=== PATIENT | female | born 1935 | race Caucasian/White ===

== ENCOUNTER → 2019-03-26 08:45 | Outpatient (BNVA) | payer MEDICARE, OTHER, SELFPAY | PROVIDERS: Family Provider Family Medicine; PCP Family Medicine; Visit Provider Specialist | DX: I25.5 Ischemic cardiomyopathy (principal); I73.9 Peripheral vascular disease, unspecified; Z87.891 Personal history of nicotine dependence; Z86.73 Personal history of transient ischemic attack (TIA), and cerebral infarction without residual deficits | CPT/HCPCS: 99214 ==

== ENCOUNTER 2019-04-03 10:14 | Outpatient (CLI) | payer MEDICARE, OTHER, SELFPAY ==
--- NOTE | 2019-04-03 10:15 | USCV_ITS ---
Irma Reid Age: 83 Gender: F : 1935 Exam Date: 04/03/2019 10:38 Ordering Phys: Purvi Mae MD Technologist: Padma Reed [place] [facility] [place]: CARDIOMYOPATHY BP: / HR: 65 Rhythm: Sinus Technical Quality: Adequate MEASUREMENTS (Male / Female) Normal Values 2D ECHO LV Diastolic Diameter PLAX 4.4 cm 4.2 - 5.9 / 3.9 - 5.3 cm LV Systolic Diameter PLAX 3.4 cm LV Chamber Size 4.5 cm IVS Diastolic Thickness 1.5 cm 0.6 - 1.0 / 0.6 - 0.9 cm IVS Systolic Thickness 1.6 cm LVPW Diastolic Thickness 1.2 cm 0.6 - 1.0 / 0.6 - 0.9 cm LVPW Systolic Thickness 1.2 cm RV Chamber Size 3.4 cm LVOT Diameter 2.0 cm LV Ejection Fraction 2D Teich 44.4 % LV Ejection Fraction MOD 2C 35.6 % LV Ejection Fraction 2C AL 38.9 % LA Diameter 3.8 cm LA Width 4.0 cm LA Height 4.5 cm RA Width 3.4 cm RA Height 3.7 cm M-MODE LV Diastolic Diameter MM 5.8 cm 4.2 - 5.9 / 3.9 - 5.3 cm LV Systolic Diameter MM 4.0 cm LV Ejection Fraction MM Teich 59.7 % IVS Diastolic Thickness MM 1.1 cm 0.6 - 1.0 / 0.6 - 0.9 cm IVS Systolic Thickness MM 1.3 cm LVPW Diastolic Thickness MM 1.1 cm 0.6 - 1.0 / 0.6 - 0.9 cm LVPW Systolic Thickness MM 1.1 cm RV Diastolic Diameter MM 1.1 cm Aortic Annulus Diameter 2.8 cm LA Ao Ratio MM 1.4 MV E Point Septal Separation 0.9 cm DOPPLER AV Peak Velocity 141.0 cm/s LVOT Peak Velocity 86.0 cm/s AV Area Cont Eq vti 2.0 cm squared AV Area Cont Eq pk 2.0 cm squared MV Area PHT 3.1 cm squared Mitral E to A Ratio 0.6 MV E' Velocity 8.0 cm/s Mitral E to MV E' Ratio 9.0 Mitral E to LV E' Lateral Ratio 9.1 Mitral E to LV E' Septal Ratio 9.0 TR Peak Velocity 254.2 cm/s TR Peak Gradient 25.9 mmHg TR Mean Velocity 190.2 cm/s TR Mean Gradient 16.5 mmHg TR Velocity Time Integral 69.0 cm TV Peak E Velocity 53.0 cm/s Right Atrial Pressure 8.0 mmHg Pulmonary Artery Systolic Pressu 33.8 mmHg PV Peak Velocity 45.0 cm/s FINDINGS Left Ventricle Normal left ventricular cavity size. Mild left ventricular hypertrophy. Lower limit of normal left ventricular function. No wall motion disturbances. Ejection fraction approximately 50%. Grade 1 diastolic dysfunction. Right Ventricle Normal right ventricular size and systolic function. Normal right ventricular systolic pressure. Right Atrium Moderately increased right atrial size. Left Atrium Moderately increased left atrial size. Mitral Valve Thickened mitral valve. Mild mitral valve prolapse. Moderate mitral valve regurgitation. Aortic Valve Structurally normal trileaflet aortic valve. Mild aortic valve calcification. Aortic valve sclerosis without stenosis or regurgitation. Tricuspid Valve Tricuspid valve not well visualized. Mild tricuspid valve regurgitation. Pulmonic Valve Pulmonic valve not well visualized. Pericardium Normal pericardium without effusion. Aorta Normal ascending aorta dimension. CONCLUSIONS Normal left ventricular cavity size. Mild left ventricular hypertrophy. Lower limit of normal left ventricular function. No wall motion disturbances. Ejection fraction approximately 50%. Grade 1 diastolic dysfunction. Moderately increased right atrial size. Moderately increased left atrial size. Thickened mitral valve. Mild mitral valve prolapse. Moderate mitral valve regurgitation. There are no prior echocardiogram studies to compare. Dr. Hernan Ac MD (Electronically Signed) Final Date: 03 April 2019 16:29 S
== END 2019-04-03 10:15 | disposition home or self-care (01) ==
LOC: RAD 10:16
PROVIDERS: Family Provider Family Medicine; PCP Family Medicine; Visit Provider Specialist
DX: I42.9 Cardiomyopathy, unspecified (principal); I34.1 Nonrheumatic mitral (valve) prolapse; I34.0 Nonrheumatic mitral (valve) insufficiency
CPT/HCPCS: 93306

== ENCOUNTER 2019-04-17 10:05 | Outpatient (CLI) | payer MEDICARE, OTHER, SELFPAY ==
--- NOTE | 2019-04-17 10:15 | USCV_ITS ---
Irma Reid Age: 83 Gender: F : 1935 Exam Date: 04/17/2019 10:07 Ordering Phys: Purvi Mae MD Technologist: [place] [facility] [place]: CLAUDICATION RIGHT LEFT Brachial 166.00 mmHg Brachial 172.00 mmHg Pressure (mmHg) Waveform Pressure (mmHg) Waveform 172.00 Below Knee 184.00 155.00 BABCOCK TESTER 163.00 0.00 DPA 167.00 0.90 Ankle/Brachial Index 0.97 45.00 Pre-Exercise Toe Pressure 128.00 0.26 Pre-Exercise Toe/Brachial Index 0.74 FINDINGS Slightly diminished resting ALEXSANDER on the right side Normal resting ALEXSANDER on the left side Normal resting TBI on the left side Abnormal resting TBI on the right side No Doppler flow signals in the dorsalis pedis artery on the right side CONCLUSIONS 1. 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 Normal ALEXSANDER and TBI on the left side, suggesting no significant arterial obstruction. 3. No previous studies available for comparison. Dr Sami Mccall MD [facility] (Electronically Signed) Final Date: 17 April 2019 20:55 S
== END 2019-04-17 10:06 | disposition home or self-care (01) ==
LOC: RAD 10:06
PROVIDERS: Family Provider Family Medicine; PCP Family Medicine; Visit Provider Specialist
DX: I73.9 Peripheral vascular disease, unspecified (principal)
CPT/HCPCS: 93923

== ENCOUNTER 2019-04-29 09:31 | Outpatient (CLI) | payer MEDICARE, OTHER, SELFPAY ==
--- NOTE | 2019-04-29 10:00 | CT_ITS ---
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 MIP and volume rendering imaging has also been performed. All images are reviewed. All C T scans at [facility] use at least one of these dose optimization techniques: automated ex posure control; mA and/or kV adjustment per patient size (includes targeted exams where dose is match ed to clinical indication); or iterative reconstruction. Contrast: Visipaque 320; 95 mL IV. DLP: 932.89 mGycm COMPARISON: None available. Infrarenal aorta at the bifurcation is intact. There is heavy calcification involving the proximal co mmon iliac arteries. There is heavy calcified plaque throughout the common iliac, internal and information systems professor al iliac arteries. RIGHT lower extremity arterial system: Heavy calcified plaque beginning at the common iliac artery th rough the internal and external iliac arteries and femoral artery. Multifocal areas of moderate to se heladio stenosis. There is near complete occlusion involving the proximal SFA. Additional area of signif icant stenosis at Sarthak's canal and through the popliteal artery. Intermittently visualized three-ve ssel runoff to the ankle. At the ankle there is very poor visualization of the arteries. The distal a nterior tibial artery is not identified on the distal tibia. LEFT lower extremity to system: Heavy calcified plaque involving the proximal common iliac artery thr ough the internal and extra iliac arteries. High-grade stenosis involving the mid SFA with additional moderate stenosis in the distal SFA and popliteal artery. Poor runoff to the ankle. Very poor visual ization of the anterior posterior tibial and peroneal arteries beyond the mid tibia. ESTIMATED AREAS OF significant STENOSIS: 1. RIGHT external iliac artery 67%. 2. RIGHT proximal SFA 72%. 3. RIGHT popliteal artery 91%. 4. LEFT common iliac artery 64%. 5. LEFT external iliac artery 71%. 6. LEFT mid SFA 78%. 7. LEFT popliteal artery 88%. Status post longstem RIGHT femoral arthroplasty causing significant beam hardening. CT/[place] [id number] IMPRESSION: 1. Multifocal areas of significant arterial stenosis throughout the iliac lyndsey carmen to the popliteal arteries as above. 2. Most significant stenosis on the RIGHT is 91% in the popliteal artery with additional areas of significant stenosis. 3. Most significant stenosis on the LEFT is 88% involving the LEFT popliteal a rtery. 4. Limited runoff to the ankles bilaterally.
[2019-04-29 10:40] LABS: Blood Urea Nitrogen 18 mg/dL (8-23)
[2019-04-29] MEDS: iodixanol 320 mg/mL 100mL Btl IV (13:45)
== END 2019-04-29 09:32 | disposition home or self-care (01) ==
LOC: RADWPI 09:39
PROVIDERS: Family Provider Family Medicine; PCP Family Medicine; Visit Provider Specialist
DX: I70.293 Other atherosclerosis of native arteries of extremities, bilateral legs (principal); I70.92 Chronic total occlusion of artery of the extremities
CPT/HCPCS: 73706; 82565; 84520; Q9967

== ENCOUNTER 2019-06-23 13:15 | Inpatient (IN) | payer MEDICARE, OTHER, SELFPAY ==
[2019-06-23] VITALS (22 sets, daily range): BP systolic 149–187; BP diastolic 69–115; PULSE 64–108; RESP 6–24; TEMP 36.5; O2SAT 86–98; BMI 15.7
--- NOTE | 2019-06-23 13:21 | XR_ITS ---
WS: [id number] PORTABLE CHEST HISTORY: cough COMPARISON: 08/19/2018 Marked pulmonary hyperexpansion. No pneumonia. Normal vasculature. No pleural effusion or pneumothora x. Cardiac size: Mildly enlarged cardiac silhouette. Mediastinum/Aorta: Mild atherosclerosis aorta. Severe osteopenia. XR/XR chest 1V portable [id number] IMPRESSION: Severe emphysema. No pneumonia.
--- NOTE | 2019-06-23 13:21 | CTR_ITS ---
PROCEDURE INFORMATION: Exam: CT Head Without Contrast Exam date and time: 06/23/2019 1:47 PM Age: 83 years old Clinical indication: Injury or trauma; Initial encounter; Blunt trauma (contusions or hematomas); Consciousness not specified; Patient HX: C/O dizziness, weakness and fall this am; Additional info: Villalpando/ams TECHNIQUE: Imaging protocol: Computed tomography of the head without contrast. Total DLP: 876.47 mGy-cm Radiation optimization: All CT scans at this facility use at least one of these dose optimization techniques: automated exposure control; mA and/or kV adjustment per patient size (includes targeted exams where dose is matched to clinical indication); or iterative reconstruction. COMPARISON: CTA Head/Neck [id number] 01/31/2019 2:23 PM FINDINGS: Brain: No acute intracranial mass or bleed evident. No apparent change from 01/31/2019. Mild generalized cerebral atrophy. Foci of chronic right superior frontal and left parietal lobe encephalomalacia, stable. 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 Punctate left basal ganglion calcification. Moderate amount of chronic appearing cerebral hemisphere subcortical and periventricular white matter low-density due to chronic small vessel disease. Ventricles: Prominent ventricles due to cerebral atrophy, unchanged. Bones/joints: Unremarkable. No acute fracture. Sinuses: Visualized sinuses are unremarkable. No fluid levels. Mastoid air cells: Visualized mastoid air cells are well aerated. Soft tissues: Unremarkable. CT/CT head wo con* [id number] IMPRESSION: No acute process evident. Chronic findings unchanged from 01/31/2019. Radiation Dose CTDIVOL = (mGy): DLP = 876.47 (mGy-cm)
--- NOTE | 2019-06-23 13:21 | CTR_ITS ---
PROCEDURE INFORMATION: Exam: CT Chest With Contrast Exam date and time: 06/23/2019 1:47 PM Age: 83 years old Clinical indication: Injury or trauma; Fall; Initial encounter; Generalized; Blunt trauma (contusions or hematomas); Patient HX: C/O n/v/d, weakness and fell this am injury to sternum area TECHNIQUE: Imaging protocol: Computed tomography of the chest with intravenous contrast. Total DLP: 979.82 mGy-cm Radiation optimization: All CT scans at this facility use at least one of these dose optimization techniques: automated exposure control; mA and/or kV adjustment per patient size (includes targeted exams where dose is matched to clinical indication); or iterative reconstruction. Contrast material: VISI 320; Contrast volume: 75 ml; Contrast route: 20G; COMPARISON: CT abdomen pelvis con [id number] 08/19/2018 12:47 PM FINDINGS: Lungs: Unremarkable. No consolidation. No masses. Pleural space: No pleural effusion. No pneumothorax. Heart: No cardiomegaly. No pericardial effusion. Aorta: No aortic aneurysm. Lymph nodes: No significant adenopathy. Bones/joints: No acute findings. Old sternal fracture. Soft tissues: No acute findings. IMPRESSION: No acute findings. PROCEDURE INFORMATION: Exam: CT Abdomen And Pelvis With Contrast Exam date and time: 06/23/2019 1:47 PM Age: 83 years old Clinical indication: Injury or trauma; Fall; Initial encounter; Generalized; Blunt trauma (contusions or hematomas); Patient HX: C/O n/v/d, weakness and fell this am injury to sternum area TECHNIQUE: Imaging protocol: Computed tomography of the abdomen and pelvis with intravenous contrast. Total DLP: 979.82 mGy-cm Radiation optimization: All CT scans at this facility use at least one of these dose optimization techniques: automated exposure control; mA and/or kV adjustment per patient size (includes targeted exams where dose is matched to clinical indication); or iterative reconstruction. Contrast material: VISI 320; Contrast volume: 75 ml; Contrast route: 20G; COMPARISON: CT abdomen pelvis con [id number] 08/19/2018 12:47 PM FINDINGS: Liver: No mass. 2.5 cm cyst. Gallbladder and bile ducts: Unremarkable. No ductal dilation. Pancreas: No acute findings. No ductal dilation. Spleen: Normal. No splenomegaly. Adrenals: Normal. No mass. Kidneys and ureters: Normal. No hydronephrosis. Stomach and bowel: No acute findings. No obstruction. No mucosal thickening. Appendix: No evidence of appendicitis. Intraperitoneal space: Unremarkable. No free air. No significant fluid collection. Vasculature: No abdominal aortic aneurysm. Lymph nodes: No significant adenopathy. Bladder: Unremarkable as visualized. Reproductive: Unremarkable as visualized. Bones/joints: Right hip prosthesis, metallic artifact. Lumbar levoscoliosis and degenerative change. No acute fracture. Soft tissues: Unremarkable. CT/CT chest abd pel w con* IMPRESSION: No acute findings. Radiation Dose CTDIVOL = (mGy): DLP = 979.82~979.82 (mGy-cm)
--- NOTE | 2019-06-23 13:23 | W.ED.GENADLT ---
HPI - General Adult General: Chief complaint: Dizziness Stated complaint: DIZZY; FALL Time Seen by Provider: 06/23/19 13:18 History of Present Illness: HPI narrative: Irma is a nice 83-year-old female who states that she has had vomiting and diarrhea since early this morning. She woke up about 1 AM and did not feel good and at 5 AM she got up when she felt like she needed to vomit. She denies any chest pain or shortness of breath but does have abdominal cramping. She is now gotten to the point she is so weak that she fell at home striking her chest against a wall. Associated symptoms: Reports nausea and vomiting; Deny chest pain, confusion, diaphoresis, dyspnea, headache(s), malaise, rash, palpitations or syncope Review of Systems General: Reports: other (negative unless marked) Const: Denies: fever, chills, body aches, malaise or diaphoresis Eyes: Denies: change in vision or blurry vision ENMT: Denies: throat pain, painful swallowing, hoarseness, ear pain, ear discharge, Change in hearing or nasal discharge Card: Denies: chest pain, palpitations, irregular heart rhythm, syncope, pre-syncope, shortness of breath on exertion or shortness of breath when lying down Resp: Denies: shortness of breath, productive cough, non-productive cough, wheezing, coughing up blood or chest congestion GI: Reports: abdominal pain, nausea, vomiting, diarrhea and cramping; Denies: vomiting blood, coffee grounds in vomit, constipation, blood in stool or black tarry stool : Denies: flank pain, painful urination, urinary frequency, urinary urgency, decreased urine ouput, urinary incontinence or blood in urine Musc: Denies: neck pain, back pain, extremity pain, extremity swelling, joint pain, joint swelling, joint warmth or joint stiffness Skin/Breast: Denies: rash, skin tenderness or yellow skin Neuro: Denies: headache, numbness in extremities, weakness in extremities, changes in sensation, lack of coordination, difficulty walking, dizziness, vertigo or confusion Endo: Denies: excessive thirst, tired all the time, cold intolerance, excessive sweating, flushing or hot flashes Jarret/Lymph: Denies: easy bruising, easy bleeding, petechiae or enlarged lymph nodes All/Imm: Denies: hives, throat swelling, tongue swelling, facial swelling or acute wheezing PFSH ED PFSH: Medical History Atypical chest pain Benign essential HTN Carotid artery stenosis with cerebral infarction over 8 weeks ago Had CVA in August 2018-is being followed by Dr. Mae Cerebral vascular accident Chronic heart failure Hyperlipemia Hypertension Kidney calculi Myocardial infarct Family History Denies family history of Diabetes CAD (coronary artery disease) Cancer Hypertension Stroke Social History Smoking and tobacco status: former smoker Alcohol intake: current Alcohol intake frequency: few times a month Alcohol type: wine Physical Exam Const: COMMON NORMALS: no apparent distress, oriented x3, no limitations, healthy appearing and well nourished EXAM LIMITATIONS: no altered mental status GENERAL APPEARANCE: cooperative, well kempt and well developed ORIENTATION/CONSCIOUSNESS: Yes awake HENMT: COMMON NORMALS: normocephalic, head/scalp atraumatic, hearing grossly normal bilaterally, external ears normal, EAC's normal, external nose normal and moist oral mucous membranes HEAD & SCALP: normal to inspection, normocephalic and atraumatic FACE & SINUS: normal facial exam and face symmetric NOSE: external nose normal and nares normal EXTERNAL EAR: Yes external ears normal EXTERNAL AUDITORY CANAL: EAC's normal MOUTH: oral and palatal mucosa normal and tongue normal Eye: COMMON NORMALS: PERRL, EOMs intact bilaterally, conjunctivae normal and no scleral icterus GENERAL EYE: normal appearance of both eyes and normal light reflex CONJUNCTIVA: Yes conjunctivae normal SCLERA: sclerae normal CORNEA: Yes corneas normal PUPIL: Yes PERRL DIRECT OPHTHALMOSCOPY: Yes normal light reflex Neck/C-Spine: COMMON NORMALS: full ROM, no lymphadenopathy, supple, no meningeal signs and no JVD GENERAL: Yes normal visual inspection and Yes trachea midline CERVICAL SPINE: Yes cervical ROM normal Chest: CHEST: Yes localized rib tenderness with anteroposterior compression (With bruising noted over left mid chest.) Resp: COMMON NORMALS: normal respiratory effort, no retractions, no use of accessory muscles and clear to auscultation bilaterally EFFORT & INSPECTION: Yes able to speak in complete sentences AUSCULTATION: clear to auscultation bilaterally Cardio: COMMON NORMALS: no JVD, regular rate, regular rhythm, S1 normal heart sound, S2 normal heart sound, no gallops, no clicks, no murmurs and no rub JUGULAR VENOUS DISTENTION: no JVD RATE: regular rate RHYTHM: regular rhythm HEART SOUNDS: S1 normal and S2 normal GI: COMMON NORMALS: soft to palpation, non-tender, no hepatosplenomegaly and no masses INSPECTION: Yes normal to inspection PALPATION: Yes soft and Yes no hepatosplenomegaly : COMMON NORMALS: Yes no CVA tenderness BLADDER/KIDNEY EXAM: Yes no CVA tenderness Back/Pelvis: COMMON NORMALS: no CVA tenderness, thoracic and lumbar spine normal to inspection, no thoracic nor lumbar tenderness and thoraco-lumbar ROM normal Extremity: COMMON NORMALS: normal to inspection, full ROM, normal capillary refill, no joint enlargement, no clubbing, cyanosis or edema and no calf tenderness Neuro: COMMON NORMALS: oriented x3, CN's II-XII intact bilaterally, moves all extremities, no focal motor deficits and no sensory deficits noted MENINGEAL SIGNS: Yes no meningeal signs Psych: COMMON NORMALS: mental status grossly normal, thought process normal, cooperative, affect normal, speech normal and activity/motor behavior normal APPEARANCE: Yes well kempt SPEECH: Yes normal speech THOUGHT PROCESS: normal thought process Skin: COMMON NORMALS: no rashes or lesions noted, skin turgor normal, no jaundice, no petechiae and no mottling GENERAL SKIN EXAM: no rashes or lesions noted and turgor normal Course Vital Signs: Vital signs: Vital Signs Temperature 97.7 F 06/23/19 13:17 Pulse Rate 72 06/23/19 13:35 Respiratory Rate 16 06/23/19 13:17 Blood Pressure 175/99 06/23/19 13:35 Pulse Oximetry 95 06/23/19 13:17 [facility] - General Adult Lab Data: Labs: Lab Results 06/23/19 06/23/19 06/23/19 Range/Units 13:30 13:30 13:30 WBC 6.1 (4.0-10.0) 10^3/ uL RBC 3.33 L (4.1-5.3) 10^6/u L Hgb 7.4 L (11.5-15.3) g/dL Hct 25.3 L (37.0-47.0) % MCV 76.0 L (81-99) fL MCH 22.2 L (28.0-34.0) pg MCHC 29.2 L (30.0-36.0) g/dL RDW 16.2 H (12.1-15.1) % Plt Count 465 H (130-400) 10^3/c mm MPV 8.6 (7.4-10.4) fL Neut % (Auto) 63.8 % Lymph % (Auto) 21.4 % [place] % (Auto) 13.5 % Eos % (Auto) 0.2 % Baso % (Auto) 0.8 % Neut # (Auto) 3.9 (1.8-7.7) 10^3/u L Lymph # (Auto) 1.3 (0.8-4.8) 10^3/u L [place] # (Auto) 0.8 (0.2-0.9) 10^3/u L Eos # (Auto) 0.0 (0.0-0.8) 10^3/u L Baso # (Auto) 0.1 (0.0-0.1) 10^3/u L Nucleated RBC % (a uto) 0 % Nucleated RBCs # 0.0 /100WBC Sodium 131 L (136-145) mmol/L Potassium 3.8 (3.5-5.1) mmol/L Chloride 93 L (98-107) mmol/L Carbon Dioxide 23 (22-29) mmol/L Anion Gap 18.8 (5-19) BUN 25 H (8-23) mg/dL Creatinine 1.2 H (0.5-0.9) mg/dL Glucose 117 H (65-115) mg/dL Calculated Osmolal ity 270 L (285-295) mOsm/k g Lactic Acid 1.7 (0.5-2.2) mmol/L Calcium 9.7 (8.5-10.5) mg/dL Total Bilirubin 0.3 (0.15-1.2) mg/dL AST 24 (0-32) U/L ALT 16 (0-33) U/L Alkaline Phosphata se 56 (35-105) IU/L Troponin T Baselin e (0-10) ng/mL Troponin T 120 Min [place] (0-10) ng/mL Total Protein 8.0 (6.6-8.7) g/dL Albumin 4.6 (3.5-5.2) g/dL Globulin 3.4 (1.3-4.6) g/dL Lipase 73 H (13-60) U/L Urine Color (Yellow) Urine Appearance (CLEAR) Urine pH (5-7) Ur Specific Gravit y (1.005-1.030) Urine Protein (Negative) Urine Glucose (UA) (Normal) Urine Ketones (Negative) Urine Blood (Negative) Urine Nitrate (Negative) Urine Bilirubin (NEGATIVE) Urine Urobilinogen (Negative) mg/dL Ur Leukocyte Eli ase (Negative) Urine RBC (0-2) /hpf Urine WBC (0-5) /hpf Ur Squamous Epith Cells (0-5) Urine Bacteria (NONE) Blood Type Rho(D) Type Antibody Screen Crossmatch 06/23/19 06/23/19 06/23/19 Range/Units 13:30 13:50 14:14 WBC (4.0-10.0) 10^3/ uL RBC (4.1-5.3) 10^6/u L Hgb (11.5-15.3) g/dL Hct (37.0-47.0) % MCV (81-99) fL MCH (28.0-34.0) pg MCHC (30.0-36.0) g/dL RDW (12.1-15.1) % Plt Count (130-400) 10^3/c mm MPV (7.4-10.4) fL Neut % (Auto) % Lymph % (Auto) % [place] % (Auto) % Eos % (Auto) % Baso % (Auto) % Neut # (Auto) (1.8-7.7) 10^3/u L Lymph # (Auto) (0.8-4.8) 10^3/u L [place] # (Auto) (0.2-0.9) 10^3/u L Eos # (Auto) (0.0-0.8) 10^3/u L Baso # (Auto) (0.0-0.1) 10^3/u L Nucleated RBC % (a uto) % Nucleated RBCs # /100WBC Sodium (136-145) mmol/L Potassium (3.5-5.1) mmol/L Chloride (98-107) mmol/L Carbon Dioxide (22-29) mmol/L Anion Gap (5-19) BUN (8-23) mg/dL Creatinine (0.5-0.9) mg/dL Glucose (65-115) mg/dL Calculated Osmolal ity (285-295) mOsm/k g Lactic Acid (0.5-2.2) mmol/L Calcium (8.5-10.5) mg/dL Total Bilirubin (0.15-1.2) mg/dL AST (0-32) U/L ALT (0-33) U/L Alkaline Phosphata se (35-105) IU/L Troponin T Baselin e 20 H (0-10) ng/mL Troponin T 120 Min [place] (0-10) ng/mL Total Protein (6.6-8.7) g/dL Albumin (3.5-5.2) g/dL Globulin (1.3-4.6) g/dL Lipase (13-60) U/L Urine Color Yellow (Yellow) Urine Appearance Clear (CLEAR) Urine pH 7 (5-7) Ur Specific Gravit y 1.010 (1.005-1.030) Urine Protein Neg (Negative) Urine Glucose (UA) Norm (Normal) Urine Ketones Negative (Negative) Urine Blood Neg (Negative) Urine Nitrate Negative (Negative) Urine Bilirubin Neg (NEGATIVE) Urine Urobilinogen Norm (Negative) mg/dL Ur Leukocyte Eli ase Negative (Negative) Urine RBC None (0-2) /hpf Urine WBC None (0-5) /hpf Ur Squamous Epith Cells None (0-5) Urine Bacteria 1+ H (NONE) Blood Type A Negative Rho(D) Type Negaive Antibody Screen Negative Crossmatch See Detail 06/23/19 Range/Units 15:30 WBC (4.0-10.0) 10^3/ uL RBC (4.1-5.3) 10^6/u L Hgb (11.5-15.3) g/dL Hct (37.0-47.0) % MCV (81-99) fL MCH (28.0-34.0) pg MCHC (30.0-36.0) g/dL RDW (12.1-15.1) % Plt Count (130-400) 10^3/c mm MPV (7.4-10.4) fL Neut % (Auto) % Lymph % (Auto) % [place] % (Auto) % Eos % (Auto) % Baso % (Auto) % Neut # (Auto) (1.8-7.7) 10^3/u L Lymph # (Auto) (0.8-4.8) 10^3/u L [place] # (Auto) (0.2-0.9) 10^3/u L Eos # (Auto) (0.0-0.8) 10^3/u L Baso # (Auto) (0.0-0.1) 10^3/u L Nucleated RBC % (a uto) % Nucleated RBCs # /100WBC Sodium (136-145) mmol/L Potassium (3.5-5.1) mmol/L Chloride (98-107) mmol/L Carbon Dioxide (22-29) mmol/L Anion Gap (5-19) BUN (8-23) mg/dL Creatinine (0.5-0.9) mg/dL Glucose (65-115) mg/dL Calculated Osmolal ity (285-295) mOsm/k g Lactic Acid (0.5-2.2) mmol/L Calcium (8.5-10.5) mg/dL Total Bilirubin (0.15-1.2) mg/dL AST (0-32) U/L ALT (0-33) U/L Alkaline Phosphata se (35-105) IU/L Troponin T Baselin e (0-10) ng/mL Troponin T 120 Min [place] 19.50 H (0-10) ng/mL Total Protein (6.6-8.7) g/dL Albumin (3.5-5.2) g/dL Globulin (1.3-4.6) g/dL Lipase (13-60) U/L Urine Color (Yellow) Urine Appearance (CLEAR) Urine pH (5-7) Ur Specific Gravit y (1.005-1.030) Urine Protein (Negative) Urine Glucose (UA) (Normal) Urine Ketones (Negative) Urine Blood (Negative) Urine Nitrate (Negative) Urine Bilirubin (NEGATIVE) Urine Urobilinogen (Negative) mg/dL Ur Leukocyte Eli ase (Negative) Urine RBC (0-2) /hpf Urine WBC (0-5) /hpf Ur Squamous Epith Cells (0-5) Urine Bacteria (NONE) Blood Type Rho(D) Type Antibody Screen Crossmatch Imaging Data^: CXR: Radiologist's impression: No acute cardiopulmonary findings. Discharge Plan Discharge Prescriptions: No Action levothyroxine 50 mcg capsule 50 mcg PO DAILY RF: 0 ergocalciferol (vitamin D2) [Vitamin D2] 1,250 mcg (50,000 unit) capsule 50,000 unit PO Q7D RF: 0 cilostazol 50 mg tablet 50 mg PO BID Qty: 180 RF: 3 chlorthalidone 25 mg tablet 25 mg PO DAILY Qty: 90 RF: 3 hydralazine 50 mg tablet 75 mg PO TID Qty: 405 RF: 3 Lasix 20 mg Tablet 20 mg PO DAILY RF: 0 metoprolol tartrate 25 mg tablet 25 mg PO BID RF: 0 Tylenol 1 - 2 tab PO PRN RF: 0 atorvastatin 20 mg tablet 20 mg PO DAILY RF: 0 clopidogrel 75 mg tablet 75 mg PO DAILY RF: 0 Coding Level of Care Code ED Sr. Director Product Management for Chg Fwd Exam Comprehensive
--- NOTE | 2019-06-23 13:24 | ECG_ITS ---
Measurements Intervals [place] Rate: 73 P: 74 [place]: 169 QRS: -35 QRSD: 94 T: 41 QT: 422 QTc: 466 SINUS RHYTHM WITH FREQUENT VENTRICULAR PREMATURE COMPLEXES POSSIBLE LEFT ATRIAL ENLARGEMENT [-0.1mV P WAVE IN V1/V2] MARKED LEFT AXIS DEVIATION [QRS AXIS < -30] POSSIBLE RIGHT VENTRICULAR CONDUCTION DELAY [RSR (QR) IN V1/V2] ANTEROSEPTAL MYOCARDIAL INFARCTION [40+ ms Q WAVE IN V1-V4], OF INDETERMINATE AGE Compared to ECG 12/05/2018 14:20:17 No significant changes Electronically Signed On 06-23-2019 20:24:47 CDT by Sami Mccall M.D. [id number]
[2019-06-23 13:34] LABS: Basophils # 0.1 10^3/uL (0.0-0.1); Basophils % 0.8 %; Eosinophils % 0.2 %; Hematocrit 25.3 % (37.0-47.0); Hemoglobin 7.4 g/dL (11.5-15.3); Lymphocytes # 1.3 10^3/uL (0.8-4.8); Lymphocytes % 21.4 %; Mean Corpuscular HGB Conc 29.2 g/dL (30.0-36.0); Mean Corpuscular Hemoglobin 22.2 pg (28.0-34.0); Mean Platelet Volume 8.6 fL (7.4-10.4); Monocytes # 0.8 10^3/uL (0.2-0.9); Monocytes % 13.5 %; Neutrophils # 3.9 10^3/uL (1.8-7.7); Neutrophils % 63.8 %; Nucleated Red Blood Cells % 0 %; Platelet Count 465 10^3/cmm (130-400); Red Blood Count 3.33 10^6/uL (4.1-5.3); Red Cell Distribution Width 16.2 % (12.1-15.1); White Blood Count 6.1 10^3/uL (4.0-10.0)
--- NOTE | 2019-06-23 13:36 | PC.NURSE ---
Patient unable to stand for BP for orthostatic vitals
[2019-06-23 13:52] LABS: Alanine Aminotransferase 16 U/L (0-33); Albumin Level 4.6 g/dL (3.5-5.2); Alkaline Phosphatase 56 IU/L (35-105); Anion Gap 18.8 (5-19); Aspartate Amino Transferase 24 U/L (0-32); Blood Urea Nitrogen 25 mg/dL (8-23); Calcium 9.7 mg/dL (8.5-10.5); Carbon Dioxide 23 mmol/L (22-29); Chloride 93 mmol/L (98-107); Globulin 3.4 g/dL (1.3-4.6); Glucose 117 mg/dL (65-115); Lipase 73 U/L (13-60); Osmolality Calculated 270 mOsm/kg (285-295); Potassium 3.8 mmol/L (3.5-5.1); Sodium 131 mmol/L (136-145); Total Bilirubin 0.3 mg/dL (0.15-1.2)
[2019-06-23 13:53] LABS: Lactic Sepsis W/Reflex 1.7 mmol/L (0.5-2.2)
[2019-06-23 13:55] LABS: Troponin(5th) Baseline 20 ng/mL (0-10)
[2019-06-23 14:13] LABS: Add Urine Culture? No; Bacteria Urine 1+; Bilirubin Urine Neg (NEGATIVE); Blood Urine Neg (Negative); Glucose Urine UA Norm (Normal); Ketones Urine Negative (Negative); Leukocyte Esterase Urine Negative (Negative); Nitrate Urine Negative (Negative); Protein Urine Neg (Negative); Urine Appearance Clear (CLEAR); Urine Color Yellow (Yellow); Urobilinogen Urine Norm (Negative); pH Urine 7 (5-7)
[2019-06-23] MEDS: iodixanol 320 mg/mL 100mL Btl IV (14:22)
[2019-06-23] MEDS: sodium chloride 0.9% 1,000 ML 999 ML IV (14:38)
--- NOTE | 2019-06-23 15:24 | ECG_ITS ---
Measurements Intervals [place] Rate: 73 P: 74 [place]: 169 QRS: -35 QRSD: 94 T: 41 QT: 422 QTc: 466 SINUS RHYTHM WITH FREQUENT VENTRICULAR PREMATURE COMPLEXES POSSIBLE LEFT ATRIAL ENLARGEMENT [-0.1mV P WAVE IN V1/V2] MARKED LEFT AXIS DEVIATION [QRS AXIS < -30] POSSIBLE RIGHT VENTRICULAR CONDUCTION DELAY [RSR (QR) IN V1/V2] ANTEROSEPTAL MYOCARDIAL INFARCTION [40+ ms Q WAVE IN V1-V4], OF INDETERMINATE AGE Compared to ECG 12/05/2018 14:20:17 No significant changes [email or web address]
[2019-06-23] MEDS: pantoprazole 40 mg SDV 80 MG IVP (15:25)
--- NOTE | 2019-06-23 16:22 | PM.HP ---
Providers/Chief Complaint Admitting Physician: Noe Handley MD Primary Care Provider: Scooby Ignacio MD Chief Complaint: LOWER GI LAB History of Present Illness Irma Reid is a 83 year old female with a past medical history of nonischemic cardiomyopathy with an ejection fraction 50 %, diastolic heart failure, history of multiple CVAs, carotid artery stenosis, diffuse peripheral vascular disease, history of GI bleed with iron deficiency anemia, hypothyroidism, B12 deficiency, dyslipidemia, COPD, hypertension, nephrolithiasis who presents to the emergency room for complaints for frequent falls, weakness, malaise, poor appetite, weight loss. According to patient, a year ago she had a history of nephrolithiasis, with significant infection, requiring stent placement at [facility], since her discharge she has had a slow decline. She states that she has chronic falls, in the last month she is fallen 3 times, last fall was this morning, patient states that she got up from her bedroom, walked down the stairs, she felt nauseous, she actually vomited, was able to use the walker to get to her couch. Then roughly at noon, she got up from the couch, use her walker, to go over to the kitchen, when she got over to the kitchen, she felt lightheaded, and she fell forward, she does not remember exactly how she fell, but remembers being on the floor, was able to crawl to a chair, and was able to call her daughter, who advised her to call EMS. She does report a large area of bleeding on her chest, she thinks she hit her head, no headaches, no blurry vision, no nausea, no vomiting currently. Patient denies any preceding chest pain, shortness of breath, blackouts, but does report lightheadedness before the event. No seizure-like episodes reported. Patient states that she is fallen a few times this week, no significant bruising, no significant joint pain, no hip pain, no knee pain, no headaches, no blurry vision, no nausea, no vomiting. On arrival to the ED, patient was noted to have a hematoma of her on her chest, blood work revealed a hemoglobin of 7.3. Patient denies bloody or black stools, but does comment that she does not check. Denies vaginal bleeding. 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 She did have an EGD in the in the which showed gastric ulcers. Does state that she has been feeling weak, fatigued, tired over the last few months, has lost roughly 10 pounds without trying, has a good appetite but continues to lose weight. Patient states that she uses Plavix for a history of strokes, has been on Plavix for more than 5 years. Denies being on aspirin. Denies being on any other blood thinners Review of Systems Const: Reports: fatigue and malaise; Denies: fever or chills Eyes: Denies: change in vision or blurry vision ENMT: Denies: nasal congestion Card: Reports: lightheadedness; Denies: chest pain, palpitations, irregular heart rhythm, syncope, pre-syncope, shortness of breath on exertion or shortness of breath when lying down Resp: Denies: shortness of breath, productive cough, non-productive cough or wheezing GI: Reports: diarrhea; Denies: abdominal pain, nausea, vomiting, vomiting blood, constipation, blood in stool or black tarry stool : Denies: flank pain, painful urination or urinary frequency Musc: Denies: neck pain or back pain Skin/Breast: Denies: rash Neuro: Denies: headache, dizziness or vertigo Psych: Denies: anxiety or depression Endo: Denies: excessive urination or excessive thirst Medications/Allergies Home Medications Medication Instructions Recorded Confirmed Last Taken Type ergocalciferol (vitamin D2) 1,250 50,000 unit PO Q7D 03/26/19 06/23/19 Unknown History mcg (50,000 unit) capsule levothyroxine 50 mcg capsule 50 mcg PO DAILY 03/26/19 06/23/19 06/23/19 History chlorthalidone 25 mg tablet 25 mg PO DAILY #90 tab 06/05/19 06/23/19 06/23/19 Rx cilostazol 50 mg tablet 50 mg PO BID #180 tab 06/05/19 06/23/19 Unknown Rx hydralazine 50 mg tablet 75 mg PO TID #405 tab 06/11/19 06/23/19 Unknown Rx Tylenol 1 - 2 tab PO PRN 06/23/19 06/23/19 Unknown History atorvastatin 20 mg PO DAILY 06/23/19 06/23/19 Unknown History clopidogrel 75 mg PO DAILY 06/23/19 06/23/19 06/23/19 History furosemide [Lasix] 20 mg PO DAILY 06/23/19 06/23/19 06/23/19 History metoprolol tartrate 25 mg PO BID 06/23/19 06/23/19 Unknown History Allergies Allergy/AdvReac Type Severity Reaction Status Date / Time meperidine [From Demerol] Allergy unknown Verified 03/26/19 09:08 PFSH Acute PFSH: Medical History (Updated 06/23/19 @ 16:47 by Noe Handley MD) Atypical chest pain Benign essential HTN Carotid artery stenosis with cerebral infarction over 8 weeks ago Had CVA in August 2018-is being followed by Dr. Mae Cerebral vascular accident Chronic heart failure Hyperlipemia Hypertension Kidney calculi Myocardial infarct Surgical History (Updated 06/23/19 @ 16:32 by Noe Handley MD) History of colonoscopy History of esophagogastroduodenoscopy (EGD) Family History (Updated 06/23/19 @ 16:32 by Noe Handley MD) Father Cancer, Onset Age: 90 Colon cancer Denies family history of Diabetes CAD (coronary artery disease) Hypertension Stroke Social History Smoking and tobacco status: former smoker Alcohol intake: current Alcohol intake frequency: few times a month Alcohol type: wine Vitals/I&O/Wt Last Vital Signs Temp 97.7 F 06/23/19 13:17 Pulse 72 06/23/19 13:35 Resp 16 06/23/19 13:17 BP 175/99 06/23/19 13:35 Pulse Ox 95 06/23/19 13:17 Weight last 48 hrs Weight 41.73 kg Physical Exam Const: COMMON NORMALS: no apparent distress and oriented x3 GENERAL APPEARANCE: cooperative and comfortable HENMT: COMMON NORMALS: normocephalic HEAD & SCALP: normocephalic Eye: COMMON NORMALS: PERRL, EOMs intact bilaterally and no papilledema GENERAL EYE: normal appearance of both eyes PUPIL: Yes PERRL DIRECT OPHTHALMOSCOPY: Yes no papilledema Neck/C-Spine: COMMON NORMALS: full ROM, no lymphadenopathy, no JVD and thyroid normal THYROID: thyroid normal Lymph: LYMPHATIC: no lymphadenopathy noted Chest: OTHER: 3 x 3 cm chest hematoma, not actively bleeding Resp: COMMON NORMALS: normal respiratory effort, no retractions, no use of accessory muscles and clear to auscultation bilaterally AUSCULTATION: clear to auscultation bilaterally Cardio: COMMON NORMALS: no JVD, regular rate, regular rhythm, S1 normal heart sound, S2 normal heart sound, no gallops, no clicks and no murmurs RATE: regular rate RHYTHM: regular rhythm HEART SOUNDS: S1 normal and S2 normal GI: COMMON NORMALS: normal to inspection, nondistended, normoactive bowel sounds, soft to palpation, non-tender and no hepatosplenomegaly PALPATION: Yes soft and Yes no hepatosplenomegaly OTHER: Evidence of weight loss Extremity: COMMON NORMALS: normal to inspection, full ROM and no pedal edema Neuro: COMMON NORMALS: oriented x3, CN's II-XII intact bilaterally, moves all extremities and no focal motor deficits Psych: COMMON NORMALS: mental status grossly normal, thought process normal and cooperative THOUGHT PROCESS: normal thought process Data : 06/23/19 13:30 06/23/19 13:30 A&P Assessment and plan (1) GI bleed: -Has a history of precancerous colonic polyps since she was 32, has undergone multiple colonoscopies, last colonoscopy was when she was 77 which was normal, does have a family history of colon cancer in his father in his 90s -Has had any EGD in the , had gastric ulcers -Is on Plavix for history of CVAs -Has complaints of weakness, fatigue, falls, weight loss -In 2016 had admission for pneumonia, was found to be anemic, hemoglobin 6.3, EGD and colonoscopy were considered but was felt to be too a high risk for the procedure, there was plans on outpatient procedures, however patient did not follow-up -Hemoglobin on admission 7.4, BUN 25 -Hemoccult grossly positive for blood -CT scan of the abdomen no acute findings -Blood pressure on admission 140/86, heart rates in the 70s, hemodynamically stable -Anemia likely secondary to GI bleed, differential includes upper GI bleed related to peptic ulcer disease and or lower GI bleed related to colonic polyps and/or possible colon cancer, but multiple and other etiologies possible Plan: -Admit to intensive care unit -Serial hemoglobins every 6 hours -Monitor hemodynamics closely -Monitor for bloody or black stools -Protonix 40 mg IV twice daily -will receive 2 units of blood, check hemoglobin after -Iron studies, cea, B12 folate -I had an extensive discussion with patient about the possibility of an EGD and colonoscopy, but at this time patient declines, states that she has had too many of those done, and would not like to have it done unless it is urgently required -I discussed with patient my concerns for the possibility of an upper GI bleed possibly surgical interventions could decrease her bleeding, patient understands risks and benefits, voiced understanding, refuses for now unless emergently required -I discussed with patient my concerns for lower GI bleed, possible surgical interventions could decrease her bleeding, or detect early precancerous polyp, or early colon cancer, that could significantly reduce her morbidity and mortality, patient voiced understanding, all questions answered, refuses for now unless urgently required -I advised patient that there are risks of doing EGD and colonoscopy, given her ischemic cardiomyopathy, risks of surgical procedure, risk of anesthesia, risk of morbidity mortality associated, risk of adverse events, she voiced understanding, all questions answered, will hold off work for now -Patient will consider doing an outpatient EGD and colonoscopy -I briefly spoke with , who agreed with medical management, surgical interventions could be entertained if urgently required Status: Acute (2) Acute kidney injury: Gentle IV hydration given nonischemic cardiomyopathy Status: Acute (3) Nonischemic cardiomyopathy: Echocardiogram in March 2019 showed CONCLUSIONS Normal left ventricular cavity size. Mild left ventricular hypertrophy. Lower limit of normal left ventricular function. No wall motion disturbances. Ejection fraction approximately 50%. Grade 1 diastolic dysfunction. Moderately increased right atrial size. Moderately increased left atrial size. Thickened mitral valve. Mild mitral valve prolapse. Moderate mitral valve regurgitation. There are no prior echocardiogram studies to compare. Status: Acute (4) Benign essential HTN: Status: Acute (5) Chest wall hematoma: Monitor hemoglobin, monitor for bleeding, not a dirty wound, no need for Tdap Status: Acute (6) History of multiple cerebrovascular accidents (CVAs): -CTA of the head and neck done in January 2019 showed remote left parietal and right frontal infarct stable from 03/01/2018, additional remote left thalamic lacunar infarct and possible bilateral basal ganglia lacunar infarcts -Plavix currently on hold, understands risks and benefits, voiced understanding all questions answered, agreed to hold Status: Acute (7) Multiple falls: After GI bleed has resolved, will have PT OT evaluate patient Status: Acute (8) Physical deconditioning: Status: Acute (9) Peripheral vascular disease: CT angios of bilateral lower extremities in April 2019 showed IMPRESSION: 1. Multifocal areas of significant arterial stenosis throughout the iliac arteries to the popliteal arteries as above. 2. Most significant stenosis on the RIGHT is 91% in the popliteal artery with additional areas of significant stenosis. 3. Most significant stenosis on the LEFT is 88% involving the LEFT popliteal artery. 4. Limited runoff to the ankles bilaterally. 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
--- NOTE | 2019-06-23 16:27 | PC.NURSE ---
Attempted to call report. Was told by RN that primary nurse is not available at this time and would call back when available for report. Was called back by ICU railroad car cleaning supervisor seconds later and the same information was given.
[2019-06-23 17:04] LABS: Iron 11 ug/dL (37-145)
[2019-06-23 17:19] LABS: Folate Level 15.6 ng/mL (4.8-37.3)
[2019-06-23 17:20] LABS: Carcinoembryonic Antigen 2.8 ng/mL (0.0-4.7); Vitamin B12 227 pg/mL (232-1245)
[2019-06-23 17:31] LABS: Ferritin 15 ng/mL (15-150); Iron 11 ug/dL (37-145); Percent Saturation 3.2 % (20-50); Total Iron Binding Capacity 343 mcg/dl; Unsaturated Iron Binding 332 ug/dL (112-347)
--- NOTE | 2019-06-23 19:24 | ECG_ITS ---
Measurements Intervals [place] Rate: 73 P: 74 GA: 169 QRS: -35 QRSD: 94 T: 41 QT: 422 QTc: 466 SINUS RHYTHM WITH FREQUENT VENTRICULAR PREMATURE COMPLEXES POSSIBLE LEFT ATRIAL ENLARGEMENT [-0.1mV P WAVE IN V1/V2] MARKED LEFT AXIS DEVIATION [QRS AXIS < -30] POSSIBLE RIGHT VENTRICULAR CONDUCTION DELAY [RSR (QR) IN V1/V2] ANTEROSEPTAL MYOCARDIAL INFARCTION [40+ ms Q WAVE IN V1-V4], OF INDETERMINATE AGE Compared to ECG 12/05/2018 14:20:17 No significant changes [email or web address]
[2019-06-23] MEDS: lanolin oint 7 gm 1 APPLIC TOPICAL (19:30)
[2019-06-23] MEDS: dextrose 5%-sod chloride 0.9% 1,000 ML 50 ML IV (19:34)
[2019-06-23] MEDS: morphine 4 mg/mL SDV 1 mL 1 MG IVP ×2 (19:35→22:36)
[2019-06-23 20:05] LABS: Troponin 5 6HR 24.86 ng/mL (0-10); Troponin 5 6HR Delta 4.86 ng/L (0-12)
[2019-06-24] VITALS (53 sets, daily range): BP systolic 103–179; BP diastolic 54–110; PULSE 52–100; RESP 1–26; TEMP 36.5–37.1; O2SAT 80–99
[2019-06-24 00:01] LABS: Hemoglobin 8.1 g/dL (11.5-15.3)
[2019-06-24] MEDS: morphine 4 mg/mL SDV 1 mL 1 MG IVP ×2 (02:23→05:38)
[2019-06-24] MEDS: pantoprazole 40 mg SDV IVP ×2 (02:23→14:30)
[2019-06-24 04:08] LABS: Basophils % 0.5 %; Eosinophils # 0.1 10^3/uL (0.0-0.8); Eosinophils % 0.9 %; Hematocrit 26.4 % (37.0-47.0); Hemoglobin 8.2 g/dL (11.5-15.3); Lymphocytes # 1.2 10^3/uL (0.8-4.8); Lymphocytes % 21.8 %; Mean Corpuscular Hemoglobin 23.9 pg (28.0-34.0); Mean Platelet Volume 8.9 fL (7.4-10.4); Monocytes # 1.1 10^3/uL (0.2-0.9); Monocytes % 20.7 %; Neutrophils # 3.1 10^3/uL (1.8-7.7); Neutrophils % 55.9 %; Nucleated Red Blood Cells % 0 %; Platelet Count 383 10^3/cmm (130-400); Red Blood Count 3.43 10^6/uL (4.1-5.3); Red Cell Distribution Width 15.7 % (12.1-15.1); White Blood Count 5.5 10^3/uL (4.0-10.0)
[2019-06-24 04:24] LABS: Mean Corpuscular HGB Conc 31.1 g/dL (30.0-36.0)
[2019-06-24 04:28] LABS: Alanine Aminotransferase 12 U/L (0-33); Albumin Level 3.8 g/dL (3.5-5.2); Alkaline Phosphatase 45 IU/L (35-105); Anion Gap 13.8 (5-19); Aspartate Amino Transferase 20 U/L (0-32); Blood Urea Nitrogen 17 mg/dL (8-23); Calcium 8.7 mg/dL (8.5-10.5); Carbon Dioxide 24 mmol/L (22-29); Chloride 101 mmol/L (98-107); Globulin 2.6 g/dL (1.3-4.6); Glucose 106 mg/dL (65-115); Magnesium 2.3 mg/dL (1.7-2.3); Osmolality Calculated 279 mOsm/kg (285-295); Phosphorus 2.8 mg/dL (2.5-4.5); Sodium 136 mmol/L (136-145); Total Bilirubin 0.8 mg/dL (0.15-1.2); Total Protein 6.4 g/dL (6.6-8.7)
[2019-06-24 05:11] LABS: Potassium 2.8 mmol/L (3.5-5.1)
[2019-06-24] MEDS: potassium chloride premix 40 MEQ/100 ML PREMIX 25 MEQ IV (05:41)
[2019-06-24 06:04] LABS: Estmated Average Glucose 111; Hemoglobin A1C 5.5 % (4.0-6.0)
[2019-06-24 06:24] LABS: Hematocrit 26.2 % (37.0-47.0); Hemoglobin 8.1 g/dL (11.5-15.3)
--- NOTE | 2019-06-24 10:07 | PC.OT ---
OT note: From chart review pt has critically low value for potassium. Will hold at this time.
--- NOTE | 2019-06-24 10:51 | PC.NURSE ---
PATIENT IV IS PATENT HOWEVER EXTREMELY POSITIONAL ; USEFUL FOR SLOW IVP ONLY ; ANTONIA RUNNING AT 6ML/HR D/T PATIENT C/O BURNING PER NIGHT RN
--- NOTE | 2019-06-24 11:15 | P.PN_ITS ---
Subjective Subjective: Interval history: This morning patient is doing well, no significant complaints, no fevers, no chills, no cough, no chest pain, no shortness of breath, no bloody or black stools, no lightheadedness, no dizziness, would like to try to eat something, has not had a bowel movement Vitals/I&O/Wt Last Vital Signs Temp 97.7 F 06/24/19 08:00 Pulse 74 06/24/19 10:23 Resp 21 H 06/24/19 08:00 BP 159/72 06/24/19 08:00 Pulse Ox 95 06/24/19 10:23 06/23/19 06/24/19 06/24/19 22:59 06:59 14:59 Intake Total 1350 / 1350 763.333 / 763.333 Output Total 200 / 200 650 / 850 400 / 400 Balance 1150 / 1150 -650 / 500 363.333 / 363.333 Weight last 48 hrs Weight 41.73 kg Physical Exam Const: COMMON NORMALS: no apparent distress and oriented x3 HENMT: COMMON NORMALS: normocephalic HEAD & SCALP: normocephalic Neck/C-Spine: COMMON NORMALS: no JVD Resp: COMMON NORMALS: normal respiratory effort, no retractions, no use of accessory muscles and clear to auscultation bilaterally AUSCULTATION: clear to auscultation bilaterally Cardio: COMMON NORMALS: no JVD, regular rate, regular rhythm, S1 normal heart sound and S2 normal heart sound RATE: regular rate RHYTHM: regular rhythm HEART SOUNDS: S1 normal and S2 normal GI: COMMON NORMALS: normal to inspection, nondistended, normoactive bowel sounds, soft to palpation, non-tender, no hepatosplenomegaly, no masses and no bruits PALPATION: Yes soft and Yes no hepatosplenomegaly Extremity: COMMON NORMALS: normal capillary refill, no clubbing, cyanosis or edema, no calf tenderness and no pedal edema Neuro: COMMON NORMALS: oriented x3 Psych: COMMON NORMALS: mental status grossly normal Data : 06/24/19 06:10 06/24/19 02:57 A&P Assessment and plan (1) GI bleed: -Has a history of precancerous colonic polyps since she was 32, has undergone multiple colonoscopies, last colonoscopy was when she was 77 which was normal, does have a family history of colon cancer in his father in his 90s -Has had any EGD in the 1990s, had gastric ulcers -Is on Plavix for history of CVAs -Has complaints of weakness, fatigue, falls, weight loss -In 2016 had admission for pneumonia, was found to be anemic, hemoglobin 6.3, EGD and colonoscopy were considered but was felt to be too a high risk for the procedure, there was plans on outpatient procedures, however patient did not follow-up -Hemoglobin on admission 8.1, status post 2 units PRBC, she is down to 6 units of blood since November 2018 -Hemoccult grossly positive for blood -CT scan of the abdomen no acute findings - hemodynamically stable -Anemia likely secondary to GI bleed, differential includes upper GI bleed related to peptic ulcer disease and or lower GI bleed related to colonic polyps and/or possible colon cancer, but multiple and other etiologies possible Plan: -Admit to intensive care unit, hopefully de-escalate to general medical floors later in the afternoon if hemoglobin remained stable -Serial hemoglobins every 6 hours -Monitor hemodynamics closely -Monitor for bloody or black stools -Protonix 40 mg IV twice daily -Status post 2 units PRBC -Iron studies show iron deficiency anemia, IV Venofer 200 mg 5 treatments over 14 days -I had an extensive discussion with patient about the possibility of an EGD and colonoscopy, but at this time patient declines, states that she has had too many of those done, and would not like to have it done unless it is urgently required -I discussed with patient my concerns for the possibility of an upper GI bleed possibly surgical interventions could decrease her bleeding, patient understands risks and benefits, voiced understanding, refuses for now unless emergently required -I discussed with patient my concerns for lower GI bleed, possible surgical interventions could decrease her bleeding, or detect early precancerous polyp, or early colon cancer, that could significantly reduce her morbidity and mortality, patient voiced understanding, all questions answered, refuses for now unless urgently required -I advised patient that there are risks of doing EGD and colonoscopy, given her ischemic cardiomyopathy, risks of surgical procedure, risk of anesthesia, risk of morbidity mortality associated, risk of adverse events, she voiced understanding, all questions answered, will hold off work for now -Patient will consider doing an outpatient EGD and colonoscopy -I briefly spoke with , who agreed with medical management, surgical interventions could be entertained if urgently required Status: Acute (2) Acute kidney injury: Creatinine improved to 1.0 Status: Acute (3) Nonischemic cardiomyopathy: Echocardiogram in March 2019 showed CONCLUSIONS Normal left ventricular cavity size. Mild left ventricular hypertrophy. Lower limit of normal left ventricular function. No wall motion disturbances. Ejection fraction approximately 50%. Grade 1 diastolic dysfunction. Moderately increased right atrial size. Moderately increased left atrial size. Thickened mitral valve. Mild mitral valve prolapse. Moderate mitral valve regurgitation. There are no prior echocardiogram studies to compare. Status: Acute (4) Benign essential HTN: Status: Acute (5) Chest wall hematoma: Monitor hemoglobin, monitor for bleeding, not a dirty wound, no need for Tdap Status: Acute (6) History of multiple cerebrovascular accidents (CVAs): -CTA of the head and neck done in January 2019 showed remote left parietal and right frontal infarct stable from 03/01/2018, additional remote left thalamic lacunar infarct and possible bilateral basal ganglia lacunar infarcts -Plavix currently on hold, understands risks and benefits, voiced understanding all questions answered, agreed to hold Status: Acute (7) Multiple falls: After GI bleed has resolved, will have PT OT evaluate patient Status: Acute (8) Physical deconditioning: Status: Acute (9) Peripheral vascular disease: CT angios of bilateral lower extremities in April 2019 showed IMPRESSION: 1. Multifocal areas of significant arterial stenosis throughout the iliac arteries to the popliteal arteries as above. 2. Most significant stenosis on the RIGHT is 91% in the popliteal artery with additional areas of significant stenosis. 3. Most significant stenosis on the LEFT is 88% involving the LEFT popliteal artery. 4. Limited runoff to the ankles bilaterally. 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
[2019-06-24 11:41] LABS: Hematocrit 28.2 % (37.0-47.0); Hemoglobin 8.6 g/dL (11.5-15.3)
[2019-06-24] MEDS: hyDRALAzine 50 mg Tablet 75 MG PO ×2 (14:30→21:57)
[2019-06-24 14:41] LABS: INR 0.98 (0.8-1.2)
--- NOTE | 2019-06-24 14:51 | PM.CONSULT ---
Providers/Reason For Consult Consulting Physican/Specialty*: Juma Carbajal MD Reason for Consult*: GI bleed Attending Physician: Noe Handley MD Primary Care Provider: Scooby Ignacio MD History of Present Illness History of Present Illness Chief Complaint: I feel weak History of present illness: MS Irma Reid is a pleasant 83 year old female well-known to me from previous clinical encounter,patient presented to the emergency department with history of fall and had contusion on her chest with hemoglobin of 7.3 as patient has been on chronic Plavix with history of nonischemic cardiomyopathy and ejection fraction of 50% in addition to history of multiple CVAs and carotid artery and diffuse peripheral vascular disease. Patient was scoped before and had history of colon polyps and colon cancer of her father, general surgery was consulted initially for further evaluation for EGD and colonoscopy as she was tested heavily occult positive in stool per ED team, then upon further discussion between the hospitalist Dr. Casarez and the patient yesterday initially patient elected not to pursue any colonoscopies or endoscopy, today she had another conversation with Dr. Casarez after she did talk with her daughter and another close relative and she agreed to proceed with endoscopies in the form of diagnostic EGD and colonoscopy to rule out potential underlying GI etiology of her anemia. General surgery was consulted for potential evaluation and intervention Review of Systems General: Reports: 10 or more systems reviewed and unremarkable except in HPI and below Meds/Allergies Home Medications and Allergies Home Medications Medication Instructions Recorded Confirmed Last Taken Type ergocalciferol (vitamin D2) 1,250 50,000 unit PO Q7D 03/26/19 06/23/19 Unknown History mcg (50,000 unit) capsule levothyroxine 50 mcg capsule 50 mcg PO DAILY 03/26/19 06/23/19 06/23/19 History chlorthalidone 25 mg tablet 25 mg PO DAILY #90 tab 06/05/19 06/23/19 06/23/19 Rx cilostazol 50 mg tablet 50 mg PO BID #180 tab 06/05/19 06/23/19 Unknown Rx hydralazine 50 mg tablet 75 mg PO TID #405 tab 06/11/19 06/23/19 Unknown Rx Tylenol 1 - 2 tab PO PRN 06/23/19 06/23/19 Unknown History atorvastatin 20 mg PO DAILY 06/23/19 06/23/19 Unknown History clopidogrel 75 mg PO DAILY 06/23/19 06/23/19 06/23/19 History furosemide [Lasix] 20 mg PO DAILY 06/23/19 06/23/19 06/23/19 History metoprolol tartrate 25 mg PO BID 06/23/19 06/23/19 Unknown History Allergies Allergy/AdvReac Type Severity Reaction Status Date / Time meperidine [From Demerol] Allergy unknown Verified 06/24/19 14:54 Current Medications Current Medications Generic Name Dose Route Start Last Admin Trade Name Freq PRN Reason Stop Dose Admin Hydralazine HCl 75 mg 06/24/19 15:00 06/24/19 14:30 Apresoline PO 75 mg TID MO Administration Iron Sucrose 200 mg/ Sodium 110 mls @ 220 mls/hr 06/24/19 09:00 06/24/19 13:52 Chloride IV 06/29/19 08:59 Infused DAILY MO Infusion Lanolin 1 applic 06/23/19 19:05 06/23/19 19:30 Lanolin Oint TOPICAL 1 applic PRN PRN Administration DRYNESS Morphine Sulfate 1 mg 06/23/19 17:18 06/24/19 05:38 Morphine IVP 1 mg Q4H PRN Administration SEVERE PAIN Pantoprazole Sodium 40 mg 06/24/19 03:00 06/24/19 14:30 Protonix IVP 40 mg Q12H MO Administration PFSH Acute PFSH: Medical History (Updated 06/23/19 @ 16:47 by Noe Handley MD) Atypical chest pain Benign essential HTN Carotid artery stenosis with cerebral infarction over 8 weeks ago Had CVA in August 2018-is being followed by Dr. Mae Cerebral vascular accident Chronic heart failure Hyperlipemia Hypertension Kidney calculi Myocardial infarct Surgical History (Updated 06/23/19 @ 16:32 by Noe Handley MD) History of colonoscopy History of esophagogastroduodenoscopy (EGD) Family History (Updated 06/23/19 @ 16:32 by Noe Handley MD) Father Cancer, Onset Age: 90 Colon cancer Denies family history of Diabetes CAD (coronary artery disease) Hypertension Stroke Social History Smoking and tobacco status: former smoker Alcohol intake: current Alcohol intake frequency: few times a month Alcohol type: wine Vitals/I&O/Wt Last Vital Signs Temp 97.8 F 06/24/19 12:00 Pulse 75 06/24/19 12:00 Resp 23 H 06/24/19 12:00 BP 159/74 06/24/19 12:00 Pulse Ox 96 06/24/19 12:00 06/23/19 06/24/19 06/24/19 22:59 06:59 14:59 Intake Total 1350 / 1350 873.333 / 873.333 Output Total 200 / 200 650 / 850 400 / 400 Balance 1150 / 1150 -650 / 500 473.333 / 473.333 Weight last 48 hrs Weight 92 lb Physical Exam Narrative: EXAM NARRATIVE: Patient is conscious alert oriented X3 BMI 16 Head and neck examination PERRLA no masses no cervical lymphadenopathy no jaundice Cardiac examination audible S1-S2 no murmurs no gallops no arrhythmias Chest is clear bilateral,abscence of Rhonchi or wheezes,no surgical emphysema Abdomen nontender nondistended soft no organomegaly guarding or rigidity/no signs of peritonitis Extremities no cyanosis no clubbing no edema A&P Assessment and plan (1) GI bleed: Plan of care; After thorough history and physical examination and reviewing the chart, plan to perform a diagnostic esophagogastroduodenoscopy and diagnostic colonoscopy with possible biopsy and possible polypectomy Rationale was carefully and clearly discussed with the patient.Appropriate consent have been reviewed and signed Informed consent per chart were,Indications, risks, benefits, and alternatives were all discussed with the patient and did agree to proceed. Verbal instructions were given to the patient for colonoscopy prep We will coordinate with the hospital service about medical optimization and holding Plavix before the procedure Plan to perform the EGD and colonoscopy on 06/26/2019 Blood transfusion per hospitalist service Status: Acute Consult Attestations Medical Necessity Statement: Medical necessity care is expected to cross 2 midnights Time Spent in Patient Care: 16 - 35 minutes (>than 50% of time spent in counselling and/or direct pt care on unit). 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
[2019-06-24 17:52] LABS: Hematocrit 27.6 % (37.0-47.0); Hemoglobin 8.2 g/dL (11.5-15.3)
[2019-06-24] MEDS: sodium chloride 0.9% 1,000 ML 30 ML IV (18:26)
[2019-06-24] MEDS: metoprolol tartrate 25 mg Tablet PO (18:26)
[2019-06-24 23:01] LABS: Hematocrit 24.5 % (37.0-47.0); Hemoglobin 7.4 g/dL (11.5-15.3)
[2019-06-24] MEDS: sodium chloride 0.9% 100 ML (23:41)
[2019-06-25] VITALS (52 sets, daily range): BP systolic 111–165; BP diastolic 52–112; PULSE 47–83; RESP 8–25; TEMP 36.6–37.1; O2SAT 77–100
[2019-06-25] MEDS: pantoprazole 40 mg SDV IVP ×2 (03:48→16:08)
[2019-06-25 04:35] LABS: Basophils % 0.8 %; Eosinophils # 0.1 10^3/uL (0.0-0.8); Eosinophils % 2.3 %; Hematocrit 29.9 % (37.0-47.0); Hemoglobin 9.3 g/dL (11.5-15.3); Lymphocytes # 1.2 10^3/uL (0.8-4.8); Mean Corpuscular HGB Conc 31.1 g/dL (30.0-36.0); Mean Corpuscular Volume 77.3 fL (81-99); Mean Platelet Volume 8.9 fL (7.4-10.4); Monocytes # 1.2 10^3/uL (0.2-0.9); Monocytes % 22.6 %; Neutrophils # 2.7 10^3/uL (1.8-7.7); Neutrophils % 51.1 %; Nucleated Red Blood Cells % 0 %; Platelet Count 354 10^3/cmm (130-400); Red Blood Count 3.87 10^6/uL (4.1-5.3); Red Cell Distribution Width 16.8 % (12.1-15.1); White Blood Count 5.3 10^3/uL (4.0-10.0)
[2019-06-25 05:13] LABS: Alanine Aminotransferase 12 U/L (0-33); Albumin Level 3.8 g/dL (3.5-5.2); Alkaline Phosphatase 47 IU/L (35-105); Anion Gap 15.2 (5-19); Aspartate Amino Transferase 20 U/L (0-32); Blood Urea Nitrogen 11 mg/dL (8-23); Carbon Dioxide 23 mmol/L (22-29); Chloride 104 mmol/L (98-107); Globulin 2.8 g/dL (1.3-4.6); Glucose 95 mg/dL (65-115); Magnesium 2.3 mg/dL (1.7-2.3); Osmolality Calculated 284 mOsm/kg (285-295); Phosphorus 2.7 mg/dL (2.5-4.5); Potassium 3.2 mmol/L (3.5-5.1); Sodium 139 mmol/L (136-145); Total Bilirubin 0.6 mg/dL (0.15-1.2); Total Protein 6.6 g/dL (6.6-8.7)
[2019-06-25] MEDS: ondansetron 2 mg/ML SDV 2 mL 4 MG IVP (07:44)
[2019-06-25] MEDS: atorvastatin 40 mg Tablet 20 MG PO (07:44)
[2019-06-25] MEDS: levothyroxine 50 mcg Tablet PO (07:44)
[2019-06-25] MEDS: chlorthalidone 25 mg Tablet PO (07:44)
[2019-06-25] MEDS: hyDRALAzine 50 mg Tablet 75 MG PO ×3 (07:45→20:29)
[2019-06-25] MEDS: metoprolol tartrate 25 mg Tablet PO ×2 (07:46→16:11)
[2019-06-25] MEDS: peg /e-lyte soln 4,000 mL Btl 4000 ML PO (07:55)
[2019-06-25] MEDS: lanolin oint 7 gm 1 APPLIC TOPICAL (07:56)
[2019-06-25] MEDS: cyanocobalamin 1,000 mcg Tablet 1000 MCG PO (08:51)
--- NOTE | 2019-06-25 09:12 | PC.NURSE ---
patient calm and cooperative. discussed days plans for flushing of her bowels . bsc chair and wipes at bedside. tea flavor for the golytly giiven to help her get through it. she refuses her scds and teds but moves frequently. chest abrasion redressed due to soilage.
--- NOTE | 2019-06-25 10:35 | P.PN_ITS ---
Subjective Subjective: Interval history: She is working on bowel prep, although it is occasionally making her nauseated, sometimes gag. Having some abdominal discomfort across the upper abdomen. Denies any new complaints. Vitals/I&O/Wt Last Vital Signs Temp 98.0 F 06/25/19 08:30 Pulse 77 06/25/19 09:00 Resp 22 H 06/25/19 09:00 BP 160/65 06/25/19 09:00 Pulse Ox 98 06/25/19 09:00 06/24/19 06/25/19 06/25/19 22:59 06:59 14:59 Intake Total 100 / 973.333 350 / 1323.333 700 / 700 Output Total 100 / 500 350 / 850 125 / 125 Balance 0 / 473.333 0 / 473.333 575 / 575 Weight last 48 hrs Weight 41.73 kg Physical Exam Const: COMMON NORMALS: no apparent distress and oriented x3 GENERAL APPEARANCE: frail appearing HENMT: COMMON NORMALS: oropharynx normal Neck/C-Spine: COMMON NORMALS: no JVD Resp: COMMON NORMALS: normal respiratory effort and clear to auscultation bilaterally AUSCULTATION: clear to auscultation bilaterally Cardio: COMMON NORMALS: no JVD, regular rhythm, S1 normal heart sound, S2 normal heart sound and no murmurs RHYTHM: regular rhythm HEART SOUNDS: S1 normal and S2 normal GI: COMMON NORMALS: normal to inspection, nondistended, normoactive bowel sounds and soft to palpation PALPATION: Yes soft and Yes tender (Some tenderness on palpation of upper abdomen.) Extremity: COMMON NORMALS: no joint enlargement and no pedal edema Neuro: COMMON NORMALS: oriented x3 and moves all extremities Skin: COMMON NORMALS: no rashes or lesions noted GENERAL SKIN EXAM: no rashes or lesions noted OTHER: Thin, fragile skin. Data : 06/25/19 03:36 06/25/19 03:36 A&P Assessment and plan (1) GI bleed: She is working on prep. Awaiting EGD and colonoscopy tomorrow. Received additional 1 unit PRBC transfusion. Hemoglobin up to 9.3 today. Plavix on hold. Continue PPI. -Has a history of precancerous colonic polyps since she was 32, has undergone multiple colonoscopies, last colonoscopy was when she was 77 which was normal, does have a family history of colon cancer in his father in his 90s -Has had any EGD in the , had gastric ulcers -Anemia likely secondary to GI bleed, differential includes upper GI bleed rela jak to peptic ulcer disease and or lower GI bleed related to colonic polyps and/or possible colon cancer, but multiple and other etiologies possible Status: Acute (2) Acute kidney injury: Improved. Status: Acute (3) Nonischemic cardiomyopathy: Not fluid overloaded at this time. Monitor volume status with bowel prep. TTE in March EF 50%, grade 1 diastolic dysfunction, moderate MR. Status: Acute (4) Benign essential HTN: Status: Acute (5) Chest wall hematoma: Monitor hemoglobin, monitor for bleeding Status: Acute (6) History of multiple cerebrovascular accidents (CVAs): -CTA of the head and neck done in January 2019 showed remote left parietal and right frontal infarct stable from 03/01/2018, additional remote left thalamic lacunar infarct and possible bilateral basal ganglia lacunar infarcts -Plavix currently on hold, understands risks and benefits, voiced understanding all questions answered, agreed to hold Status: Acute (7) Multiple falls: After GI bleed has resolved. PT, OT to evaluate patient Status: Acute (8) Physical deconditioning: Status: Acute (9) Peripheral vascular disease: CT angios of bilateral lower extremities in April 2019 showed IMPRESSION: 1. Multifocal areas of significant arterial stenosis throughout the iliac arteries to the popliteal arteries as above. 2. Most significant stenosis on the RIGHT is 91% in the popliteal artery with additional areas of significant stenosis. 3. Most significant stenosis on the LEFT is 88% involving the LEFT popliteal artery. 4. Limited runoff to the ankles bilaterally. Status: Acute Attestations Medical Necessity Statement*: Continue admission for assessment management of GI bleed with acute anemia. 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
[2019-06-25 11:11] LABS: Hematocrit 33.8 % (37.0-47.0); Hemoglobin 10.3 g/dL (11.5-15.3)
[2019-06-25] MEDS: sodium chloride 0.9% 1,000 ML 30 ML IV (16:09)
[2019-06-25 19:01] LABS: Hematocrit 33.3 % (37.0-47.0); Hemoglobin 9.8 g/dL (11.5-15.3)
[2019-06-25] MEDS: potassium chloride oral liq 20 mEq/15 mL UDC 40 MEQ PO (20:27)
[2019-06-26] VITALS (54 sets, daily range): BP systolic 117–184; BP diastolic 51–92; PULSE 43–90; RESP 0–64; TEMP 36.6–37.1; O2SAT 86–100
[2019-06-26] MEDS: pantoprazole 40 mg SDV IVP ×2 (03:55→17:48)
[2019-06-26 04:48] LABS: Basophils # 0.1 10^3/uL (0.0-0.1); Basophils % 0.7 %; Eosinophils # 0.2 10^3/uL (0.0-0.8); Hemoglobin 9.1 g/dL (11.5-15.3); Lymphocytes # 1.4 10^3/uL (0.8-4.8); Lymphocytes % 18.7 %; Mean Corpuscular HGB Conc 30.3 g/dL (30.0-36.0); Mean Corpuscular Hemoglobin 24.1 pg (28.0-34.0); Mean Corpuscular Volume 79.4 fL (81-99); Mean Platelet Volume 8.9 fL (7.4-10.4); Monocytes # 1.4 10^3/uL (0.2-0.9); Neutrophils # 4.6 10^3/uL (1.8-7.7); Neutrophils % 60.3 %; Nucleated Red Blood Cells % 0.3 %; Platelet Count 361 10^3/cmm (130-400); Red Blood Count 3.78 10^6/uL (4.1-5.3); Red Cell Distribution Width 17.4 % (12.1-15.1); White Blood Count 7.6 10^3/uL (4.0-10.0)
[2019-06-26 05:02] LABS: Alanine Aminotransferase 25 U/L (0-33); Albumin Level 3.7 g/dL (3.5-5.2); Alkaline Phosphatase 73 IU/L (35-105); Anion Gap 14.7 (5-19); Aspartate Amino Transferase 32 U/L (0-32); Blood Urea Nitrogen 8 mg/dL (8-23); Calcium 9.1 mg/dL (8.5-10.5); Carbon Dioxide 23 mmol/L (22-29); Chloride 101 mmol/L (98-107); Globulin 2.6 g/dL (1.3-4.6); Glucose 90 mg/dL (65-115); Magnesium 2.2 mg/dL (1.7-2.3); Osmolality Calculated 275 mOsm/kg (285-295); Phosphorus 2.2 mg/dL (2.5-4.5); Potassium 3.7 mmol/L (3.5-5.1); Sodium 135 mmol/L (136-145); Total Bilirubin 0.5 mg/dL (0.15-1.2); Total Protein 6.3 g/dL (6.6-8.7)
--- NOTE | 2019-06-26 08:59 | PM.PN ---
Subjective Subjective: Interval history: Overall patient is doing well Undergone the colon prep Vitals/I&O/Wt Last Vital Signs Temp 98.2 F 06/26/19 08:00 Pulse 59 L 06/26/19 08:30 Resp 14 06/26/19 08:00 BP 144/57 06/26/19 08:30 Pulse Ox 95 06/26/19 07:37 06/25/19 06/26/19 06/26/19 22:59 06:59 14:59 Intake Total 1751.5 / 3361.5 0 / 3361.5 Output Total 450 / 1225 400 / 1625 Balance 1301.5 / 2136.5 -400 / 1736.5 Physical Exam Narrative: EXAM NARRATIVE: Patient is conscious alert oriented X3 BMI 16 Head and neck examination PERRLA no masses no cervical lymphadenopathy no jaundice Abdomen nontender nondistended soft no organomegaly guarding or rigidity/no signs of peritonitis Data : 06/26/19 04:00 06/26/19 04:00 A&P Assessment and plan (1) GI bleed: Plan of care; After thorough history and physical examination and reviewing the chart, plan to perform a diagnostic esophagogastroduodenoscopy and diagnostic colonoscopy with possible biopsy and possible polypectomy today Rationale was carefully and clearly discussed with the patient.Appropriate consent have been reviewed and signed Informed consent per chart were,Indications, risks, benefits, and alternatives were all discussed with the patient and did agree to proceed. Verbal instructions were given to the patient for colonoscopy prep Blood transfusion per hospitalist service Status: Acute Attestations Medical Necessity Statement*: Medical necessity care is expected to cross 2 midnights Time Spent in Patient Care: 16 - 35 minutes (>than 50% of time spent in counselling and/or direct pt care on unit). 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
--- NOTE | 2019-06-26 09:10 | PC.SOCIAL ---
IMM Page 2 of IMM updated and given to patient. Initialed, dated, and timed and placed in chart.
[2019-06-26] MEDS: levothyroxine 50 mcg Tablet PO (09:41)
[2019-06-26] MEDS: metoprolol tartrate 25 mg Tablet PO ×2 (09:41→17:48)
[2019-06-26] MEDS: hyDRALAzine 50 mg Tablet 75 MG PO ×2 (09:46→17:47)
[2019-06-26] MEDS: chlorthalidone 25 mg Tablet PO (09:46)
[2019-06-26] MEDS: cyanocobalamin 1,000 mcg Tablet 1000 MCG PO (09:46)
[2019-06-26] MEDS: atorvastatin 40 mg Tablet 20 MG PO (09:46)
--- NOTE | 2019-06-26 10:42 | ANES.PREANE2 ---
Pre-Anesthetic Assessment Pre-Anesthetic Assessment: Height/Weight: Height 1.63 m Weight 41.73 kg Temp Pulse Resp BP Pulse Ox 98.2 F 59 L 14 144/57 95 06/26/19 08:00 06/26/19 08:30 06/26/19 08:00 06/26/19 08:30 06/26/19 07:37 Preop Diagnosis: GI bleed and anemia Proposed Procedure: Operation Date: 06/26/19 12:35 Proposed [place] [address] K92.2(Not Applicable) - Juma Carbajal MD s Colonoscopy 95751(Not Applicable) - Juma Carbajal MD Familial anesthetic complications: Difficult waking up Was Beta Slim taken within 24 hours: Yes Last intake: NPO > 8 hrs Social: Social History: No alcohol and No tobacco Exam: Pre-Anes Outpt Exam: alert, oriented x 3, clear to auscultation bilaterally and regular rate & rhythm Airway: Cervical ROM: WNL MP: 2 Dentition: Full Pulmonary: Pulmonary: None reported CV/HEM: CV/HEM: Angina (Stable), CHF, GA and PVD : Comments: GI Hepatic: Hepatic: None reported GI: Comments: GI bleed Metabolic: Metabolic: None reported Musc/skel: Musc/skel: None reported Neuropsych: Neuropsych: CVA Comments: Carotid artery stenosis w/ infarfaction Anesthetic Plan: ASA status: 3 Anesthesia: MAC Risk of > 500 ml blood loss (7ml/kg in children): No Meds/Allergies Current Medications: Current Medications Generic Name Dose Route Start Last Admin Trade Name Freq PRN Reason Stop Dose Admin Atorvastatin Calci um 20 mg 06/25/19 09:00 06/26/19 09:46 Lipitor PO 20 mg DAILY MO Administration Chlorthalidone 25 mg 06/25/19 09:00 06/26/19 09:46 Thalitone PO 25 mg DAILY MO Administration Cyanocobalamin 1,000 mcg 06/25/19 09:00 06/26/19 09:46 Vitamin B-12 PO 1,000 mcg DAILY MO Administration Hydralazine HCl 75 mg 06/24/19 15:00 06/26/19 09:46 Apresoline PO 75 mg TID MO Administration Iron Sucrose 200 m g/ Sodium 110 mls @ 220 mls /hr 06/24/19 09:00 06/26/19 09:40 Chloride IV 06/29/19 08:59 220 mls/hr DAILY MO Administration Sodium Chloride 1,000 mls @ 30 ml s/hr 06/24/19 15:00 06/25/19 16:09 Sodium Chloride 0.9% IV 30 mls/hr .Q24H MO Administration Lanolin 1 applic 06/23/19 19:05 06/25/19 07:56 Lanolin Oint TOPICAL 1 applic PRN PRN Administration DRYNESS Levothyroxine Sodi um 50 mcg 06/25/19 09:00 06/26/19 09:41 Synthroid PO 50 mcg DAILY MO Administration Metoprolol Tartrat e 25 mg 06/24/19 18:00 06/26/19 09:41 Lopressor PO 25 mg BID MO Administration Morphine Sulfate 1 mg 06/23/19 17:18 06/24/19 05:38 Morphine IVP 1 mg Q4H PRN Administration SEVERE PAIN Ondansetron HCl 4 mg 06/23/19 17:18 06/25/19 07:44 Zofran IVP 4 mg Q8H PRN Administration vomiting, or N/V if npo Pantoprazole Sodiu m 40 mg 06/24/19 03:00 06/26/19 03:55 Protonix IVP 40 mg Q12H MO Administration PFSH Anesthesia PFSH: Medical History (Updated 06/23/19 @ 16:47 by Noe Handley MD) Atypical chest pain Benign essential HTN Carotid artery stenosis with cerebral infarction over 8 weeks ago Had CVA in August 2018-is being followed by Dr. Mae Cerebral vascular accident Chronic heart failure Hyperlipemia Hypertension Kidney calculi Myocardial infarct Surgical History (Updated 06/23/19 @ 16:32 by Noe Handley MD) History of colonoscopy History of esophagogastroduodenoscopy (EGD) Family History (Updated 06/23/19 @ 16:32 by Noe Handley MD) Father Cancer, Onset Age: 90 Colon cancer Denies family history of Diabetes CAD (coronary artery disease) Hypertension Stroke Social History Smoking and tobacco status: former smoker Alcohol intake: current Alcohol intake frequency: few times a month Alcohol type: wine Data Anesthesia CBC & Chem 7: 06/26/19 04:00 06/26/19 04:00 Other Labs: Laboratory Results - last 48 hr 06/23/19 06/24/19 06/24/19 14:14 11:28 14:24 WBC RBC Hgb 8.6 L Hct 28.2 L MCV MCH MCHC RDW Plt Count MPV Neut % (Auto) Lymph % (Auto) [place] % (Auto) Eos % (Auto) Baso % (Auto) Neut # (Auto) Lymph # (Auto) [place] # (Auto) Eos # (Auto) Baso # (Auto) Nucleated RBC % (auto) Nucleated RBCs # PT 13.30 INR 0.98 Sodium Potassium Chloride Carbon Dioxide Anion Gap BUN Creatinine Glucose Calculated Osmolality Calcium Phosphorus Magnesium Total Bilirubin AST ALT Alkaline Phosphatase Total Protein Albumin Globulin Blood Type A Negative Rho(D) Type Negaive Antibody Screen Negative Crossmatch See Detail 06/24/19 06/24/19 06/25/19 17:26 22:50 03:36 WBC 5.3 RBC 3.87 L Hgb 8.2 L 7.4 L 9.3 L Hct 27.6 L 24.5 L 29.9 L MCV 77.3 L MCH 24.0 L MCHC 31.1 RDW 16.8 H Plt Count 354 MPV 8.9 Neut % (Auto) 51.1 Lymph % (Auto) 23.0 [place] % (Auto) 22.6 Eos % (Auto) 2.3 Baso % (Auto) 0.8 Neut # (Auto) 2.7 Lymph # (Auto) 1.2 [place] # (Auto) 1.2 H Eos # (Auto) 0.1 Baso # (Auto) 0.0 Nucleated RBC % (auto) 0 Nucleated RBCs # 0.0 PT INR Sodium Potassium Chloride Carbon Dioxide Anion Gap BUN Creatinine Glucose Calculated Osmolality Calcium Phosphorus Magnesium Total Bilirubin AST ALT Alkaline Phosphatase Total Protein Albumin Globulin Blood Type Rho(D) Type Antibody Screen Crossmatch 06/25/19 06/25/19 06/25/19 03:36 03:36 11:00 WBC RBC Hgb 10.3 L Hct 33.8 L MCV MCH MCHC RDW Plt Count MPV Neut % (Auto) Lymph % (Auto) [place] % (Auto) Eos % (Auto) Baso % (Auto) Neut # (Auto) Lymph # (Auto) [place] # (Auto) Eos # (Auto) Baso # (Auto) Nucleated RBC % (auto) Nucleated RBCs # PT 13.50 H INR 1.00 Sodium 139 Potassium 3.2 L Chloride 104 Carbon Dioxide 23 Anion Gap 15.2 BUN 11 Creatinine 0.8 Glucose 95 Calculated Osmolality 284 L Calcium 9.0 Phosphorus 2.7 Magnesium 2.3 Total Bilirubin 0.6 AST 20 ALT 12 Alkaline Phosphatase 47 Total Protein 6.6 Albumin 3.8 Globulin 2.8 Blood Type Rho(D) Type Antibody Screen Crossmatch 06/25/19 06/26/19 06/26/19 18:30 04:00 04:00 WBC 7.6 RBC 3.78 L Hgb 9.8 L 9.1 L Hct 33.3 L 30.0 L MCV 79.4 L MCH 24.1 L MCHC 30.3 RDW 17.4 H Plt Count 361 MPV 8.9 Neut % (Auto) 60.3 Lymph % (Auto) 18.7 [place] % (Auto) 18.0 Eos % (Auto) 2.0 Baso % (Auto) 0.7 Neut # (Auto) 4.6 Lymph # (Auto) 1.4 [place] # (Auto) 1.4 H Eos # (Auto) 0.2 Baso # (Auto) 0.1 Nucleated RBC % (auto) 0.3 Nucleated RBCs # 0.0 PT INR Sodium 135 L Potassium 3.7 Chloride 101 Carbon Dioxide 23 Anion Gap 14.7 BUN 8 Creatinine 1.1 H Glucose 90 Calculated Osmolality 275 L Calcium 9.1 Phosphorus 2.2 L Magnesium 2.2 Total Bilirubin 0.5 AST 32 ALT 25 Alkaline Phosphatase 73 Total Protein 6.3 L Albumin 3.7 Globulin 2.6 Blood Type Rho(D) Type Antibody Screen Crossmatch Cardiac Studies: Holter Monitor 04/22/19
--- NOTE | 2019-06-26 11:13 | PC.NURSE ---
PRIOR TO DOXICYCLINE HIS APPETITE PROVED GOOD. TORADOL GIVEN FOR A FRONTAL HEADACHE. UPDATED. PATIENT REFUSES SCDS AND IS WEARING HIS JEANS IN BED.
--- NOTE | 2019-06-26 12:39 | PC.OT ---
HOLD OT SECONDARY TO PATIENT IN SURGERY THIS AFTERNOON
[2019-06-26] MEDS: sodium chloride 0.9% 1,000 ML 30 ML IV (12:49)
--- NOTE | 2019-06-26 17:09 | PC.NURSE ---
1320 PATIENT BACK TO ROOM FROM [facility]. VITALS WNL, PULSE OX DAMP, NOT PICKING UP WELL , CHANGED IT AND WAS ABLE TO WEAN OFF OXYGEN BY 1600. PATIENT APPRORRIATE AND DROWSY. ATE A GOOD MEAL AT 1545 AND AGAIN AT 1700. IV LOCKED AT 1710.
--- NOTE | 2019-06-26 21:49 | PM.PN ---
Subjective Subjective: Interval history: Was able to complete prep. This morning slight discomfort in lower abdomen, no other complaints. Vitals/I&O/Wt Last Vital Signs Temp 98 F 06/26/19 17:21 Pulse 79 06/26/19 14:20 Resp 18 06/26/19 12:34 BP 142/76 06/26/19 12:34 Pulse Ox 94 06/26/19 14:20 06/26/19 06/26/19 06/26/19 06:59 14:59 22:59 Intake Total 0 / 3361.5 160 / 160 500 / 660 Output Total 400 / 1625 450 / 450 200 / 650 Balance -400 / 1736.5 -290 / -290 300 / 10 Physical Exam Const: COMMON NORMALS: no apparent distress and oriented x3 GENERAL APPEARANCE: frail appearing ORIENTATION/CONSCIOUSNESS: Yes other (Pleasant elderly lady.) HENMT: COMMON NORMALS: oropharynx normal Neck/C-Spine: COMMON NORMALS: no JVD Resp: COMMON NORMALS: normal respiratory effort and clear to auscultation bilaterally AUSCULTATION: clear to auscultation bilaterally Cardio: COMMON NORMALS: no JVD, regular rhythm, S1 normal heart sound, S2 normal heart sound and no murmurs RHYTHM: regular rhythm HEART SOUNDS: S1 normal and S2 normal GI: COMMON NORMALS: normal to inspection, nondistended, normoactive bowel sounds and soft to palpation PALPATION: Yes soft and Yes tender (Some tenderness on palpation of upper abdomen.) Extremity: COMMON NORMALS: no joint enlargement and no pedal edema OTHER: thin Neuro: COMMON NORMALS: oriented x3 and moves all extremities Skin: COMMON NORMALS: no rashes or lesions noted GENERAL SKIN EXAM: no rashes or lesions noted OTHER: Thin, fragile skin. Data : 06/26/19 04:00 06/26/19 04:00 A&P Assessment and plan (1) GI bleed: Underwent EGD and colonoscopy today, without active bleeding. Hemoglobin with very gentle downtrend to 9.1 today, possibly with dilutional effect from hydration. Discussed with surgery after procedure. We will recheck hemoglobin in the morning. For now Plavix on hold. If remains stable, after sufficient interval restarting Plavix or switching to aspirin may be considered due to her chronic conditions, however, if persistent downtrend in hemoglobin possible additional testing may be considered with deep enteroscopy or capsule endoscopy. Continue PPI. Status: Acute (2) Acute kidney injury: Creatinine fluctuating near baseline. Status: Acute (3) Nonischemic cardiomyopathy: Not fluid overloaded at this time. Monitor volume status with bowel prep. TTE in March EF 50%, grade 1 diastolic dysfunction, moderate MR. Status: Acute (4) Benign essential HTN: Status: Acute (5) Chest wall hematoma: Monitor hemoglobin, monitor for bleeding Status: Acute (6) History of multiple cerebrovascular accidents (CVAs): CTA of the head and neck done in January 2019 showed remote left parietal and right frontal infarct stable from 03/01/2018, additional remote left thalamic lacunar infarct and possible bilateral basal ganglia lacunar infarcts. Plavix currently on hold. Status: Acute (7) Multiple falls: After GI bleed has resolved. PT, OT to evaluate patient Status: Acute (8) Physical deconditioning: Status: Acute (9) Peripheral vascular disease: CT angios of bilateral lower extremities in April 2019 showed IMPRESSION: 1. Multifocal areas of significant arterial stenosis throughout the iliac arteries to the popliteal arteries as above. 2. Most significant stenosis on the RIGHT is 91% in the popliteal artery with additional areas of significant stenosis. 3. Most significant stenosis on the LEFT is 88% involving the LEFT popliteal artery. 4. Limited runoff to the ankles bilaterally. Status: Acute Additional A&P Information DVT prophylaxis contraindicated due to GI bleed Patient is a full code Attestations Medical Necessity Statement*: Continue admission for assessment management of acute blood loss anemia. 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
[2019-06-27] VITALS (9 sets, daily range): BP systolic 147–176; BP diastolic 59–95; PULSE 51–67; RESP 13–18; TEMP 36.7–37.3; O2SAT 88–96
[2019-06-27 04:44] LABS: Basophils % 0.4 %; Eosinophils # 0.1 10^3/uL (0.0-0.8); Hematocrit 29.8 % (37.0-47.0); Hemoglobin 9.2 g/dL (11.5-15.3); Lymphocytes # 1.2 10^3/uL (0.8-4.8); Lymphocytes % 14.5 %; Mean Corpuscular HGB Conc 30.9 g/dL (30.0-36.0); Mean Corpuscular Hemoglobin 24.5 pg (28.0-34.0); Mean Corpuscular Volume 79.5 fL (81-99); Mean Platelet Volume 8.7 fL (7.4-10.4); Monocytes # 1.5 10^3/uL (0.2-0.9); Monocytes % 17.2 %; Neutrophils # 5.6 10^3/uL (1.8-7.7); Neutrophils % 66.5 %; Nucleated Red Blood Cells % 0.4 %; Platelet Count 325 10^3/cmm (130-400); Red Blood Count 3.75 10^6/uL (4.1-5.3); Red Cell Distribution Width 18.6 % (12.1-15.1); White Blood Count 8.4 10^3/uL (4.0-10.0)
[2019-06-27 05:00] LABS: Anion Gap 13.5 (5-19); Blood Urea Nitrogen 12 mg/dL (8-23); Calcium 9.1 mg/dL (8.5-10.5); Carbon Dioxide 26 mmol/L (22-29); Chloride 100 mmol/L (98-107); Glucose 106 mg/dL (65-115); Osmolality Calculated 279 mOsm/kg (285-295); Potassium 3.5 mmol/L (3.5-5.1); Sodium 136 mmol/L (136-145)
[2019-06-27] MEDS: hyDRALAzine 50 mg Tablet 75 MG PO ×2 (08:27→15:36)
[2019-06-27] MEDS: atorvastatin 40 mg Tablet 20 MG PO (08:27)
[2019-06-27] MEDS: metoprolol tartrate 25 mg Tablet PO (08:27)
[2019-06-27] MEDS: cyanocobalamin 1,000 mcg Tablet 1000 MCG PO (08:27)
[2019-06-27] MEDS: levothyroxine 50 mcg Tablet PO (08:28)
[2019-06-27] MEDS: chlorthalidone 25 mg Tablet PO (08:38)
--- NOTE | 2019-06-27 10:28 | PC.CHAP ---
Pastoral Care Encounter/Spiritual Assessment Type of Contact [] Declined insole rasper visit [] Patient/Family/Request visit [] Outpatient visit [] Follow-up visit [] Physician referral [] Code/Alert [x] Routine visit [] Staff referral [] Actively dying [] Patient sleeping [] Family support [] [] Out of room [] Palliative care [] [] Receiving care in room [] Pre-surgical visit [] Trauma [] Long length of stay [] ICU visit [] Other: Relational/Emotional Strength [x] Patient feels connected with others/family/visitors/staff [] Distress [] Loneliness/isolation [] Abandonment Spirituality of Patient [x] Person of Helga [x] Attends [employer]ian of their Helga [x] Believes in Prayer [x] Reads Bible or Islam materials [] There are Spiritual issues to be addressed 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 Interventions [x] Prayer [x] Active listening [x] Non-anxious presence [x] Spiritual/emotional support [] Crisis/trauma care [] Spiritual counseling [] Bereavement support [] Provided bereavement packet [] Provided Bible/devotional materials [] Provided toy/stuffed animal, coloring book to patient or family member [] Provided Communion [] Anointing/[place] [] Salvation [x] Completed spiritual assessment [] Other: Impact on Illness or Injury [] Angry [] Fearful [] Anxious [] Often cries [] Exhaustion [] Unable to work [] Unable to attend anabaptism [] Unable to walk/stand [] Unable to read [] Unable to drive [] Unable to eat/drink [] Unable to sleep [] Unable to be with family [] Patient intubated [x] Other: Summary Patient expressed concern regarding her daughter and grand children regarding not attending a denominational. Scripture was shared with patient regarding her concern. Time spent with patient 10-minutes
[2019-06-27 14:59] LABS: Thyroid Stimulating Hormone 0.95 uIU/mL (0.27-4.20)
--- NOTE | 2019-06-27 20:45 | P.DS_ITS ---
Discharge Providers Date of Admission: 06/23/19 16:09 Date of Discharge: June 27, 2019 Attending Provider at Admission: Noe Handley MD Attending Provider at Discharge: Fausto Chang Primary Care Provider: Scooby Ignacio MD Diagnoses at Discharge Discharge Diagnosis (1) GI bleed: Status: Acute (2) Epistaxis: Status: Acute (3) Acute kidney injury: Status: Acute (4) Nonischemic cardiomyopathy: Status: Acute (5) Benign essential HTN: Status: Acute (6) Chest wall hematoma: Status: Acute (7) History of multiple cerebrovascular accidents (CVAs): Status: Acute (8) Multiple falls: Status: Acute (9) Physical deconditioning: Status: Acute (10) Peripheral vascular disease: Status: Acute Reason for Visit Reason for Visit: Reason For Visit: LOWER GI LAB Hospital Course Hospital Course: Very pleasant 83-year-old lady was admitted after a fall at home with contusion and hematoma to the anterior chest, with also a skin tear and superficial bleeding, on presentation noted to have symptomatic anemia, hemoglobin 7.7, with positive Hemoccult. With past history of colon cancer in the family, and cancers polyps noted since her 30s, arrangements were made for upper and lower endoscopic evaluation. Very mild acute kidney injury noted on presentation, creatinine 1.2, with creatinine fluctuating during this hospitalization around 1-1.1. Plavix, which she takes due to history of CVA, peripheral arterial disease, had to be held. She received 2 units PRBC transfusion. PPI. She underwent uneventful upper and lower endoscopic evaluations which did not identify any active bleeding or suspected source. On discussion with her she notes having intermittently removed blood clots from her nose with intermittent epistaxis. Discussed with her and family as per surgical recommendation at this time antiplatelet medication will need to be held due to her symptomatic anemia. Hemoglobin has remained stable post procedurally in the hospital. As long as hemoglobin is maintained, attempt may be made to consider resume Plavix which she needs long-term, or alternatively other antiplatelet medication. She is referred also to ENT for assessment of recurrent epistaxis. If, however, hemoglobin trends down again, several different options may be responsible for recurrence of blood loss anemia, possibly requiring additional intervention by deep enteroscopy or capsule endoscopy at a specialized center, and/or recurrent epistaxis may need to be revisited. While in the hospital incidentally noted to also have episodes of bradycardia, sometimes as low as into 40s, although without symptoms here. Metoprolol at this time is discontinued. 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 Mccall in office. I am told she has an appointment scheduled already. Due to deconditioning, fall, she would benefit from continued physical therapy with home health after discharge. Physical Exam Const: COMMON NORMALS: no apparent distress and oriented x3 GENERAL APPEARANCE: frail appearing ORIENTATION/CONSCIOUSNESS: Yes other (Pleasant e lderly lady.) HENMT: COMMON NORMALS: oropharynx normal Neck/C-Spine: COMMON NORMALS: no JVD Chest: OTHER: Ecchymosis, mild contusion at the anterior chest, small skin tear, no active bleeding. Resp: COMMON NORMALS: normal respiratory effort and clear to auscultation bilaterally AUSCULTATION: clear to auscultation bilaterally Cardio: COMMON NORMALS: no JVD, regular rhythm, S1 normal heart sound, S2 normal heart sound and no murmurs RHYTHM: regular rhythm HEART SOUNDS: S1 normal and S2 normal GI: COMMON NORMALS: normal to inspection, nondistended, normoactive bowel nilsa nds and soft to palpation PALPATION: Yes soft and Yes tender (Some tenderness on palpation of upper abdomen.) Extremity: COMMON NORMALS: no joint enlargement and no pedal edema OTHER: thin Neuro: COMMON NORMALS: oriented x3 and moves all extremities Skin: COMMON NORMALS: no rashes or lesions noted GENERAL SKIN EXAM: no rashes or lesions noted OTHER: Thin, fragile skin. Interspersed areas of bruising on upper extremities, chest. Discharge Data Data Completed and Pending: Completed Studies During Hospitalization Category Date Time Status CT chest abd pel w con* Stat Cat Scan 06/23/19 13:[address] head wo con* 7 0450 Urgent Cat Scan 06/23/19 13:21 Completed XR chest 1V [place] ble [id number] Stat Exams 06/23/19 13:21 Completed Labs from last 24 hours 06/27/19 06/27/19 06/27/19 04:13 04:13 04:13 WBC 8.4 RBC 3.75 L Hgb 9.2 L Hct 29.8 L MCV 79.5 L MCH 24.5 L MCHC 30.9 RDW 18.6 H Plt Count 325 MPV 8.7 Neut % (Auto) 66.5 Lymph % (Auto) 14.5 [place] % (Auto) 17.2 Eos % (Auto) 1.0 Baso % (Auto) 0.4 Neut # (Auto) 5.6 Lymph # (Auto) 1.2 [place] # (Auto) 1.5 H Eos # (Auto) 0.1 Baso # (Auto) 0.0 Nucleated RBC % (a uto) 0.4 Nucleated RBCs # 0.0 Sodium 136 Potassium 3.5 Chloride 100 Carbon Dioxide 26 Anion Gap 13.5 BUN 12 Creatinine 1.1 H Glucose 106 Calculated Osmolal ity 279 L Calcium 9.1 TSH 0.95 Crossmatch 06/23/19 14:14 WBC RBC Hgb Hct MCV MCH MCHC RDW Plt Count MPV Neut % (Auto) Lymph % (Auto) [place] % (Auto) Eos % (Auto) Baso % (Auto) Neut # (Auto) Lymph # (Auto) [place] # (Auto) Eos # (Auto) Baso # (Auto) Nucleated RBC % (a uto) Nucleated RBCs # Sodium Potassium Chloride Carbon Dioxide Anion Gap BUN Creatinine Glucose Calculated Osmolal ity Calcium TSH Crossmatch See Detail Vitals: Last Vital Signs Temp 98.6 F 06/27/19 15:37 Pulse 51 L 06/27/19 15:37 Resp 18 06/27/19 15:37 BP 153/71 06/27/19 15:37 Pulse Ox 95 06/27/19 15:37 Discharge Plan Discharge Patient Disposition: Home Health Service Condition: Stable Prescriptions: New pantoprazole 40 mg tablet,delayed release (DR/EC) 40 mg PO DAILY Qty: 30 RF: 0 Continued levothyroxine 50 mcg capsule 50 mcg PO DAILY RF: 0 ergocalciferol (vitamin D2) [Vitamin D2] 1,250 mcg (50,000 unit) capsule 50,000 unit PO Q7D RF: 0 cilostazol 50 mg tablet 50 mg PO BID Qty: 180 RF: 3 chlorthalidone 25 mg tablet 25 mg PO DAILY Qty: 90 RF: 3 hydralazine 50 mg tablet 75 mg PO TID Qty: 405 RF: 3 Tylenol 1 - 2 tab PO PRN RF: 0 atorvastatin 20 mg tablet 20 mg PO DAILY RF: 0 Changed Lasix 20 mg Tablet 20 mg PO DAILY PRN (Reason: Edema) Qty: 0 RF: 0 Held clopidogrel 75 mg tablet 75 mg PO DAILY RF: 0 Hold Instructions: Resume on 07/11/19. Discontinued metoprolol tartrate 25 mg tablet 25 mg PO BID RF: 0 Discharge Orders: Discharge Order (Routine); Ordered 06/27/19 Ordered By: Fausto Chang Other Ambulatory Orders: Complete Blood Count w/Auto (WEEKLY) Timeframe: 20190704 Location: Determined by Patient Ordered By: Fausto Chang Complete Blood Count w/Auto (WEEKLY) Timeframe: 20190705 Location: Determined by Patient Ordered By: Fausto Chang Referrals: [facility] ([facility]) [Outside] Juma Carbajal MD [Physician] - 07/11/19 9:15 am Cleveland Vergara MD [Physician] - 07/01/19 11:15 am (Intermittent epistaxis, anemia, need for plavix therapy) Scooby Ignacio MD [Primary Care Provider] - 07/01/19 1:45 pm Discharge Diet: Cardiac Discharge Activity: Increase activity as tolerated and As per PT/OT instructions Patient Instructions: Pantoprazole (By mouth), Gastrointestinal Bleeding (GEN) Activity Restrictions/Additional Instructions: If you notice any large amount of bleeding, are again start feeling faint, have recurrent falls, or other abnormal symptoms, please seek medical attention without delay. Please monitor any bleeding from your nose. Lean forward and apply pressure from outside until bleeding stops, do not insert anything into your nose. If bleeding is profuse or persistent, please seek medical attention in ER. For now Plavix are held due to acute blood loss anemia, and may be cautiously resumed by your primary care doctor, surgeon, ENT. Hemoglobin will be rechecked in 1 week and then in 2 weeks, and if decreasing again, consideration may need to be given to additional evaluation of GI tract at a specialized center if no causes of nasal bleeding are seen on ENT examination. Please maintain fall precautions at all times. If you feel dizzy after standing up, please sit down or lie down. Please monitor your heart rate 3 times daily, record values to bring to your appointment with Dr. Mccall. For now metoprolol is held due to slow heart rates. If these improve, perhaps metoprolol can be resumed at lower dose. 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
== END 2019-06-27 15:59 | disposition home health service (06) | DRG 812 ==
LOC: ER 14:12 → ICU 16:19 → MEDSURG 06-27 04:44
PROVIDERS: Surgery; Admitting Provider Family Medicine; Emergency Provider Emergency Medicine; Family Provider Family Medicine; PCP Family Medicine; Visit Provider Internal Medicine
PROC: 0DJ08ZZ Inspection of Upper Intestinal Tract, Via Natural or Artificial Opening Endoscopic (ICD-10-PCS; CPT 43235; principal; 2019-06-26 12:30)
PROC: 0DJD8ZZ Inspection of Lower Intestinal Tract, Via Natural or Artificial Opening Endoscopic (ICD-10-PCS; CPT 45378; 2019-06-26 12:30)
DX: D62 Acute posthemorrhagic anemia (principal); K92.2 Gastrointestinal hemorrhage, unspecified; I42.8 Other cardiomyopathies; I50.32 Chronic diastolic (congestive) heart failure; N17.9 Acute kidney failure, unspecified; I11.0 Hypertensive heart disease with heart failure; Z86.73 Personal history of transient ischemic attack (TIA), and cerebral infarction without residual deficits; I65.29 Occlusion and stenosis of unspecified carotid artery; I73.9 Peripheral vascular disease, unspecified; D50.9 Iron deficiency anemia, unspecified; E03.9 Hypothyroidism, unspecified; E53.8 Deficiency of other specified B group vitamins; E78.5 Hyperlipidemia, unspecified; J44.9 Chronic obstructive pulmonary disease, unspecified; Z87.442 Personal history of urinary calculi; R29.6 Repeated falls; S20.219A Contusion of unspecified front wall of thorax, initial encounter; W18.30XA Fall on same level, unspecified, initial encounter; I25.2 Old myocardial infarction; Z87.891 Personal history of nicotine dependence; Z80.0 Family history of malignant neoplasm of digestive organs; Z86.010 Personal history of colon polyps; Z87.01 Personal history of pneumonia (recurrent); R04.0 Epistaxis
CPT/HCPCS: 12345; 36415; 43235; 45378; 70450; 71045; 71260; 74177; 80048; 80053; 81001; 82378; 82607; 82728; 82746; 83036; 83540; 83550; 83605; 83690; 83735; 84100; 84443; 84484; 85014; 85018; 85025; 85045; 85610; 86850; 86900; 86920; 93005; 94664; 96375; 97116; 97162; 97165; 97535; 99283; C9113; J1756; J2001; J2270; J2405; J2704; J3480; J3490; J7030; P9016; Q9967

== ENCOUNTER 2019-08-05 09:19 | Outpatient (CLI) | payer MEDICARE, OTHER, SELFPAY ==
--- NOTE | 2019-08-05 09:15 | XR_ITS ---
WS: [id number] ABDOMEN 1 VIEW(S) HISTORY: OBSTRUCTIVE PYELONEPHRITIS COMPARISON: 06/23/2019 Increased amount of air within the GI tract. No obstruction. No suspicious calcifications or masses. Vascular calcifications RIGHT abdomen. No fracture. Osteopenia. Prior RIGHT hip arthroplasty. 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 XR/XR KUB [id number] IMPRESSION: 1. No renal or ureteral calcifications. 2. Vascular calcifications.
== END 2019-08-05 09:20 | disposition home or self-care (01) ==
LOC: RAD 09:23
PROVIDERS: Family Provider Family Medicine; PCP Family Medicine; Visit Provider Urology
DX: N11.1 Chronic obstructive pyelonephritis (principal)
CPT/HCPCS: 74018; 81001

== ENCOUNTER → 2019-08-12 11:09 | Outpatient (BNVA) | payer MEDICARE, OTHER, SELFPAY | PROVIDERS: Family Provider Family Medicine; PCP Family Medicine; Visit Provider Specialist | DX: R29.90 Unspecified symptoms and signs involving the nervous system (principal); I65.29 Occlusion and stenosis of unspecified carotid artery; I42.0 Dilated cardiomyopathy; Z87.891 Personal history of nicotine dependence; Z86.73 Personal history of transient ischemic attack (TIA), and cerebral infarction without residual deficits | CPT/HCPCS: 99213 ==

== ENCOUNTER 2019-09-26 11:46 | Inpatient (IN) | payer MEDICARE, OTHER, SELFPAY ==
[2019-09-26] VITALS (8 sets, daily range): BP systolic 145–211; BP diastolic 71–106; PULSE 58–85; RESP 11–21; TEMP 36.5–36.8; O2SAT 92–100; BMI 16.2
--- NOTE | 2019-09-26 12:07 | XRR_ITS ---
PROCEDURE INFORMATION: Exam: XR Chest, 1 View Exam date and time: 09/26/2019 1:15 PM Age: 84 years old Clinical indication: Other: Weakness, lightheadedness, nausea; Patient HX: C/O generalized weakness, light headedness, nausea and diarrhea. TECHNIQUE: Imaging protocol: XR of the chest Views: 1 view. COMPARISON: CR XR chest 1V portable [id number] 06/23/2019 1:34 PM FINDINGS: Lungs: No pneumonia or pulmonary edema. Pleural space: No pleural effusion or pneumothorax. Heart/Mediastinum: The cardiac silhouette is not enlarged. The mediastinal contours are normal. Vasculature: The thoracic aorta is atherosclerotic but not aneurysmal. There is bilateral carotid bifurcation atherosclerotic plaque. Bones/joints: Curvature of the thoracic spine convex to the right XR/XR chest 1V portable [id number] IMPRESSION: 1. No acute intrathoracic abnormality. 2. Bilateral carotid bifurcation atherosclerotic plaque.
--- NOTE | 2019-09-26 12:08 | ECG_ITS ---
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 [id number]
--- NOTE | 2019-09-26 12:39 | ED_ITS ---
HPI - Weakness General: Chief complaint: Weakness Stated complaint: weakness/nausea/dizzy Time Seen by Provider: 09/26/19 12:02 Source: patient Mode of arrival: ambulatory Limitations: no limitations History of Present Illness: HPI Narrative: Irma is an 84-year-old female who comes in with a complaint of generalized weakness, lightheadedness, nausea and diarrhea. She denies any abdominal pain, fever, urinary symptoms, chest pain, or shortness of breath. Patient states that she has had similar symptoms in the past secondary to anemia and she is received scopes but no definitive cause can be found for her anemia. The patient states anytime she gets up and exerts herself or walks it makes things worse and rest helps make them better. Patient denies any syncope or near syncopal type symptoms. She denies any room spinning dizziness such as vertigo. She does not believe there is any blood or black tarry stools but her stools are loose and diarrhea-like. Patient denies any other symptoms or complaints at this time. Associated symptoms: Reports nausea; Denies chest pain, chills, confusion, melena, diaphoresis, dysuria, easy bruising, fever(s), headache(s), syncope or vomiting Review of Systems Const: Reports: fatigue and malaise; Denies: fever(s), chills, body aches or diaphoresis Eyes: Denies: change in vision, blurry vision, blind spots, photophobia, eye discharge or eye redness ENMT: Denies: throat pain, odynophagia, hoarseness, swelling of lips/tongue, oral sores, ear or mastoid pain, ear discharge, change in hearing or nasal discharge Card: Denies: chest pain, palpitations, irregular heart rhythm, edema, lightheadedness, syncope, pre-syncope, dyspnea on exertion or orthopnea Resp: Denies: dyspnea, productive cough, non-productive cough, wheezing, hemoptysis or chest congestion GI: Reports: nausea and diarrhea; Denies: abdominal pain, vomiting, hematemesis, coffee ground emesis, heartburn, constipation, GI cramping, hematochezia or melena : Denies: flank pain, dysuria, urinary frequency, urinary urgency or hematuria Musc: Denies: neck pain, back pain, extremity pain, extremity swelling, joint pain, joint swelling, joint redness, joint warmth or joint stiffness Skin/Breast: Denies: rash, pruritus, erythema, skin tenderness or jaundice Neuro: Denies: headache(s), numbness in extremities, weakness in extremities, sensory changes, lack of coordination, difficulty walking, dizziness, vertigo, confusion, Slurred speech present or seizure-like activity Jarret/Lymph: Denies: easy bruising, easy bleeding, petechiae, purpura or enlarged lymph nodes All/Imm: Denies: urticaria, throat swelling, tongue swelling, facial swelling or acute wheezing PFSH ED PFSH: Medical History (Updated 09/26/19 @ 19:05 by Ion Kong MD) Anemia due to blood loss Atypical chest pain Benign essential HTN Carotid artery disease Carotid artery stenosis with cerebral infarction over 8 weeks ago Had CVA in August 2018-is being followed by Dr. Mae Cerebral vascular accident Chronic heart failure Hyperlipemia Hypertension Kidney calculi Myocardial infarct Obstructive pyelonephritis Syncope Urolithiasis Surgical History History of colonoscopy History of esophagogastroduodenoscopy (EGD) Family History Father Cancer, Onset Age: 90 Colon cancer Denies family history of Diabetes CAD (coronary artery disease) Hypertension Stroke Social History (Updated 09/26/19 @ 12:10 by Norm May RN) Smoking and tobacco status: former smoker Alcohol intake: current Alcohol intake frequency: few times a month Alcohol type: wine Substance/Drug Use: never Adopted: No Caregiver/support person: No Lives independently: No Marital status: / Current occupational status: retired History of recent travel: No Current gender identity: Female Physical Exam Const: COMMON NORMALS: no acute distress, patient oriented x3, no limitations, healthy appearing and well nourished GENERAL APPEARANCE: cooperative, well kempt and well developed HENMT: COMMON NORMALS: normocephalic, atraumatic, external ears normal, EAC's normal and Normal external nose present HEAD & SCALP: normal to inspection, n ormocephalic and atraumatic FACE & SINUS: normal facial exam and face symmetric NOSE: Normal external nose present and Normal nares present EXTERNAL EAR: Yes external ears normal EXTERNAL AUDITORY CANAL: EAC's normal MOUTH: Normal oral and palatal mucosa present, lip normal and tongue normal Eye: COMMON NORMALS: Equal, round and reactive pupils present and conjunctivae normal GENERAL EYE: appearance normal, both eyes and all related structures ALIGNMENT: Yes alignment normal PERIORBITAL: periorbital findings normal EYELID: eyelids normal CONJUNCTIVA: Yes conjunctivae normal SCLERA: sclerae normal PUPIL: Yes Equal, round and reactive pupils present Neck/C-Spine: COMMON NORMALS: full ROM, no lymphadenopathy, supple, no meningeal signs and no JVD GENERAL: Yes normal visual inspection and Yes trachea midline Chest: COMMONS NORMALS: normal inspection of the chest and normal palpation of entire chest wall Resp: COMMON NORMALS: normal respiratory effort, No retractions and No use of accessory muscles EFFORT & INSPECTION: Yes able to speak in complete sentences and Yes symmetric chest movement AUSCULTATION: no crackles, no rales, no rhonchi and no wheezes Cardio: COMMON NORMALS: no JVD, regular rate, regular rhythm, S1 normal heart sound present and S2 normal heart sound present RATE: regular rate RHYTHM: regular rhythm HEART SOUNDS: S1 normal heart sound present, S2 normal heart sound present, no click, no gallops, no murmurs, no rubs and abnormal split S2 GI: COMMON NORMALS: Soft to palpation and No hepatosplenomegaly present PALPATION: Yes Soft to palpation, No Tenderness to palpation present (GI), No Guarding due to palpation present (GI), No Rigid due to palpation, Yes No hepatosplenomegaly present, No Hernia present, No Palpable mass present and No Pulsatile mass present : COMMON NORMALS: Yes no CVA tenderness BLADDER/KIDNEY EXAM: Yes no CVA tenderness EXTERNAL FEMALE EXAM: No Hernia present Back/Pelvis: COMMON NORMALS: no CVA tenderness, thoracic and lumbar spine normal to inspection, no thoracic nor lumbar tenderness and thoraco-lumbar ROM normal Extremity: COMMON NORMALS: normal to inspection, full ROM, capillary refill normal, no joint enlargement, no clubbing, cyanosis or edema and no calf tenderness Neuro: COMMON NORMALS: patient oriented x3, CN's II-XII intact bilaterally, moves all extremities, no focal motor deficits and no sensory deficits noted MENINGEAL SIGNS: Yes no meningeal signs SPEECH: speech normal Psych: COMMON NORMALS: mental status grossly normal, Normal thought process present, cooperative, normal affect, speech normal and activity/motor behavior normal APPEARANCE: Yes well kempt SPEECH: Yes normal speech THOUGHT PROCESS: Normal thought process present Skin: COMMON NORMALS: no rashes or lesions noted, turgor normal, no jaundice, no petechiae and no mottling GENERAL SKIN EXAM: no rashes or lesions noted and turgor normal Course ED course: 1407 -orthostatic vital signs are positive by at 20 point increase in heart rate. We the patient would benefit from some IV fluids this also helped her serum sodium. Patient is on diuretics which may be causing her hyponatremia. At this time she is relieved to hear that she is not anemic again. Is not symptomatic with rising up while here. Vital Signs: Vital signs: Vital Signs Temperature 98 F 09/26/19 20:00 Pulse Rate 60 09/26/19 20:00 Respiratory Rate 18 09/26/19 20:00 Blood Pressure 179/81 09/26/19 20:00 Pulse Oximetry 96 09/26/19 20:00 MDM - Weakness MDM Narrative: Medical decision making narrative: Mrs. Reid is a very nice 84-year-old female who comes in complaining of generalized weakness, lightheadedness and nausea. She has had some diarrhea but there has been no blood or melanotic stools present per her history. She denies any cardiac symptoms such as chest pain, shortness of breath and she denies any infectious symptoms such as fever, urinary frequency dysuria, urgency/frequency. The patient has a mild hyponatremia and a mild orthostasis. This is resolved with IV fluids. Her symptoms could be caused by overdiuresis. The patient shows no sign of congestive heart failure clinically but more so of dehydration. I have instructed her to hold her Lasix until she is seen by her provider on Monday and I have instructed her to call sooner for an appointment to be seen sooner by 1 of the providers at [facility]. She of course understands that she is welcome to return here should she change her mind or her symptoms worsen. She is okay with that plan. She denies any complaints or concerns otherwise. At this time I see no infectious or metabolic cause of her symptoms other than the hyponatremia. The patient is able to eat and drink and ambulate without any sign of instability. I believe at this time she is safe for discharge but will need close follow-up to be certain her symptoms resolved. Admission -when the patient got up to get ready to leave she became lightheaded, dizzy and nearly had a syncopal spell. I do not believe she is safe for discharge. I reviewed the case with Dr. Kong is agreeable to admission. Lab Data: Attestation: I reviewed the patient's lab results. Labs: Lab Results 09/26/19 09/26/19 09/26/19 Range/Units 12:24 12:41 12:41 WBC 6.0 (4.0-10.0) 10^3/ uL RBC 3.86 L (4.1-5.3) 10^6/u L Hgb 11.9 (11.5-15.3) g/dL Hct 36.3 L (37.0-47.0) % MCV 94.0 (81-99) fL MCH 30.8 (28.0-34.0) pg MCHC 32.8 (30.0-36.0) g/dL RDW 15.4 H (12.1-15.1) % Plt Count 356 (130-400) 10^3/c mm MPV 8.3 (7.4-10.4) fL Neut % (Auto) 55.8 % Lymph % (Auto) 25.5 % [place] % (Auto) 17.4 % Eos % (Auto) 0.3 % Baso % (Auto) 0.7 % Neut # (Auto) 3.32 (1.8-7.7) 10^3/u L Lymph # (Auto) 1.5 (0.8-4.8) 10^3/u L [place] # (Auto) 1.0 H (0.2-0.9) 10^3/u L Eos # (Auto) 0.0 (0.0-0.8) 10^3/u L Baso # (Auto) 0.0 (0.0-0.1) 10^3/u L Nucleated RBC % (a uto) 0 % Nucleated RBCs # 0.0 /100WBC PT (10.5-13.3) SECO NDS INR (0.8-1.2) Sodium 129 L (136-145) mmol/L Potassium 3.5 (3.5-5.1) mmol/L Chloride 87 L (98-107) mmol/L Carbon Dioxide 26 (22-29) mmol/L Anion Gap 19.5 H (5-19) BUN 20 (8-23) mg/dL Creatinine 0.9 (0.5-0.9) mg/dL GFR Calculation Not Reportable Glucose 105 (65-115) mg/dL Calculated Osmolal ity 265 L (285-295) mOsm/k g Calcium 8.9 (8.5-10.5) mg/dL Magnesium 2.6 H (1.7-2.3) mg/dL Total Bilirubin 0.4 (0.15-1.2) mg/dL AST 26 (0-32) U/L ALT 16 (0-33) U/L Alkaline Phosphata se 71 (35-105) IU/L Troponin T Baselin e (0-10) ng/L Troponin T 120 Min [place] (0-10) ng/L Delta Troponin T (0-10) ABS# Total Protein 8.2 (6.6-8.7) g/dL Albumin 4.9 (3.5-5.2) g/dL Globulin 3.3 (1.3-4.6) g/dL Lipase 57 (13-60) U/L TSH 0.20 L (0.27-4.20) uIU/ mL Free T4 1.76 (0.82-1.77) ng/d L Urine Color Yellow (Yellow) Urine Appearance Sl cloudy A (CLEAR) Urine pH 8 H (5-7) Ur Specific Gravit y 1.010 (1.005-1.030) Urine Protein Neg (Negative) Urine Glucose (UA) Norm (Normal) Urine Ketones Negative (Negative) Urine Blood Neg (Negative) Urine Nitrate Negative (Negative) Urine Bilirubin Neg (NEGATIVE) Urine Urobilinogen Neg (Negative) mg/dL Ur Leukocyte Eli ase Negative (Negative) Urine RBC None (0-2) /hpf Urine WBC 0-4 H (0-5) /hpf Ur Squamous Epith Cells None (0-5) Amorphous Sediment 1+ Urine Bacteria Trace (NONE) 09/26/19 09/26/19 09/26/19 Range/Units 12:41 12:41 12:41 WBC (4.0-10.0) 10^3/ uL RBC (4.1-5.3) 10^6/u L Hgb (11.5-15.3) g/dL Hct (37.0-47.0) % MCV (81-99) fL MCH (28.0-34.0) pg MCHC (30.0-36.0) g/dL RDW (12.1-15.1) % Plt Count (130-400) 10^3/c mm MPV (7.4-10.4) fL Neut % (Auto) % Lymph % (Auto) % [place] % (Auto) % Eos % (Auto) % Baso % (Auto) % Neut # (Auto) (1.8-7.7) 10^3/u L Lymph # (Auto) (0.8-4.8) 10^3/u L [place] # (Auto) (0.2-0.9) 10^3/u L Eos # (Auto) (0.0-0.8) 10^3/u L Baso # (Auto) (0.0-0.1) 10^3/u L Nucleated RBC % (a uto) % Nucleated RBCs # /100WBC PT 12.20 (10.5-13.3) SECO NDS INR 0.88 (0.8-1.2) Sodium (136-145) mmol/L Potassium (3.5-5.1) mmol/L Chloride (98-107) mmol/L Carbon Dioxide (22-29) mmol/L Anion Gap (5-19) BUN (8-23) mg/dL Creatinine (0.5-0.9) mg/dL GFR Calculation Glucose (65-115) mg/dL Calculated Osmolal ity (285-295) mOsm/k g Calcium (8.5-10.5) mg/dL Magnesium (1.7-2.3) mg/dL Total Bilirubin (0.15-1.2) mg/dL AST (0-32) U/L ALT (0-33) U/L Alkaline Phosphata se (35-105) IU/L Troponin T Baselin e 17 H (0-10) ng/L Troponin T 120 Min [place] (0-10) ng/L Delta Troponin T (0-10) ABS# Total Protein (6.6-8.7) g/dL Albumin (3.5-5.2) g/dL Globulin (1.3-4.6) g/dL Lipase (13-60) U/L TSH 0.21 L (0.27-4.20) uIU/ mL Free T4 (0.82-1.77) ng/d L Urine Color (Yellow) Urine Appearance (CLEAR) Urine pH (5-7) Ur Specific Gravit y (1.005-1.030) Urine Protein (Negative) Urine Glucose (UA) (Normal) Urine Ketones (Negative) Urine Blood (Negative) Urine Nitrate (Negative) Urine Bilirubin (NEGATIVE) Urine Urobilinogen (Negative) mg/dL Ur Leukocyte Eli ase (Negative) Urine RBC (0-2) /hpf Urine WBC (0-5) /hpf Ur Squamous Epith Cells (0-5) Amorphous Sediment Urine Bacteria (NONE) /30/20 Range/Units 15:03 WBC (4.0-10.0) 10^3/ uL RBC (4.1-5.3) 10^6/u L Hgb (11.5-15.3) g/dL Hct (37.0-47.0) % MCV (81-99) fL MCH (28.0-34.0) pg MCHC (30.0-36.0) g/dL RDW (12.1-15.1) % Plt Count (130-400) 10^3/c mm MPV (7.4-10.4) fL Neut % (Auto) % Lymph % (Auto) % [place] % (Auto) % Eos % (Auto) % Baso % (Auto) % Neut # (Auto) (1.8-7.7) 10^3/u L Lymph # (Auto) (0.8-4.8) 10^3/u L [place] # (Auto) (0.2-0.9) 10^3/u L Eos # (Auto) (0.0-0.8) 10^3/u L Baso # (Auto) (0.0-0.1) 10^3/u L Nucleated RBC % (a uto) % Nucleated RBCs # /100WBC PT (10.5-13.3) SECO NDS INR (0.8-1.2) Sodium (136-145) mmol/L Potassium (3.5-5.1) mmol/L Chloride (98-107) mmol/L Carbon Dioxide (22-29) mmol/L Anion Gap (5-19) BUN (8-23) mg/dL Creatinine (0.5-0.9) mg/dL GFR Calculation Glucose (65-115) mg/dL Calculated Osmolal ity (285-295) mOsm/k g Calcium (8.5-10.5) mg/dL Magnesium (1.7-2.3) mg/dL Total Bilirubin (0.15-1.2) mg/dL AST (0-32) U/L ALT (0-33) U/L Alkaline Phosphata se (35-105) IU/L Troponin T Baselin e (0-10) ng/L Troponin T 120 Min [place] 15.13 H (0-10) ng/L Delta Troponin T -1.87 L (0-10) ABS# Total Protein (6.6-8.7) g/dL Albumin (3.5-5.2) g/dL Globulin (1.3-4.6) g/dL Lipase (13-60) U/L TSH (0.27-4.20) uIU/ mL Free T4 (0.82-1.77) ng/d L Urine Color (Yellow) Urine Appearance (CLEAR) Urine pH (5-7) Ur Specific Gravit y (1.005-1.030) Urine Protein (Negative) Urine Glucose (UA) (Normal) Urine Ketones (Negative) Urine Blood (Negative) Urine Nitrate (Negative) Urine Bilirubin (NEGATIVE) Urine Urobilinogen (Negative) mg/dL Ur Leukocyte Eli ase (Negative) Urine RBC (0-2) /hpf Urine WBC (0-5) /hpf Ur Squamous Epith Cells (0-5) Amorphous Sediment Urine Bacteria (NONE) EKG Data^: EKG 1: Attestation: I personally reviewed and interpreted this EKG as follows: EKG interpretation date: 09/26/19 EKG interpretation time: 12:33 Interpretation: Normal sinus rhythm at 75 beats a minute, PVC noted, T wave inversions in III, aVF and V3, Q waves anteriorly, otherwise nonspecific ST and T wave changes. Findings similar to previous. EKG 2: Attestation: I personally reviewed and interpreted this EKG as follows: EKG interpretation date: 09/26/19 EKG interpretation time: 14:24 Interpretation: Normal sinus rhythm at 58 beats a minute, T waves inverted in 3, aVF. Q waves anterior. Unchanged from previous Discharge Plan Discharge Patient Disposition: Home Admit Provider: Ion Kong Clinical Impression: Generalized weakness, Acute hyponatremia, Acute dehydration Condition: Stable Discharge Orders: Discharge Order (Routine); Ordered 09/26/19 Ordered By: Leann Norris Discharge Diet: Usual diet Discharge Activity: Increase activity as tolerated Coding Level of Care Code ED Azure Developer for Chg Fwd Exam Comprehensive
[2019-09-26 12:47] LABS: Basophils % 0.7 %; Eosinophils % 0.3 %; Hematocrit 36.3 % (37.0-47.0); Hemoglobin 11.9 g/dL (11.5-15.3); Lymphocytes # 1.5 10^3/uL (0.8-4.8); Lymphocytes % 25.5 %; Mean Corpuscular HGB Conc 32.8 g/dL (30.0-36.0); Mean Corpuscular Hemoglobin 30.8 pg (28.0-34.0); Mean Platelet Volume 8.3 fL (7.4-10.4); Monocytes % 17.4 %; Neutrophils # 3.32 10^3/uL (1.8-7.7); Neutrophils % 55.8 %; Nucleated Red Blood Cells % 0 %; Platelet Count 356 10^3/cmm (130-400); Red Blood Count 3.86 10^6/uL (4.1-5.3); Red Cell Distribution Width 15.4 % (12.1-15.1)
[2019-09-26] MEDS: sodium chloride 0.9% 1,000 ML 75 ML IV (12:59)
[2019-09-26] MEDS: sodium chloride 0.9% 1,000 ML 999 ML IV (13:00)
[2019-09-26 13:01] LABS: INR 0.88 (0.8-1.2)
[2019-09-26 13:08] LABS: Troponin(5th) Baseline 17 ng/L (0-10)
[2019-09-26 13:12] LABS: Alanine Aminotransferase 16 U/L (0-33); Albumin Level 4.9 g/dL (3.5-5.2); Alkaline Phosphatase 71 IU/L (35-105); Anion Gap 19.5 (5-19); Aspartate Amino Transferase 26 U/L (0-32); Blood Urea Nitrogen 20 mg/dL (8-23); Calcium 8.9 mg/dL (8.5-10.5); Carbon Dioxide 26 mmol/L (22-29); Chloride 87 mmol/L (98-107); Globulin 3.3 g/dL (1.3-4.6); Glucose 105 mg/dL (65-115); Lipase 57 U/L (13-60); Magnesium 2.6 mg/dL (1.7-2.3); Osmolality Calculated 265 mOsm/kg (285-295); Potassium 3.5 mmol/L (3.5-5.1); Sodium 129 mmol/L (136-145); Total Bilirubin 0.4 mg/dL (0.15-1.2); Total Protein 8.2 g/dL (6.6-8.7)
[2019-09-26 13:14] LABS: Bilirubin Urine Neg (NEGATIVE); Blood Urine Neg (Negative); Glucose Urine UA Norm (Normal); Ketones Urine Negative (Negative); Leukocyte Esterase Urine Negative (Negative); Nitrate Urine Negative (Negative); Protein Urine Neg (Negative); Urine Color Yellow (Yellow); Urobilinogen Urine Neg (Negative); pH Urine 8 (5-7)
[2019-09-26 13:15] LABS: Add Urine Culture? No; Amorphous Sediment Urine 1+; Bacteria Urine TRACE; WBC Urine 0-4 /hpf (0-5)
[2019-09-26] MEDS: labetalol 5 mg/mL SDV 20mL 10 MG IVP (13:57)
[2019-09-26 14:01] LABS: Free T4 Free Thyroxine 1.76 ng/dL (0.82-1.77)
--- NOTE | 2019-09-26 14:08 | ECG_ITS ---
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 Measurements Intervals [place] Rate: 58 P: 73 TX: 168 QRS: -35 QRSD: 102 T: -28 QT: 436 QTc: 430 Interpretive Statements SINUS BRADYCARDIA LEFT AXIS DEVIATION [QRS AXIS < -30] ANTEROSEPTAL MYOCARDIAL INFARCTION , OF INDETERMINATE AGE [40+ ms Q WAVE IN V1-V4] Compared to ECG 09/26/2019 12:33:30 Sinus rhythm no longer present Ventricular premature complex(es) no longer present Myocardial infarct finding still present Electronically Signed On 09-27-2019 16:10:55 CDT by Hernan Ac M.D. [id number]
--- NOTE | 2019-09-26 14:28 | PC.NURSE ---
EKG done at 1425 and shown to ER doctor
[2019-09-26 15:37] LABS: Troponin 5 2HR 15.13 ng/L (0-10)
[2019-09-26 15:39] LABS: Troponin 5 2HR Delta -1.87 ABS# (0-10)
--- NOTE | 2019-09-26 16:23 | PC.NURSE ---
upon dc pt transfered to and lost support with legs in which i held her body weight 3x. informed dr. winston ramos to hold dc.
--- NOTE | 2019-09-26 18:17 | PC.NURSE ---
REPORT GIVEN TO ANANYA Singh RN.
--- NOTE | 2019-09-26 18:58 | P.HP_ITS ---
Providers/Chief Complaint Admitting Physician: Ion Kong MD Primary Care Provider: Scooby Ignacio MD Chief Complaint: WEAKNESS History of Present Illness Irma Reid is a 84 year old female presents to emerge department with generalized weakness. Reports that she woke up this morning with bilateral lower extremity weakness but otherwise denies any focal findings. Denies any complaints otherwise but on review of system reports that she has been having 2 to 3 days of diarrheal bowel movement. Reports it was a mess . Reports that she had previous history of C. difficile but denies any recent antibiotic use. In emergency department she received fluids but still remained symptomatic. She was weak and became lightheaded when she got up. She was orthostatic as I was told. Review of Systems Const: Denies: fever(s) or chills Eyes: Denies: change in vision ENMT: Denies: throat pain or change in hearing Card: Denies: chest pain, edema or lightheadedness Resp: Denies: dyspnea or productive cough GI: Reports: diarrhea (Reports that frequently she has alternating diarrhea and constipation for many years.); Denies: abdominal pain, nausea, vomiting, dysphagia, constipation, hematochezia or melena : Denies: difficulty voiding Musc: Denies: joint pain or joint swelling Skin/Breast: Denies: rash or erythema Neuro: Reports: weakness in extremities (Both lower extremities only.); Denies: headache(s) Psych: Denies: depression or suicidal ideation Endo: Denies: excessive sweating Jarret/Lymph: Reports: easy bruising and easy bleeding; Denies: tender lymph nodes All/Imm: Denies: throat swelling Medications/Allergies Home Medications Medication Instructions Recorded Confirmed Last Taken Type ergocalciferol (vitamin D2) 1,250 50,000 unit PO Q7D 03/26/19 09/26/19 09/20/19 History mcg (50,000 unit) capsule levothyroxine 50 mcg capsule 50 mcg PO DAILY 03/26/19 09/26/19 09/26/19 History chlorthalidone 25 mg tablet 25 mg PO DAILY #90 tab 06/05/19 09/26/19 06/23/19 Rx hydralazine 50 mg tablet 75 mg PO TID #405 tab 06/11/19 09/26/19 09/26/19 Rx acetaminophen 325 mg PO QID PRN #0 06/23/19 09/26/19 Unknown History atorvastatin 20 mg PO DAILY 06/23/19 09/26/19 09/26/19 History clopidogrel 75 mg PO DAILY 06/23/19 09/26/19 09/26/19 History furosemide [Lasix] 20 mg PO DAILY PRN #0 tab 06/27/19 09/26/19 06/23/19 Rx metoprolol tartrate 25 mg PO DAILY 09/26/19 09/26/19 Unknown History Allergies Allergy/AdvReac Type Severity Reaction Status Date / Time meperidine [From Demerol] Allergy ADR-Anxiety Verified 08/22/19 09:57 PFSH Acute PFSH: Medical History (Updated 09/26/19 @ 19:05 by Ion Kong MD) Anemia due to blood loss Atypical chest pain Benign essential HTN Carotid artery disease Carotid artery stenosis with cerebral infarction over 8 weeks ago Had CVA in August 2018-is being followed by Dr. Mae Cerebral vascular accident Chronic heart failure Hyperlipemia Hypertension Kidney calculi Myocardial infarct Obstructive pyelonephritis Syncope Urolithiasis Surgical History History of colonoscopy History of esophagogastroduodenoscopy (EGD) Family History Father Cancer, Onset Age: 90 Colon cancer Denies family history of Diabetes CAD (coronary artery disease) Hypertension Stroke Social History (Updated 09/26/19 @ 12:10 by Norm May RN) Smoking and tobacco status: former smoker Alcohol intake: current Alcohol intake frequency: few times a month Alcohol type: wine Substance/Drug Use: never Adopted: No Caregiver/support person: No Lives independently: No Marital status: / Current occupational status: retired History of recent travel: No Current gender identity: Female Vitals/I&O/Wt Last Vital Signs Temp 98.3 F 09/26/19 12:04 Pulse 62 09/26/19 15:30 Resp 21 H 09/26/19 15:30 BP 145/71 09/26/19 15:30 Pulse Ox 92 09/26/19 15:30 Weight last 48 hrs Weight 43.091 kg Physical Exam Const: COMMON NORMALS: no acute distress, patient oriented x3 and alert HENMT: COMMON NORMALS: normocephalic and atraumatic HEAD & SCALP: normocephalic and atraumatic Eye: COMMON NORMALS: EOMs intact bilaterally, conjunctivae normal and no scler al icterus CONJUNCTIVA: Yes conjunctivae normal Neck/C-Spine: COMMON NORMALS: no lymphadenopathy and no meningeal signs Lymph: LYMPHATIC: no lymphadenopathy noted Chest: COMMONS NORMALS: normal palpation of entire chest wall Resp: COMMON NORMALS: No use of accessory muscles and clear to auscultation bilaterally AUSCULTATION: clear to auscultation bilaterally Cardio: COMMON NORMALS: regular rate, regular rhythm and No murmurs present (Cardio) RATE: regular rate RHYTHM: regular rhythm OTHER: No lower extremity edema GI: COMMON NORMALS: Soft to palpation and non-tender PALPATION: Yes Soft to palpation RECTAL EXAM: deferred : COMMON NORMALS: Yes no CVA tenderness BLADDER/KIDNEY EXAM: Yes no CVA tenderness Back/Pelvis: COMMON NORMALS: no CVA tenderness and thoracic and lumbar spine normal to inspection Extremity: COMMON NORMALS: normal to inspection and capillary refill normal Neuro: COMMON NORMALS: patient oriented x3, moves all extremities, no focal motor deficits and no sensory deficits noted SENSORIUM/ORIENTATION: Yes alert MENINGEAL SIGNS: Yes no meningeal signs OTHER: Patient had no pronator drift. Had normal shoulder shrug. No cerebellar findings. Had preserved peripheral vision. Psych: COMMON NORMALS: mental status grossly normal, Normal thought process present and cooperative THOUGHT PROCESS: Normal thought process present Skin: COMMON NORMALS: no rashes or lesions noted GENERAL SKIN EXAM: no rashes or lesions noted Data : 09/26/19 12:41 09/26/19 12:41 A&P Assessment and plan (1) Generalized weakness: Status: Acute (2) Diarrhea: Status: Acute (3) Dehydration with hyponatremia: Status: Acute Additional A&P Information PLAN: We will hydrate with LR and monitor urinary output. Obtain stool studies including C. difficile test. Physical therapy. Attestations Medical Necessity Statement*: Patient with dehydration and generalized weakness as well as diarrhea requires observation for monitoring, treatment and evaluation. I expect patient will require less than two midnights. Time Spent in Patient Care: Greater than 35 minutes Coding Level of Care Code Acute Inspector Quality Assurance for Chg Fwd Diagnoses Generalized weakness R53.1 Diarrhea R19.7 Dehydration with hyponatremia E86.0; E87.1
[2019-09-26] MEDS: lactated ringers 1,000 ML 100 ML IV (19:37)
[2019-09-26] MEDS: heparin 5,000 unit/mL INJ 1 mL 5000 UNIT SUBCUT (19:37)
[2019-09-26 20:30] LABS: Thyroid Stimulating Hormone 0.21 uIU/mL (0.27-4.20)
[2019-09-27] VITALS: BP 150/63; PULSE 58; RESP 16; TEMP 36.8; O2SAT 97
[2019-09-27] MEDS: acetaminophen 325 mg Tablet 650 MG PO (02:29)
[2019-09-27 04:00] VITALS: BP 143/67; PULSE 60; RESP 17; TEMP 36.6; O2SAT 97
[2019-09-27] MEDS: lactated ringers 1,000 ML 100 ML IV (05:07)
[2019-09-27 05:17] LABS: Eosinophils # 0.1 10^3/uL (0.0-0.8); Eosinophils % 1.5 %; Hematocrit 28.8 % (37.0-47.0); Hemoglobin 9.1 g/dL (11.5-15.3); Mean Corpuscular HGB Conc 31.6 g/dL (30.0-36.0); Mean Platelet Volume 8.6 fL (7.4-10.4); Monocytes # 0.8 10^3/uL (0.2-0.9); Monocytes % 20.8 %; Neutrophils # 1.95 10^3/uL (1.8-7.7); Neutrophils % 50.2 %; Nucleated Red Blood Cells % 0 %; Platelet Count 316 10^3/cmm (130-400); Red Blood Count 3.03 10^6/uL (4.1-5.3); Red Cell Distribution Width 15.5 % (12.1-15.1); White Blood Count 3.9 10^3/uL (4.0-10.0)
[2019-09-27 05:31] LABS: Alanine Aminotransferase 10 U/L (0-33); Albumin Level 3.8 g/dL (3.5-5.2); Alkaline Phosphatase 51 IU/L (35-105); Anion Gap 12.1 (5-19); Aspartate Amino Transferase 20 U/L (0-32); Blood Urea Nitrogen 14 mg/dL (8-23); Calcium 8.3 mg/dL (8.5-10.5); Carbon Dioxide 27 mmol/L (22-29); Chloride 100 mmol/L (98-107); Creatinine Clr Calc Pharmacy 36.8817; Globulin 2.2 g/dL (1.3-4.6); Glucose 101 mg/dL (65-115); Magnesium 2.2 mg/dL (1.7-2.3); Osmolality Calculated 278 mOsm/kg (285-295); Phosphorus 3.4 mg/dL (2.5-4.5); Potassium 3.1 mmol/L (3.5-5.1); Sodium 136 mmol/L (136-145); Total Bilirubin 0.3 mg/dL (0.15-1.2)
[2019-09-27 05:44] LABS: Procalcitonin 0.07 ng/mL (0-0.5)
[2019-09-27] MEDS: heparin 5,000 unit/mL INJ 1 mL 5000 UNIT SUBCUT ×2 (06:55→20:26)
[2019-09-27 07:36] VITALS: BP 170/86; PULSE 61; RESP 16; TEMP 37.1; O2SAT 97
--- NOTE | 2019-09-27 10:15 | PC.CHAP ---
Pastoral Care Encounter/Spiritual Assessment Type of Contact [] Declined private household worker visit [] Patient/Family/Request visit [] Outpatient visit [] Follow-up visit [] Physician referral [] Code/Alert [x] Routine visit [] Staff referral [] Actively dying [] Patient sleeping [] Family support [] [] Out of room [] Palliative care [] [] Receiving care in room [] Pre-surgical visit [] Trauma [] Long length of stay [] ICU visit [] Other: Relational/Emotional Strength [] Patient feels connected with others/family/visitors/staff [] Distress [] Loneliness/isolation [] Abandonment Spirituality of Patient [] Person of Helga [] Attends Buddhist of their Helga [] Believes in Prayer [] Reads Bible or Taoist materials [] There are Spiritual issues to be addressed Coutierier Interventions [x] Prayer [x] Active listening [x] Non-anxious presence [x] Spiritual/emotional support [] Crisis/trauma care [] Spiritual counseling [] Bereavement support [] Provided bereavement packet [] Provided Bible/devotional materials [] Provided toy/stuffed animal, coloring book to patient or family member [] Provided Communion [] Anointing/Garland [] Salvation [x] Completed spiritual assessment [] Other: Impact on Illness or Injury [] Angry [] Fearful [] Anxious [] Often cries [] Exhaustion [] Unable to work [] Unable to attend tenriism [] Unable to walk/stand [] Unable to read [] Unable to drive [] Unable to eat/drink [] Unable to sleep [] Unable to be with family [] Patient intubated [] Other: Summary patient rest well. requested additional coffee- checked with charge nurse,, she approved- private household worker delivered Time spent with patient 15 min
[2019-09-27 11:41] VITALS: BP 176/82; PULSE 60; RESP 16; TEMP 36.8; O2SAT 96
[2019-09-27] MEDS: potassium chloride ER 10 mEq Tablet 40 MEQ PO ×2 (11:45→18:24)
--- NOTE | 2019-09-27 11:57 | P.PN_ITS ---
Subjective Subjective: Interval history: Patient reports that she continues to be weak. She had no more diarrhea since her admission. Denies shortness of breath or chest pain. Denies abdominal pain. Vitals/I&O/Wt Last Vital Signs Temp 98.2 F 09/27/19 11:41 Pulse 60 09/27/19 11:41 Resp 16 09/27/19 11:41 BP 176/82 09/27/19 11:41 Pulse Ox 96 09/27/19 11:41 09/26/19 09/27/19 09/27/19 22:59 06:59 14:59 Intake Total 90 / 1090 2040 / 3130 480 / 480 Output Total 400 / 400 550 / 950 Balance -310 / 690 1490 / 2180 480 / 480 Weight last 48 hrs Weight 43.091 kg Physical Exam Const: COMMON NORMALS: no acute distress and patient oriented x3 Resp: COMMON NORMALS: normal respiratory effort OTHER: Bibasilar Rales katie reciated. Cardio: COMMON NORMALS: regular rate, regular rhythm and S2 normal heart sound present RATE: regular rate RHYTHM: regular rhythm HEART SOUNDS: S2 normal heart sound present OTHER: No lower extremity edema GI: COMMON NORMALS: Normal to inspection, nondistended, normoactive bowel sounds present, Soft to palpation and non-tender PALPATION: Yes Soft to palpation Neuro: COMMON NORMALS: patient oriented x3 and no focal motor deficits Data : 09/27/19 04:42 09/27/19 04:42 Micro: Microbiology 09/26/19 19:10 C.difficile Toxin B Gene (PCR) - Final Stool Routine Collection Occult Blood (FIT) - Final A&P Assessment and plan (1) Generalized weakness: Status: Acute (2) Diarrhea: Status: Acute (3) Dehydration with hyponatremia: Status: Acute Additional A&P Information PLAN: We will stop IV fluids and check for d-dimer, LDH, BNP and repeat chest x-ray. We will also proceed with COVID-19 check and precautions. Attestations Medical Necessity Statement*: Patient with generalized weakness and diarrhea and now with bibasilar Rales but otherwise no other evidence of infectious process requires inpatient monitoring, treatment and evaluation. 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
--- NOTE | 2019-09-27 11:58 | XRR_ITS ---
PROCEDURE INFORMATION: Exam: XR Chest, 1 View Exam date and time: 09/27/2019 12:32 PM Age: 84 years old Clinical indication: Other: Bibasilar rales TECHNIQUE: Imaging protocol: XR of the chest Views: Frontal portable upright view of the chest. COMPARISON: CR XR chest 1V portable [id number] 09/26/2019 1:03 PM FINDINGS: Tubes, catheters and devices: EKG leads are present overlying the chest. Lungs: Lateral left midlung zone subsegmental scarring, stable. The lungs are otherwise peripherally clear bilaterally. Pleural space: No pleural effusion. No pneumothorax. Heart/Mediastinum: Stable borderline cardiomegaly. Mediastinum: Stable. Vasculature: Moderate aortic arch atherosclerotic calcification without ectasia. Bones/joints: Leftward thoracolumbar spinal curvature, stable. XR/XR chest 1V portable [id number] IMPRESSION: Lateral left midlung zone subsegmental scarring, stable.
[2019-09-27 12:40] LABS: Lactate Dehydrogenase 154 U/L (135-214); NT Pro B Type Natriuretic Pept 1436 pg/mL (0-450); T3 Free 1.8 PG/ML (2.0-4.4)
[2019-09-27 15:54] VITALS: BP 167/90; PULSE 61; RESP 17; TEMP 36.9; O2SAT 100
[2019-09-27 20:00] VITALS: BP 145/83; PULSE 63; RESP 20; TEMP 36.9; O2SAT 97
[2019-09-28] VITALS: BP 190/89; PULSE 73; RESP 18; TEMP 36.3; O2SAT 92
[2019-09-28 03:29] VITALS: BP 157/73; PULSE 59; RESP 18; TEMP 36.6; O2SAT 97
[2019-09-28 04:33] LABS: Basophils # 0.1 10^3/uL (0.0-0.1); Eosinophils # 0.1 10^3/uL (0.0-0.8); Eosinophils % 2.8 %; Hemoglobin 9.6 g/dL (11.5-15.3); Lymphocytes # 1.7 10^3/uL (0.8-4.8); Lymphocytes % 33.1 %; Mean Corpuscular HGB Conc 33.1 g/dL (30.0-36.0); Mean Corpuscular Hemoglobin 32.2 pg (28.0-34.0); Mean Corpuscular Volume 97.3 fL (81-99); Mean Platelet Volume 8.4 fL (7.4-10.4); Monocytes # 1.1 10^3/uL (0.2-0.9); Monocytes % 21.8 %; Neutrophils # 2.05 10^3/uL (1.8-7.7); Neutrophils % 41.1 %; Nucleated Red Blood Cells % 0 %; Platelet Count 319 10^3/cmm (130-400); Red Blood Count 2.98 10^6/uL (4.1-5.3); Red Cell Distribution Width 15.4 % (12.1-15.1)
[2019-09-28 04:59] LABS: Alanine Aminotransferase 10 U/L (0-33); Albumin Level 3.6 g/dL (3.5-5.2); Alkaline Phosphatase 50 IU/L (35-105); Anion Gap 11.7 (5-19); Aspartate Amino Transferase 16 U/L (0-32); Blood Urea Nitrogen 12 mg/dL (8-23); Calcium 9.1 mg/dL (8.5-10.5); Carbon Dioxide 26 mmol/L (22-29); Chloride 105 mmol/L (98-107); Globulin 2.2 g/dL (1.3-4.6); Glucose 92 mg/dL (65-115); Osmolality Calculated 282 mOsm/kg (285-295); Phosphorus 2.5 mg/dL (2.5-4.5); Potassium 4.7 mmol/L (3.5-5.1); Sodium 138 mmol/L (136-145); Total Bilirubin 0.2 mg/dL (0.15-1.2); Total Protein 5.8 g/dL (6.6-8.7)
[2019-09-28 07:47] VITALS: BP 162/87; PULSE 63; RESP 16; TEMP 36.8; O2SAT 97
[2019-09-28 08:00] VITALS: BP 162/87; PULSE 63; RESP 16; TEMP 36.8
[2019-09-28] MEDS: heparin 5,000 unit/mL INJ 1 mL 5000 UNIT SUBCUT (08:07)
--- NOTE | 2019-09-28 10:17 | P.DS_ITS ---
Discharge Providers Date of Admission: 09/27/19 12:03 Date of Discharge: September 28, 2019 Attending Provider at Admission: Ion Kong MD Attending Provider at Discharge: Ion Kong MD Primary Care Provider: Scooby Ignacio MD Diagnoses at Discharge Discharge Diagnosis (1) Generalized weakness: Status: Acute (2) Diarrhea: Status: Acute (3) Dehydration with hyponatremia: Status: Acute (4) Gastroenteritis: Status: Acute (5) Low TSH level: Status: Acute Problem details: This appears to be related to acute viral syndrome. Reason for Visit Reason for Visit: WEAKNESS Hospital Course Discharge Summary: Patient presented with generalized weakness and diarrhea. This appears to be viral in etiology. She was admitted and treated with IV fluids and she gradually improved and this morning reports feeling much better and wants to go home. Reports that her diarrhea completely resolved. She tolerates oral intake well. She ambulated in the hallway without difficulty. Her TSH noted to be low which felt to be related to a viral syndrome and patient will need to have repeat TSH in several weeks. Because of the hypo-natremia I will hold chlorthalidone and request BMP check in several days prior to primary care physician follow-up. This morning patient denies any shortness of breath, chest pain or abdominal pain. Reports her energy level is back to her normal. COVID-19 test is still pending and should be back later this afternoon. Physical Exam Const: COMMON NORMALS: no acute distress and patient oriented x3 Resp: COMMON NORMALS: normal respiratory effort and clear to auscultation bilaterally AUSCULTATION: clear to auscultation bilaterally Cardio: COMMON NORMALS: regular rate, regular rhythm and S2 normal heart sound present RATE: regular rate RHYTHM: regular rhythm HEART SOUNDS: S2 normal heart sound present OTHER: No lower extremity edema GI: COMMON NORMALS: Normal to inspection, nondistended, normoactive bowel sounds present, Soft to palpation and non-tender PALPATION: Yes Soft to palpation Neuro: COMMON NORMALS: patient oriented x3 and no focal motor deficits Discharge Data Data Completed and Pending: Completed Studies During Hospitalization Category Date Time Status XR chest 1V merlin ble [id number] Routine Exams 09/27/19 11:58 Completed XR chest 1V merlin ble [id number] Stat Exams 09/26/19 12:07 Completed Pending at discharge Category Date Time Status Complete Blood Co unt w/Auto AM LABS Lab 09/29/19 04:00 Ordered Comprehensive Met abolic Panel AM LA BS Lab 09/29/19 04:00 Ordered Coronavirus Lab T est PTC Routine Lab 09/27/19 12:50 Received Magnesium AM LABS Lab 09/29/19 04:00 Ordered Phosphorus AM LAB S Lab 09/29/19 04:00 Ordered Labs from last 24 hours 09/28/19 09/28/19 09/27/19 04:17 04:17 12:50 WBC 5.0 RBC 2.98 L Hgb 9.6 L Hct 29.0 L MCV 97.3 MCH 32.2 MCHC 33.1 RDW 15.4 H Plt Count 319 MPV 8.4 Neut % (Auto) 41.1 Lymph % (Auto) 33.1 Schleicher % (Auto) 21.8 Eos % (Auto) 2.8 Baso % (Auto) 1.0 Neut # (Auto) 2.05 Lymph # (Auto) 1.7 Schleicher # (Auto) 1.1 H Eos # (Auto) 0.1 Baso # (Auto) 0.1 Nucleated RBC % (a uto) 0 Nucleated RBCs # 0.0 D-Dimer Sodium 138 Potassium 4.7 Chloride 105 Carbon Dioxide 26 Anion Gap 11.7 BUN 12 Creatinine 1.0 H GFR Calculation Not Reportable Glucose 92 Calculated Osmolal ity 282 L Calcium 9.1 Phosphorus 2.5 Magnesium 2.0 Total Bilirubin 0.2 AST 16 ALT 10 Alkaline Phosphata se 50 Lactate Dehydrogen ase NT-Pro-B Natriuret Pep Total Protein 5.8 L Albumin 3.6 Globulin 2.2 Free T3 Nasal/Oral COVID-1 9 PCR Pending 09/27/19 09/27/19 04:42 04:42 WBC RBC Hgb Hct MCV MCH MCHC RDW Plt Count MPV Neut % (Auto) Lymph % (Auto) Schleicher % (Auto) Eos % (Auto) Baso % (Auto) Neut # (Auto) Lymph # (Auto) Schleicher # (Auto) Eos # (Auto) Baso # (Auto) Nucleated RBC % (a uto) Nucleated RBCs # D-Dimer 0.40 Sodium Potassium Chloride Carbon Dioxide Anion Gap BUN Creatinine GFR Calculation Glucose Calculated Osmolal ity Calcium Phosphorus Magnesium Total Bilirubin AST ALT Alkaline Phosphata se Lactate Dehydrogen ase 154 NT-Pro-B Natriuret Pep 1436 H Total Protein Albumin Globulin Free T3 1.8 L Nasal/Oral COVID-1 9 PCR Vitals: Last Vital Signs Temp 98.3 F 09/28/19 08:00 Pulse 63 09/28/19 08:00 Resp 16 09/28/19 08:00 BP 162/87 09/28/19 08:00 Pulse Ox 97 09/28/19 07:47 Discharge Plan Discharge Patient Disposition: Home Condition: Stable Prescriptions: Continued levothyroxine 50 mcg capsule 50 mcg PO DAILY RF: 0 ergocalciferol (vitamin D2) [Vitamin D2] 1,250 mcg (50,000 unit) capsule 50,000 unit PO Q7D RF: 0 hydralazine 50 mg tablet 75 mg PO TID Qty: 405 RF: 3 acetaminophen 325 mg Tablet 325 mg PO QID PRN (Reason: Pain) Qty: 0 RF: 0 atorvastatin 20 mg tablet 20 mg PO DAILY RF: 0 clopidogrel 75 mg tablet 75 mg PO DAILY RF: 0 Hold Instructions: Resume on 07/11/19. furosemide [Lasix] 20 mg Tablet 20 mg PO DAILY PRN (Reason: Edema) Qty: 0 RF: 0 metoprolol tartrate 25 mg Tablet 25 mg PO DAILY RF: 0 Discontinued chlorthalidone 25 mg tablet 25 mg PO DAILY Qty: 90 RF: 3 Discharge Orders: Discharge Order (Routine); Ordered 09/26/19 Ordered By: Leann Norris Other Ambulatory Orders: Basic Metabolic Panel (Routine) Timeframe: 3 Days Facility: [facility] - Location: Lab - Main Lab Ordered By: Ion Kong Referrals: Scooby Ignacio MD [Primary Care Provider] - 1-3 days Discharge Diet: Regular Discharge Activity: Increase activity as tolerated Patient Instructions: Dehydration (ED), Hyponatremia (ED), Weakness (ED) Activity Restrictions/Additional Instructions: Please call your doctor or present to emergency department if your condition worsens or you develop diarrhea, lightheadedness, fatigue or see blood in your stool or black stool. Please keep blood pressure and heart rate log 3 times daily to present to primar y care physician next visit for medication adjustment. Please note because we have discontinued chlorthalidone we will have to repeat lab work in several days prior to your primary care physician follow-up. 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
[2019-09-28 11:33] VITALS: BP 157/79; PULSE 63; RESP 18; TEMP 36.6; O2SAT 97
[2019-09-28 13:22] VITALS: BP 157/79; PULSE 63; RESP 18; TEMP 36.6; O2SAT 97
[2019-09-29 18:29] LABS: Coronavirus Lab Test PTC SEE REPORT
== END 2019-09-28 12:55 | disposition home or self-care (01) | DRG 641 ==
LOC: ER 15:52 → MEDSURG 16:52
PROVIDERS: Emergency Medicine; Admitting Provider Internal Medicine; PCP Family Medicine; Visit Provider Internal Medicine
DX: E87.1 Hypo-osmolality and hyponatremia (principal); K52.9 Noninfective gastroenteritis and colitis, unspecified; E86.0 Dehydration; Z79.02 Long term (current) use of antithrombotics/antiplatelets; I25.2 Old myocardial infarction; I65.23 Occlusion and stenosis of bilateral carotid arteries; I10 Essential (primary) hypertension; E78.5 Hyperlipidemia, unspecified; Z87.891 Personal history of nicotine dependence
CPT/HCPCS: 12345; 36415; 71045; 80053; 81001; 82274; 83615; 83690; 83735; 83880; 84100; 84145; 84439; 84443; 84481; 84484; 85025; 85378; 85610; 87493; 87506; 87635; 93005; 96372; 97161; 97530; 99284; G0378; J1644; J3490; J7030

== ENCOUNTER 2019-09-30 15:29 | Outpatient (CLI) | payer MEDICARE, OTHER, SELFPAY ==
[2019-09-30 16:18] LABS: Blood Urea Nitrogen 18 mg/dL (8-23); Calcium 9.1 mg/dL (8.5-10.5); Carbon Dioxide 26 mmol/L (22-29); Chloride 96 mmol/L (98-107); Glucose 109 mg/dL (65-115); Osmolality Calculated 269 mOsm/kg (285-295); Sodium 131 mmol/L (136-145)
[2019-09-30 16:57] LABS: Anion Gap 13.5 (5-19); Potassium 4.5 mmol/L (3.5-5.1)
== END 2019-09-30 15:30 | disposition home or self-care (01) ==
PROVIDERS: PCP Family Medicine; Visit Provider Internal Medicine
DX: E86.0 Dehydration (principal)
CPT/HCPCS: 80048

== ENCOUNTER 2019-10-08 09:32 | Outpatient (CLI) | payer MEDICARE, OTHER, SELFPAY ==
--- NOTE | 2019-10-08 10:15 | USCV_ITS ---
Franklin Irma Age: 84 Gender: F : 1935 Exam Date: 10/08/2019 09:33 Ordering Phys: Sami Mccall MD ([email or web address]) Technologist: Pooja Wong Exam Location: [facility] [place] Indication: STENOSIS Risk Factors: Previous Vascular Surgery: Right Brachial BP: / Left Brachial BP: / Right Left Velocity (cm/s) Spectral Plaque Velocity (cm/s) Spectral Plaque Syst/Diast Broadening Syst/Diast Broadening 34.00/ 12.00 Prox CCA 45.10 / 9.70 40.10/ 14.10 Mid CCA 95.20 / 28.20 42.30/ 15.60 Distal CCA 82.00 / 35.40 123.60/34.70 Prox ICA 57.80 / 14.80 56.20/ 19.70 Mid ICA 48.10 / 16.70 84.80/ 12.80 Distal ICA 49.40 / 16.70 151.80 ECA 83.10 3.12 ICA/CCA 0.61 Antegrade Vertebral Antegrade 56.20/ 11.80 cm/s 60.70/ 21.20 cm/s Tri Subclavian Tri 87.70 134.0 0 FINDINGS Moderate to heavy heterogeneous plaques of the right bifurcation moderate to heavy heterogeneous plaques of the right bifurcation Moderate heterogeneous plaques of the left bifurcation and proximal internal carotid artery Mild diffuse plaques in the common carotid arteries bilaterally Antegrade flow in the vertebral arteries bilaterally Elevated Doppler flow velocity in the right external carotid artery CONCLUSIONS Moderate to heavy heterogeneous s plaques at the right bifurcation with velocity elevation consistent with 16-49% stenosis. Moderate heterogeneous plaques of the left bifurcation and proximal internal carotid artery Elevated Doppler flow velocity in the right external carotid artery may suggest hemodynamically significant stenosis Mild diffuse plaques in the common carotid arteries bilaterally. Compared to the study from 06/29/2016, there is some worsening of stenosis on the right side Dr Sami Mccall MD [facility] (Electronically Signed) Final Date: 09 October 2019 00:08 S
== END 2019-10-08 09:33 | disposition home or self-care (01) ==
PROVIDERS: PCP Family Medicine; Visit Provider Internal Medicine Cardiovascular Disease
DX: I65.23 Occlusion and stenosis of bilateral carotid arteries (principal)
CPT/HCPCS: 93880

== ENCOUNTER → 2020-01-06 10:57 | Outpatient (BNVA) | payer MEDICARE, OTHER, SELFPAY | PROVIDERS: PCP Family Medicine; Visit Provider Family Medicine Adult Medicine | DX: D50.0 Iron deficiency anemia secondary to blood loss (chronic) (principal); I10 Essential (primary) hypertension; I42.0 Dilated cardiomyopathy; I65.23 Occlusion and stenosis of bilateral carotid arteries; I69.30 Unspecified sequelae of cerebral infarction; N11.1 Chronic obstructive pyelonephritis; R42 Dizziness and giddiness; R55 Syncope and collapse; K52.9 Noninfective gastroenteritis and colitis, unspecified; I50.32 Chronic diastolic (congestive) heart failure; R53.81 Other malaise; I73.9 Peripheral vascular disease, unspecified; R79.89 Other specified abnormal findings of blood chemistry | CPT/HCPCS: 80053; 85025 ==

== ENCOUNTER 2020-01-07 08:18 | Inpatient (IN) | payer MEDICARE, OTHER, SELFPAY ==
[2020-01-07] VITALS (9 sets, daily range): BP systolic 114–165; BP diastolic 63–85; PULSE 67–89; RESP 15–18; TEMP 36.6–36.8; O2SAT 91–99; BMI 18.3
--- NOTE | 2020-01-07 09:24 | W.ED.GENADLT ---
HPI - General Adult General: Chief complaint: General Medical Stated complaint: Weakness/Stomach Pain/Sent by Time Seen by Provider: 01/07/20 08:29 History of Present Illness: HPI narrative: 84-year-old female sent to the emergency room by her primary care physician. She was seen yesterday, vague complaint of weakness and dizziness been progressively worse the last 4 to 5 months she told me she was very dizzy is related to postural changes and exertion but she never had any chest pain. She was seen yesterday added a diuretic and increased blood pressure medicine although she is not sure the name of the blood pressure medicine. This morning some of her lab work came back that had been done from the visit yesterday and she was noted to have a pancytopenia with a hemoglobin of 6 1 white count of 2 8 and a platelet count of 102 all of this was new for her. He denies any chest pain she denies any abdominal pain she denied any hematochezia melena hematemesis or coffee-ground emesis. She does appear mildly jaundiced when I first seen her this morning. T bili done yesterday was 0.9. Reviewing her labs she had an anemia work-up done in May of this year. Is anemic then with a hemoglobin in the eights. Onset (ago): month(s) Relieving factors: rest Exacerbating factors: other (Postural changes and exertion) Associated symptoms: Reports weakness; Deny chest pain, confusion, cough, diaphoresis, decreased appetite, dyspnea, fevers/chills, headache(s), malaise, nausea, rash, palpitations, seizures, short of breath, syncope or vomiting Treatments prior to arrival: none Review of Systems Const: Denies: malaise or diaphoresis ENMT: Denies: throat pain, ear or mastoid pain, nasal discharge or nasal congestion Card: Denies: chest pain, palpitations or syncope Resp: Denies: dyspnea GI: Denies: nausea or vomiting : Denies: flank pain, difficulty voiding, dysuria, urinary frequency or urinary urgency Skin/Breast: Denies: rash Neuro: Denies: headache(s) or confusion PFSH ED PFSH: Medical History Acute kidney injury Anemia due to blood loss Arterial ischemic stroke, multifocal, multiple vascular territories, chronic Atypical chest pain Benign essential HTN Carotid artery disease Carotid artery stenosis with cerebral infarction over 8 weeks ago Had CVA in August 2018-is being followed by Dr. Mae Cerebral vascular accident Chest wall hematoma Chronic heart failure Epistaxis Gastroenteritis GI bleed Hyperlipemia Hypertension Ischemic cardiomyopathy Kidney calculi Multiple lacunar infarcts Myocardial infarct Nonischemic cardiomyopathy Obstructive pyelonephritis Syncope Urolithiasis Surgical History History of colonoscopy History of esophagogastroduodenoscopy (EGD) Family History Father Cancer, Onset Age: 90 Colon cancer Denies family history of Diabetes CAD (coronary artery disease) Hypertension Stroke Social History Smoking and tobacco status: former smoker Alcohol intake: current Alcohol intake frequency: few times a month Alcohol type: wine Adopted: No Caregiver/support person: No Lives independently: No Marital status: / Current occupational status: retired History of recent travel: No Current gender identity: Female Physical Exam Const: COMMON NORMALS: no acute distress GENERAL APPEARANCE: cooperative and comfortable ORIENTATION/CONSCIOUSNESS: Yes awake, Yes oriented to person, Yes oriented to place and Yes oriented to time HENMT: COMMON NORMALS: normocephalic, atraumatic and hearing grossly normal bilaterally HEAD & SCALP: normocephalic and atraumatic Eye: COMMON NORMALS: Equal, round and reactive pupils present, EOMs intact bilaterally, conjunctivae normal and no scleral icterus CONJUNCTIVA: Yes conjunctivae normal PUPIL: Yes Equal, round and reactive pupils present Neck/C-Spine: COMMON NORMALS: full ROM, no lymphadenopathy, supple and no JVD Lymph: LYMPHATIC: no lymphadenopathy noted and no lymphedema noted Resp: COMMON NORMALS: normal respiratory effort, No retractions, No use of accessory muscles and clear to auscultation bilaterally AUSCULTATION: clear to auscultation bilaterally Cardio: COMMON NORMALS: no JVD, regular rate, regular rhythm and No murmurs present (Cardio) RATE: regular rate RHYTHM: regular rhythm GI: COMMON NORMALS: Soft to palpation and No hepatosplenomegaly present AUSCULTATION: Yes normoactive bowel sounds PALPATION: Yes Soft to palpation, No Tenderness to palpation present (GI), No Guarding due to palpation present (GI) and Yes No hepatosplenomegaly present Extremity: COMMON NORMALS: normal to inspection, capillary refill normal, no clubbing, cyanosis or edema, no calf tenderness and no pedal edema Neuro: SENSORIUM/ORIENTATION: Yes oriented to person, Yes oriented to place and Yes oriented to time Skin: COMMON NORMALS: no rashes or lesions noted GENERAL SKIN EXAM: no rashes or lesions noted Course Vital Signs: Vital signs: Vital Signs Temperature 98.1 F 01/08/20 07:38 Pulse Rate 69 01/08/20 07:38 Respiratory Rate 16 01/08/20 07:38 Blood Pressure 169/84 01/08/20 07:38 Pulse Oximetry 97 01/08/20 07:23 MDM - General Adult MDM Narrative: Medical decision making narrative: Admit for transfusion and further anemia evaluation. Discussed with Dr. Durán, orders written. Lab Data: Labs: Lab Results 01/07/20 01/07/20 01/07/20 Range/Units 09:10 09:10 09:10 WBC 3.5 L (4.0-10.0) 10^3/ uL RBC 2.81 L (4.1-5.3) 10^6/u L Hgb 6.2 L* (11.5-15.3) g/dL Hct 21.2 L (37.0-47.0) % MCV 75.4 L D (81-99) fL MCH 22.1 L (28.0-34.0) pg MCHC 29.2 L (30.0-36.0) g/dL RDW 16.2 H (12.1-15.1) % Plt Count 515 H (130-400) 10^3/c mm MPV 9.0 (7.4-10.4) fL Neut % (Auto) 55.5 % Lymph % (Auto) 22.9 % Ripley % (Auto) 19.3 % Eos % (Auto) 0.6 % Baso % (Auto) 1.4 % Reticulocyte % (Au to) 1.7500 % Neut # (Auto) 1.96 (1.8-7.7) 10^3/u L Lymph # (Auto) 0.8 (0.8-4.8) 10^3/u L Ripley # (Auto) 0.7 (0.2-0.9) 10^3/u L Eos # (Auto) 0.0 (0.0-0.8) 10^3/u L Baso # (Auto) 0.1 (0.0-0.1) 10^3/u L Nucleated RBC % (a uto) 0 % Nucleated RBCs # 0.0 /100WBC Haptoglobin 93.0 (30-200) mg/L Sodium 138 (136-145) mmol/L Potassium 3.4 L (3.5-5.1) mmol/L Chloride 99 (98-107) mmol/L Carbon Dioxide 27 (22-29) mmol/L Anion Gap 15.4 (5-19) BUN 18 (8-23) mg/dL Creatinine 1.1 H (0.5-0.9) mg/dL GFR Calculation Not Reportable Glucose 94 (65-115) mg/dL Calculated Osmolal ity 288 (285-295) mOsm/k g Calcium 9.2 (8.5-10.5) mg/dL Iron 14 L (37-145) ug/dL TIBC 332 mcg/dl % Saturation 4.2 L (20-50) % Unsat Iron Binding 318 (112-347) ug/dL Ferritin 12 L (15-150) ng/mL Total Bilirubin 0.2 (0.15-1.2) mg/dL AST 18 (0-32) U/L ALT 11 (0-33) U/L Alkaline Phosphata se 45 (35-105) IU/L Total Protein 6.8 (6.6-8.7) g/dL Albumin 4.2 (3.5-5.2) g/dL Globulin 2.6 (1.3-4.6) g/dL Vitamin B12 228 L (232-1245) pg/mL Folate (4.8-37.3) ng/mL Blood Type A Negative Rho(D) Type Negative Antibody Screen Negative Crossmatch See Detail 01/07/20 Range/Units 09:10 WBC (4.0-10.0) 10^3/ uL RBC (4.1-5.3) 10^6/u L Hgb (11.5-15.3) g/dL Hct (37.0-47.0) % MCV (81-99) fL MCH (28.0-34.0) pg MCHC (30.0-36.0) g/dL RDW (12.1-15.1) % Plt Count (130-400) 10^3/c mm MPV (7.4-10.4) fL Neut % (Auto) % Lymph % (Auto) % Ripley % (Auto) % Eos % (Auto) % Baso % (Auto) % Reticulocyte % (Au to) % Neut # (Auto) (1.8-7.7) 10^3/u L Lymph # (Auto) (0.8-4.8) 10^3/u L Ripley # (Auto) (0.2-0.9) 10^3/u L Eos # (Auto) (0.0-0.8) 10^3/u L Baso # (Auto) (0.0-0.1) 10^3/u L Nucleated RBC % (a uto) % Nucleated RBCs # /100WBC Haptoglobin (30-200) mg/L Sodium (136-145) mmol/L Potassium (3.5-5.1) mmol/L Chloride (98-107) mmol/L Carbon Dioxide (22-29) mmol/L Anion Gap (5-19) BUN (8-23) mg/dL Creatinine (0.5-0.9) mg/dL GFR Calculation Glucose (65-115) mg/dL Calculated Osmolal ity (285-295) mOsm/k g Calcium (8.5-10.5) mg/dL Iron (37-145) ug/dL TIBC mcg/dl % Saturation (20-50) % Unsat Iron Binding (112-347) ug/dL Ferritin (15-150) ng/mL Total Bilirubin (0.15-1.2) mg/dL AST (0-32) U/L ALT (0-33) U/L Alkaline Phosphata se (35-105) IU/L Total Protein (6.6-8.7) g/dL Albumin (3.5-5.2) g/dL Globulin (1.3-4.6) g/dL Vitamin B12 (232-1245) pg/mL Folate 19.0 (4.8-37.3) ng/mL Blood Type Rho(D) Type Antibody Screen Crossmatch Discharge Plan Discharge Patient Disposition: Admitted As Inpatient Admit Provider: Adonis Durán Clinical Impression: Anemia, Benign essential HTN Condition: Stable Coding Level of Care Code ED Continuous Improvement Lead for Chg Fwd Exam Comprehensive
[2020-01-07 10:57] LABS: Basophils # 0.1 10^3/uL (0.0-0.1); Basophils % 1.4 %; Eosinophils % 0.6 %; Hematocrit 21.2 % (37.0-47.0); Lymphocytes # 0.8 10^3/uL (0.8-4.8); Lymphocytes % 22.9 %; Mean Corpuscular HGB Conc 29.2 g/dL (30.0-36.0); Mean Corpuscular Hemoglobin 22.1 pg (28.0-34.0); Mean Corpuscular Volume 75.4 fL (81-99); Monocytes # 0.7 10^3/uL (0.2-0.9); Monocytes % 19.3 %; Neutrophils # 1.96 10^3/uL (1.8-7.7); Neutrophils % 55.5 %; Nucleated Red Blood Cells % 0 %; Platelet Count 515 10^3/cmm (130-400); Red Blood Count 2.81 10^6/uL (4.1-5.3); Red Cell Distribution Width 16.2 % (12.1-15.1); White Blood Count 3.5 10^3/uL (4.0-10.0)
[2020-01-07 10:58] LABS: Alanine Aminotransferase 11 U/L (0-33); Albumin Level 4.2 g/dL (3.5-5.2); Alkaline Phosphatase 45 IU/L (35-105); Anion Gap 15.4 (5-19); Aspartate Amino Transferase 18 U/L (0-32); Blood Urea Nitrogen 18 mg/dL (8-23); Calcium 9.2 mg/dL (8.5-10.5); Carbon Dioxide 27 mmol/L (22-29); Chloride 99 mmol/L (98-107); Ferritin 12 ng/mL (15-150); Globulin 2.6 g/dL (1.3-4.6); Glucose 94 mg/dL (65-115); Iron 14 ug/dL (37-145); Osmolality Calculated 288 mOsm/kg (285-295); Percent Saturation 4.2 % (20-50); Potassium 3.4 mmol/L (3.5-5.1); Sodium 138 mmol/L (136-145); Total Bilirubin 0.2 mg/dL (0.15-1.2); Total Iron Binding Capacity 332 mcg/dl; Total Protein 6.8 g/dL (6.6-8.7); Unsaturated Iron Binding 318 ug/dL (112-347)
[2020-01-07 11:04] LABS: Hemoglobin 6.2 g/dL (11.5-15.3)
[2020-01-07 11:13] LABS: Vitamin B12 228 pg/mL (232-1245)
[2020-01-07] MEDS: sodium chloride 0.9% 500 ML 10 ML (11:42)
--- NOTE | 2020-01-07 15:12 | PM.HP ---
Providers/Chief Complaint Admitting Physician: Adonis Durán MD Primary Care Provider: Scooby Ignacio MD Chief Complaint: Weakness/Stomach Pain/Sent by History of Present Illness Irma Reid is a 84 year old female with past medical history of nonischemic cardiomyopathy with an ejection fraction 50 %, diastolic heart failure, history of multiple CVAs, carotid artery stenosis, diffuse peripheral vascular disease, history of GI bleed with iron deficiency anemia, hypothyroidism, B12 deficiency, dyslipidemia, COPD, hypertension came in with c/o having dizziness while standing as well SOB on exertion.Upon arrival in the ER CBC revealed H/H of 6.2/21.2.At the time of interview she deny any chest pain, palpitation, BRBPR,dark stool, hematuria, epistaxsis, nausea,vomitting,constipation, diarrhea.She was admitted in may 2019 with similar complain. EGD and Colonscopy Done at that time. Colonscopy showed :diverticulosis. EGD : was normal.She was following as outpaient and offere capsule endoscopy to her at that time.But since the patient was asymptomatic and had no similar episode they decided to hold off on it. Labs in ER : Serum Iron : 14, % Saturation: 4.2, TIBC: 332, Ferritin: 12 ,WBC:3.5 , PLT : 515, Vit B12:228 She is getting 2 U PRBC Transfusion in the ER. Review of Systems General: Reports: 10 or more systems reviewed and unremarkable except in HPI and below Const: Denies: fever(s), chills, body aches, change in appetite or diaphoresis Card: Denies: palpitations, edema, swelling of feet/ankles, dyspnea on exertion, orthopnea or leg pain with exertion Resp: Denies: dyspnea, productive cough, wheezing or pain on inspiration GI: Denies: abdominal pain, nausea, vomiting, diarrhea or constipation : Denies: flank pain Musc: Denies: back pain, extremity pain or extremity swelling Neuro: Denies: headache(s), difficulty walking or confusion Medications/Allergies Home Medications Medication Instructions Recorded Confirmed Last Taken Type ergocalciferol (vitamin D2) 1,250 50,000 unit PO Q7D 03/26/19 01/07/20 09/20/19 History mcg (50,000 unit) capsule levothyroxine 50 mcg capsule 50 mcg PO DAILY 03/26/19 01/07/20 01/07/20 History clopidogrel 75 mg PO DAILY 06/23/19 01/07/20 01/07/20 History atorvastatin 20 mg tablet 20 mg PO DAILY #30 tab 01/01/20 01/07/20 Unknown Rx chlorthalidone 25 mg tablet 25 mg PO DAILY #30 tab 01/06/20 01/07/20 Unknown Rx furosemide 20 mg tablet 20 mg PO DAILY PRN #30 tab 01/06/20 01/07/20 Unknown Rx hydralazine 50 mg tablet 75 mg PO TID #405 tab 01/06/20 01/07/20 01/07/20 Rx acetaminophen [Tylenol Extra 1,000 mg PO PRN 01/07/20 01/07/20 Unknown History Strength] magnesium 1 tab PO BID 01/07/20 01/07/20 Unknown History Allergies Allergy/AdvReac Type Severity Reaction Status Date / Time meperidine [From Demerol] Allergy ADR-Anxiety Verified 01/07/20 11:00 cilostazol AdvReac Intermediate ADR-Dizzine Verified 01/07/20 11:00 ss PFSH Acute PFSH: Medical History Acute kidney injury Anemia due to blood loss Arterial ischemic stroke, multifocal, multiple vascular territories, chronic Atypical chest pain Benign essential HTN Carotid artery disease Carotid artery stenosis with cerebral infarction over 8 weeks ago Had CVA in August 2018-is being followed by Dr. Mae Cerebral vascular accident Chest wall hematoma Chronic heart failure Epistaxis Gastroenteritis GI bleed Hyperlipemia Hypertension Ischemic cardiomyopathy Kidney calculi Multiple lacunar infarcts Myocardial infarct Nonischemic cardiomyopathy Obstructive pyelonephritis Syncope Urolithiasis Surgical History History of colonoscopy History of esophagogastroduodenoscopy (EGD) Family History Father Cancer, Onset Age: 90 Colon cancer Denies family history of Diabetes CAD (coronary artery disease) Hypertension Stroke Social History Smoking and tobacco status: former smoker Alcohol intake: current Alcohol intake frequency: few times a month Alcohol type: wine Adopted: No Caregiver/support person: No Lives independently: No Marital status: / Current occupational status: retired History of recent travel: No Current gender identity: Female Vitals/I&O/Wt Last Vital Signs Temp 98.2 F 01/07/20 12:00 Pulse 75 01/07/20 15:01 Resp 15 01/07/20 15:01 BP 115/85 01/07/20 15:01 Pulse Ox 97 01/07/20 15:01 01/07/20 01/07/20 01/07/20 06:59 14:59 22:59 Intake Total 0 / 0 Balance 0 / 0 Weight last 48 hrs Weight 48.534 kg Physical Exam Const: COMMON NORMALS: patient oriented x3 HENMT: COMMON NORMALS: normocephalic, atraumatic, hearing grossly normal bilaterally and external ears normal HEAD & SCALP: normocephalic and atraumatic EXTERNAL EAR: Yes external ears normal Eye: COMMON NORMALS: no scleral icterus GENERAL EYE: appearance normal, both eyes and all related structures Chest: COMMONS NORMALS: normal inspection of the chest and normal palpation of entire chest wall CHEST: Yes Symmetrical chest wall rise Resp: COMMON NORMALS: normal respiratory effort, No retractions, No use of accessory muscles and clear to auscultation bilaterally EFFORT & INSPECTION: Yes symmetric chest movement AUSCULTATION: clear to auscultation bilaterally Cardio: COMMON NORMALS: regular rate, regular rhythm, S1 normal heart sound present, S2 normal heart sound present, No gallops present (Cardio), No rub (Cardio) and Peripheral pulses 2+ throughout RATE: regular rate RHYTHM: regular rhythm HEART SOUNDS: S1 normal heart sound present and S2 normal heart sound present PERIPHERAL PULSES: Peripheral pulses 2+ throughout OTHER: ESM in RT 2 ICS Likely flow murmur GI: COMMON NORMALS: Normal to inspection, nondistended, normoactive bowel sounds present, Soft to palpation, non-tender, No hepatosplenomegaly present and no masses AUSCULTATION: Yes normoactive bowel sounds PALPATION: Yes Soft to palpation and Yes No hepatosplenomegaly present RECTAL EXAM: deferred Extremity: COMMON NORMALS: no clubbing, cyanosis or edema and no pedal edema Neuro: COMMON NORMALS: patient oriented x3 Data : 01/07/20 09:10 01/07/20 09:10 A&P Assessment and plan (1) Anemia: Severe Symptomatic Microcytic Anemia likely 2/2 to chronic blood loss r/o other causes. May 2019: EGD and Colonscopy Done at that time. Colonscopy showed :diverticulosis. EGD : was normal.She was following as outpaient and offered capsule endoscopy to her at that time.But since the patient was asymptomatic and had no similar episode they decided to hold off on it. Labs in ER : Serum Iron : 14, % Saturation: 4.2, TIBC: 332, Ferritin: 12 ,WBC:3.5 , PLT : 515, Vit B12:228 Transfuse 2 U PRBC Monitor H/H Protonix 40 mg I.V Q24H Status: Acute (2) Dilated cardiomyopathy: H/o nonischemic cardiomyopathy (HFpEF with an ejection fraction 50 %). Currently Compensated Monitor I/O Daily weight Status: Acute (3) History of multiple cerebrovascular accidents (CVAs): Hold Aspirin and Plavix for now. Status: Acute (4) Benign essential HTN: Hydralazine 75 mg o q8 h daily Chlothalidone 25 mg oral daily Status: Acute (5) Peripheral vascular disease: No acute intervention Status: Acute Additional A&P Information DVT PPX: SCD G.I PPX: PROTONIX 40 MG I.V Daily Code Status :Full code Disposition:Home Attestations Medical Necessity Statement*: Patient needs to be in hospital for the management of severe symptomatic anemia. 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
[2020-01-07] MEDS: hyDRALAzine 50 mg Tablet 75 MG PO (20:05)
[2020-01-08] VITALS (15 sets, daily range): BP systolic 111–169; BP diastolic 56–84; PULSE 60–80; RESP 16–18; TEMP 36.3–37; O2SAT 90–100; BMI 18.3
[2020-01-08 04:55] LABS: Basophils # 0.1 10^3/uL (0.0-0.1); Basophils % 1.1 %; Eosinophils # 0.1 10^3/uL (0.0-0.8); Eosinophils % 2.2 %; Hematocrit 25.5 % (37.0-47.0); Hemoglobin 7.7 g/dL (11.5-15.3); Lymphocytes # 1.4 10^3/uL (0.8-4.8); Lymphocytes % 29.5 %; Mean Corpuscular HGB Conc 30.2 g/dL (30.0-36.0); Mean Corpuscular Hemoglobin 23.2 pg (28.0-34.0); Mean Corpuscular Volume 76.8 fL (81-99); Mean Platelet Volume 8.8 fL (7.4-10.4); Nucleated Red Blood Cells % 0 %; Platelet Count 373 10^3/cmm (130-400); Red Blood Count 3.32 10^6/uL (4.1-5.3); Red Cell Distribution Width 16.8 % (12.1-15.1); White Blood Count 4.6 10^3/uL (4.0-10.0)
[2020-01-08 05:22] LABS: Alanine Aminotransferase 11 U/L (0-33); Albumin Level 3.8 g/dL (3.5-5.2); Alkaline Phosphatase 41 IU/L (35-105); Anion Gap 11.5 (5-19); Aspartate Amino Transferase 19 U/L (0-32); Blood Urea Nitrogen 20 mg/dL (8-23); Calcium 8.9 mg/dL (8.5-10.5); Carbon Dioxide 27 mmol/L (22-29); Chloride 105 mmol/L (98-107); Globulin 2.1 g/dL (1.3-4.6); Glucose 103 mg/dL (65-115); Magnesium 2.5 mg/dL (1.7-2.3); Osmolality Calculated 293 mOsm/kg (285-295); Phosphorus 3.5 mg/dL (2.5-4.5); Potassium 3.5 mmol/L (3.5-5.1); Sodium 140 mmol/L (136-145); Thyroid Stimulating Hormone 0.36 uIU/mL (0.27-4.20); Total Bilirubin 0.3 mg/dL (0.15-1.2); Total Protein 5.9 g/dL (6.6-8.7)
[2020-01-08 05:25] LABS: INR 0.97 (0.8-1.2); Partial Thromboplastin Time 27.5 SECONDS (23.9-36.7)
[2020-01-08] MEDS: pantoprazole 40 mg SDV IVP (09:09)
[2020-01-08] MEDS: levothyroxine 50 mcg Tablet PO (09:10)
[2020-01-08] MEDS: chlorthalidone 25 mg Tablet PO (09:10)
[2020-01-08] MEDS: atorvastatin 40 mg Tablet 20 MG PO (09:10)
[2020-01-08] MEDS: hyDRALAzine 50 mg Tablet 75 MG PO ×3 (09:10→21:33)
--- NOTE | 2020-01-08 10:36 | PM.PN ---
Subjective Subjective: Interval history: S/P 2 U PRBC Transfusion today.Deny any yonathan,BRBR,hematuria, N,V,D,C. No dizziness or sob. Medications: Reviewed: Yes Vitals/I&O/Wt Last Vital Signs Temp 98.1 F 01/08/20 07:38 Pulse 69 01/08/20 07:38 Resp 16 01/08/20 07:38 BP 169/84 01/08/20 07:38 Pulse Ox 97 01/08/20 07:23 01/07/20 01/08/20 01/08/20 22:59 06:59 14:59 Intake Total 0 / 0 250 / 250 Output Total 475 / 475 Balance 0 / 0 -225 / -225 Weight last 48 hrs Weight 48.534 kg Weight 48.534 kg Physical Exam Const: COMMON NORMALS: patient oriented x3 HENMT: COMMON NORMALS: normocephalic, atraumatic, hearing grossly normal bilaterally and external ears normal HEAD & SCALP: normocephalic and atraumatic EXTERNAL EAR: Yes external ears normal Eye: COMMON NORMALS: no scleral icterus GENERAL EYE: appearance normal, both eyes and all related structures Chest: COMMONS NORMALS: normal inspection of the chest and normal palpation of entire chest wall CHEST: Yes Symmetrical chest wall rise Resp: COMMON NORMALS: normal respiratory effort, No retractions, No use of accessory muscles and clear to auscultation bilaterally EFFORT & INSPECTION: Yes symmetric chest movement AUSCULTATION: clear to auscultation bilaterally Cardio: COMMON NORMALS: regular rate, regular rhythm, S1 normal heart sound present, S2 normal heart sound present, No gallops present (Cardio), No murmurs present (Cardio), No rub (Cardio) and Peripheral pulses 2+ throughout RATE: regular rate RHYTHM: regular rhythm HEART SOUNDS: S1 normal heart sound present and S2 normal heart sound present PERIPHERAL PULSES: Peripheral pulses 2+ throughout OTHER: ESM in RT 2 ICS Likely flow murmur GI: COMMON NORMALS: Normal to inspection, nondistended, normoactive bowel sounds present, Soft to palpation, non-tender, No hepatosplenomegaly present and no masses AUSCULTATION: Yes normoactive bowel sounds PALPATION: Yes Soft to palpation and Yes No hepatosplenomegaly present RECTAL EXAM: deferred Extremity: COMMON NORMALS: no clubbing, cyanosis or edema and no pedal edema Neuro: COMMON NORMALS: patient oriented x3 Data : 01/08/20 04:05 01/08/20 04:05 A&P Assessment and plan (1) Anemia: Severe Symptomatic Microcytic Anemia likely 2/2 to chronic blood loss r/o other causes. May 2019: EGD and Colonscopy Done at that time. Colonscopy showed :diverticulosis. EGD : was normal.She was following as outpaient and offered capsule endoscopy to her at that time.But since the patient was asymptomatic and had no similar episode they decided to hold off on it. Labs in ER : Serum Iron : 14, % Saturation: 4.2, TIBC: 332, Ferritin: 12 ,WBC:3.5 , PLT : 515, Vit B12:228 S/P 2 U PRBC Monitor H/H Protonix 40 mg I.V Q24H Status: Acute (2) Dilated cardiomyopathy: H/o nonischemic cardiomyopathy (HFpEF with an ejection fraction 50 %). Currently Compensated Monitor I/O Daily weight Status: Acute (3) History of multiple cerebrovascular accidents (CVAs): Hold Aspirin and Plavix for now. 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
[2020-01-08 11:51] LABS: SARS Covid-2 Antigen Negative (Negative)
[2020-01-08] MEDS: sodium chloride 0.9% (100 ml) 100 ML (16:53)
[2020-01-08] MEDS: FUROsemide 10 mg/mL SDV 2mL 20 MG IVP (19:34)
[2020-01-09] VITALS (7 sets, daily range): BP systolic 126–158; BP diastolic 74–82; PULSE 67–86; RESP 14–18; TEMP 36.5–37.2; O2SAT 96–99
[2020-01-09 05:33] LABS: INR 0.94 (0.8-1.2)
[2020-01-09 05:50] LABS: Alanine Aminotransferase 13 U/L (0-33); Albumin Level 3.9 g/dL (3.5-5.2); Alkaline Phosphatase 42 IU/L (35-105); Anion Gap 14.3 (5-19); Aspartate Amino Transferase 18 U/L (0-32); Blood Urea Nitrogen 21 mg/dL (8-23); Calcium 9.2 mg/dL (8.5-10.5); Carbon Dioxide 27 mmol/L (22-29); Chloride 102 mmol/L (98-107); Globulin 2.4 g/dL (1.3-4.6); Glucose 100 mg/dL (65-115); Magnesium 2.2 mg/dL (1.7-2.3); Osmolality Calculated 293 mOsm/kg (285-295); Phosphorus 3.6 mg/dL (2.5-4.5); Potassium 3.3 mmol/L (3.5-5.1); Sodium 140 mmol/L (136-145); Total Bilirubin 0.8 mg/dL (0.15-1.2); Total Protein 6.3 g/dL (6.6-8.7)
[2020-01-09] MEDS: atorvastatin 40 mg Tablet 20 MG PO (09:03)
[2020-01-09] MEDS: chlorthalidone 25 mg Tablet PO (09:04)
[2020-01-09] MEDS: hyDRALAzine 50 mg Tablet 75 MG PO ×2 (09:05→15:41)
[2020-01-09] MEDS: levothyroxine 50 mcg Tablet PO (09:07)
[2020-01-09] MEDS: pantoprazole 40 mg SDV IVP (09:09)
[2020-01-09 10:09] LABS: Basophils % 0.8 %; Eosinophils # 0.1 10^3/uL (0.0-0.8); Eosinophils % 1.3 %; Hematocrit 35.3 % (37.0-47.0); Lymphocytes # 1.4 10^3/uL (0.8-4.8); Mean Corpuscular HGB Conc 31.2 g/dL (30.0-36.0); Mean Corpuscular Hemoglobin 24.1 pg (28.0-34.0); Mean Corpuscular Volume 77.4 fL (81-99); Mean Platelet Volume 8.7 fL (7.4-10.4); Monocytes # 1.1 10^3/uL (0.2-0.9); Monocytes % 20.4 %; Neutrophils # 2.67 10^3/uL (1.8-7.7); Neutrophils % 50.3 %; Nucleated Red Blood Cells % 0 %; Platelet Count 397 10^3/cmm (130-400); Red Blood Count 4.56 10^6/uL (4.1-5.3); Red Cell Distribution Width 16.6 % (12.1-15.1); White Blood Count 5.3 10^3/uL (4.0-10.0)
--- NOTE | 2020-01-09 11:14 | PM.DCS ---
Discharge Providers Date of Admission: 01/07/20 11:52 Date of Discharge: January 09, 2020 Attending Provider at Admission: Adonis Durán MD Attending Provider at Discharge: Adonis Durán MD Primary Care Provider: Scooby Ignacio MD Diagnoses at Discharge Discharge Diagnosis (1) Anemia: Status: Chronic (2) Dilated cardiomyopathy: Status: Chronic (3) History of multiple cerebrovascular accidents (CVAs): Status: Chronic (4) Benign essential HTN: Status: Chronic (5) Peripheral vascular disease: Status: Chronic Reason for Visit Reason for Visit: Weakness/Stomach Pain/Sent by Hospital Course Hospital Course Irma Reid is a 84 year old female with past medical history of nonischemic cardiomyopathy with an ejection fraction 50 %, diastolic heart failure, history of multiple CVAs, carotid artery stenosis, diffuse peripheral vascular disease, history of GI bleed with iron deficiency anemia, hypothyroidism, B12 deficiency, dyslipidemia, COPD, hypertension came in with c/o having dizziness while standing as well SOB on exertion.Upon arrival in the ER CBC revealed H/H of 6.2/21.2.At the time of interview she deny any chest pain, palpitation, BRBPR,dark stool, hematuria, epistaxsis, nausea,vomitting,constipation, diarrhea.She was admitted in may 2019 with similar complain. EGD and Colonscopy Done at that time. Colonscopy showed :diverticulosis. EGD : was normal.She was following as outpaient and offere capsule endoscopy to her at that time.But since the patient was asymptomatic and had no similar episode they decided to hold off on it. Labs : Serum Iron : 14, % Saturation: 4.2, TIBC: 332, Ferritin: 12 ,WBC:3.5 , PLT : 515, Vit B12:228. During this admission she was transfused 2 U PRBC and at the time of discharge her H/H was 11/35.During the hospital stay she denied any black stool,BRBPR,hematuria. she is being discharged in stable condition to follow her PCP as outpient for further work up of severe symptomatic microcytic anemia due to iron deficiency. Physical Exam Const: COMMON NORMALS: patient oriented x3 HENMT: COMMON NORMALS: normocephalic, atraumatic, hearing grossly normal bilaterally and external ears normal HEAD & SCALP: normocephalic and atraumatic EXTERNAL EAR: Yes external ears normal Eye: COMMON NORMALS: no scleral icterus GENERAL EYE: appearance normal, both eyes and all related structures Chest: COMMONS NORMALS: normal inspection of the chest and normal palpation of entire chest wall CHEST: Yes Symmetrical chest wall rise Resp: COMMON NORMALS: normal respiratory effort, No retractions, No use of accessory muscles and clear to auscultation bilaterally EFFORT & INSPECTION: Yes symmetric chest movement AUSCULTATION: clear to auscultation bilaterally Cardio: COMMON NORMALS: regular rate, regular rhythm, S1 normal heart sound present, S2 normal heart sound present, No gallops present (Cardio), No murmurs present (Cardio), No rub (Cardio) and Peripheral pulses 2+ throughout RATE: regular rate RHYTHM: regular rhythm HEART SOUNDS: S1 normal heart sound present and S2 normal heart sound present PERIPHERAL PULSES: Peripheral pulses 2+ throughout GI: COMMON NORMALS: Normal to inspection, nondistended, normoactive bowel sounds present, Soft to palpation, non-tender, No hepatosplenomegaly present and no masses AUSCULTATION: Yes normoactive bowel sounds PALPATION: Yes Soft to palpation and Yes No hepatosplenomegaly present RECTAL EXAM: deferred Extremity: COMMON NORMALS: no clubbing, cyanosis or edema and no pedal edema Neuro: COMMON NORMALS: patient oriented x3 Discharge Data Data Completed and Pending: Pending at discharge Category Date Time Status Comprehensive Met abolic Panel AM LA BS Lab 01/10/20 04:00 Ordered Magnesium AM LABS Lab 01/10/20 04:00 Ordered Partial Thrombopl astin Time AM LABS Lab 01/10/20 04:00 Ordered Phosphorus AM LAB S Lab 01/10/20 04:00 Ordered Prothrombin Time INR AM LABS Lab 01/10/20 04:00 Ordered Labs from last 24 hours 01/09/20 01/09/20 01/09/20 09:43 04:36 04:36 WBC 5.3 RBC 4.56 Hgb 11.0 L Hct 35.3 L MCV 77.4 L MCH 24.1 L MCHC 31.2 RDW 16.6 H Plt Count 397 MPV 8.7 Neut % (Auto) 50.3 Lymph % (Auto) 27.0 Fannin % (Auto) 20.4 Eos % (Auto) 1.3 Baso % (Auto) 0.8 Neut # (Auto) 2.67 Lymph # (Auto) 1.4 Fannin # (Auto) 1.1 H Eos # (Auto) 0.1 Baso # (Auto) 0.0 Nucleated RBC % (a uto) 0 Nucleated RBCs # 0.0 PT 12.90 INR 0.94 APTT 27.0 Sodium 140 Potassium 3.3 L Chloride 102 Carbon Dioxide 27 Anion Gap 14.3 BUN 21 Creatinine 1.1 H GFR Calculation Not Reportable Glucose 100 Calculated Osmolal ity 293 Calcium 9.2 Phosphorus 3.6 Magnesium 2.2 Total Bilirubin 0.8 AST 18 ALT 13 Alkaline Phosphata se 42 Total Protein 6.3 L Albumin 3.9 Globulin 2.4 SARS-CoV-2 Ag (Rap id) Blood Type Rho(D) Type Antibody Screen Crossmatch 01/08/20 01/07/20 11:24 09:10 WBC RBC Hgb Hct MCV MCH MCHC RDW Plt Count MPV Neut % (Auto) Lymph % (Auto) Fannin % (Auto) Eos % (Auto) Baso % (Auto) Neut # (Auto) Lymph # (Auto) Fannin # (Auto) Eos # (Auto) Baso # (Auto) Nucleated RBC % (a uto) Nucleated RBCs # PT INR APTT Sodium Potassium Chloride Carbon Dioxide Anion Gap BUN Creatinine GFR Calculation Glucose Calculated Osmolal ity Calcium Phosphorus Magnesium Total Bilirubin AST ALT Alkaline Phosphata se Total Protein Albumin Globulin SARS-CoV-2 Ag (Rap id) Negative Blood Type A Negative Rho(D) Type Negative Antibody Screen Negative Crossmatch See Detail Vitals: Last Vital Signs Temp 97.7 F 01/09/20 07:46 Pulse 75 01/09/20 07:46 Resp 14 01/09/20 08:00 BP 148/82 01/09/20 07:46 Pulse Ox 99 01/09/20 07:46 Discharge Plan Discharge Patient Disposition: Home Condition: Stable Prescriptions: New ferrous sulfate 325 mg (65 mg iron) tablet 325 mg PO DAILY Qty: 30 RF: 0 Continued levothyroxine 50 mcg capsule 50 mcg PO DAILY RF: 0 ergocalciferol (vitamin D2) [Vitamin D2] 1,250 mcg (50,000 unit) capsule 50,000 unit PO Q7D RF: 0 hydralazine 50 mg tablet 75 mg PO TID Qty: 405 RF: 3 furosemide [Lasix] 20 mg tablet 20 mg PO DAILY PRN (Reason: Edema) Qty: 30 RF: 1 chlorthalidone 25 mg tablet 25 mg PO DAILY Qty: 30 RF: 5 atorvastatin 20 mg tablet 20 mg PO DAILY Qty: 30 RF: 5 Tylenol Extra Strength 500 mg Tablet 1,000 mg PO PRN RF: 0 Held clopidogrel 75 mg tablet 75 mg PO DAILY RF: 0 Hold Instructions: Resume on 01/16/20. Discontinued magnesium Tablet 1 tab PO BID RF: 0 Discharge Orders: Discharge Order (Routine); Ordered 01/09/20 Ordered By: Adonis Durán Referrals: Scooby Ignacio MD [Primary Care Provider] - 01/21/20 1:30 pm Discharge Diet: Cardiac and Low Salt Discharge Activity: Resume usual activity Patient Instructions: Anemia, Low Sodium Diet (GEN) Discharge Attestations Time Spent in Discharge Care*: greater than 30 min Specific Discharge Activities: educating patient, educating and/or supporting family/caregiver, discussing with case packer and sealer/social workers/dc planners, documenting/other paperwork and evaluating patient/reviewing data Status at Discharge: Cognitive status at discharge: cognitively intact, Behavioral status at discharge: cooperative, Functional status at discharge: independent ambulation Overall status at discharge: patient is back to baseline Quality Metrics Clinical Quality Measures During this hospital stay, did patient experience: None Coding Level of Care Code 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
[2020-01-09] MEDS: potassium chloride ER 20 mEq Tablet PO (12:06)
--- NOTE | 2020-01-09 16:00 | NUR.SHIFT ---
DC instructions given, IV DC'd cath intact bleeding controlled with 2x2 and coban, to main entrance via wheelchair to private vehicle with zero difficulties
== END 2020-01-09 16:00 | disposition home or self-care (01) | DRG 812 ==
LOC: ER 09:18 → MEDSURG 15:02
PROVIDERS: Admitting Provider Internal Medicine; Emergency Provider Family Medicine; PCP Family Medicine; Visit Provider Internal Medicine
DX: D50.0 Iron deficiency anemia secondary to blood loss (chronic) (principal); I42.0 Dilated cardiomyopathy; I50.32 Chronic diastolic (congestive) heart failure; I11.0 Hypertensive heart disease with heart failure; Z86.73 Personal history of transient ischemic attack (TIA), and cerebral infarction without residual deficits; I65.29 Occlusion and stenosis of unspecified carotid artery; I73.9 Peripheral vascular disease, unspecified; E03.9 Hypothyroidism, unspecified; E53.8 Deficiency of other specified B group vitamins; E78.5 Hyperlipidemia, unspecified; J44.9 Chronic obstructive pulmonary disease, unspecified; K57.90 Diverticulosis of intestine, part unspecified, without perforation or abscess without bleeding; Z87.442 Personal history of urinary calculi; Z87.891 Personal history of nicotine dependence
CPT/HCPCS: 12345; 36415; 36430; 80053; 82607; 82728; 82746; 83010; 83540; 83550; 83735; 84100; 84443; 85025; 85045; 85610; 85730; 86850; 86900; 86920; 87426; 96375; 99283; C9113; J0131; J1940; J7040; P9016; P9040

== ENCOUNTER 2020-01-16 19:42 | Inpatient (IN) | payer MEDICARE, OTHER, SELFPAY ==
[2020-01-16] VITALS (25 sets, daily range): BP systolic 130–183; BP diastolic 55–101; PULSE 61–74; RESP 0–27; TEMP 36.8; O2SAT 86–100; BMI 16.6
--- NOTE | 2020-01-16 19:45 | CTR_ITS ---
PROCEDURE INFORMATION: Exam: CT Head Without Contrast Exam date and time: 01/16/2020 7:54 PM Age: 84 years old Clinical indication: Injury or trauma; Fall; Blunt trauma (contusions or hematomas); Additional info: Fall/injury TECHNIQUE: Imaging protocol: Computed tomography of the head without contrast. Radiation optimization: All CT scans at this facility use at least one of these dose optimization techniques: automated exposure control; mA and/or kV adjustment per patient size (includes targeted exams where dose is matched to clinical indication); or iterative reconstruction. COMPARISON: CT head wo con* [id number] 06/23/2019 2:20 PM RADIATION DOSE METRICS: Total DLP (mGy-cm): 627.88 FINDINGS: Brain: Small chronic infarctions are present in the right frontal and left occipital lobes, and left thalamus the. Mild atrophy and mild white matter chronic microvascular changes are noted. The No hemorrhage or CT evidence of acute infarction is seen. Cerebral ventricles: No ventriculomegaly. Bones/joints: Unremarkable. No acute fracture. Paranasal sinuses: Visualized sinuses are unremarkable. No fluid levels. Mastoid air cells: Visualized mastoid air cells are well aerated. Soft tissues: Unremarkable. CT/CT head wo con* [id number] IMPRESSION: No acute intracranial abnormality. Radiation Dose CTDIVOL = (mGy): DLP = 627.88 (mGy-cm)
--- NOTE | 2020-01-16 19:45 | XR_ITS ---
WS: [id number] Exam: XR hip LT 2-3V wo/w pel* [id number] Date/Time of Exam: 01/16/2020 8:03 PM Reason For Exam: Fall/injury There is a comminuted intertrochanteric fracture of the left hip with coxa vera deformity. No other f ractures are seen. Moderate degenerative narrowing of the joint compartment. No acute pelvic fracture . Intact right hip prosthesis. XR/XR hip LT 2-3V wo/w pel* [id number] IMPRESSION: 1. Comminuted displaced fracture of the left hip.
--- NOTE | 2020-01-16 19:46 | XR_ITS ---
WS: [id number] Exam: XR chest 1V portable [id number] Date/Time of Exam: 01/16/2020 8:03 PM Reason For Exam: Fall/injury Comparison 09/27/2019. The lungs are hyperinflated and clear. Normal cardiomediastinal structures. No pleural effusions. Que stionable nondisplaced fracture of the left seventh rib. XR/XR chest 1V portable [id number] IMPRESSION: 1. Pulmonary hyperinflation which may indicate COPD. 2. Questionable nondisplaced cortical fracture of the lateral margin of the lef t seventh rib.
[2020-01-16] MEDS: ondansetron 2 mg/ML SDV 2 mL 4 MG IVP (19:56)
[2020-01-16] MEDS: pantoprazole 40 mg SDV 80 MG IVP (20:06)
[2020-01-16 20:10] LABS: Basophils % 0.4 %; Eosinophils % 0.8 %; Hematocrit 36.4 % (37.0-47.0); Hemoglobin 11.2 g/dL (11.5-15.3); Lymphocytes % 39.7 %; Mean Corpuscular HGB Conc 30.8 g/dL (30.0-36.0); Mean Corpuscular Hemoglobin 24.3 pg (28.0-34.0); Monocytes % 19.8 %; Neutrophils % 39.1 %; Nucleated Red Blood Cells % 0 %; Platelet Count 420 10^3/cmm (130-400); Red Blood Count 4.61 10^6/uL (4.1-5.3); Red Cell Distribution Width 20.9 % (12.1-15.1); White Blood Count 5.1 10^3/uL (4.0-10.0)
[2020-01-16 20:28] LABS: INR 0.89 (0.8-1.2)
[2020-01-16 20:29] LABS: Partial Thromboplastin Time 22.3 SECONDS (23.9-36.7)
[2020-01-16 20:34] LABS: Alanine Aminotransferase 16 U/L (0-33); Albumin Level 4.8 g/dL (3.5-5.2); Alkaline Phosphatase 57 IU/L (35-105); Aspartate Amino Transferase 24 U/L (0-32); Blood Urea Nitrogen 35 mg/dL (8-23); Carbon Dioxide 30 mmol/L (22-29); Chloride 87 mmol/L (98-107); Globulin 2.9 g/dL (1.3-4.6); Glucose 136 mg/dL (65-115); Lipase 90 U/L (13-60); Magnesium 2.7 mg/dL (1.7-2.3); Osmolality Calculated 288 mOsm/kg (285-295); Sodium 134 mmol/L (136-145); Total Bilirubin 0.3 mg/dL (0.15-1.2); Total Protein 7.7 g/dL (6.6-8.7)
--- NOTE | 2020-01-16 20:50 | PC.NURSE ---
2044-Patient and no longer in room did not tell any staff they were leaving pharmacy called about Skelaxin at 2036- Not given ASA or Skelaxin or Rx-
[2020-01-16 20:55] LABS: Alcohol Level < 10 mg/dL (0-10)
--- NOTE | 2020-01-16 20:55 | PC.NURSE ---
LAST ENTRY WRONG CHART__
[2020-01-16 20:57] LABS: Anion Gap 19.6 (5-19); Potassium 2.6 mmol/L (3.5-5.1)
--- NOTE | 2020-01-16 21:01 | ED_ITS ---
HPI - Extremity Problem General: Chief complaint: Extremity Injury, Lower Stated complaint: hip def Time Seen by Provider: 01/16/20 19:43 Source: patient and EMS Mode of arrival: EMS Limitations: no limitations History of Present Illness: HPI Narrative: Mrs. Reid is a very nice 84-year-old female who comes in after she fell at home hurting her left hip. Patient states that she has been dizzy and lightheaded all day but denies any chest pain, palpitations, abdominal pain, back pain or focal weakness. Her weakness is generalized. Patient was recently in the hospital for anemia but she has not noticed any blood in her stools or black tarry stools. She is not on any blood thinners except for Plavix at this time. She fell landing on her left hip but denies any head injuries. EMS gave the patient narcotic pain medicine in route and she did get sick and throw up. The emesis looks coffee ground. Associated symptoms: Deny chest pain, fever(s) or rash Review of Systems Const: Denies: fever(s), chills, body aches, fatigue, malaise or diaphoresis Eyes: Denies: change in vision, blurry vision, photophobia, eye discomfort, eye discharge, eye redness or yellow eyes ENMT: Denies: throat pain, odynophagia, hoarseness, swelling of lips/tongue, ear or mastoid pain, ear discharge, change in hearing or nasal discharge Card: Denies: chest pain, palpitations, irregular heart rhythm, edema, lightheadedness, syncope, pre-syncope, dyspnea on exertion or orthopnea Resp: Denies: dyspnea, productive cough, non-productive cough, wheezing, hemoptysis or chest congestion GI: Reports: nausea and vomiting; Denies: abdominal pain, hematemesis, coffee ground emesis, heartburn, diarrhea, constipation, GI cramping, hematochezia or melena : Denies: flank pain, dysuria, urinary frequency, urinary urgency or hematuria Musc: Reports: extremity pain and joint pain; Denies: neck pain, back pain, extremity swelling, joint swelling, joint redness, joint warmth or joint stiffness Skin/Breast: Denies: rash, pruritus, erythema, skin pain or skin tenderness Neuro: Denies: headache(s), numbness in extremities, weakness in extremities, sensory changes, lack of coordination, difficulty walking, dizziness, vertigo, confusion, Slurred speech present or seizure-like activity Jarret/Lymph: Denies: easy bruising, easy bleeding, petechiae, purpura or enlarged lymph nodes All/Imm: Denies: urticaria, throat swelling, tongue swelling, facial swelling or acute wheezing PFSH ED PFSH: Medical History Acute kidney injury Anemia Anemia due to blood loss Arterial ischemic stroke, multifocal, multiple vascular territories, chronic Atypical chest pain Benign essential HTN Carotid artery disease Carotid artery stenosis with cerebral infarction over 8 weeks ago Had CVA in August 2018-is being followed by Dr. Mae Cerebral vascular accident Chest wall hematoma Chronic heart failure Dilated cardiomyopathy Epistaxis Gastroenteritis GI bleed History of multiple cerebrovascular accidents (CVAs) Hyperlipemia Hypertension Ischemic cardiomyopathy Kidney calculi Multiple lacunar infarcts Myocardial infarct Nonischemic cardiomyopathy Obstructive pyelonephritis Peripheral vascular disease Syncope Urolithiasis Surgical History History of colonoscopy History of esophagogastroduodenoscopy (EGD) Family History Father Cancer, Onset Age: 90 Colon cancer Denies family history of Diabetes CAD (coronary artery disease) Hypertension Stroke Social History Smoking and tobacco status: former smoker Alcohol intake: current Alcohol intake frequency: few times a month Alcohol type: wine Adopted: No Caregiver/support person: No Lives independently: No Marital status: / Current occupational status: retired History of recent travel: No Current gender identity: Female Physical Exam Const: COMMON NORMALS: no acute distress, patient oriented x3, no limitations and alert GENERAL APPEARANCE: cooperative HENMT: COMMON NORMALS: normocephalic, atraumatic, external ears normal, EAC's normal and Normal external nose present HEAD & SCALP: normal to inspection, normocephalic and atraumatic FACE & SINUS: normal facial exam and face symmetric NOSE: Normal external nose present and Normal nares present EXTERNAL EAR: Yes external ears normal EXTERNAL AUDITORY CANAL: EAC's normal MOUTH: Normal oral and palatal mucosa present, lip normal and tongue normal Eye: COMMON NORMALS: Equal, round and reactive pupils present and conjunctivae normal GENERAL EYE: appearance normal, both eyes and all related structures ALIGNMENT: Yes alignment normal PERIORBITAL: periorbital findings normal EYELID: eyelids normal CONJUNCTIVA: Yes conjunctivae normal SCLERA: sclerae normal PUPIL: Yes Equal, round and reactive pupils present Neck/C-Spine: COMMON NORMALS: full ROM, no lymphadenopathy, supple, no meningeal signs and no JVD GENERAL: Yes normal visual inspection and Yes trachea midline Chest: COMMONS NORMALS: normal inspection of the chest and normal palpation of entire chest wall Resp: COMMON NORMALS: normal respiratory effort, No retractions, No use of accessory muscles and clear to auscultation bilaterally EFFORT & INSPECTION: Yes able to speak in complete sentences and Yes symmetric chest movement AUSCULTATION: clear to auscultation bilaterally, no crackles, no rales, no rhonchi and no wheezes Cardio: COMMON NORMALS: no JVD, regular rate, regular rhythm, S1 normal heart sound present and S2 normal heart sound present RATE: regular rate RHYTHM: regular rhythm HEART SOUNDS: S1 normal heart sound present, S2 normal heart sound present, no click, no gallops, no murmurs and no rubs GI: COMMON NORMALS: Soft to palpation and No hepatosplenomegaly present PALPATION: Yes Soft to palpation, No Tenderness to palpation present (GI), No Guarding due to palpation present (GI), No Rigid due to palpation, Yes No hepatosplenomegaly present, No Hernia present, No Palpable mass present and No Pulsatile mass present : COMMON NORMALS: Yes no CVA tenderness BLADDER/KIDNEY EXAM: Yes no CVA tenderness EXTERNAL FEMALE EXAM: No Hernia present Back/Pelvis: COMMON NORMALS: no CVA tenderness, thoracic and lumbar spine normal to inspection, no thoracic nor lumbar tenderness and thoraco-lumbar ROM normal Extremity: NARRATIVE EXTREMITY EXAM: Left hip with tenderness to palpation and severe pain with any attempted range of motion. Clinical left hip fracture. Neurovascular intact distal. Remainder of musculoskeletal exam is unremarkable. Neuro: COMMON NORMALS: patient oriented x3, CN's II-XII intact bilaterally, moves all extremities, no focal motor deficits and no sensory deficits noted SENSORIUM/ORIENTATION: Yes alert MENINGEAL SIGNS: Yes no meningeal signs SPEECH: speech normal Psych: COMMON NORMALS: mental status grossly normal, Normal thought process p resent, cooperative, normal affect, speech normal and activity/motor behavior normal SPEECH: Yes normal speech THOUGHT PROCESS: Normal thought process present Skin: COMMON NORMALS: no rashes or lesions noted, turgor normal, no jaundice, no petechiae and no mottling GENERAL SKIN EXAM: no rashes or lesions noted and turgor normal Course Vital Signs: Vital signs: Vital Signs Temperature 98.3 F 01/16/20 19:43 Pulse Rate 64 01/16/20 22:00 Respiratory Rate 15 01/16/20 22:00 Blood Pressure 153/72 01/16/20 22:00 Pulse Oximetry 100 01/16/20 22:00 MDM - Extremity (Nontraumatic) MDM Narrative: Medical decision making narrative: Arrival -patient arrives after falling at home hitting her left hip. She denies hitting her head or neck. She denies any neck pain. The patient is throwing up and it is not clear for me whether this was caused by the narcotics given by EMS but they did did give her Zofran as well. Patient is throwing up what appears to be coffee- ground type emesis. She states she has a history of GI bleed. I will do a head CT to ensure there is no injury such as subdural/epidural hematoma or intraparenchymal bleeding. Give her a dose of Protonix and Gastroccult her emesis. Patient does not want to give much of a history at this time secondary to her severe nausea. Lab Data: Attestation: I reviewed the patient's lab results. Labs: Lab Results 01/16/20 01/16/20 01/16/20 Range/Units 19:52 19:52 19:52 WBC 5.1 (4.0-10.0) 10^3/ uL RBC 4.61 (4.1-5.3) 10^6/u L Hgb 11.2 L (11.5-15.3) g/dL Hct 36.4 L (37.0-47.0) % MCV 79.0 L (81-99) fL MCH 24.3 L (28.0-34.0) pg MCHC 30.8 (30.0-36.0) g/dL RDW 20.9 H (12.1-15.1) % Plt Count 420 H (130-400) 10^3/c mm MPV 9.0 (7.4-10.4) fL Neut % (Auto) 39.1 % Lymph % (Auto) 39.7 % [place] % (Auto) 19.8 % Eos % (Auto) 0.8 % Baso % (Auto) 0.4 % Neut # (Auto) 2.00 (1.8-7.7) 10^3/u L Lymph # (Auto) 2.0 (0.8-4.8) 10^3/u L [place] # (Auto) 1.0 H (0.2-0.9) 10^3/u L Eos # (Auto) 0.0 (0.0-0.8) 10^3/u L Baso # (Auto) 0.0 (0.0-0.1) 10^3/u L Nucleated RBC % (a uto) 0 % Nucleated RBCs # 0.0 /100WBC PT 12.30 (12.1-14.9) SECO NDS INR 0.89 (0.8-1.2) APTT 22.3 L (23.9-36.7) SECO NDS Sodium 134 L (136-145) mmol/L Potassium 2.6 L* (3.5-5.1) mmol/L Chloride 87 L (98-107) mmol/L Carbon Dioxide 30 H (22-29) mmol/L Anion Gap 19.6 H (5-19) BUN 35 H (8-23) mg/dL Creatinine 1.5 H (0.5-0.9) mg/dL GFR Calculation Not Reportable Glucose 136 H (65-115) mg/dL Calculated Osmolal ity 288 (285-295) mOsm/k g Lactic Acid Calcium 10.0 (8.5-10.5) mg/dL Magnesium 2.7 H (1.7-2.3) mg/dL Total Bilirubin 0.3 (0.15-1.2) mg/dL AST 24 (0-32) U/L ALT 16 (0-33) U/L Alkaline Phosphata se 57 (35-105) IU/L Total Protein 7.7 (6.6-8.7) g/dL Albumin 4.8 (3.5-5.2) g/dL Globulin 2.9 (1.3-4.6) g/dL Lipase 90 H (13-60) U/L Urine Color (Yellow) Urine Appearance (CLEAR) Urine pH (5-7) Ur Specific Gravit y (1.005-1.030) Urine Protein (Negative) Urine Glucose (UA) (Normal) Urine Ketones (Negative) Urine Blood (Negative) Urine Nitrate (Negative) Urine Bilirubin (Negative) Urine Urobilinogen (Negative) mg/dL Ur Leukocyte Eli ase (Negative) Gastric Occult Blo od (Negative) Ethyl Alcohol < 10 (0-10) mg/dL 01/16/20 01/16/20 01/16/20 Range/Units 19:52 20:33 21:00 WBC (4.0-10.0) 10^3/ uL RBC (4.1-5.3) 10^6/u L Hgb (11.5-15.3) g/dL Hct (37.0-47.0) % MCV (81-99) fL MCH (28.0-34.0) pg MCHC (30.0-36.0) g/dL RDW (12.1-15.1) % Plt Count (130-400) 10^3/c mm MPV (7.4-10.4) fL Neut % (Auto) % Lymph % (Auto) % [place] % (Auto) % Eos % (Auto) % Baso % (Auto) % Neut # (Auto) (1.8-7.7) 10^3/u L Lymph # (Auto) (0.8-4.8) 10^3/u L [place] # (Auto) (0.2-0.9) 10^3/u L Eos # (Auto) (0.0-0.8) 10^3/u L Baso # (Auto) (0.0-0.1) 10^3/u L Nucleated RBC % (a uto) % Nucleated RBCs # /100WBC PT (12.1-14.9) SECO NDS INR (0.8-1.2) APTT (23.9-36.7) SECO NDS Sodium (136-145) mmol/L Potassium (3.5-5.1) mmol/L Chloride (98-107) mmol/L Carbon Dioxide (22-29) mmol/L Anion Gap (5-19) BUN (8-23) mg/dL Creatinine (0.5-0.9) mg/dL GFR Calculation Glucose (65-115) mg/dL Calculated Osmolal ity (285-295) mOsm/k g Lactic Acid Cancelled Calcium (8.5-10.5) mg/dL Magnesium (1.7-2.3) mg/dL Total Bilirubin (0.15-1.2) mg/dL AST (0-32) U/L ALT (0-33) U/L Alkaline Phosphata se (35-105) IU/L Total Protein (6.6-8.7) g/dL Albumin (3.5-5.2) g/dL Globulin (1.3-4.6) g/dL Lipase (13-60) U/L Urine Color Straw (Yellow) Urine Appearance Clear (CLEAR) Urine pH 7 (5-7) Ur Specific Gravit y 1.030 (1.005-1.030) Urine Protein Neg (Negative) Urine Glucose (UA) Norm (Normal) Urine Ketones Negative (Negative) Urine Blood Neg (Negative) Urine Nitrate Negative (Negative) Urine Bilirubin Neg (Negative) Urine Urobilinogen Norm (Negative) mg/dL Ur Leukocyte Eli ase Negative (Negative) Gastric Occult Blo od Positive H (Negative) Ethyl Alcohol (0-10) mg/dL 01/16/20 Range/Units 21:35 WBC (4.0-10.0) 10^3/ uL RBC (4.1-5.3) 10^6/u L Hgb (11.5-15.3) g/dL Hct (37.0-47.0) % MCV (81-99) fL MCH (28.0-34.0) pg MCHC (30.0-36.0) g/dL RDW (12.1-15.1) % Plt Count (130-400) 10^3/c mm MPV (7.4-10.4) fL Neut % (Auto) % Lymph % (Auto) % [place] % (Auto) % Eos % (Auto) % Baso % (Auto) % Neut # (Auto) (1.8-7.7) 10^3/u L Lymph # (Auto) (0.8-4.8) 10^3/u L [place] # (Auto) (0.2-0.9) 10^3/u L Eos # (Auto) (0.0-0.8) 10^3/u L Baso # (Auto) (0.0-0.1) 10^3/u L Nucleated RBC % (a uto) % Nucleated RBCs # /100WBC PT (12.1-14.9) SECO NDS INR (0.8-1.2) APTT (23.9-36.7) SECO NDS Sodium (136-145) mmol/L Potassium (3.5-5.1) mmol/L Chloride (98-107) mmol/L Carbon Dioxide (22-29) mmol/L Anion Gap (5-19) BUN (8-23) mg/dL Creatinine (0.5-0.9) mg/dL GFR Calculation Glucose (65-115) mg/dL Calculated Osmolal ity (285-295) mOsm/k g Lactic Acid 1.6 Calcium (8.5-10.5) mg/dL Magnesium (1.7-2.3) mg/dL Total Bilirubin (0.15-1.2) mg/dL AST (0-32) U/L ALT (0-33) U/L Alkaline Phosphata se (35-105) IU/L Total Protein (6.6-8.7) g/dL Albumin (3.5-5.2) g/dL Globulin (1.3-4.6) g/dL Lipase (13-60) U/L Urine Color (Yellow) Urine Appearance (CLEAR) Urine pH (5-7) Ur Specific Gravit y (1.005-1.030) Urine Protein (Negative) Urine Glucose (UA) (Normal) Urine Ketones (Negative) Urine Blood (Negative) Urine Nitrate (Negative) Urine Bilirubin (Negative) Urine Urobilinogen (Negative) mg/dL Ur Leukocyte Eli ase (Negative) Gastric Occult Blo od (Negative) Ethyl Alcohol (0-10) mg/dL Imaging Data^: CT Head: Radiologist's impression: [address] [address] [address] Scan Report Signed Patient: Mireya Reid #: [id number] : 8Acct#:[id number] Age/Sex: 84 / FADM Date: 01/16/20 Loc: ERRoom/Bed: Attending Dr: Ordering Provider/Ordering MD: Leann Norris DO Date of Service: 01/16/20 Procedure(s): CT head wo con* [id number] Accession Number(s): [id number] Report Number: [id number] PROCEDURE INFORMATION: Exam: CT Head Without Contrast Exam date and time: 01/16/2020 7:54 PM Age: 84 years old Clinical indication: Injury or trauma; Fall; Blunt trauma (contusions or hematomas); Additional info: Fall/injury TECHNIQUE: Imaging protocol: Computed tomography of the head without contrast. Radiation optimization: All CT scans at this facility use at least one of these dose optimization techniques: automated exposure control; mA and/or kV adjustment per patient size (includes targeted exams where dose is matched to clinical indication); or iterative reconstruction. COMPARISON: CT head wo con* [id number] 06/23/2019 2:20 PM RADIATION DOSE METRICS: Total DLP (mGy-cm): 627.88 FINDINGS: Brain: Small chronic infarctions are present in the right frontal and left occipital lobes, and left thalamus the. Mild atrophy and mild white matter chronic microvascular changes are noted. The No hemorrhage or CT evidence of acute infarction is seen. Cerebral ventricles: No ventriculomegaly. Bones/joints: Unremarkable. No acute fracture. Paranasal sinuses: Visualized sinuses are unremarkable. No fluid levels. Mastoid air cells: Visualized mastoid air cells are well aerated. Soft tissues: Unremarkable. CT/CT head wo con* [id number] IMPRESSION: No acute intracranial abnormality. Radiation Dose CTDIVOL = (mGy): DLP = 627.88 (mGy-cm) Dictated By:Rancho Myers MD Signed By:Rancho Myers MDSigned Date/Time:01/16/202027 DD/ 26 CXR: Attestation: I personally reviewed and interpreted this imaging study as follows: My impression: No acute cardiopulmonary findings. EKG Data^: EKG 1: Attestation: I personally reviewed and interpreted this EKG as follows: EKG interpretation date: 01/16/20 EKG interpretation time: 21:24 Interpretation: Normal sinus rhythm at 67 beats a minute, poor tracing secondary to Inc./mechanical issues with machine. Possible previous anterior DC, no blocks, normal intervals. Discharge Plan Discharge Patient Disposition: Admitted As Inpatient Clinical Impression: Fracture of hip Condition: Stable Prescriptions: No Action levothyroxine 50 mcg capsule 50 mcg PO DAILY RF: 0 ergocalciferol (vitamin D2) [Vitamin D2] 1,250 mcg (50,000 unit) capsule 50,000 unit PO Q7D RF: 0 hydralazine 50 mg tablet 75 mg PO TID Qty: 405 RF: 3 furosemide [Lasix] 20 mg tablet 20 mg PO DAILY PRN (Reason: Edema) Qty: 30 RF: 1 chlorthalidone 25 mg tablet 25 mg PO DAILY Qty: 30 RF: 5 atorvastatin 20 mg tablet 20 mg PO DAILY Qty: 30 RF: 5 clopidogrel 75 mg tablet 75 mg PO DAILY RF: 0 Hold Instructions: Resume on 01/16/20. acetaminophen [Tylenol Extra Strength] 500 mg Tablet 1,000 mg PO PRN RF: 0 ferrous sulfate 325 mg (65 mg iron) tablet 325 mg PO DAILY Qty: 30 RF: 0 Referrals: Scooby Ignacio MD [Primary Care Provider] - Coding Level of Care Code [facility] [employer] [facility] Director for Chg Fwd Exam Comprehensive
[2020-01-16] MEDS: potassium chloride premix 100 ML 25 MEQ IV (21:07)
--- NOTE | 2020-01-16 21:18 | PC.NURSE ---
EKG done at 2114 and shown to ER doctor
[2020-01-16 21:23] LABS: Gastricult Occult Blood Positive (Negative)
[2020-01-16] MEDS: sodium chloride 0.9% 1,000 ML 100 ML IV (21:25)
--- NOTE | 2020-01-16 21:30 | PC.NURSE ---
2130 RR 20 not 0. Unable to change monitor
--- NOTE | 2020-01-16 21:32 | P.HP_ITS ---
Providers/Chief Complaint Primary Care Provider: Scooby Ignacio MD Chief Complaint: hip def History of Present Illness Irma Reid is a 84 year old female who presented today after sustaining a fall at home. Patient lives independently, she has history of right hip arthroplasty in 2015, today around 6 PM, she was going to the other room to set up her alarm before going to sleep, on her way to the room she felt dizzy and fell on the floor without any warning signs, she did not notice any chest pain, palpitations, loss of consciousness, seizure-like activities. She is attributing her fall to feeling dizzy(which she is describing as lightheadedness). She is denying diarrhea, dark stools, hematemesis, hematuria, dysuria, strokelike symptoms. Daughter is at the bedside who told me that today she asked her grandson to jump a glass of wine in the evening as well, family is not sure whether she has been drinking alcohol on daily basis however patient did not volunteer to disclose this information during my interview. Diagnostics in the ER revealed normal hemodynamics, hypertension, she is afebrile, hypokalemia noted, will order EtOH level, magnesium level, she is getting potassium supplementation and Protonix drip because Dr. Torres's coffee- ground emesis, patient started experiencing emesis after getting opioids in the ER, she was not complaining of any chest pain or shortness of breath. On her last visit she required blood transfusion, previous history of EGD and colonoscopy did not show any active ulcers, she was given recommendation for capsule enteroscopy. Hemoglobin today stable, she had normal hemodynamics, Protonix drip has been initiated. Occult blood test positive. Review of Systems Const: Reports: body aches and fatigue; Denies: fever(s) or chills Eyes: Denies: change in vision ENMT: Denies: throat pain Card: Reports: pre-syncope and dyspnea on exertion; Denies: chest pain, swelling of feet/ankles, syncope or orthopnea Resp: Denies: dyspnea GI: Denies: abdominal pain : Denies: flank pain Musc: Reports: joint pain, joint stiffness, limited range of motion and muscle cramps; Denies: neck pain Skin/Breast: Reports: lesions Neuro: Reports: dizziness; Denies: headache(s), frequent falls, behavioral changes, Slurred speech present or seizure-like activity Psych: Denies: anxiety Endo: Denies: polyuria Jarret/Lymph: Reports: easy bruising, easy bleeding, petechiae and purpura All/Imm: Denies: urticaria Medications/Allergies Home Medications Medication Instructions Recorded Confirmed Last Taken Type ergocalciferol (vitamin D2) 1,250 50,000 unit PO Q7D 03/26/19 01/16/20 01/16/20 History mcg (50,000 unit) capsule levothyroxine 50 mcg capsule 50 mcg PO DAILY 03/26/19 01/16/20 01/16/20 History clopidogrel 75 mg PO DAILY 06/23/19 01/16/20 01/07/20 History atorvastatin 20 mg tablet 20 mg PO DAILY #30 tab 01/01/20 01/16/20 01/16/20 Rx chlorthalidone 25 mg tablet 25 mg PO DAILY #30 tab 01/06/20 01/16/20 01/16/20 Rx furosemide 20 mg tablet 20 mg PO DAILY PRN #30 tab 01/06/20 01/16/20 01/16/20 Rx hydralazine 50 mg tablet 75 mg PO TID #405 tab 01/06/20 01/16/20 01/16/20 Rx acetaminophen [Tylenol Extra 1,000 mg PO PRN 01/07/20 01/16/20 Unknown History Strength] ferrous sulfate 325 mg PO DAILY #30 tab 01/09/20 01/16/20 01/16/20 Rx Allergies Allergy/AdvReac Type Severity Reaction Status Date / Time meperidine [From Demerol] Allergy ADR-Anxiety Verified 01/07/20 11:00 cilostazol AdvReac Intermediate ADR-Dizzine Verified 01/07/20 11:00 ss PFSH Acute PFSH: Medical History Acute kidney injury Anemia Anemia due to blood loss Arterial ischemic stroke, multifocal, multiple vascular territories, chronic Atypical chest pain Benign essential HTN Carotid artery disease Carotid artery stenosis with cerebral infarction over 8 weeks ago Had CVA in August 2018-is being followed by Dr. Mae Cerebral vascular accident Chest wall hematoma Chronic heart failure Dilated cardiomyopathy Epistaxis Gastroenteritis GI bleed History of multiple cerebrovascular accidents (CVAs) Hyperlipemia Hypertension Ischemic cardiomyopathy Kidney calculi Multiple lacunar infarcts Myocardial infarct Nonischemic cardiomyopathy Obstructive pyelonephritis Peripheral vascular disease Syncope Urolithiasis Surgical History History of colonoscopy History of esophagogastroduodenoscopy (EGD) Family History Father Cancer, Onset Age: 90 Colon cancer Denies family history of Diabetes CAD (coronary artery disease) Hypertension Stroke Social History Smoking and tobacco status: former smoker Alcohol intake: current Alcohol intake frequency: few times a month Alcohol type: wine Adopted: No Caregiver/support person: No Lives independently: No Marital status: / Current occupational status: retired History of recent travel: No Current gender identity: Female Vitals/I&O/Wt Last Vital Signs Temp 98.3 F 01/16/20 19:43 Pulse 68 01/16/20 21:30 Resp 18 01/16/20 21:30 BP 167/76 01/16/20 21:30 Pulse Ox 100 01/16/20 21:30 Weight last 48 hrs Weight 43.998 kg Physical Exam Narrative: EXAM NARRATIVE: elderly female Did not seem to be in any distress When I entered the room she was saturating well on room air, hypertensive, Protonix drip at the bedside along potassium Extremely dehydrated, dry buccal mucous membrane Awake alert oriented x3 GCS 15 No focal deficit S1, S2, PVCs noted on telemetry no signs of fluid overload Abdomen soft nontender No acute respiratory distress Multiple petechiae and bruises and abrasions all over her extremities No active bleeding Coffee-ground emesis noted by ER physician Very frail and thin female Has an IV in right foot Lower extremity extremely dry skin, multiple petechiae, left leg is shorter as compared to right Data : 01/16/20 19:52 01/16/20 19:52 A&P Assessment and plan (1) Fracture of hip: Status: Acute Qualifiers: Encounter type: initial encounter Fracture type: closed Laterality: left Qualified Code(s): S72.002A - Fracture of unspecified part of neck of left femur, initial encounter for closed fracture (2) Carotid artery disease: Status: Acute Qualifiers: Carotid artery disease type: stenosis Laterality: bilateral Qualified Code(s): I65.23 - Occlusion and stenosis of bilateral carotid arteries (3) Diverticulosis: Status: Acute (4) Multiple falls: Status: Acute Additional A&P Information Acute hip fracture after sustaining a fall Questionable history of alcohol abuse, CT head unremarkable Check alcohol level, start thiamine folic acid, patient is not diabetic glucose 136mg/dl I will keep her on D5 half-normal saline fluid resuscitation N.p.o. after midnight Orthopedic consult for left-sided femoral neck fracture, Analgesia with Dilaudid along bowel regimen Perioperative evaluation: Patient is independent for daily activities, lives alone, has history of right hip arthroplasty, never had any complications from anesthesia or postoperatively, not on MARIZOL or ARB Hematemesis Hemoglobin seems to be stable at this point normal hemodynamics, watch H&H, continue Protonix 40 mg IV twice daily and discontinue Protonix drip On previous admission she required 2 blood transfusions Previous colonoscopy revealed diverticulosis and she was recommended capsule endoscopy as her EGD was also unremarkable, Hypokalemia: Repleted, check magnesium level Acute on chronic kidney disease Baseline creatinine seems to be around 1-1.2 Current creatinine seems to be worsened secondary to dehydration and nephrotoxic agents Hold chlorthalidone Anticipating improvement with fluid resuscitation, patient is denying dysuria, History of recurrent falls B12 low normal checked on previous admission, I do believe her alcohol intake also has a role to play Full code N.p.o. DVT prophylaxis SCDs, avoid anticoagulation, she will need surgical intervention in the morning Attestations Medical Necessity Statement*: Anticipating stay in the hospital course more than 2 midnights currently need surgical intervention for left hip fracture Time Spent in Patient Care: (>than 50% of time spent in counselling and/or di rect pt care on unit) . 50mins Coding Level of Care Code Acute Mate Chief for [facility] Fwd Diagnoses Fracture of hip S72.002A Encounter type: initial encounter Fracture type: closed Laterality: left Carotid artery disease I65.23 Carotid artery disease type: stenosis Laterality: bilateral Diverticulosis K57.90 Multiple falls R29.6
[2020-01-16 21:43] LABS: Add Urine Microscopic? NO
[2020-01-16] MEDS: pantoprazole 40 MG in sodium chloride 0.9% (plus) 100 ML 20 MG IV (21:46)
[2020-01-16 22:04] LABS: Bilirubin Urine Neg (Negative); Blood Urine Neg (Negative); Glucose Urine UA Norm (Normal); Ketones Urine Negative (Negative); Leukocyte Esterase Urine Negative (Negative); Nitrate Urine Negative (Negative); Protein Urine Neg (Negative); Urine Appearance Clear (CLEAR); Urine Color Straw (Yellow); Urobilinogen Urine Norm (Negative); pH Urine 7 (5-7)
[2020-01-16 22:12] LABS: Lactic Sepsis W/Reflex 1.6 mmol/L (0.5-2.2)
[2020-01-16 22:27] LABS: Amphetamines Screen Urine Negative (Negative); Barbiturates Screen Urine Negative (Negative); Benzodiazepines Screen Urine Negative (Negative); Cocaine Screen Urine Negative (Negative); Opiate Screen Urine Negative (Negative); PCP Screen Urine Negative (Negative); THC Screen Urine Negative (Negative)
[2020-01-16 22:32] LABS: Magnesium 2.7 mg/dL (1.7-2.3)
[2020-01-16 22:47] LABS: Alcohol Level < 10 mg/dL (0-10)
[2020-01-16] MEDS: D5-NS 0.45% + KCL 20 mEq 20 MEQ/1,000 ML BAG 30 MEQ IV (23:58)
[2020-01-16] MEDS: HYDROmorphone 1 mg/mL INJ 1 mL 2 MG IVP (23:59)
[2020-01-17] VITALS (13 sets, daily range): BP systolic 108–187; BP diastolic 57–104; PULSE 61–98; RESP 15–20; TEMP 36.4–37.4; O2SAT 89–100
--- NOTE | 2020-01-17 | SCC_ITS ---
Procedure Done: left Intramedullary hip nail 46.3 seconds of fluoroscopic guidance, for a cumulative dose of 3.57 mGy, was provided to Dr. Monaco by the radiology department. C-arm images of the LEFT hip were saved for the patient's permanent record. [facility]
[2020-01-17 05:00] LABS: Basophils % 0.1 %; Hematocrit 33.9 % (37.0-47.0); Hemoglobin 10.1 g/dL (11.5-15.3); Lymphocytes # 0.6 10^3/uL (0.8-4.8); Lymphocytes % 5.1 %; Mean Corpuscular HGB Conc 29.8 g/dL (30.0-36.0); Mean Corpuscular Hemoglobin 24.4 pg (28.0-34.0); Mean Corpuscular Volume 81.9 fL (81-99); Mean Platelet Volume 9.1 fL (7.4-10.4); Monocytes % 8.8 %; Neutrophils # 9.92 10^3/uL (1.8-7.7); Neutrophils % 85.6 %; Nucleated Red Blood Cells % 0 %; Platelet Count 349 10^3/cmm (130-400); Red Blood Count 4.14 10^6/uL (4.1-5.3); Red Cell Distribution Width 20.9 % (12.1-15.1); White Blood Count 11.6 10^3/uL (4.0-10.0)
[2020-01-17 05:52] LABS: Blood Urea Nitrogen 33 mg/dL (8-23); Calcium 8.8 mg/dL (8.5-10.5); Carbon Dioxide 29 mmol/L (22-29); Chloride 93 mmol/L (98-107); Glucose 132 mg/dL (65-115); Osmolality Calculated 285 mOsm/kg (285-295); Sodium 133 mmol/L (136-145)
[2020-01-17 06:15] LABS: Anion Gap 14.4 (5-19); Potassium 3.4 mmol/L (3.5-5.1)
--- NOTE | 2020-01-17 06:57 | ECG_ITS ---
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 Measurements Intervals [place] Rate: 57 P: 69 VT: 173 QRS: -35 QRSD: 99 T: -84 QT: 466 QTc: 454 Interpretive Statements SINUS BRADYCARDIA MARKED LEFT AXIS DEVIATION [QRS AXIS < -30] SEPTAL MYOCARDIAL INFARCTION [40+ ms Q WAVE IN V1/V2], PROBABLY OLD MODERATE T-WAVE ABNORMALITY, CONSIDER LATERAL ISCHEMIA [-0.1+ mV T WAVE IN I/aVL/V5/V6] MODERATE T-WAVE ABNORMALITY, CONSIDER INFERIOR ISCHEMIA [-0.1+ mV T WAVE IN II/aVF] Compared to ECG 09/26/2019 14:24:06 T-wave abnormality now present Possible ischemia now present Myocardial infarct finding still present Electronically Signed On 01-17-2020 10:24:24 ESOL INSTRUCTOR by Chloe Colon M.D. [email or web address]
--- NOTE | 2020-01-17 08:02 | PC.ADMIT ---
1508 [facility] Admission Note: The patient,Irma Reid,84 y/o, was given written information regarding hospital policies, unit procedures and contact persons. Patient's smoking status: former smoker. Vital Signs - 8 hr 01/17/20 00:04 01/17/20 03:55 Temperature 97.8 F 97.5 F L Pulse Rate 73 Respiratory Rate 18 Blood Pressure 136/60 Pulse Oximetry 100
--- NOTE | 2020-01-17 08:02 | PC.NURSE ---
permission received per Dr Kong for pt daughter Marcie Cherry to visit patient prior to surgery. Computer Operations Manager and Security notified . Called Marcie Cherry and notified her to come around 1400 today.
--- NOTE | 2020-01-17 08:27 | P.CONIM_ITS ---
Providers/Reason For Consult Consulting Physican/Specialty*: hospatilist Reason for Consult*: left hip fx Attending Physician: Ion Kong MD Primary Care Provider: Scooby Ignacio MD History of Present Illness History of Present Illness Irma Reid is a 84 year old female ho presented today after sustaining a fall at home. Patient lives independently, she has history of right hip arthroplasty in 2015, today around 6 PM, she was going to the other room to set up her alarm before going to sleep, on her way to the room she felt dizzy and fell on the floor without any warning signs, she did not notice any chest pain, palpitations, loss of consciousness, seizure-like activities. She is attributing her fall to feeling dizzy(which she is describing as lightheadedness). She is denying diarrhea, dark stools, hematemesis, hematuria, dysuria, strokelike symptoms. Daughter is at the bedside who told me that today she asked her grandson to jump a glass of wine in the evening as well, family is not sure whether she has been drinking alcohol on daily basis however patient did not volunteer to disclose this information during my interview. Review of Systems Narrative: General ROS: negative for weight changes, fever ENT ROS: negative for nasal congestion, drainage or bleeding, sore throat, dysphagia or ear pain Eyes: PERRL Hematological and Lymphatic ROS: negative for swollen glands or abnormal bleeding Endocrine ROS: negative for polyuria/polydpsia or new changes in weight Respiratory ROS: negative for cough, shortness of breath, or wheezing Cardiovascular ROS: negative for chest pain or dyspnea on exertion Gastrointestinal ROS: negative for reflux, abdominal pain, change in bowel habits, or black or bloody stools Musculoskeletal ROS: negative for back pain, neck pain, or joint pain or swelling except for current problem Neurological ROS: negative for TIA or stoke symptoms Skin: no rashes Meds/Allergies Home Medications and Allergies Home Medications Medication Instructions Recorded Confirmed Last Taken Type ergocalciferol (vitamin D2) 1,250 50,000 unit PO Q7D 03/26/19 01/16/20 01/16/20 History mcg (50,000 unit) capsule levothyroxine 50 mcg capsule 50 mcg PO DAILY 03/26/19 01/16/20 01/16/20 History clopidogrel 75 mg PO DAILY 06/23/19 01/16/20 01/07/20 History atorvastatin 20 mg tablet 20 mg PO DAILY #30 tab 01/01/20 01/16/20 01/16/20 Rx chlorthalidone 25 mg tablet 25 mg PO DAILY #30 tab 01/06/20 01/16/20 01/16/20 Rx furosemide 20 mg tablet 20 mg PO DAILY PRN #30 tab 01/06/20 01/16/20 01/16/20 Rx hydralazine 50 mg tablet 75 mg PO TID #405 tab 01/06/20 01/16/20 01/16/20 Rx acetaminophen [Tylenol Extra 1,000 mg PO PRN 01/07/20 01/16/20 Unknown History Strength] ferrous sulfate 325 mg PO DAILY #30 tab 01/09/20 01/16/20 01/16/20 Rx Allergies Allergy/AdvReac Type Severity Reaction Status Date / Time meperidine [From Demerol] Allergy ADR-Anxiety Verified 01/07/20 11:00 cilostazol AdvReac Intermediate ADR-Dizzine Verified 01/07/20 11:00 ss Current Medications Current Medications Generic Name Dose Route Start Last Admin Trade Name Freq PRN Reason Stop Dose Admin Hydromorphone HCl 2 mg 01/16/20 23:35 01/16/20 23:59 Hydromorphone 1 Mg/Ml Inj 1 Ml IVP 2 mg Q4H PRN Administration AGITATION Sodium Chloride 1,000 mls @ 100 mls/hr 01/16/20 21:15 01/16/20 21:25 Sodium Chloride 0.9% IV 100 mls/hr .Q10H MO Administration Potassium Chloride/Dextrose/Sod Cl 20 meq in 1,000 mls @ 30 mls/hr 01/16/20 23:35 01/16/20 23:58 D5-Ns 0.45% + Kcl 20 Meq IV 30 mls/hr .Q24H MO Administration PFSH Acute PFSH: Medical History (Updated 01/16/20 @ 22:26 by Kimo Philip MD) Acute kidney injury Anemia Anemia due to blood loss Arterial ischemic stroke, multifocal, multiple vascular territories, chronic Atypical chest pain Benign essential HTN Carotid artery disease Carotid artery stenosis with cerebral infarction over 8 weeks ago Had CVA in August 2018-is being followed by Dr. Mae Cerebral vascular accident Chest wall hematoma Chronic heart failure Cystitis Dilated cardiomyopathy Epistaxis Gastroenteritis GI bleed History of multiple cerebrovascular accidents (CVAs) Hyperlipemia Hypertension Ischemic cardiomyopathy Kidney calculi Multiple lacunar infarcts Myocardial infarct Nonischemic cardiomyopathy Obstructive pyelonephritis Peripheral vascular disease Syncope Urolithiasis Surgical History History of colonoscopy History of esophagogastroduodenoscopy (EGD) Family History Father Cancer, Onset Age: 90 Colon cancer Denies family history of Diabetes CAD (coronary artery disease) Hypertension Stroke Social History Smoking and tobacco status: former smoker Alcohol intake: current Alcohol intake frequency: few times a month Alcohol type: wine Adopted: No Caregiver/support person: No Lives independently: No Marital status: / Current occupational status: retired History of recent travel: No Current gender identity: Female Vitals/I&O/Wt Last Vital Signs Temp 97.5 F L 01/17/20 03:55 Pulse 73 01/17/20 03:55 Resp 18 01/17/20 03:55 BP 136/60 01/17/20 03:55 Pulse Ox 100 01/17/20 03:55 01/16/20 01/17/20 01/17/20 22:59 06:59 14:59 Intake Total 596 / 596 Output Total 450 / 450 Balance 146 / 146 Weight last 48 hrs Weight 97 lb Physical Exam Narrative: EXAM NARRATIVE: left hip short ext rotated sensation intact moving toes A&P Additional A&P Information Patient has a left intertrochanteric hip fracture. Plan will be to do a left intramedullary hip nail. Coding Level of Care Code Acute Store Administrative Assistant for Kristyn Aviles
[2020-01-17] MEDS: pantoprazole 40 mg SDV IVP ×2 (09:04→21:55)
--- NOTE | 2020-01-17 10:15 | PC.NURSE ---
Patient given Hibiclens bath per TRAUMA REGISTRAR
--- NOTE | 2020-01-17 10:42 | P.ANESASSM_ITS ---
Pre-Anesthetic Assessment Pre-Anesthetic Assessment: Height/Weight: Height 1.63 m Weight 43.998 kg Temp Pulse Resp BP Pulse Ox 98.4 F 63 17 138/57 100 01/17/20 08:00 01/17/20 08:00 01/17/20 08:00 01/17/20 08:00 01/17/20 03:55 Preop Diagnosis: left Intertrochanteric hip fracture Proposed Procedure: Operation Date: 01/17/20 15:55 Proposed Procedures p Trochanteric Femoral Nail(Left) - Javier Monaco, DO Familial anesthetic complications: None Was Beta Slim taken within 24 hours: N/A Last intake: NPO > 8 hrs Social: Social History: No alcohol and No tobacco Exam: Pre-Anes Outpt Exam: alert, oriented x 3, clear to auscultation bilaterally and regular rate & rhythm Airway: Cervical ROM: WNL MP: 2 Dentition: Other (missing teeth on top) CV/HEM: CV/HEM: HTN and AR Comments: echo 04/03/19 - Mild LVH, EF 50%, grade I diastolic dysfunction, mod MVR Holter monitor showed PVCs episodes that were with associated chest pain, pressure, fatigue, SOB : : Chronic renal Insufficiency Comments: GI Scr 1.3 GI: Comments: ? GI bleed, normal EGD and colonoscopy - pill endocopy was recommended Metabolic: Metabolic: Hyperlipidemia Neuropsych: Neuropsych: CVA (multiple CVA, lacunar infarcts on imaging) Anesthetic Plan: ASA status: 3 Anesthesia: General Risk of > 500 ml blood loss (7ml/kg in children): No Meds/Allergies Current Medications: Current Medications Generic Name Dose Route Start Last Admin Trade Name Freq PRN Reason Stop Dose Admin Hydromorphone HCl 2 mg 01/16/20 23:35 01/16/20 23:59 Hydromorphone 1 Mg/Ml Inj 1 Ml IVP 2 mg Q4H PRN Administration AGITATION Sodium Chloride 1,000 mls @ 100 m ls/hr 01/16/20 21:15 01/16/20 21:25 Sodium Chloride 0.9% IV 100 mls/hr .Q10H MO Administration Potassium Chloride /Dextrose/Sod Cl 20 meq in 1,000 m ls @ 30 mls/hr 01/16/20 23:35 01/16/20 23:58 D5-Ns 0.45% + Yogesh l 20 Meq IV 30 mls/hr .Q24H MO Administration Pantoprazole Sodiu m 40 mg 01/17/20 09:00 01/17/20 09:04 Pantoprazole 40 Mg Sdv IVP 40 mg BID MO Administration PFSH Anesthesia PFSH: Medical History (Updated 01/16/20 @ 22:26 by Kimo Philip MD) Acute kidney injury Anemia Anemia due to blood loss Arterial ischemic stroke, multifocal, multiple vascular territories, chronic Atypical chest pain Benign essential HTN Carotid artery disease Carotid artery stenosis with cerebral infarction over 8 weeks ago Had CVA in August 2018-is being followed by Dr. Mae Cerebral vascular accident Chest wall hematoma Chronic heart failure Cystitis Dilated cardiomyopathy Epistaxis Gastroenteritis GI bleed History of multiple cerebrovascular accidents (CVAs) Hyperlipemia Hypertension Ischemic cardiomyopathy Kidney calculi Multiple lacunar infarcts Myocardial infarct Nonischemic cardiomyopathy Obstructive pyelonephritis Peripheral vascular disease Syncope Urolithiasis Surgical History History of colonoscopy History of esophagogastroduodenoscopy (EGD) Family History Father Cancer, Onset Age: 90 Colon cancer Denies family history of Diabetes CAD (coronary artery disease) Hypertension Stroke Social History Smoking and tobacco status: former smoker Alcohol intake: current Alcohol intake frequency: few times a month Alcohol type: wine Adopted: No Caregiver/support person: No Lives independently: No Marital status: / Current occupational status: retired History of recent travel: No Current gender identity: Female Data Anesthesia CBC & Chem 7: 01/17/20 04:28 01/17/20 04:28 Other Labs: Laboratory Results - last 48 hr 01/16/20 01/16/20 01/16/20 19:52 19:52 19:52 WBC 5.1 RBC 4.61 Hgb 11.2 L Hct 36.4 L MCV 79.0 L MCH 24.3 L MCHC 30.8 RDW 20.9 H Plt Count 420 H MPV 9.0 Neut % (Auto) 39.1 Lymph % (Auto) 39.7 [place] % (Auto) 19.8 Eos % (Auto) 0.8 Baso % (Auto) 0.4 Neut # (Auto) 2.00 Lymph # (Auto) 2.0 [place] # (Auto) 1.0 H Eos # (Auto) 0.0 Baso # (Auto) 0.0 Nucleated RBC % (auto) 0 Nucleated RBCs # 0.0 PT 12.30 INR 0.89 APTT 22.3 L Sodium 134 L Potassium 2.6 L* Chloride 87 L Carbon Dioxide 30 H Anion Gap 19.6 H BUN 35 H Creatinine 1.5 H GFR Calculation Not Reportable Glucose 136 H Calculated Osmolality 288 Lactic Acid Calcium 10.0 Magnesium 2.7 H Total Bilirubin 0.3 AST 24 ALT 16 Alkaline Phosphatase 57 Total Protein 7.7 Albumin 4.8 Globulin 2.9 Lipase 90 H Urine Color Urine Appearance Urine pH Ur Specific [place] Urine Protein Urine Glucose (UA) Urine Ketones Urine Blood Urine Nitrate Urine Bilirubin Urine Urobilinogen Ur Leukocyte Esterase Gastric Occult Blood Urine Opiates Screen Ur Barbiturates Screen Ur Phencyclidine Scrn Ur Amphetamines Screen U Benzodiazepines Scrn Urine Cocaine Screen U Marijuana (THC) Screen Ethyl Alcohol < 10 01/16/20 01/16/20 01/16/20 19:52 19:52 20:33 WBC RBC Hgb Hct MCV MCH MCHC RDW Plt Count MPV Neut % (Auto) Lymph % (Auto) [place] % (Auto) Eos % (Auto) Baso % (Auto) Neut # (Auto) Lymph # (Auto) [place] # (Auto) Eos # (Auto) Baso # (Auto) Nucleated RBC % (auto) Nucleated RBCs # PT INR APTT Sodium Potassium Chloride Carbon Dioxide Anion Gap BUN Creatinine GFR Calculation Glucose Calculated Osmolality Lactic Acid Cancelled Calcium Magnesium 2.7 H Total Bilirubin AST ALT Alkaline Phosphatase Total Protein Albumin Globulin Lipase Urine Color Urine Appearance Urine pH Ur Specific [place] Urine Protein Urine Glucose (UA) Urine Ketones Urine Blood Urine Nitrate Urine Bilirubin Urine Urobilinogen Ur Leukocyte Esterase Gastric Occult Blood Positive H Urine Opiates Screen Ur Barbiturates Screen Ur Phencyclidine Scrn Ur Amphetamines Screen U Benzodiazepines Scrn Urine Cocaine Screen U Marijuana (THC) Screen Ethyl Alcohol < 10 01/16/20 01/16/20 01/16/20 21:00 21:00 21:35 WBC RBC Hgb Hct MCV MCH MCHC RDW Plt Count MPV Neut % (Auto) Lymph % (Auto) [place] % (Auto) Eos % (Auto) Baso % (Auto) Neut # (Auto) Lymph # (Auto) [place] # (Auto) Eos # (Auto) Baso # (Auto) Nucleated RBC % (auto) Nucleated RBCs # PT INR APTT Sodium Potassium Chloride Carbon Dioxide Anion Gap BUN Creatinine GFR Calculation Glucose Calculated Osmolality Lactic Acid 1.6 Calcium Magnesium Total Bilirubin AST ALT Alkaline Phosphatase Total Protein Albumin Globulin Lipase Urine Color Straw Urine Appearance Clear Urine pH 7 Ur Specific [place] 1.030 Urine Protein Neg Urine Glucose (UA) Norm Urine Ketones Negative Urine Blood Neg Urine Nitrate Negative Urine Bilirubin Neg Urine Urobilinogen Norm Ur Leukocyte Esterase Negative Gastric Occult Blood Urine Opiates Screen Negative Ur Barbiturates Screen Negative Ur Phencyclidine Scrn Negative Ur Amphetamines Screen Negative U Benzodiazepines Scrn Negative Urine Cocaine Screen Negative U Marijuana (THC) Screen Negative Ethyl Alcohol 01/17/20 01/17/20 04:28 04:28 WBC 11.6 H RBC 4.14 Hgb 10.1 L Hct 33.9 L MCV 81.9 MCH 24.4 L MCHC 29.8 L RDW 20.9 H Plt Count 349 MPV 9.1 Neut % (Auto) 85.6 Lymph % (Auto) 5.1 [place] % (Auto) 8.8 Eos % (Auto) 0.0 Baso % (Auto) 0.1 Neut # (Auto) 9.92 H Lymph # (Auto) 0.6 L [place] # (Auto) 1.0 H Eos # (Auto) 0.0 Baso # (Auto) 0.0 Nucleated RBC % (auto) 0 Nucleated RBCs # 0.0 PT INR APTT Sodium 133 L Potassium 3.4 L Chloride 93 L Carbon Dioxide 29 Anion Gap 14.4 BUN 33 H Creatinine 1.3 H GFR Calculation Not Reportable Glucose 132 H Calculated Osmolality 285 Lactic Acid Calcium 8.8 Magnesium Total Bilirubin AST ALT Alkaline Phosphatase Total Protein Albumin Globulin Lipase Urine Color Urine Appearance Urine pH Ur Specific [place] Urine Protein Urine Glucose (UA) Urine Ketones Urine Blood Urine Nitrate Urine Bilirubin Urine Urobilinogen Ur Leukocyte Esterase Gastric Occult Blood Urine Opiates Screen Ur Barbiturates Screen Ur Phencyclidine Scrn Ur Amphetamines Screen U Benzodiazepines Scrn Urine Cocaine Screen U Marijuana (THC) Screen Ethyl Alcohol Cardiac Studies: Holter Monitor 04/22/19
--- NOTE | 2020-01-17 10:52 | PC.CHAP ---
Pastoral Care Encounter/Spiritual Assessment Type of Contact [] Declined anti tank missileman visit [] Patient/Family/Request visit [] Outpatient visit [] Follow-up visit [] Physician referral [] Code/Alert [xx] Routine visit [] Staff referral [] Actively dying [] Patient sleeping [] Family support [] [] Out of room [] Palliative care [] [] Receiving care in room [] Pre-surgical visit [] Trauma [] Long length of stay [] ICU visit [xx] Other: Pt declined prayer Relational/Emotional Strength [xx] Patient feels connected with others/family/visitors/staff [] Distress [] Loneliness/isolation [] Abandonment Spirituality of Patient [] Person of Helga [] Attends Buddhism of their Helga [] Believes in Prayer [] Reads Bible or Restorationism materials [] There are Spiritual issues to be addressed 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 Interventions [] Prayer [xx] Active listening [xx] Non-anxious presence [] Spiritual/emotional support [] Crisis/trauma care [] Spiritual counseling [] Bereavement support [] Provided bereavement packet [] Provided Bible/devotional materials [] Provided toy/stuffed animal, coloring book to patient or family member [] Provided Communion [] Anointing/[place] [] Salvation [] Completed spiritual assessment [] Other: Impact on Illness or Injury [] Angry [] Fearful [] Anxious [] Often cries [] Exhaustion [] Unable to work [] Unable to attend nondenominational [] Unable to walk/stand [] Unable to read [] Unable to drive [] Unable to eat/drink [] Unable to sleep [] Unable to be with family [] Patient intubated [] Other: Summary Pt wanted visit but not prayer. Pt has been living alone but expects to go to daughter's home temporarily until fractured hip heals. Time spent with patient
--- NOTE | 2020-01-17 13:44 | P.PN_ITS ---
Subjective Subjective: Interval history: Patient denies shortness of breath or chest pain this morning. Patient reports that she felt lightheaded and fell. Reports that last time she was lightheaded was approximately week prior to her admission when she was found to be anemic requiring blood transfusion. Reports that her appetite lately has been poor and she only eats 1 meal per day which is lunch. Reports that her heart rate has always been in the 40s to 50s and she was previously evaluated by Dr. Mccall with heart monitor approximately 5 years ago. She did not qualify for pacemaker placement. Her heart rate here was in normal range. This morning she denies abdominal pain or problems with bowel movement. Denies nausea or vomiting. Denies melena or hematochezia. Denies any difficulty with urination. She currently has Rivas catheter placed. She denies cough or shortness of breath. Vitals/I&O/Wt Last Vital Signs Temp 98.9 F 01/17/20 11:24 Pulse 61 01/17/20 11:24 Resp 15 01/17/20 11:24 BP 108/89 01/17/20 11:24 Pulse Ox 95 01/17/20 11:24 01/16/20 01/17/20 01/17/20 22:59 06:59 14:59 Intake Total 596 / 596 Output Total 450 / 450 Balance 146 / 146 Weight last 48 hrs Weight 43.998 kg Physical Exam Const: COMMON NORMALS: no acute distress and patient oriented x3 Resp: COMMON NORMALS: normal respiratory effort and clear to auscultation bilaterally AUSCULTATION: clear to auscultation bilaterally Cardio: COMMON NORMALS: regular rate, regular rhythm and S2 normal heart sound present RATE: regular rate RHYTHM: regular rhythm HEART SOUNDS: S2 normal heart sound present OTHER: No lower extremity edema GI: COMMON NORMALS: Normal to inspection, nondistended, normoactive bowel sounds present, Soft to palpation and non-tender PALPATION: Yes Soft to palpation Neuro: COMMON NORMALS: patient oriented x3 and no focal motor deficits Data : 01/17/20 04:28 01/17/20 04:28 A&P Assessment and plan (1) Fracture of hip: Status: Acute Qualifiers: Encounter type: initial encounter Fracture type: closed Laterality: left Qualified Code(s): S72.002A - Fracture of unspecified part of neck of left femur, initial encounter for closed fracture (2) Carotid artery disease: Status: Acute Qualifiers: Carotid artery disease type: stenosis Laterality: bilateral Qualified Code(s): I65.23 - Occlusion and stenosis of bilateral carotid arteries (3) Diverticulosis: Status: Acute (4) Multiple falls: Status: Acute (5) Dehydration with hyponatremia: Status: Acute (6) Hypokalemia: Status: Acute (7) Acute kidney injury (nontraumatic): Present on admission, prerenal Status: Acute Additional A&P Information Moderate malnutrition. Hematemesis Acute on chronic kidney disease History of recurrent falls PLAN: Patient's electrolyte abnormality is likely related to decreased oral intake and diuretic. We will change IV fluids to LR. Consider outpatient event monitor. Patient to have surgery later today. Patient appears to have low risk for adverse perioperative cardiac outcome and does not require any further cardiac evaluation. Monitor CBC and CMP. Attestations Medical Necessity Statement*: Patient post fall with hip fracture requires close inpatient monitoring and treatment including surgical intervention. Time Spent in Patient Care: 16 - 35 minutes Coding Level of Care Code Acute Make Up Arranger for [facility] Fwd Diagnoses Fracture of hip S72.002A Encounter type: initial encounter Fracture type: closed Laterality: left Carotid artery disease I65.23 Carotid artery disease type: stenosis Laterality: bilateral Diverticulosis K57.90 Multiple falls R29.6 Dehydration with hyponatremia E86.0; E87.1 Hypokalemia E87.6 Acute kidney injury (nontraumatic) N17.9
[2020-01-17] MEDS: lactated ringers 1,000 ML 100 ML IV (15:02)
--- NOTE | 2020-01-17 15:22 | PC.NURSE ---
Report called to Amira MENDEZ . pt to transfer to room 256-1
--- NOTE | 2020-01-17 17:25 | W.PM.OPSUD ---
Surgery/Procedure H&P Update DATE OF PROCEDURE: January 17, 2020 DATE H&P PERFORMED: 01/17/20 H&P UPDATE INFORMATION: I have reviewed H&P completed within last 30 days, I have examined patient prior to procedure and No changes to prior documentation PREOP DIAGNOSIS: left Intertrochanteric hip fracture PLANNED PROCEDURE: Operation Date: 01/17/20 15:55 Proposed Procedures p Trochanteric Femoral Nail(Left) - Javier Monaco DO
[2020-01-17] MEDS: ceFAZolin 2,000 MG in sodium chloride 0.9% (plus) 50 ML 100 MG IV (18:20)
--- NOTE | 2020-01-17 19:04 | P.OP_ITS ---
Operative Report Date of procedure: January 17, 2020 Pre-op Diagnosis: left Intertrochanteric hip fracture Procedure Done: left Intramedullary hip nail Surgeon: Javier Monaco Anesthesia: General Estimated blood loss (mL): 100 Condition: stable Disposition: PACU Procedure: Patient brought the op suite placed in the supine position on the [place] table. Fracture was reduced and confirmed under C-arm guidance. Patient was then prepped and draped normal sterile fashion. Skin was made proximal to gr eater trochanter starting pin was inserted opening reamer was inserted 10 x 125 nail was inserted lag screw was placed up into the femoral head and then locking screw was placed into the shaft AP lateral fluoroscopy of the hip and sure that the fracture and hardware were in a preposition was irrigated closed with Vicryl and chucky. Sterile dressings applied and patient was transferred to the PACU in stable condition
--- NOTE | 2020-01-17 19:05 | XR_ITS ---
WS: [id number] XR hip LT 2-3V wo/w pel* [id number] REASON FOR EXAM: OR PICS FINDINGS: Intramedullary emma and femoral nail fixation of deep transcervical fracture of the left proximal femu r. Bony structure and surgical appliance appear in proper position and alignment. XR/XR hip LT 2-3V wo/w pel* [id number] IMPRESSION: Fixation of proximal left femur fracture as above.
[2020-01-17] MEDS: hyDRALAzine 50 mg Tablet 75 MG PO (22:31)
[2020-01-18] VITALS (7 sets, daily range): BP systolic 90–145; BP diastolic 55–69; PULSE 57–73; RESP 16–18; TEMP 36.5–37; O2SAT 92–100
[2020-01-18] MEDS: lactated ringers 1,000 ML 100 ML IV ×2 (01:03→12:01)
[2020-01-18] MEDS: enoxaparin 40 mg/0.4 mL Syringe SUBCUT (06:22)
--- NOTE | 2020-01-18 08:17 | P.PN_ITS ---
Subjective Subjective: Interval history: Pain is controlled patient is resting in bed. She has no complaints at this time. Vitals/I&O/Wt Last Vital Signs Temp 97.7 F 01/18/20 04:00 Pulse 57 L 01/18/20 04:21 Resp 18 01/18/20 04:00 BP 111/64 01/18/20 04:00 Pulse Ox 100 01/18/20 04:00 01/17/20 01/18/20 01/18/20 22:59 06:59 14:59 Intake Total 50 / 50 1240 / 1290 Output Total 700 / 700 650 / 1350 Balance -650 / -650 590 / -60 Weight last 48 hrs Weight 97 lb Physical Exam Narrative: EXAM NARRATIVE: Dressing is intact no evidence of any bleeding t hrough the dressing. She is able to move her toes up and down sensations intact. Urinary Catheter Management^: Rivas: Cath Placed During This Visit: no Data : 01/17/20 04:28 01/17/20 04:28 A&P Additional A&P Information Postop day 1 left hip nail. Plan is to get her up with physical therapy DC her Rivas get social and political studies professor to evaluate her for possible rehab facility [facility]. Attestations Medical Necessity Statement*: pain Coding Level of Care Code Acute Supervisory Cbp Officer for [facility]
--- NOTE | 2020-01-18 08:18 | ANE.PACU2 ---
Inpatient post-anesthesia follow up: Airway intact: Yes Vital signs: Temperature 97.7 F Pulse Rate [Monito r] 74 Pulse Rate 57 Respiratory Rate 18 Blood Pressure [Ri ght Arm] 179/89 Blood Pressure 111/64 Pulse Oximetry 100 Oxygen Delivery Me thod Room Air Oxygen Flow Rate 8 Fraction of Inspir ed Oxygen Hydration adequate: Yes Nausea and vomiting: No Pain level: 2 Mental status: Baseline
[2020-01-18] MEDS: acetaminophen 500 mg Tablet 1000 MG PO (09:32)
[2020-01-18] MEDS: cyanocobalamin 1,000 mcg Tablet 500 MCG PO (09:33)
[2020-01-18] MEDS: sennosides-docusate Tablet 1 TAB PO (09:33)
[2020-01-18] MEDS: hyDRALAzine 50 mg Tablet 75 MG PO ×3 (09:33→22:21)
[2020-01-18] MEDS: clopidogrel 75 mg Tablet PO (09:35)
[2020-01-18] MEDS: folic acid 1 mg Tablet PO (09:35)
[2020-01-18] MEDS: ferrous sulfate EC 325 mg Tablet PO (09:35)
[2020-01-18] MEDS: chlorthalidone 25 mg Tablet PO (09:35)
[2020-01-18] MEDS: pantoprazole 40 mg SDV IVP ×2 (09:51→18:26)
[2020-01-18] MEDS: HYDROcodone-acetaminophen 5-325 mg Tablet 1 TAB PO (10:01)
[2020-01-18 11:37] LABS: Glucose Point of Care 139 mg/dL (70-110)
[2020-01-18] MEDS: ondansetron 2 mg/ML SDV 2 mL 4 MG IVP (12:03)
--- NOTE | 2020-01-18 13:29 | P.PN_ITS ---
Subjective Subjective: Interval history: Patient reports feeling better. She denies being in pain but does report being nauseous this morning. Denies shortness of breath, chest pain or abdominal pain. Patient had no more episodes of hematemesis. Vitals/I&O/Wt Last Vital Signs Temp 97.7 F 01/18/20 04:00 Pulse 57 L 01/18/20 04:21 Resp 18 01/18/20 04:00 BP 111/64 01/18/20 04:00 Pulse Ox 100 01/18/20 04:00 01/17/20 01/18/20 01/18/20 22:59 06:59 14:59 Intake Total 50 / 50 1300 / 1350 1480 / 1480 Output Total 700 / 700 650 / 1350 200 / 200 Balance -650 / -650 650 / 0 1280 / 1280 Weight last 48 hrs Weight 43.998 kg Physical Exam Const: COMMON NORMALS: no acute distress and patient oriented x3 Resp: COMMON NORMALS: normal respiratory effort and clear to auscultation bilaterally AUSCULTATION: clear to auscultation bilaterally Cardio: COMMON NORMALS: regular rate, regular rhythm and S2 normal heart sound present RATE: regular rate RHYTHM: regular rhythm HEART SOUNDS: S2 normal heart sound present OTHER: No lower extremity edema GI: COMMON NORMALS: Normal to inspection, nondistended, normoactive bowel sounds present, Soft to palpation and non-tender PALPATION: Yes Soft to palpation Neuro: COMMON NORMALS: patient oriented x3 and no focal motor deficits Urinary Catheter Management^: Rivas: Cath Placed During This Visit: no Data : 01/17/20 04:28 01/17/20 04:28 A&P Assessment and plan (1) Fracture of hip: Status: Acute Qualifiers: Encounter type: initial encounter Fracture type: closed Laterality: left Qualified Code(s): S72.002A - Fracture of unspecified part of neck of left femur, initial encounter for closed fracture (2) Carotid artery disease: Status: Acute Qualifiers: Carotid artery disease type: stenosis Laterality: bilateral Qualified Code(s): I65.23 - Occlusion and stenosis of bilateral carotid arteries (3) Diverticulosis: Status: Acute (4) Multiple falls: Status: Acute (5) Dehydration with hyponatremia: Status: Acute (6) Hypokalemia: Status: Acute (7) Acute kidney injury (nontraumatic): Present on admission, prerenal Status: Acute Additional A&P Information Moderate malnutrition. Hematemesis Acute on chronic kidney disease History of recurrent falls PLAN: Obtain labs which I failed to order yesterday. Zofran to control nausea. Continue high-dose PPI. Consider outpatient event monitor. Attestations Medical Necessity Statement*: Patient with hip fracture and multiple medical problems including acute kidney injury requires close inpatient monitoring and treatment till deemed safe for discharge. Time Spent in Patient Care: 16 - 35 minutes Coding Level of Care Code Acute Natural Science Curator for [facility] Fwd Diagnoses Fracture of hip S72.002A Encounter type: initial encounter Fracture type: closed Laterality: left Carotid artery disease I65.23 Carotid artery disease type: stenosis Laterality: bilateral Diverticulosis K57.90 Multiple falls R29.6 Dehydration with hyponatremia E86.0; E87.1 Hypokalemia E87.6 Acute kidney injury (nontraumatic) N17.9
[2020-01-18 15:41] LABS: Basophils % 0.1 %; Hematocrit 22.2 % (37.0-47.0); Hemoglobin 6.8 g/dL (11.5-15.3); Lymphocytes # 0.8 10^3/uL (0.8-4.8); Lymphocytes % 8.2 %; Mean Corpuscular HGB Conc 30.6 g/dL (30.0-36.0); Mean Corpuscular Hemoglobin 24.8 pg (28.0-34.0); Mean Platelet Volume 9.3 fL (7.4-10.4); Monocytes # 1.5 10^3/uL (0.2-0.9); Monocytes % 16.4 %; Neutrophils # 6.84 10^3/uL (1.8-7.7); Neutrophils % 74.8 %; Nucleated Red Blood Cells % 0 %; Platelet Count 207 10^3/cmm (130-400); Red Blood Count 2.74 10^6/uL (4.1-5.3); Red Cell Distribution Width 21.2 % (12.1-15.1); White Blood Count 9.2 10^3/uL (4.0-10.0)
[2020-01-18 15:51] LABS: Alanine Aminotransferase 11 U/L (0-33); Albumin Level 3.5 g/dL (3.5-5.2); Alkaline Phosphatase 43 IU/L (35-105); Anion Gap 11.9 (5-19); Aspartate Amino Transferase 19 U/L (0-32); Blood Urea Nitrogen 25 mg/dL (8-23); Calcium 8.3 mg/dL (8.5-10.5); Carbon Dioxide 30 mmol/L (22-29); Chloride 95 mmol/L (98-107); Glucose 136 mg/dL (65-115); Osmolality Calculated 284 mOsm/kg (285-295); Sodium 134 mmol/L (136-145); Total Bilirubin 0.2 mg/dL (0.15-1.2); Total Protein 5.5 g/dL (6.6-8.7)
[2020-01-18 15:56] LABS: Potassium 2.9 mmol/L (3.5-5.1)
[2020-01-18] MEDS: potassium chloride ER 10 mEq Tablet 40 MEQ PO ×2 (16:29→22:21)
[2020-01-18] MEDS: sodium chloride 0.9% (100 ml) 100 ML 125 ML (23:38)
[2020-01-19] VITALS (14 sets, daily range): BP systolic 107–170; BP diastolic 55–99; PULSE 60–87; RESP 16–18; TEMP 36.3–37.3; O2SAT 96–99
[2020-01-19] MEDS: potassium chloride ER 10 mEq Tablet 40 MEQ PO (00:11)
[2020-01-19] MEDS: acetaminophen 500 mg Tablet 1000 MG PO ×2 (01:53→15:55)
[2020-01-19] MEDS: HYDROcodone-acetaminophen 5-325 mg Tablet 1 TAB PO ×3 (04:04→21:07)
[2020-01-19] MEDS: sodium chloride 0.9% (100 ml) 100 ML 125 ML (06:33)
[2020-01-19] MEDS: ferrous sulfate EC 325 mg Tablet PO (08:49)
[2020-01-19] MEDS: chlorthalidone 25 mg Tablet PO (08:49)
[2020-01-19] MEDS: cyanocobalamin 1,000 mcg Tablet 500 MCG PO (08:49)
[2020-01-19] MEDS: folic acid 1 mg Tablet PO (08:49)
[2020-01-19] MEDS: sennosides-docusate Tablet 1 TAB PO (08:49)
[2020-01-19] MEDS: hyDRALAzine 50 mg Tablet 75 MG PO ×3 (08:49→21:07)
[2020-01-19] MEDS: pantoprazole 40 mg SDV IVP ×2 (09:00→18:31)
--- NOTE | 2020-01-19 09:06 | PM.PN ---
Subjective Subjective: Interval history: Patient seen at bedside he just finished ambulating pain is controlled. Vitals/I&O/Wt Last Vital Signs Temp 98.6 F 01/19/20 07:44 Pulse 85 01/19/20 07:44 Resp 16 01/19/20 07:44 BP 165/84 01/19/20 07:44 Pulse Ox 96 01/19/20 07:44 01/18/20 01/19/20 01/19/20 22:59 06:59 14:59 Intake Total 120 / 1660 1400 / 3060 120 / 120 Output Total 200 / 500 500 / 1000 Balance -80 / 1160 900 / 2060 120 / 120 Physical Exam Narrative: EXAM NARRATIVE: Sitting comfortably at bedside 5-5 strength bilateral lower extremities. Sensation intact. Dressing clean dry and intact. Urinary Catheter Management^: Rivas: Cath Placed During This Visit: no Data : 01/18/20 15:19 01/18/20 15:19 A&P Additional A&P Information Postop day #2 left intramedullary nail for a left IT fracture. If patient discharges to a penitentiary she is to have chucky out at 2 weeks. If she discharges home she should follow-up in the clinic in 2 weeks for staple removal. Attestations Medical Necessity Statement*: medicare guidlines Coding Level of Care Code Acute Adjunct Instructor for Kristyn Aviles
[2020-01-19 09:10] LABS: Basophils % 0.3 %; Eosinophils % 0.1 %; Hematocrit 33.8 % (37.0-47.0); Hemoglobin 10.6 g/dL (11.5-15.3); Lymphocytes # 1.1 10^3/uL (0.8-4.8); Lymphocytes % 10.9 %; Mean Corpuscular HGB Conc 31.4 g/dL (30.0-36.0); Mean Corpuscular Hemoglobin 24.8 pg (28.0-34.0); Mean Platelet Volume 9.3 fL (7.4-10.4); Monocytes # 1.7 10^3/uL (0.2-0.9); Monocytes % 16.7 %; Neutrophils # 7.34 10^3/uL (1.8-7.7); Neutrophils % 71.2 %; Nucleated Red Blood Cells % 0 %; Platelet Count 217 10^3/cmm (130-400); Red Blood Count 4.28 10^6/uL (4.1-5.3); Red Cell Distribution Width 20.2 % (12.1-15.1); White Blood Count 10.3 10^3/uL (4.0-10.0)
[2020-01-19] MEDS: lactated ringers 1,000 ML 50 ML IV (09:13)
[2020-01-19 10:13] LABS: Alanine Aminotransferase < 5 U/L (0-33); Albumin Level 3.8 g/dL (3.5-5.2); Alkaline Phosphatase 50 IU/L (35-105); Anion Gap 13.6 (5-19); Aspartate Amino Transferase 22 U/L (0-32); Blood Urea Nitrogen 22 mg/dL (8-23); Calcium 8.7 mg/dL (8.5-10.5); Carbon Dioxide 27 mmol/L (22-29); Chloride 98 mmol/L (98-107); Globulin 2.5 g/dL (1.3-4.6); Glucose 118 mg/dL (65-115); Magnesium 2.3 mg/dL (1.7-2.3); Osmolality Calculated 284 mOsm/kg (285-295); Potassium 3.6 mmol/L (3.5-5.1); Sodium 135 mmol/L (136-145); Total Protein 6.3 g/dL (6.6-8.7)
[2020-01-19 10:25] LABS: Folate Level 14.2 ng/mL (4.8-37.3)
[2020-01-19 10:26] LABS: 25 Hydroxy Vitamin D 74 ng/mL (30-100); Ferritin 99 ng/mL (15-150); Iron 185 ug/dL (37-145); Percent Saturation 71.7 % (20-50); Total Iron Binding Capacity 258 mcg/dl; Unsaturated Iron Binding 73 ug/dL (112-347); Vitamin B12 361 pg/mL (232-1245)
--- NOTE | 2020-01-19 11:39 | PM.PN ---
Subjective Subjective: Interval history: Patient reports feeling much better this morning. Denies shortness of breath or chest pain. Denies abdominal pain and nausea. She had no bowel movement yet. She responded well to blood transfusion. Kidney function slightly improved. Her appetite and oral intake also better. Vitals/I&O/Wt Last Vital Signs Temp 98.6 F 01/19/20 07:44 Pulse 85 01/19/20 07:44 Resp 16 01/19/20 07:44 BP 165/84 01/19/20 07:44 Pulse Ox 96 01/19/20 07:44 01/18/20 01/19/20 01/19/20 22:59 06:59 14:59 Intake Total 120 / 1660 1400 / 3060 272.5 / 272.5 Output Total 200 / 500 500 / 1000 Balance -80 / 1160 900 / 2060 272.5 / 272.5 Physical Exam Const: COMMON NORMALS: no acute distress and patient oriented x3 Resp: COMMON NORMALS: normal respiratory effort and clear to auscultation bilaterally AUSCULTATION: clear to auscultation bilaterally Cardio: COMMON NORMALS: regular rate, regular rhythm and S2 normal heart sound present RATE: regular rate RHYTHM: regular rhythm HEART SOUNDS: S2 normal heart sound present OTHER: No lower extremity edema GI: COMMON NORMALS: Normal to inspection, nondistended, normoactive bowel sounds present, Soft to palpation and non-tender PALPATION: Yes Soft to palpation Neuro: COMMON NORMALS: patient oriented x3 and no focal motor deficits Urinary Catheter Management^: Rivas: Cath Placed During This Visit: no Data : 01/19/20 08:31 01/19/20 08:31 A&P Assessment and plan (1) Fracture of hip: Status: Acute Qualifiers: Encounter type: initial encounter Fracture type: closed Laterality: left Qualified Code(s): S72.002A - Fracture of unspecified part of neck of left femur, initial encounter for closed fracture (2) Carotid artery disease: Status: Acute Qualifiers: Carotid artery disease type: stenosis Laterality: bilateral Qualified Code(s): I65.23 - Occlusion and stenosis of bilateral carotid arteries (3) Diverticulosis: Status: Acute (4) Multiple falls: Status: Acute (5) Dehydration with hyponatremia: Status: Acute (6) Hypokalemia: Status: Acute (7) Acute kidney injury (nontraumatic): Present on admission, prerenal Status: Acute (8) Bradycardia: Chronic but not present on admission. Status: Acute Additional A&P Information Moderate malnutrition. Hematemesis Acute on chronic kidney disease History of recurrent falls PLAN: Will stop IV fluids. Encouraged oral intake. Discontinue chlorthalidone. Continue high-dose PPI. Repeat labs in a.m. and depending on hemoglobin consider inpatient versus outpatient EGD. Consider outpatient event monitor. Patient accepted to [facility] on Monday. Attestations Medical Necessity Statement*: Patient post hip surgery requires close inpatient monitoring and treatment till placement to residential facility is arranged. Time Spent in Patient Care: 16 - 35 minutes Coding Level of Care Code Acute Floor Installer for [facility] Fwd Diagnoses Fracture of hip S72.002A Encounter type: initial encounter Fracture type: closed Laterality: left Carotid artery disease I65.23 Carotid artery disease type: stenosis Laterality: bilateral Diverticulosis K57.90 Multiple falls R29.6 Dehydration with hyponatremia E86.0; E87.1 Hypokalemia E87.6 Acute kidney injury (nontraumatic) N17.9 Bradycardia R00.1
[2020-01-20 00:33] VITALS: BP 164/72; PULSE 66; RESP 17; TEMP 36.8; O2SAT 96
[2020-01-20 04:00] VITALS: BP 168/73; PULSE 63; RESP 17; TEMP 36.6; O2SAT 95
[2020-01-20 05:49] LABS: Basophils % 0.3 %; Eosinophils # 0.1 10^3/uL (0.0-0.8); Hematocrit 31.3 % (37.0-47.0); Hemoglobin 9.7 g/dL (11.5-15.3); Lymphocytes # 0.6 10^3/uL (0.8-4.8); Lymphocytes % 9.2 %; Mean Corpuscular Hemoglobin 24.6 pg (28.0-34.0); Mean Corpuscular Volume 79.4 fL (81-99); Mean Platelet Volume 9.8 fL (7.4-10.4); Monocytes # 1.1 10^3/uL (0.2-0.9); Neutrophils # 5.03 10^3/uL (1.8-7.7); Neutrophils % 73.2 %; Nucleated Red Blood Cells % 0 %; Platelet Count 228 10^3/cmm (130-400); Red Blood Count 3.94 10^6/uL (4.1-5.3); Red Cell Distribution Width 20.9 % (12.1-15.1); White Blood Count 6.9 10^3/uL (4.0-10.0)
[2020-01-20 06:16] LABS: Alanine Aminotransferase < 5 U/L (0-33); Albumin Level 3.3 g/dL (3.5-5.2); Alkaline Phosphatase 52 IU/L (35-105); Aspartate Amino Transferase 22 U/L (0-32); Blood Urea Nitrogen 15 mg/dL (8-23); Calcium 8.3 mg/dL (8.5-10.5); Carbon Dioxide 30 mmol/L (22-29); Chloride 98 mmol/L (98-107); Globulin 2.5 g/dL (1.3-4.6); Glucose 127 mg/dL (65-115); Magnesium 2.1 mg/dL (1.7-2.3); Osmolality Calculated 282 mOsm/kg (285-295); Sodium 135 mmol/L (136-145); Total Bilirubin 0.5 mg/dL (0.15-1.2); Total Protein 5.8 g/dL (6.6-8.7)
[2020-01-20 06:28] LABS: Anion Gap 10.1 (5-19); Potassium 3.1 mmol/L (3.5-5.1)
[2020-01-20 07:47] VITALS: BP 171/80; PULSE 71; RESP 18; TEMP 36.7; O2SAT 92
--- NOTE | 2020-01-20 07:50 | P.PN_ITS ---
Subjective Subjective: Interval history: Patient doing well. Pain controlled. Vitals/I&O/Wt Last Vital Signs Temp 98.1 F 01/20/20 07:47 Pulse 71 01/20/20 07:47 Resp 18 01/20/20 07:47 BP 171/80 01/20/20 07:47 Pulse Ox 92 01/20/20 07:47 01/19/20 01/20/20 01/20/20 22:59 06:59 14:59 Intake Total 360 / 752.5 120 / 872.5 Output Total 600 / 600 Balance -240 / 152.5 120 / 272.5 Physical Exam Narrative: EXAM NARRATIVE: Wounds clean dry and intact. Urinary Catheter Management^: Rivas: Cath Placed During This Visit: no Data : 01/20/20 04:40 01/20/20 04:40 A&P Additional A&P Information Stop day #3 left hip nail. Okay to discharge from orthopedic standpoint. If she goes home then she needs to follow-up in the clinic in 2 weeks. If she goes to intermediate chucky need to come out in 2 weeks and she can follow-up in the clinic in 6 weeks. She needs to be discharged on 30 days of Lovenox. Attestations Medical Necessity Statement*: pain Coding Level of Care Code Acute University Internship for Kristyn Aviles
[2020-01-20] MEDS: hyDRALAzine 50 mg Tablet 75 MG PO ×2 (09:51→14:23)
[2020-01-20] MEDS: folic acid 1 mg Tablet PO (09:52)
[2020-01-20] MEDS: ferrous sulfate EC 325 mg Tablet PO (09:52)
[2020-01-20] MEDS: cyanocobalamin 1,000 mcg Tablet 500 MCG PO (09:54)
[2020-01-20] MEDS: sennosides-docusate Tablet 1 TAB PO (09:54)
[2020-01-20] MEDS: pantoprazole 40 mg SDV IVP (09:55)
[2020-01-20] MEDS: potassium chloride ER 20 mEq Tablet 40 MEQ PO (10:34)
[2020-01-20 10:56] LABS: SARS Covid-2 Antigen Negative (Negative)
--- NOTE | 2020-01-20 11:37 | P.DS_ITS ---
Discharge Providers Date of Admission: 01/16/20 22:42 Date of Discharge: January 20, 2020 Attending Provider at Admission: Kimo Philip MD Attending Provider at Discharge: Harley Holly MD Primary Care Provider: Scooby Ignacio MD Diagnoses at Discharge Discharge Diagnosis (1) Fracture of hip: Status: Acute Permanent problem details: Status post IM nailing Qualifiers: Encounter type: initial encounter Fracture type: closed Laterality: left Qualified Code(s): S72.002A - Fracture of unspecified part of neck of left femur, initial encounter for closed fracture (2) Carotid artery disease: Status: Acute Qualifiers: Carotid artery disease type: stenosis Laterality: bilateral Qualified Code(s): I65.23 - Occlusion and stenosis of bilateral carotid arteries (3) Diverticulosis: Status: Acute (4) Multiple falls: Status: Acute (5) Dehydration with hyponatremia: Status: Acute Permanent problem details: Resolved (6) Hypokalemia: Status: Acute Permanent problem details: Resolved (7) Acute kidney injury (nontraumatic): Status: Acute Permanent problem details: Resolved (8) Bradycardia: Status: Acute Permanent problem details: Asymptomatic. None noted prior to discharge. Reason for Visit Reason for Visit: hip def Hospital Course Hospital Course Irma is an 84-year-old white female who presented on January 15 after falling at home. She was noted to have a fracture of her left hip. She was mildly hyponatremic as well as hypokalemic. She has a history of alcohol intake. Apparently had some hematemesis after getting narcotics in the emergency department. She had previously been admitted with anemia, and had an EGD and colonoscopy done earlier in the month showing only diverticulosis. Orthopedics was consulted. Nailing of left hip occurred on January 16. Postoperative the patient did well. She had some minor bradycardia. She did receive 2 units of blood postoperatively secondary to low hemoglobin. Secondary to prior history of GI bleeding Lovenox was not prescribed on discharge. Her Plavix was continued. She will need a CBC and BMP in 3 to 5 days. Physical Exam Narrative: EXAM NARRATIVE: General exam no apparent distress Cardiovascular regular in rhythm without murmur Lungs clear Abdomen is soft with positive bowel sounds Extremities no cyanosis clubbing or edema. Left hip with dressing clean and dry Urinary Catheter Management^: Rivas: Cath Placed During This Visit: no Discharge Data Data Completed and Pending: Completed Studies During Hospitalization Category Date Time Status CT head wo con* 7 0450 Stat Cat Scan 01/16/20 19:45 Completed XR chest 1V merlin ble [id number] Stat Exams 01/16/20 19:46 Completed XR hip LT 2-3V wo /w pel* [id number] Rout ine Exams 01/17/20 19:05 Completed XR hip LT 2-3V wo /w pel* [id number] Stat Exams 01/16/20 19:45 Completed Pending at discharge Category Date Time Status Complete Blood Co unt w/Auto AM LABS Lab 01/21/20 04:00 Ordered Comprehensive Met abolic Panel AM LA BS Lab 01/21/20 04:00 Ordered Immunochemical Fe darya OCB Routine Lab 01/18/20 16:22 Uncollected Magnesium AM LABS Lab 01/21/20 04:00 Ordered Potassium Routine Lab 01/20/20 10:56 Received Labs from last 24 hours 01/20/20 01/20/20 01/20/20 10:56 10:25 04:40 WBC RBC Hgb Hct MCV MCH MCHC RDW Plt Count MPV Neut % (Auto) Lymph % (Auto) [place] % (Auto) Eos % (Auto) Baso % (Auto) Neut # (Auto) Lymph # (Auto) [place] # (Auto) Eos # (Auto) Baso # (Auto) Nucleated RBC % (a uto) Nucleated RBCs # Sodium 135 L Potassium Pending 3.1 L Chloride 98 Carbon Dioxide 30 H Anion Gap 10.1 BUN 15 Creatinine 0.9 GFR Calculation Not Reportable Glucose 127 H Calculated Osmolal ity 282 L Calcium 8.3 L Magnesium 2.1 Total Bilirubin 0.5 AST 22 ALT < 5 Alkaline Phosphata se 52 Total Protein 5.8 L Albumin 3.3 L Globulin 2.5 SARS-CoV-2 Ag (Rap id) Negative 01/20/20 04:40 WBC 6.9 RBC 3.94 L Hgb 9.7 L Hct 31.3 L MCV 79.4 L MCH 24.6 L MCHC 31.0 RDW 20.9 H Plt Count 228 MPV 9.8 Neut % (Auto) 73.2 Lymph % (Auto) 9.2 [place] % (Auto) 16.0 Eos % (Auto) 1.0 Baso % (Auto) 0.3 Neut # (Auto) 5.03 Lymph # (Auto) 0.6 L [place] # (Auto) 1.1 H Eos # (Auto) 0.1 Baso # (Auto) 0.0 Nucleated RBC % (a uto) 0 Nucleated RBCs # 0.0 Sodium Potassium Chloride Carbon Dioxide Anion Gap BUN Creatinine GFR Calculation Glucose Calculated Osmolal ity Calcium Magnesium Total Bilirubin AST ALT Alkaline Phosphata se Total Protein Albumin Globulin SARS-CoV-2 Ag (Rap id) Vitals: Last Vital Signs Temp 98.1 F 01/20/20 07:47 Pulse 71 01/20/20 07:47 Resp 18 01/20/20 07:47 BP 171/80 01/20/20 07:47 Pulse Ox 92 01/20/20 07:47 Discharge Plan Discharge Patient Disposition: Xfer SNF Condition: Stable Prescriptions: New hydrocodone-acetaminophen 5-325 mg Tablet 1 tab PO Q6H PRN (Reason: Moderate Pain) Qty: 20 RF: 0 pantoprazole [Protonix] 40 mg tablet,delayed release (DR/EC) 40 mg PO BID Qty: 60 RF: 0 sennosides-docusate sodium 8.6-50 mg Tablet 1 tab PO DAILY Qty: 30 RF: 0 Continued levothyroxine 50 mcg capsule 50 mcg PO DAILY RF: 0 ergocalciferol (vitamin D2) [Vitamin D2] 1,250 mcg (50,000 unit) capsule 50,000 unit PO Q7D RF: 0 hydralazine 50 mg tablet 75 mg PO TID Qty: 405 RF: 3 furosemide [Lasix] 20 mg tablet 20 mg PO DAILY PRN (Reason: Edema) Qty: 30 RF: 1 atorvastatin 20 mg tablet 20 mg PO DAILY Qty: 30 RF: 5 clopidogrel 75 mg tablet 75 mg PO DAILY RF: 0 Hold Instructions: Resume on 01/16/20. acetaminophen [Tylenol Extra Strength] 500 mg Tablet 1,000 mg PO PRN RF: 0 ferrous sulfate 325 mg (65 mg iron) tablet 325 mg PO DAILY Qty: 30 RF: 0 Discontinued chlorthalidone 25 mg tablet 25 mg PO DAILY Qty: 30 RF: 5 Discharge Orders: Discharge Order (Routine); Ordered 01/20/20 Ordered By: Harley Holly Referrals: Javier Monaco DO [Physician] - 2 weeks Scooby Ignacio MD [Primary Care Provider] - 4-7 days (CBC, BMP on follow-up) Discharge Diet: Cardiac Discharge Activity: Increase activity as tolerated Activity Restrictions/Additional Instructions: Take all medicine as prescribed CBC, BMP 3 to 5 days Lovenox therapy not prescribed secondary to recent history of GI bleeding, anemia Activity restrictions, wound care per orthopedics. Discharge Attestations Time Spent in Discharge Care*: greater than 30 min Status at Discharge: Cognitive status at discharge: cognitively intact , Behavioral status at discharge: cooperative , Quality Metrics Clinical Quality Measures During this hospital stay, did patient experience: None Coding Level of Care Code Acute Frit Coater for Kristyn [facility]ms[facility] Diagnoses Fracture of hip S72.002A Encounter type: initial encounter Fracture type: closed Laterality: left Carotid artery disease I65.23 Carotid artery disease type: stenosis Laterality: bilateral Diverticulosis K57.90 Multiple falls R29.6 Dehydration with hyponatremia E86.0; E87.1 Hypokalemia E87.6 Acute kidney injury (nontraumatic) N17.9 Bradycardia R00.1
[2020-01-20 11:49] LABS: Potassium 2.7 mmol/L (3.5-5.1)
[2020-01-20 11:52] VITALS: BP 174/79; PULSE 82; RESP 17; TEMP 36.9; O2SAT 94
--- NOTE | 2020-01-20 11:55 | PC.NURSE ---
notified Dr Holly that patient's Potassium level is 2.7.
--- NOTE | 2020-01-20 12:06 | PC.NURSE ---
Rcvd order from Dr Holly for 40mEq IV Potassium now.
[2020-01-20] MEDS: lidocaine 1% 5 ML in potassium chloride premix 100 ML 25 ML IV (12:25)
[2020-01-20] MEDS: HYDROcodone-acetaminophen 5-325 mg Tablet 1 TAB PO (14:23)
[2020-01-20 15:58] VITALS: PULSE 92; RESP 18; TEMP 36.7; O2SAT 95
[2020-01-20 16:37] LABS: Potassium 4.1 mmol/L (3.5-5.1)
--- NOTE | 2020-01-20 16:55 | PC.NURSE ---
IV catheter removed, tip intact. 2x2 and coban applied. Patient tolerated well. Patient was discharged. Patient taken to SNF via wheelchair with transport. Report given to Marilee at the facility. Patient in stable condition.
[2020-01-20 16:58] VITALS: BP 174/79; PULSE 92; RESP 18; TEMP 36.7; O2SAT 95
== END 2020-01-20 17:02 | disposition skilled nursing facility (03) | DRG 481 ==
LOC: ER 22:17 → CSU 22:59 → MEDSURG 01-17 19:51
PROVIDERS: Emergency Medicine; Internal Medicine; Orthopaedic Surgery; Admitting Provider Internal Medicine; PCP Family Medicine; Visit Provider Internal Medicine
PROC: 0QS706Z Reposition Left Upper Femur with Intramedullary Internal Fixation Device, Open Approach (ICD-10-PCS; CPT 27245; principal; 2020-01-17 15:55)
DX: S72.002A Fracture of unspecified part of neck of left femur, initial encounter for closed fracture (principal); I42.0 Dilated cardiomyopathy; I13.0 Hypertensive heart and chronic kidney disease with heart failure and stage 1 through stage 4 chronic kidney disease, or unspecified chronic kidney disease; K92.0 Hematemesis; Z68.1 Body mass index [BMI] 19.9 or less, adult; N17.9 Acute kidney failure, unspecified; E44.0 Moderate protein-calorie malnutrition; E87.6 Hypokalemia; K57.90 Diverticulosis of intestine, part unspecified, without perforation or abscess without bleeding; I65.23 Occlusion and stenosis of bilateral carotid arteries; R00.1 Bradycardia, unspecified; W19.XXXA Unspecified fall, initial encounter; Y92.009 Unspecified place in unspecified non-institutional (private) residence as the place of occurrence of the external cause; Z79.02 Long term (current) use of antithrombotics/antiplatelets; N18.9 Chronic kidney disease, unspecified; E86.0 Dehydration; Z91.81 History of falling
CPT/HCPCS: 12345; 36415; 36416; 36430; 70450; 71045; 73502; 76000; 80048; 80053; 80306; 80307; 81003; 82271; 82306; 82607; 82728; 82746; 82962; 83540; 83550; 83605; 83690; 83735; 84132; 85025; 85610; 85730; 86850; 86900; 86920; 87426; 93005; 96372; 96375; 97110; 97116; 97161; 97166; 97530; 97535; 99283; C1713; C9113; J0131; J0690; J1100; J1170; J1650; J2405; J2704; J3010; J3411; J3480; J3490; J7030; P9016

== ENCOUNTER 2020-02-26 16:44 | Outpatient (CLI) | payer MEDICARE, OTHER, SELFPAY ==
[2020-02-26 17:08] LABS: Basophils # 0.1 10^3/uL (0.0-0.1); Basophils % 0.8 %; Eosinophils % 0.3 %; Hematocrit 30.2 % (37.0-47.0); Hemoglobin 9.4 g/dL (11.5-15.3); Lymphocytes # 1.1 10^3/uL (0.8-4.8); Mean Corpuscular HGB Conc 31.1 g/dL (30.0-36.0); Mean Corpuscular Hemoglobin 28.6 pg (28.0-34.0); Mean Corpuscular Volume 91.8 fL (81-99); Mean Platelet Volume 8.4 fL (7.4-10.4); Monocytes # 1.1 10^3/uL (0.2-0.9); Monocytes % 18.3 %; Neutrophils # 3.92 10^3/uL (1.8-7.7); Neutrophils % 63.4 %; Nucleated Red Blood Cells % 0 %; Platelet Count 542 10^3/cmm (130-400); Red Blood Count 3.29 10^6/uL (4.1-5.3); Red Cell Distribution Width 23.6 % (12.1-15.1); White Blood Count 6.2 10^3/uL (4.0-10.0)
[2020-02-26 18:04] LABS: Anion Gap 14.7 (5-19); Blood Urea Nitrogen 40 mg/dL (8-23); Calcium 10.1 mg/dL (8.5-10.5); Carbon Dioxide 34 mmol/L (22-29); Chloride 91 mmol/L (98-107); Glucose 121 mg/dL (65-115); Osmolality Calculated 295 mOsm/kg (285-295); Sodium 137 mmol/L (136-145)
[2020-02-26 18:31] LABS: Potassium 2.7 mmol/L (3.5-5.1)
== END 2020-02-26 16:45 | disposition home or self-care (01) ==
PROVIDERS: PCP Family Medicine; Visit Provider Family Medicine
DX: D64.9 Anemia, unspecified (principal)
CPT/HCPCS: 80048; 85025

== ENCOUNTER → 2020-03-03 09:15 | Outpatient (BNVA) | payer MEDICARE, OTHER, SELFPAY | PROVIDERS: PCP Family Medicine; Visit Provider Orthopaedic Surgery | DX: S72.002A Fracture of unspecified part of neck of left femur, initial encounter for closed fracture (principal); X58.XXXA Exposure to other specified factors, initial encounter | CPT/HCPCS: 73502 ==

== ENCOUNTER 2020-06-11 11:52 | Observation (INO) | payer MEDICARE, OTHER, SELFPAY ==
[2020-06-11 12:00] VITALS: BP 176/118; PULSE 55; RESP 16; TEMP 36.7; O2SAT 96; BMI 15.0
--- NOTE | 2020-06-11 12:20 | CT_ITS ---
WS: [id number] CT ABDOMEN AND PELVIS WITH CONTRAST HISTORY: Nausea and vomiting. TECHNIQUE: Imaging performed of the abdomen and pelvis with IV contrast. Single phase imaging of the abdomen. Coronal and sagittal reformats are submitted. All CT scans at [facility] use at least one of these dose optimization techniques: automated exposure control; mA and/or kV adjustment per patient size (includes targeted exams where dose is matched to clinical indication); or iterativ e reconstruction. IV CONTRAST: Visipaque 320; 75 mL IV. Oral contrast: No DLP: 803.55 mGy.cm COMPARISON: 06/23/2019 Lower thorax: Emphysematous changes at the lung bases. Small peripheral nodules in the LEFT lower vicki g field were present on the prior study. Moderate cardiomegaly. Large hiatal hernia. Liver/biliary system: Normal size liver with several cysts. The largest cyst measures 2.2 x 2.1 cm. N o mass. Gallbladder: Normally distended gallbladder. No adjacent inflammation. Pancreas: Atrophied pancreas. No mass or acute pancreatitis. Spleen: Atrophic with granulomata. Adrenal glands: Normal. Right kidney: Atrophic kidney with normal enhancement. No obstruction. Left kidney: Normal size kidney. Mild dilatation of the renal pelvis and proximal ureter. No stone id entified. This may be physiologic and this is very similar to the prior study from 06/23/2019. Also ma y be related to the markedly distended urinary bladder. Aorta: Marked atherosclerosis with no aneurysm. Atherosclerotic plaque extends into the common iliac arteries bilaterally. Lymphadenopathy: None. Free fluid: None. GI tract: There is marked severe constipation throughout the colon. Moderate fluid distention of the stomach. A loop of small bowel extends into the LEFT inguinal canal but there is no proximal obstruct ion. Numerous diverticula are noted in the colon. No acute inflammation. The appendix is normal. Abdominal wall: Unremarkable abdominal wall. No hernia. Pelvis: Marked distention of the urinary bladder. May be due to outlet obstruction. Significant artif act through the pelvis from the patient's hip prostheses. Bones: Increase in the lordosis of the lumbar spine and osteopenia. Bilateral ORIF each hip. CT/CT abdomen pelvis w con* [id number] IMPRESSION: 1. Severe diffuse constipation. 2. A loop of nondilated small bowel extends into the LEFT inguinal canal with no obstruction. 3. Normal appendix. 4. Marked fluid distention of the stomach may be due to gastroenteritis. 5. Moderate size hiatal hernia. 6. Marked dilatation of the urinary bladder.
--- NOTE | 2020-06-11 12:20 | XR_ITS ---
WS: [id number] PORTABLE CHEST HISTORY: reduced breath sounds COMPARISON: 01/16/2020 Marked pulmonary hyperinflation. No pneumothorax or pneumonia. No effusions. Cardiac size: Normal. Mediastinum/Aorta: Mild atherosclerosis aorta. Diffuse osteopenia. XR/XR chest 1V portable [id number] IMPRESSION: Chronic emphysema and atherosclerosis aorta. No pneumonia.
[2020-06-11 12:22] VITALS: BP 176/118; PULSE 82; RESP 16; O2SAT 97
--- NOTE | 2020-06-11 12:25 | ECG_ITS ---
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1935 Requested By: Chrsi De Leon Order Number: [id number] Reading MD: MEÑO VALDEZ Measurements Intervals [place] Rate: 77 P: 63 NE: 158 QRS: -34 QRSD: 89 T: 21 QT: 416 QTc: 473 Interpretive Statements SINUS RHYTHM WITH FREQUENT VENTRICULAR PREMATURE COMPLEXES MARKED LEFT AXIS DEVIATION [QRS AXIS < -30] ANTEROSEPTAL MYOCARDIAL INFARCTION [40+ ms Q WAVE IN V1-V4], OF INDETERMINATE AGE Compared to ECG 01/17/2020 08:14:29 Ventricular premature complex(es) now present Sinus bradycardia no longer present T-wave abnormality no longer present Possible ischemia no longer present Myocardial infarct finding still present Electronically Signed On 06-11-2020 20:41:50 CDT by MEÑO VALDEZ [id number]
[2020-06-11] MEDS: ondansetron 2 mg/ML SDV 2 mL 4 MG IVP (13:30)
[2020-06-11 13:32] VITALS: BP 152/93; PULSE 77; RESP 16; O2SAT 98
[2020-06-11] MEDS: sodium chloride 0.9% 500 ML IV (13:54)
[2020-06-11 13:55] LABS: Basophils % 0.4 %; Eosinophils % 0.1 %; Hematocrit 35.4 % (37.0-47.0); Hemoglobin 11.5 g/dL (11.5-15.3); Lymphocytes # 0.9 10^3/uL (0.8-4.8); Lymphocytes % 11.2 %; Mean Corpuscular HGB Conc 32.5 g/dL (30.0-36.0); Mean Corpuscular Hemoglobin 30.2 pg (28.0-34.0); Mean Corpuscular Volume 92.9 fL (81-99); Mean Platelet Volume 8.6 fL (7.4-10.4); Monocytes # 0.7 10^3/uL (0.2-0.9); Monocytes % 8.4 %; Neutrophils # 6.41 10^3/uL (1.8-7.7); Neutrophils % 79.7 %; Nucleated Red Blood Cells % 0 %; Platelet Count 425 10^3/cmm (130-400); Red Blood Count 3.81 10^6/uL (4.1-5.3); Red Cell Distribution Width 14.3 % (12.1-15.1); White Blood Count 8.1 10^3/uL (4.0-10.0)
[2020-06-11 14:10] LABS: Troponin(5th) Baseline 25 ng/L (0-10)
[2020-06-11 14:19] LABS: Alanine Aminotransferase 8 U/L (0-33); Albumin Level 4.2 g/dL (3.5-5.2); Alkaline Phosphatase 68 IU/L (35-105); Anion Gap 16.3 (5-19); Aspartate Amino Transferase 16 U/L (0-32); Blood Urea Nitrogen 21 mg/dL (8-23); Calcium 8.6 mg/dL (8.5-10.5); Carbon Dioxide 25 mmol/L (22-29); Chloride 97 mmol/L (98-107); Globulin 2.4 g/dL (1.3-4.6); Glucose 106 mg/dL (65-115); Lipase 60 U/L (13-60); NT Pro B Type Natriuretic Pept 1048 pg/mL (0-450); Osmolality Calculated 281 mOsm/kg (285-295); Potassium 4.3 mmol/L (3.5-5.1); Sodium 134 mmol/L (136-145); Total Bilirubin 0.2 mg/dL (0.15-1.2); Total Protein 6.6 g/dL (6.6-8.7)
--- NOTE | 2020-06-11 14:25 | ECG_ITS ---
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1935 Requested By: Chris De Leon Order Number: [id number] Reading MD: MEÑO VALDEZ Measurements Intervals [place] Rate: 83 P: 74 IN: 168 QRS: -43 QRSD: 84 T: 71 QT: 415 QTc: 489 Interpretive Statements SINUS RHYTHM WITH FREQUENT VENTRICULAR PREMATURE COMPLEXES IN A BIGEMINAL PATTERN LEFT AXIS DEVIATION [QRS AXIS < -30] SEPTAL MYOCARDIAL INFARCTION , OF INDETERMINATE AGE [40+ ms Q WAVE IN V1/V2] Compared to ECG 06/11/2020 13:29:23 No significant changes Electronically Signed On 06-11-2020 20:43:44 CDT by MEÑO VALDEZ [id number]
[2020-06-11] MEDS: iodixanol 320 mg/mL 100mL Btl IV (14:41)
[2020-06-11 14:47] LABS: Add Urine Microscopic? NO; Charge for UA Resulting for Rev
[2020-06-11 15:06] LABS: Urine Appearance Clear (CLEAR); Urine Color Yellow (Yellow)
[2020-06-11 15:07] LABS: Bilirubin Urine Neg (Negative); Blood Urine Neg (Negative); Glucose Urine UA Norm (Normal); Ketones Urine Negative (Negative); Leukocyte Esterase Urine Negative (Negative); Nitrate Urine Negative (Negative); Protein Urine Neg (Negative); Urobilinogen Urine Norm (Negative); pH Urine 7 (5-7)
[2020-06-11 15:32] LABS: Lactate (Lactic Acid level) 1.1 mmol/L (0.5-2.2)
[2020-06-11 16:30] LABS: Troponin 5 2HR 25.44 ng/L (0-10); Troponin 5 2HR Delta 0.44 ABS# (0-10)
[2020-06-11 16:42] VITALS: BP 121/85; PULSE 79; RESP 16; O2SAT 95
--- NOTE | 2020-06-11 18:12 | PM.HP ---
Providers/Chief Complaint Primary Care Provider: Scooby Ignacio MD Chief Complaint: N/V/ DIZZY History of Present Illness Very pleasant 84-year-old lady with history of CAD, IA, small CVA, HTN, HLD, former smoker came in for evaluation due to episode of vomiting this morning after eating breakfast some eggs and toast, and says usually almost never vomits. In ER she was assessed by CT abdomen and pelvis with finding of severe diffuse constipation, loop of nondilated small bowel extending into the left inguinal canal with no obstruction, normal appendix, marked fluid distention of stomach may be due to gastric enteritis, moderate size hiatal hernia, marked dilation of urinary bladder. Received Zofran, small bolus of IV fluid. However, in ER on telemetry also noticed to have bigeminy due to which ER physician requested observation in the hospital. She reports that she has had previously some history of irregular heartbeat, denies atrial fibrillation. Denies severe arrhythmia. She denies any chest pain or pressure. Denies being short of breath. Denies any recent fever chills, headache, diarrhea. Denies any focal neurologic symptoms. Reports she had previously been told that she possibly had a heart attack in the past. Denies any stents. Has had a stress test at some point in the past, does not exactly remember when. Denies any syncopal or presyncopal symptoms. Denies any recent changes in medications. She is also noted to have elevated blood pressure, in ER 176/118. Reports that home blood pressure sometimes does run high into 140s systolic. Reports she has had a bowel movement yesterday. Reports has been having daily recently, although did have constipation for a few weeks which she says got better about a week ago. Denies hematochezia, melena. Has had a colonoscopy last time at age 77. Prior to that was having them every 3-4 years, and reports they were usually unremarkable. Denies pain with eating. Denies unintended weight loss. Review of Systems Const: Denies: fever(s), chills, body aches or malaise Eyes: Denies: change in vision or eye redness ENMT: Denies: throat pain, oral sores or ear or mastoid pain Card: Reports: palpitations; Denies: chest pain, edema, pre-syncope or dyspnea on exertion Resp: Denies: dyspnea, productive cough, change in phlegm color or hemoptysis GI: Reports: vomiting; Denies: abdominal pain, nausea, diarrhea, constipation, hematochezia or melena : Denies: flank pain, urinary frequency or hematuria Musc: Denies: back pain, joint swelling or joint redness Skin/Breast: Denies: rash, sores or new lesions Neuro: Denies: headache(s), numbness in extremities, weakness in extremities, dizziness, confusion or seizure-like activity Endo: Denies: polyuria or polydipsia Jarret/Lymph: Denies: easy bleeding or purpura All/Imm: Denies: urticaria, throat swelling or tongue swelling Medications/Allergies Home Medications Medication Instructions Recorded Confirmed Last Taken Type ergocalciferol (vitamin D2) 1,250 50,000 unit PO Q7D 03/26/19 06/11/20 06/05/20 History mcg (50,000 unit) capsule levothyroxine 50 mcg capsule 50 mcg PO DAILY 03/26/19 06/11/20 06/11/20 History atorvastatin 20 mg tablet 20 mg PO DAILY #30 tab 01/01/20 06/11/20 06/10/20 Rx acetaminophen [Tylenol Extra 1,000 mg PO PRN 01/07/20 06/11/20 Unknown History Strength] clopidogrel 75 mg tablet 75 mg PO DAILY #90 tab 02/24/20 06/11/20 06/11/20 Rx spironolactone 25 mg tablet 25 mg PO DAILY #90 tab 02/24/20 06/11/20 06/11/20 Rx ferrous sulfate 325 mg PO EVERY OTHER DAY 06/11/20 06/11/20 06/10/20 History hydralazine 75 mg PO TID 06/11/20 06/11/20 06/11/20 History Allergies Allergy/AdvReac Type Severity Reaction Status Date / Time meperidine [From Demerol] Allergy ADR-Anxiety Verified 06/11/20 12:10 cilostazol AdvReac Intermediate ADR-Dizzine Verified 06/11/20 12:10 ss PFSH Acute PFSH: Medical History Acute kidney injury Anemia Anemia due to blood loss Arterial ischemic stroke, multifocal, multiple vascular territories, chronic Atypical chest pain Benign essential HTN Bradycardia Asymptomatic. None noted prior to discharge. Carotid artery disease Carotid artery stenosis with cerebral infarction over 8 weeks ago Had CVA in August 2018-is being followed by Dr. Mae Cerebral vascular accident Chest wall hematoma Chronic heart failure Cystitis Dilated cardiomyopathy Epistaxis Gastroenteritis GI bleed History of multiple cerebrovascular accidents (CVAs) Hyperlipemia Hypertension Ischemic cardiomyopathy Kidney calculi Multiple lacunar infarcts Myocardial infarct Nonischemic cardiomyopathy Obstructive pyelonephritis Peripheral vascular disease Syncope Urolithiasis Surgical History History of colonoscopy History of esophagogastroduodenoscopy (EGD) Family History Father Cancer, Onset Age: 90 Colon cancer Denies family history of Diabetes CAD (coronary artery disease) Hypertension Stroke Social History Smoking and tobacco status: former smoker Alcohol intake: current Alcohol intake frequency: 0-2 Drinks per Day Alcohol type: wine Adopted: No Caregiver/support person: No Lives independently: No Marital status: / Current occupational status: retired History of recent travel: No Current gender identity: Female Vitals/I&O/Wt Last Vital Signs Temp 98.0 F 06/11/20 12:00 Pulse 79 06/11/20 16:42 Resp 16 06/11/20 16:42 BP 121/85 06/11/20 16:42 Pulse Ox 95 06/11/20 16:42 Weight last 48 hrs Weight 38.555 kg Physical Exam Const: COMMON NORMALS: no acute distress, patient oriented x3 and alert GENERAL APPEARANCE: cooperative NUTRITIONAL APPEARANCE: thin ORIENTATION/CONSCIOUSNESS: Yes awake HENMT: COMMON NORMALS: oropharynx normal Neck/C-Spine: COMMON NORMALS: no JVD Resp: COMMON NORMALS: normal respiratory effort and clear to auscultation bilaterally AUSCULTATION: clear to auscultation bilaterally Cardio: COMMON NORMALS: no JVD, regular rhythm, S1 normal heart sound present, S2 normal heart sound present and No murmurs present (Cardio) RHYTHM: abnormal rhythm regularly irregular HEART SOUNDS: S1 normal heart sound present and S2 normal heart sound present GI: COMMON NORMALS: Normal to inspection, nondistended, normoactive bowel sounds present, Soft to palpation and non-tender PALPATION: Yes Soft to palpation Extremity: COMMON NORMALS: no joint enlargement and no pedal edema Neuro: COMMON NORMALS: patient oriented x3 and moves all extremities Skin: COMMON NORMALS: no rashes or lesions noted GENERAL SKIN EXAM: no rashes or lesions noted Data : 06/11/20 13:45 06/11/20 13:45 A&P Assessment and plan (1) Frequent PVCs: Frequent PVCs, bigeminy reported in ER. She has history of coronary disease, small CVA. Discussed with her to abstain from alcohol entirely (states has a small glass of wine daily). With history of CAD will assess troponin EKG series to exclude acute ischemia. Assess TTE. Check TSH due to hypothyroidism. Magnesium. Observe in the hospital with telemetry monitoring. Status: Acute (2) Vomiting: Gastroenteritis. Severe constipation. Hiatal hernia. Daily EtOH, possible EtOH related gastritis. Famotidine IV. Zofran as needed. Bowel rest/trial of liquid diet. Intensify bowel regimen due to severe constipation. Will need additional follow-up regarding hiatal hernia. Discussed with her complete abstinence from alcohol for multiple reasons, including frequent PVCs We will observe in the hospital. Status: Acute (3) Constipation: Bowel regimen added. Status: Acute (4) Hypertension: Monitor blood pressures. At home states blood pressures in the 140s not infrequently. Discussed with her to abstain from alcohol. Continue hydralazine. Spironolactone. Discussed with her would benefit from optimization. Status: Acute Additional A&P Information CAD History of CVA HLD Attestations Medical Necessity Statement*: Place in observation due to new frequent PVCs with history of coronary artery disease, assessment for possible cardiac ischemia as the cause, as well as new onset vomiting, gastroenteritis, severe constipation, with presence of hiatal hernia, daily alcohol intake. 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
--- NOTE | 2020-06-11 18:25 | ECG_ITS ---
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1935 Requested By: Chris De Leon Order Number: [id number] Reading MD: MEÑO VALDEZ Measurements Intervals [place] Rate: 71 P: 70 [place]: 167 QRS: -34 QRSD: 88 T: -36 QT: 400 QTc: 436 Interpretive Statements SINUS RHYTHM WITH OCCASIONAL VENTRICULAR PREMATURE COMPLEXES LEFT AXIS DEVIATION [QRS AXIS < -30] SEPTAL MYOCARDIAL INFARCTION , PROBABLY OLD [40+ ms Q WAVE IN V1/V2] Compared to ECG 06/11/2020 14:52:08 No significant changes Electronically Signed On 06-11-2020 20:43:13 CDT by MEÑO VALDEZ [id number]
--- NOTE | 2020-06-11 19:05 | ED_ITS ---
HPI - Dizziness General: Chief Complaint: Dizziness Stated Complaint: N/V/ DIZZY Time Seen by Provider: 06/11/20 11:58 History of Present Illness: HPI Narrative: Patient is a 84-year-old female with past medical history hypertension, COPD, stroke, nonischemic cardiomyopathy apathy, CHF, anemia with transfusion history, hypothyroidism comes to the ER complaining of nausea, vomiting, and abdominal pain at home. She says since the vomiting she felt short of breath and dizzy as well. Initial EKG shows ventricular bigeminy which is unusual for her MD elicited complaint: lightheadedness Onset (ago): day(s) (1) Timing: sudden onset Severity: moderate Exacerbating factors: nothing Relieving factors: nothing Associated symptoms: Reports nausea and vomiting; Denies chest pain, headache(s), nasal congestion or palpitations Associated neuro symptoms: Deny confusion or numbness in extremities Review of Systems General: Reports: 10 or more systems reviewed and unremarkable except in HPI and below Const: Denies: fatigue Eyes: Denies: change in vision, blurry vision or eye redness ENMT: Denies: throat pain, swelling of lips/tongue, ear or mastoid pain or nasal congestion Card: Denies: chest pain, palpitations, irregular heart rhythm, edema, dyspnea on exertion or orthopnea Resp: Denies: dyspnea, productive cough or non-productive cough GI: Reports: abdominal pain, nausea and vomiting; Denies: diarrhea : Denies: flank pain, difficulty voiding, urinary frequency or urinary urgency Musc: Denies: neck pain, back pain, extremity pain, joint pain, joint redness, limited range of motion or muscle weakness Skin/Breast: Denies: rash, pruritus, erythema, skin pain or skin tenderness Neuro: Denies: headache(s), numbness in extremities, weakness in extremities, sensory changes, difficulty walking, dizziness, confusion or Slurred speech present Psych: Denies: anxiety or depression Endo: Denies: polyuria All/Imm: Denies: urticaria, throat swelling or tongue swelling PFSH ED PFSH: Medical History (Updated 06/11/20 @ 19:13 by Chris De Leon MD) Acute kidney injury Anemia Anemia due to blood loss Arterial ischemic stroke, multifocal, multiple vascular territories, chronic Atypical chest pain Benign essential HTN Bradycardia Asymptomatic. None noted prior to discharge. Carotid artery disease Carotid artery stenosis with cerebral infarction over 8 weeks ago Had CVA in August 2018-is being followed by Dr. Mae Cerebral vascular accident Chest wall hematoma Chronic heart failure Cystitis Dilated cardiomyopathy Epistaxis Gastroenteritis GI bleed History of multiple cerebrovascular accidents (CVAs) Hyperlipemia Hypertension Ischemic cardiomyopathy Kidney calculi Multiple lacunar infarcts Myocardial infarct Nonischemic cardiomyopathy Obstructive pyelonephritis Peripheral vascular disease Syncope Urolithiasis Surgical History History of colonoscopy History of esophagogastroduodenoscopy (EGD) Family History Father Cancer, Onset Age: 90 Colon cancer Denies family history of Diabetes CAD (coronary artery disease) Hypertension Stroke Social History Smoking and tobacco status: former smoker Alcohol intake: current Alcohol intake frequency: 0-2 Drinks per Day Alcohol type: wine Adopted: No Caregiver/support person: No Lives independently: No Marital status: / Current occupational status: retired History of recent travel: No Current gender identity: Female Physical Exam Const: COMMON NORMALS: no acute distress, average body habitus, patient oriented x3, no limitations, healthy appearing, alert and well nourished GENERAL APPEARANCE: cooperative, comfortable, well kempt and well developed ORIENTATION/CONSCIOUSNESS: Yes awake, Yes oriented to person, Yes oriented to place and Yes oriented to time HENMT: COMMON NORMALS: normocephalic, external ears normal and Normal external nose present HEAD & SCALP: normal to inspection and normocephalic NOSE: Normal external nose present EXTERNAL EAR: Yes external ears normal MOUTH: Normal oral and palatal mucosa present THROAT: posterior oropharynx normal Eye: COMMON NORMALS: Equal, round and reactive pupils present and EOMs intact bilaterally GENERAL EYE: appearance normal, both eyes and all related structures PUPIL: Yes Equal, round and reactive pupils present Neck/C-Spine: COMMON NORMALS: full ROM, no lymphadenopathy, no meningeal signs and no JVD GENERAL: Yes normal visual inspection Lymph: LYMPHATIC: no lymphadenopathy noted Chest: COMMONS NORMALS: normal inspection of the chest and normal palpation of entire chest wall Resp: COMMON NORMALS: normal respiratory effort, No retractions, No use of accessory muscles, clear to auscultation bilaterally and percussion normal EFFORT & INSPECTION: Yes able to speak in complete sentences AUSCULTATION: clear to auscultation bilaterally PERCUSSION: percussion normal Cardio: COMMON NORMALS: no JVD, regular rate, regular rhythm, S1 normal heart sound present, S2 normal heart sound present and Peripheral pulses 2+ throughout RATE: regular rate RHYTHM: regular rhythm HEART SOUNDS: S1 normal heart sound present and S2 normal heart sound present PERIPHERAL PULSES: Peripheral pulses 2+ throughout GI: COMMON NORMALS: Normal to inspection, nondistended, normoactive bowel sounds present, Soft to palpation and no masses INSPECTION: Yes normal to inspection PALPATION: Yes Soft to palpation OTHER: Mild diffuse abdominal tenderness. Soft, no rebound tenderness : COMMON NORMALS: Yes no CVA tenderness BLADDER/KIDNEY EXAM: Yes no CVA tenderness Back/Pelvis: COMMON NORMALS: no CVA tenderness, thoracic and lumbar spine normal to inspection, no thoracic nor lumbar tenderness and thoraco-lumbar ROM normal Extremity: COMMON NORMALS: normal to inspection, full ROM, capillary refill normal, no joint enlargement and no pedal edema GENERAL: Yes normal exam except as noted Neuro: COMMON NORMALS: patient oriented x3, CN's II-XII intact bilaterally, moves all extremities, no focal motor deficits, no sensory deficits noted and gait normal SENSORIUM/ORIENTATION: Yes alert, Yes oriented to person, Yes oriented to place and Yes oriented to time MENINGEAL SIGNS: Yes no meningeal signs Psych: COMMON NORMALS: mental status grossly normal, Normal thought process present, cooperative, normal affect and speech normal APPEARANCE: Yes well kempt ATTITUDE: Yes calm SPEECH: Yes normal speech THOUGHT PROCESS: Normal thought process present Skin: COMMON NORMALS: no rashes or lesions noted GENERAL SKIN EXAM: no rashes or lesions noted Course Vital Signs: Vital signs: Vital Signs Temperature 98.0 F 06/11/20 12:00 Pulse Rate 79 06/11/20 16:42 Respiratory Rate 16 06/11/20 16:42 Blood Pressure 121/85 06/11/20 16:42 Pulse Oximetry 95 06/11/20 16:42 MDM - Dizziness MDM Narrative: Medical decision making narrative: The patient came to the ER with nausea vomiting and dizziness. It was likely an acute issue that has mostly resolved after Zofran and fluids however she is in ventricular bigeminy on arrival and continues to have many PVCs throughout her stay. Because this is new to her and possibly causing her dizziness I recommended she be held observation. Discussed with the admitting Dr. Hernandez accepted Lab Data: Labs: Lab Results 06/11/20 06/11/20 06/11/20 Range/Units 13:45 13:45 13:45 WBC 8.1 (4.0-10.0) 10^3/ uL RBC 3.81 L (4.1-5.3) 10^6/u L Hgb 11.5 (11.5-15.3) g/dL Hct 35.4 L (37.0-47.0) % MCV 92.9 (81-99) fL MCH 30.2 (28.0-34.0) pg MCHC 32.5 (30.0-36.0) g/dL RDW 14.3 (12.1-15.1) % Plt Count 425 H (130-400) 10^3/c mm MPV 8.6 (7.4-10.4) fL Neut % (Auto) 79.7 % Lymph % (Auto) 11.2 % [place] % (Auto) 8.4 % Eos % (Auto) 0.1 % Baso % (Auto) 0.4 % Neut # (Auto) 6.41 (1.8-7.7) 10^3/u L Lymph # (Auto) 0.9 (0.8-4.8) 10^3/u L [place] # (Auto) 0.7 (0.2-0.9) 10^3/u L Eos # (Auto) 0.0 (0.0-0.8) 10^3/u L Baso # (Auto) 0.0 (0.0-0.1) 10^3/u L Nucleated RBC % (a uto) 0 % Nucleated RBCs # 0.0 /100WBC Sodium 134 L (136-145) mmol/L Potassium 4.3 (3.5-5.1) mmol/L Chloride 97 L (98-107) mmol/L Carbon Dioxide 25 (22-29) mmol/L Anion Gap 16.3 (5-19) BUN 21 (8-23) mg/dL Creatinine 1.0 H (0.5-0.9) mg/dL GFR Calculation Not Reportable Glucose 106 (65-115) mg/dL Calculated Osmolal ity 281 L (285-295) mOsm/k g Lactate (0.5-2.2) mmol/L Calcium 8.6 (8.5-10.5) mg/dL Total Bilirubin 0.2 (0.15-1.2) mg/dL AST 16 (0-32) U/L ALT 8 (0-33) U/L Alkaline Phosphata se 68 (35-105) IU/L Troponin T Baselin e 25 H (0-10) ng/L Troponin T 120 Min [place] (0-10) ng/L Delta Troponin T (0-10) ABS# NT-Pro-B Natriuret Pep 1048 H (0-450) pg/mL Total Protein 6.6 (6.6-8.7) g/dL Albumin 4.2 (3.5-5.2) g/dL Globulin 2.4 (1.3-4.6) g/dL Lipase 60 (13-60) U/L Urine Color (Yellow) Urine Appearance (CLEAR) Urine pH (5-7) Ur Specific Gravit y (1.005-1.030) Urine Protein (Negative) Urine Glucose (UA) (Normal) Urine Ketones (Negative) Urine Blood (Negative) Urine Nitrate (Negative) Urine Bilirubin (Negative) Urine Urobilinogen (Negative) mg/dL Ur Leukocyte Eli ase (Negative) 06/11/20 06/11/20 06/11/20 Range/Units 13:58 14:20 15:41 WBC (4.0-10.0) 10^3/ uL RBC (4.1-5.3) 10^6/u L Hgb (11.5-15.3) g/dL Hct (37.0-47.0) % MCV (81-99) fL MCH (28.0-34.0) pg MCHC (30.0-36.0) g/dL RDW (12.1-15.1) % Plt Count (130-400) 10^3/c mm MPV (7.4-10.4) fL Neut % (Auto) % Lymph % (Auto) % [place] % (Auto) % Eos % (Auto) % Baso % (Auto) % Neut # (Auto) (1.8-7.7) 10^3/u L Lymph # (Auto) (0.8-4.8) 10^3/u L [place] # (Auto) (0.2-0.9) 10^3/u L Eos # (Auto) (0.0-0.8) 10^3/u L Baso # (Auto) (0.0-0.1) 10^3/u L Nucleated RBC % (a uto) % Nucleated RBCs # /100WBC Sodium (136-145) mmol/L Potassium (3.5-5.1) mmol/L Chloride (98-107) mmol/L Carbon Dioxide (22-29) mmol/L Anion Gap (5-19) BUN (8-23) mg/dL Creatinine (0.5-0.9) mg/dL GFR Calculation Glucose (65-115) mg/dL Calculated Osmolal ity (285-295) mOsm/k g Lactate 1.1 (0.5-2.2) mmol/L Calcium (8.5-10.5) mg/dL Total Bilirubin (0.15-1.2) mg/dL AST (0-32) U/L ALT (0-33) U/L Alkaline Phosphata se (35-105) IU/L Troponin T Baselin e (0-10) ng/L Troponin T 120 [place] 25.44 H (0-10) ng/L Delta Troponin T 0.44 (0-10) ABS# NT-Pro-B Natriuret Pep (0-450) pg/mL Total Protein (6.6-8.7) g/dL Albumin (3.5-5.2) g/dL Globulin (1.3-4.6) g/dL Lipase (13-60) U/L Urine Color Yellow (Yellow) Urine Appearance Clear (CLEAR) Urine pH 7 (5-7) Ur Specific Gravit y 1.010 (1.005-1.030) Urine Protein Neg (Negative) Urine Glucose (UA) Norm (Normal) Urine Ketones Negative (Negative) Urine Blood Neg (Negative) Urine Nitrate Negative (Negative) Urine Bilirubin Neg (Negative) Urine Urobilinogen Norm (Negative) mg/dL Ur Leukocyte Eli ase Negative (Negative) Discharge Plan Discharge Patient Disposition: Placed in Observation Clinical Impression: Ventricular bigeminy, Vomiting Coding Level of Care Code ED Dental Insurance Coordinator for Chg Fwd Exam Comprehensive
[2020-06-11 20:46] LABS: Troponin 5 6HR 29.75 ng/L (0-10); Troponin 5 6HR Delta 4.75 ng/L (0-12)
[2020-06-11 21:42] VITALS: BP 165/88; PULSE 74; RESP 11; O2SAT 97
[2020-06-11 21:45] LABS: Thyroid Stimulating Hormone 0.61 uIU/mL (0.27-4.20)
[2020-06-11] MEDS: hyDRALAzine 50 mg Tablet 75 MG PO (22:21)
[2020-06-11] MEDS: famotidine 20 mg/2 mL INJ IVP (22:21)
[2020-06-11] MEDS: acetaminophen 500 mg Tablet 1000 MG PO (22:23)
[2020-06-11 22:34] VITALS: PULSE 74
[2020-06-11] MEDS: lanolin oint 7 gm 1 APPLIC TOPICAL (23:19)
[2020-06-12] VITALS (10 sets, daily range): BP systolic 109–145; BP diastolic 42–105; PULSE 61–88; RESP 13–18; TEMP 36.4–36.7; O2SAT 91–99
--- NOTE | 2020-06-12 01:33 | PC.NURSE ---
Patient received to floor 06/11 at 2109. Patient able to transfer from stretcher to bed with minimal contact/standby assist. Patient uses cane and /or walker at home. Patient has her home cane with her at bedside. Patient denies pain or dizziness at that time. Admission completed as documented.
[2020-06-12 04:54] LABS: Basophils % 0.6 %; Eosinophils # 0.1 10^3/uL (0.0-0.8); Eosinophils % 1.9 %; Hematocrit 35.5 % (37.0-47.0); Hemoglobin 11.1 g/dL (11.5-15.3); Lymphocytes # 1.3 10^3/uL (0.8-4.8); Lymphocytes % 25.1 %; Mean Corpuscular HGB Conc 31.3 g/dL (30.0-36.0); Mean Corpuscular Hemoglobin 29.7 pg (28.0-34.0); Mean Corpuscular Volume 94.9 fL (81-99); Mean Platelet Volume 8.7 fL (7.4-10.4); Monocytes # 1.1 10^3/uL (0.2-0.9); Monocytes % 20.6 %; Neutrophils # 2.74 10^3/uL (1.8-7.7); Neutrophils % 51.6 %; Nucleated Red Blood Cells % 0 %; Platelet Count 391 10^3/cmm (130-400); Red Blood Count 3.74 10^6/uL (4.1-5.3); Red Cell Distribution Width 14.5 % (12.1-15.1); White Blood Count 5.3 10^3/uL (4.0-10.0)
[2020-06-12 05:10] LABS: Alanine Aminotransferase 7 U/L (0-33); Albumin Level 3.7 g/dL (3.5-5.2); Alkaline Phosphatase 59 IU/L (35-105); Anion Gap 10.1 (5-19); Aspartate Amino Transferase 13 U/L (0-32); Blood Urea Nitrogen 22 mg/dL (8-23); Calcium 8.6 mg/dL (8.5-10.5); Carbon Dioxide 26 mmol/L (22-29); Chloride 103 mmol/L (98-107); Globulin 2.4 g/dL (1.3-4.6); Glucose 91 mg/dL (65-115); Osmolality Calculated 283 mOsm/kg (285-295); Potassium 4.1 mmol/L (3.5-5.1); Sodium 135 mmol/L (136-145); Total Bilirubin 0.2 mg/dL (0.15-1.2); Total Protein 6.1 g/dL (6.6-8.7)
[2020-06-12] MEDS: polyethylene glycol 3350 Pkt 17 gm PO ×2 (09:03→18:18)
[2020-06-12] MEDS: hyDRALAzine 50 mg Tablet 75 MG PO ×2 (09:03→14:06)
[2020-06-12] MEDS: spironolactone 25 mg Tablet PO (09:04)
[2020-06-12] MEDS: levothyroxine 50 mcg Tablet PO (09:04)
[2020-06-12] MEDS: atorvastatin 40 mg Tablet 20 MG PO (09:04)
[2020-06-12] MEDS: clopidogrel 75 mg Tablet PO (09:04)
[2020-06-12] MEDS: ergocalciferol (vitamin D2) 50,000 Unit Capsule 50000 UNIT PO (09:20)
--- NOTE | 2020-06-12 10:16 | PC.NUTR ---
Recommend obtain current weight when possible due to current BMI of 15.1 and pt report of UBW of 95-100 lbs.
--- NOTE | 2020-06-12 11:34 | PC.NURSE ---
IV leaking and oozing Pt is discontinued due to it not patent anymore. Notified Doctor if we can switch pt's IV pepcid to an oral form. Dr Chang telephone order readback to start now Oral Pantoprazole 40 mg Daily and discontinue IV pepcid. Order to hold off on inserting new IV line in case clinically indicated such as frequent vomiting and nausea for an access and patient is possible discharge today.
--- NOTE | 2020-06-12 12:27 | PC.CHAP ---
Pastoral Care Encounter/Spiritual Assessment Type of Contact [] Declined merchandise distributor visit [] Patient/Family/Request visit [] Outpatient visit [] Follow-up visit [] Physician referral [] Code/Alert [xx] Routine visit [] Staff referral [] Actively dying [] Patient sleeping [] Family support [] [] Out of room [] Palliative care [] [] Receiving care in room [] Pre-surgical visit [] Trauma [] Long length of stay [] ICU visit [] Other: Relational/Emotional Strength [xx] Patient feels connected with others/family/visitors/staff [] Distress [] Loneliness/isolation [] Abandonment Spirituality of Patient [xx] Person of Helga [xx] Attends Temple of their Helga [xx] Believes in Prayer [xx] Reads Bible or Catholic materials [] There are Spiritual issues to be addressed Mortgage Or Loan Underwriter Interventions [xx] Prayer [xx] Active listening [xx] Non-anxious presence [] Spiritual/emotional support [] Crisis/trauma care [] Spiritual counseling [] Bereavement support [] Provided bereavement packet [xx] Provided Bible/devotional materials [] Provided toy/stuffed animal, coloring book to patient or family member [] Provided Communion [] Anointing/[place] [] Salvation [xx] Completed spiritual assessment [] Other: Impact on Illness or Injury [] Angry [] Fearful [] Anxious [] Often cries [] Exhaustion [] Unable to work [] Unable to attend pentecostal [] Unable to walk/stand [] Unable to read [] Unable to drive [] Unable to eat/drink [] Unable to sleep [] Unable to be with family [] Patient intubated [] Other: Summary Patient is expecting one final test and then she may be able to go home. She asked prayer for her daughter and grandchildren rather than for herself. She is worried about them. Time spent with patient 9 minutes
[2020-06-12] MEDS: pantoprazole DR 40 mg Tablet PO (14:06)
--- NOTE | 2020-06-12 19:11 | P.DS_ITS ---
Discharge Providers Date of Admission: 06/11/20 15:45 Date of Discharge: June 12, 2020 Attending Provider at Admission: Fausto Chang Attending Provider at Discharge: Fausto Chang Primary Care Provider: Scooby Ignacio MD Diagnoses at Discharge Discharge Diagnosis (1) Frequent PVCs: Status: Acute (2) Vomiting: Status: Acute (3) Constipation: Status: Acute (4) Hypertension: Status: Acute Reason for Visit Reason for Visit: N/V/ DIZZY Hospital Course Hospital Course Pleasant 84-year-old lady with reported history of prior AL, without stent placement, history of small CVA, HTN, HLD, former smoker, came in to ER for evaluation after having an episode of vomiting after eating some eggs and toast for breakfast. This was unusual for her as she normally never has vomiting episodes. In ER CT abdomen pelvis showed findings of possible gastroenteritis, nondilated small bowel in the left inguinal canal without obstruction, and severe constipation. Incidentally noted moderately dilated urinary bladder, though without urinary complaints, and with unremarkable UA. In ER received Zofran, small bolus of fluid, with resolution of complaints. Was monitored with bowel rest, clear liquid diet, without recurrence of vomiting. Started on MiraLAX for constipation, and had a bowel movement. Today she is tolerating ca rdiac diet, and feels well. Observation request from ER was made actually mostly due to incidentally noted frequent PVCs, with initially reported bigeminy. I did not see bigeminy by the time of my visit, but she had PVCs about every fourth beat. She did not have any chest pain. Noted to be hypertensive in ER 176/118. At home states blood pressures mostly running 120s, sometimes in the 140s systolic. Troponin series and EKG obtained without suggestion of acute ischemia, with moderate troponin rise without positive delta, 25-25.44-29.75. She did report that at home she has been drinking a small glass of wine daily. We discussed to discontinue any alcohol entirely as it may predispose her to cardiac arrhythmia. She verbalized understanding. She was monitored on telemetry overnight. Her thyroid function was checked and was normal. There was no suggestion of sepsis as mentioned with unremarkable UA, with chronic emphysema and atherosclerotic aorta on chest x-ray without pneumonia. No respiratory symptoms. No other symptoms to suggest severe infection apart from mild gastroenteritis. She was also assessed by echocardiography and results discussed with her, with finding of normal ejection fraction, grade 1 diastolic function, mildly increased pulmonary artery pressure, moderately thickened mitral valve with mild bileaflet prolapse. Mild MVR. She is ambulated without any problems. She is eating without trouble. Feeling well. She feels good about returning home currently. Asked her to follow-up with an outpatient stress test for which we are referring her, and we also discussed cardiac monitoring with her call person Dr. Mccall. She is asked to follow-up with cardiology clinic in 1 week with the nurse practitioner. She is asked to abstain from alcohol entirely. She is asked to continue monitoring her blood pressure. Please assist her with optimizing blood pressure control, although for the most part she now appears to be fairly close to goal in 130s-140s systolic. Highest today 144/105. She is started on bowel regimen for constipation. Hiatal hernia may benefit from follow-up, although at this time is not suspected to be the cause of her symptoms. Physical Exam Const: COMMON NORMALS: no acute distress, patient oriented x3 and alert GENERAL APPEARANCE: cooperative and comfortable NUTRITIONAL APPEARANCE: thin ORIENTATION/CONSCIOUSNESS: Yes awake HENMT: COMMON NORMALS: oropharynx normal Neck/C-Spine: COMMON NORMALS: no JVD Resp: COMMON NORMALS: normal respiratory effort and clear to auscultation bilaterally AUSCULTATION: clear to auscultation bilaterally Cardio: COMMON NORMALS: no JVD, S1 normal heart sound present, S2 normal heart sound present and No murmurs present (Cardio) RHYTHM: abnormal rhythm regularly irregular HEART SOUNDS: S1 normal heart sound present and S2 normal heart sound present GI: COMMON NORMALS: Normal to inspection, nondistended, normoactive bowel sounds present, Soft to palpation and non-tender PALPATION: Yes Soft to palpation Extremity: COMMON NORMALS: no joint enlargement and no pedal edema Neuro: COMMON NORMALS: patient oriented x3 and moves all extremities SENSORIUM/ORIENTATION: Yes alert Skin: COMMON NORMALS: no rashes or lesions noted GENERAL SKIN EXAM: no rashes or lesions noted Discharge Data Data Completed and Pending: Completed Studies During Hospitalization Category Date Time Status CT abdomen pelvis w con* [id number] Urge nt Cat Scan 06/11/20 12:20 Completed XR chest 1V merlin ble [id number] Urgent Exams 06/11/20 12:20 Completed CV echo complete* [id number] Urgent Ultrasound 06/12/20 21:13 Completed Pending at discharge Category Date Time Status Complete Blood Co unt w/Auto AM LABS Lab 06/13/20 04:00 Ordered Complete Blood Co unt w/Auto AM LABS Lab 06/14/20 04:00 Ordered Comprehensive Met abolic Panel AM LA BS Lab 06/13/20 04:00 Ordered Comprehensive Met abolic Panel AM LA BS Lab 06/14/20 04:00 Ordered Labs from last 24 hours 06/12/20 06/12/20 06/11/20 04:19 04:19 19:57 WBC 5.3 RBC 3.74 L Hgb 11.1 L Hct 35.5 L MCV 94.9 MCH 29.7 MCHC 31.3 RDW 14.5 Plt Count 391 MPV 8.7 Neut % (Auto) 51.6 Lymph % (Auto) 25.1 [place] % (Auto) 20.6 Eos % (Auto) 1.9 Baso % (Auto) 0.6 Neut # (Auto) 2.74 Lymph # (Auto) 1.3 [place] # (Auto) 1.1 H Eos # (Auto) 0.1 Baso # (Auto) 0.0 Nucleated RBC % (a uto) 0 Nucleated RBCs # 0.0 Sodium 135 L Potassium 4.1 Chloride 103 Carbon Dioxide 26 Anion Gap 10.1 BUN 22 Creatinine 1.0 H GFR Calculation Not Reportable Glucose 91 Calculated Osmolal ity 283 L Calcium 8.6 Total Bilirubin 0.2 AST 13 ALT 7 Alkaline Phosphata se 59 Troponin T Hi Sens 6Hr Troponin T Hi Sens 6Hr Delta Total Protein 6.1 L Albumin 3.7 Globulin 2.4 TSH 0.61 06/11/20 19:57 WBC RBC Hgb Hct MCV MCH MCHC RDW Plt Count MPV Neut % (Auto) Lymph % (Auto) [place] % (Auto) Eos % (Auto) Baso % (Auto) Neut # (Auto) Lymph # (Auto) [place] # (Auto) Eos # (Auto) Baso # (Auto) Nucleated RBC % (a uto) Nucleated RBCs # Sodium Potassium Chloride Carbon Dioxide Anion Gap BUN Creatinine GFR Calculation Glucose Calculated Osmolal ity Calcium Total Bilirubin AST ALT Alkaline Phosphata se Troponin T Hi Sens 6Hr 29.75 H Troponin T Hi Sens 6Hr Delta 4.75 Total Protein Albumin Globulin TSH Vitals: Last Vital Signs Temp 97.6 F 06/12/20 07:33 Pulse 88 06/12/20 18:00 Resp 14 06/12/20 18:00 BP 138/47 06/12/20 18:00 Pulse Ox 98 06/12/20 18:00 Discharge Plan Discharge Patient Disposition: Home Condition: Stable Prescriptions: New polyethylene glycol 3350 17 gram Powder In Packet 17 g PO DAILY Qty: 30 RF: 0 pantoprazole 40 mg Tablet,Delayed Release (Dr/Ec) 40 mg PO DAILY Qty: 30 RF: 0 Continued levothyroxine 50 mcg capsule 50 mcg PO DAILY RF: 0 ergocalciferol (vitamin D2) [Vitamin D2] 1,250 mcg (50,000 unit) capsule 50,000 unit PO Q7D RF: 0 atorvastatin 20 mg tablet 20 mg PO DAILY Qty: 30 RF: 5 clopidogrel 75 mg tablet 75 mg PO DAILY Qty: 90 RF: 3 Hold Instructions: Resume on 01/16/20. Aldactone 25 mg tablet 25 mg PO DAILY Qty: 90 RF: 3 hydralazine 50 mg tablet 75 mg PO TID RF: 0 ferrous sulfate 325 mg (65 mg iron) tablet 325 mg PO EVERY OTHER DAY RF: 0 acetaminophen [Tylenol Extra Strength] 500 mg Tablet 1,000 mg PO PRN RF: 0 Discharge Orders: Discharge Order (Routine); Ordered 06/12/20 Ordered By: Fausto Chang Other Ambulatory Orders: Sestamibi Stress Test Request (Routine) Timeframe: 2 Days Facility: [facility] - Location: Cardiac Diagnostic Laboratory Ordered By: Fausto Chang [place] cardiac event monitor (Routine) Timeframe: 2 Days Facility: [facility] - Location: Cardiac Diagnostic Laboratory Ordered By: Fausto Chang Referrals: Scooby Ignacio MD [Primary Care Provider] - 4-7 days Barbara Terry FNP [Nurse Practitioner] - 1 week Discharge Diet: Cardiac Discharge Activity: Increase activity as tolerated Patient Instructions: Hiatal Hernia (GEN), Constipation (GEN), Gastroenteritis (GEN), Premature Ventricular Contractions (DC) Activity Restrictions/Additional Instructions: Our Solutions Market Consultant Tony has spoken with you and asked Case Management to provide you with resources for nutrition in case you would need assistance. The [facility] can offer Meals on Wheels. You would need to speak with Rocio Smith to see if you will qualify and what information is needed to provide this service to you. In addition, [facility] in [facility] has a food pantry if you are needing additional nutritional resources. You can go every two months to this location for additional food sources at their food pantry from 9a-12 noon. . Please follow-up with the stress test, and discuss results with your primary care doctor and cardiology office at the next visit. Please follow-up regarding heart monitor to find whether there are any longer or dangerous stretches of abnormal heart rhythm. Please abstain from any alcohol as it may contribute to abnormal heart rhythm. Please add fiber to your diet. Avoid constipation. Discussed constipation with your primary care doctor. Please also discuss hiatal hernia with your primary care doctor. Please continue to monitor your blood pressures, write down values to bring to your appointment. Continue to work with your primary care doctor to optimize blood pressure control. Discharge Attestations Time Spent in Discharge Care*: greater than 30 min Status at Discharge: Cognitive status at discharge: cognitively intact , Behavioral status at discharge: cooperative , Quality Metrics Clinical Quality Measures During this hospital stay, did patient experience: None Coding Level of Care Code Acute Chg FW DC note Diagnoses Frequent PVCs I49.3 Vomiting R11.10 Constipation K59.00 Hypertension I10
--- NOTE | 2020-06-12 20:02 | PC.NURSE ---
Discharge Discharge instructions explained to patient and what is expected of follow-up appointments. Patient verbalized understanding. patient is A & O, has no C/O of pain or other needs at this time. Patient taken via wheelchair to daughter Marcie outside.
--- NOTE | 2020-06-12 21:13 | USCV_ITS ---
FranklinIrma Age: 84 Gender: F : 1935 Exam Date: 06/12/2020 14:59 Ordering Phys: Fausto Chang MD Technologist: Emilia Patterson Exam Location: [facility] [place] Indication: BIGEMINY BP: 137 / 69 HR: 85 Rhythm: Sinus Technical Quality: Adequate MEASUREMENTS (Male / Female) Normal Values 2D ECHO LV Diastolic Diameter PLAX 4.3 cm 4.2 - 5.9 / 3.9 - 5.3 cm LV Systolic Diameter PLAX 2.9 cm IVS Diastolic Thickness 1.2 cm 0.6 - 1.0 / 0.6 - 0.9 cm IVS Systolic Thickness 1.9 cm LVPW Diastolic Thickness 1.3 cm 0.6 - 1.0 / 0.6 - 0.9 cm LVPW Systolic Thickness 1.7 cm LVOT Diameter 2.0 cm LV Ejection Fraction 2D Teich 62.8 % LV Ejection Fraction MOD 2C 42.9 % LV Ejection Fraction 2C AL 47.0 % LA Diameter 3.1 cm LA Width 3.6 cm LA Height 5.3 cm RA Width 4.0 cm RA Height 4.8 cm Aorta at Sinotubular Diameter 2.2 cm M-MODE LV Diastolic Diameter MM 4.6 cm 4.2 - 5.9 / 3.9 - 5.3 cm LV Systolic Diameter MM 2.9 cm LV Ejection Fraction MM Teich 67.8 % IVS Diastolic Thickness MM 1.0 cm 0.6 - 1.0 / 0.6 - 0.9 cm IVS Systolic Thickness MM 1.1 cm LVPW Diastolic Thickness MM 1.0 cm 0.6 - 1.0 / 0.6 - 0.9 cm LVPW Systolic Thickness MM 1.2 cm Aortic Annulus Diameter 2.6 cm LA Ao Ratio MM 1.2 MV E Point Septal Separation 0.6 cm DOPPLER AV Peak Velocity 159.0 cm/s LVOT Peak Velocity 111.0 cm/s AV Area Cont Eq vti 2.1 cm squared AV Area Cont Eq pk 2.3 cm squared MV Area PHT 5.0 cm squared Mitral E to A Ratio 0.7 MV E' Velocity 60.0 cm/s TR Peak Velocity 317.3 cm/s TR Peak Gradient 40.3 mmHg Right Atrial Pressure 3.0 mmHg Pulmonary Artery Systolic Pressu 43.3 mmHg PV Peak Velocity 100.0 cm/s RV Acceleration Time 0.1 s RV Ejection Time 0.3 s RV AcT/ET 0.3 FINDINGS Left Ventricle Normal left ventricular cavity size. Increased left ventricular wall thickness. Normal left ventricular systolic function. Left ventricular ejection fraction is estimated at 60 %. No regional wall motion abnormalities. Grade I diastolic dysfunction (abnormal relaxation filling pattern), normal to mildly elevated filling pressures. Right Ventricle Normal right ventricular size and systolic function. Right ventricular systolic pressure 43.3 mmHg. Right Atrium Normal right atrial size. Left Atrium Mildly increased left atrial size. Mitral Valve Moderately thickened mitral valve. Mild bileaflet prolapse. No mitral valve stenosis. Mild mitral valve regurgitation. Aortic Valve Thickened and trileaflet aortic valve. No aortic valve stenosis. No aortic valve regurgitation. Tricuspid Valve Structurally normal tricuspid valve. No tricuspid valve stenosis. Mild tricuspid valve regurgitation. Pulmonic Valve Structurally normal pulmonic valve. No pulmonary valve stenosis. Trace pulmonary valve regurgitation. Pericardium No pericardial effusion. Aorta Normal size aortic root and proximal ascending aorta. CONCLUSIONS 1. Normal left ventricular cavity size and systolic function. Moderate concentric left ventricular hypertrophy. Left ventricular ejection fraction is estimated at 65 %. No regional wall motion abnormalities. Grade I diastolic dysfunction (abnormal relaxation filling pattern), normal to mildly elevated filling pressures. 2. Normal right ventricular size and systolic function. 3. Mildly increased pulmonary artery pressure. 4. Moderately thickened mitral valve with mild bileaflet prolapse. Mild mitral valve regurgitation. 5. When compared to previous echocardiogram dated 04/03/2019, left ventricular systolic function has improved. Chloe Colon MD (Electronically Signed) Final Date: 12 June 2020 18:27 S
== END 2020-06-12 20:00 | disposition home or self-care (01) ==
LOC: ER 19:13 → CSU 19:17
PROVIDERS: Admitting Provider Internal Medicine; Emergency Provider Family Medicine; PCP Family Medicine; Visit Provider Internal Medicine
DX: I49.3 Ventricular premature depolarization (principal); R11.10 Vomiting, unspecified; K59.00 Constipation, unspecified; I10 Essential (primary) hypertension; I25.2 Old myocardial infarction; E78.5 Hyperlipidemia, unspecified; Z87.891 Personal history of nicotine dependence; I25.10 Atherosclerotic heart disease of native coronary artery without angina pectoris; Z86.73 Personal history of transient ischemic attack (TIA), and cerebral infarction without residual deficits
CPT/HCPCS: 36415; 51701; 71045; 74177; 80053; 81003; 83605; 83690; 83880; 84443; 84484; 85025; 93005; 93306; 96361; 96374; 99285; G0378; J2405; J3490; J7040; Q9967

== ENCOUNTER 2020-07-01 06:00 | Outpatient (RCR) | payer MEDICARE, OTHER, SELFPAY | END 2020-07-27 23:59 | disposition home or self-care (01) | LOC: SPT 06:00 | PROVIDERS: PCP Family Medicine; Referring Provider Family Medicine Adult Medicine; Visit Provider Family Medicine Adult Medicine | DX: S72.002D Fracture of unspecified part of neck of left femur, subsequent encounter for closed fracture with routine healing (principal); X58.XXXD Exposure to other specified factors, subsequent encounter; R29.6 Repeated falls; R53.81 Other malaise | CPT/HCPCS: 97110; 97161 ==

== ENCOUNTER 2020-07-28 06:00 | Outpatient (RCR) | payer MEDICARE, OTHER, SELFPAY | END 2020-08-26 23:59 | disposition home or self-care (01) | LOC: SPT 06:00 | PROVIDERS: PCP Family Medicine; Referring Provider Family Medicine Adult Medicine; Visit Provider Family Medicine Adult Medicine | DX: S72.002D Fracture of unspecified part of neck of left femur, subsequent encounter for closed fracture with routine healing (principal); X58.XXXD Exposure to other specified factors, subsequent encounter; R53.81 Other malaise | CPT/HCPCS: 97110 ==

== ENCOUNTER 2020-08-27 06:00 | Outpatient (RCR) | payer MEDICARE, OTHER, SELFPAY | END 2020-09-26 23:59 | disposition home or self-care (01) | LOC: SPT 06:00 | PROVIDERS: PCP Family Medicine; Referring Provider Family Medicine Adult Medicine; Visit Provider Family Medicine Adult Medicine | DX: S72.002D Fracture of unspecified part of neck of left femur, subsequent encounter for closed fracture with routine healing (principal); R29.6 Repeated falls; R53.81 Other malaise | CPT/HCPCS: 97110; 97116 ==

== ENCOUNTER 2020-12-14 13:58 | Outpatient (CLI) | payer MEDICARE, OTHER, SELFPAY ==
--- NOTE | 2020-12-14 13:30 | USCV_ITS ---
Farnklin Irma Age: 85 Gender: F : 1935 Exam Date: 12/14/2020 14:19 Ordering Phys: Sami Mccall MD ([email or web address]) Technologist: Emilia Patterson [place] [facility] [place]: DISORDER OF ARTERIES AND ARTERIOLES Risk Factors: Previous Vascular Surgery: Right Brachial BP: / Left Brachial BP: / Right Left Velocity (cm/s) Spectral Plaque Velocity (cm/s) Spectral Plaque Syst/Diast Broadening Syst/Diast Broadening 44.60/ 17.50 Prox CCA 58.30 / 22.90 57.40/ 23.30 Mid CCA 59.00 / 21.50 80.00/ 23.30 Distal CCA 83.30 / 17.00 118.60/38.50 Prox ICA 40.70 / 9.80 100.30/31.30 Mid ICA 85.40 / 26.50 98.50/ 37.60 Distal ICA 62.40 / 24.80 136.30 ECA 73.10 2.07 ICA/CCA 1.45 Antegrade Vertebral Antegrade 53.00/ 10.70 cm/s 45.30/ 14.50 cm/s Tri Subclavian Tri 78.40 106.6 0 FINDINGS Mild to moderate plaques in the distal common carotid arteries bilaterally Moderate heterogeneous plaques at the bifurcations and proximal internal carotid arteries bilaterally Plaque shadowing is noted in the proximal segment of the internal carotid arteries Antegrade flow in the vertebral arteries bilaterally Normal Doppler flow velocities in the subclavian arteries bilaterally CONCLUSIONS Moderate heterogeneous plaques at the bifurcations and proximal internal carotid arteries bilaterally with Doppler features suggesting less than 50% stenosis. Mild to moderate plaques in the common carotid arteries bilaterally. No significant stenosis in the vertebral, subclavian or external carotid arteries based on the above findings Compared to the study from 10/08/2019, there may not be a significant change Dr Sami Mccall MD [facility] (Electronically Signed) Final Date: 15 December 2020 08:01 S
== END 2020-12-14 13:59 | disposition home or self-care (01) ==
PROVIDERS: PCP Family Medicine; Visit Provider Internal Medicine Cardiovascular Disease
DX: I77.9 Disorder of arteries and arterioles, unspecified (principal); I65.23 Occlusion and stenosis of bilateral carotid arteries
CPT/HCPCS: 93880

== ENCOUNTER 2021-01-22 09:56 | Emergency (ER) | payer MEDICARE, OTHER, SELFPAY ==
[2021-01-22 09:57] VITALS: PULSE 80; RESP 16; TEMP 36.8; BMI 16.8
[2021-01-22 10:03] VITALS: BP 180/95; PULSE 81; RESP 16; TEMP 36.8; O2SAT 95
--- NOTE | 2021-01-22 10:14 | XR_ITS ---
WS: [id number] THORACIC SPINE TECHNIQUE: AP and lateral views are performed. HISTORY: pain COMPARISON: None available. Diffuse osteopenia. Moderate increase in thoracic kyphosis. Pedicles are all identified. Mild anterio r wedging of T6 and T7. Moderate atherosclerosis within the thoracic aorta. XR/XR thoracic spine 3V* [id number] IMPRESSION: 1. Degenerative curvature thoracic spine. 2. Mild anterior compression fractures at T6 and T7.
--- NOTE | 2021-01-22 10:14 | XR_ITS ---
WS: [id number] PORTABLE CHEST HISTORY: back pain/rib pain COMPARISON: 06/11/2020 Well-aerated lungs. No pneumonia. No pneumothorax. No pleural effusion or pneumothorax. Cardiac size: Normal. Mediastinum/Aorta: Moderate atherosclerosis aorta. Use osteopenia. No destructive bone lesions are identified. XR/XR chest 1V portable [id number] IMPRESSION: Moderate atherosclerosis aorta. No acute pneumonia.
--- NOTE | 2021-01-22 10:37 | W.ED.BACK ---
Documented by User: TOMMY Mcmahan 01/22/21 12:06 HPI - Back Pain/Injury General: Chief Complaint: Back Pain/Injury Stated Complaint: BACK PAIN Time Seen by Provider: 01/22/21 09:57 Source: patient Mode of arrival: EMS Limitations: no limitations History of Present Illness: HPI Narrative: Patient is an 85-year-old female who presents to ED today with a complaint of progressively worsening back pains. Patient tells me starting approximately 6 months ago she would have one episode every week or so of what she describes as back spasms. She states since that time episodes have become more and more frequent and over the past 3 to 4 days has experienced several episodes throughout the day. She cannot identify any exacerbating factors to her discomfort such as movement. She states when symptoms first began OTC Tylenol would help alleviate her pain but this is no longer working. She states pain is located to the left and the right of her mid thoracic spine. She has no radiation into her shoulders. No radiation into her chest or abdomen. She does not complain of chest pain, shortness of breath, difficulty breathing. She has been seen by her PCP Dr. Ignacio regarding this. MD elicited complaint: back pain Onset (ago): month(s) Timing: intermittent Quality: sharp Location: right upper back and left upper back Radiation: none Exacerbating factors: none Relieving factors: none Associated symptoms: Deny abdominal pain, chills, difficulty walking, dysuria, fatigue, fever(s), nausea, syncope or vomiting Work related injury: No Review of Systems Const: Denies: fever(s), chills, body aches, fatigue or malaise ENMT: Denies: throat pain or odynophagia Card: Denies: chest pain, palpitations, irregular heart rhythm, edema, lightheadedness, syncope, pre-syncope, dyspnea on exertion, orthopnea or leg pain with exertion Resp: Denies: dyspnea, productive cough, non-productive cough, wheezing, pain on inspiration, hemoptysis or chest congestion GI: Denies: abdominal pain, nausea, vomiting or diarrhea : Denies: flank pain or dysuria Musc: Reports: back pain; Denies: neck pain, extremity pain, extremity swelling, joint pain or joint swelling Skin/Breast: Denies: rash Neuro: Denies: headache(s), numbness in extremities, weakness in extremities, sensory changes, difficulty walking or dizziness PFSH ED PFSH: Medical History Acute kidney injury Anemia Anemia due to blood loss Arterial ischemic stroke, multifocal, multiple vascular territories, chronic Atypical chest pain Benign essential HTN Bradycardia Asymptomatic. None noted prior to discharge. Carotid artery disease Carotid artery stenosis with cerebral infarction over 8 weeks ago Had CVA in August 2018-is being followed by Dr. Mae Cerebral vascular accident Chest wall hematoma Chronic heart failure Cystitis Dilated cardiomyopathy Epistaxis Frequent PVCs Gastroenteritis GI bleed History of multiple cerebrovascular accidents (CVAs) Hyperlipemia Hypertension Ischemic cardiomyopathy Kidney calculi Multiple lacunar infarcts Myocardial infarct Nonischemic cardiomyopathy Obstructive pyelonephritis Peripheral vascular disease Syncope Urolithiasis Surgical History History of colonoscopy History of esophagogastroduodenoscopy (EGD) Family History Father Cancer, Onset Age: 90 Colon cancer Mother Dementia Denies family history of Diabetes CAD (coronary artery disease) Clotting disorder Chronic kidney disease (CKD) Suicide Anesthesia complication Bleeding disorder Lung disease Hypertension Stroke Social History Smoking and tobacco status: former smoker Alcohol intake: current Alcohol intake frequency: 0-2 Drinks per Day Alcohol type: wine Adopted: No Caregiver/support person: No Lives independently: No Marital status: / Current occupational status: retired History of recent travel: No Current gender identity: Female Physical Exam Const: COMMON NORMALS: no acute distress, patient oriented x3, no limitations and alert GENERAL APPEARANCE: cooperative NUTRITIONAL APPEARANCE: thin ORIENTATION/CONSCIOUSNESS: Yes awake, Yes oriented to person, Yes oriented to place and Yes oriented to time HENMT: COMMON NORMALS: normocephalic and atraumatic HEAD & SCALP: normal to inspection, normocephalic and atraumatic Neck/C-Spine: COMMON NORMALS: no JVD and No carotid bruits Resp: COMMON NORMALS: normal respiratory effort and clear to auscultation bilaterally AUSCULTATION: clear to auscultation bilaterally Cardio: COMMON NORMALS: no JVD, regular rate and regular rhythm RATE: regular rate RHYTHM: regular rhythm GI: COMMON NORMALS: Normal to inspection, nondistended, normoactive bowel sounds present, Soft to palpation, non-tender, No hepatosplenomegaly present and no masses PALPATION: Yes Soft to palpation and Yes No hepatosplenomegaly present : COMMON NORMALS: Yes no CVA tenderness BLADDER/KIDNEY EXAM: Yes no CVA tenderness Back/Pelvis: COMMON NORMALS: no CVA tenderness Extremity: COMMON NORMALS: normal to inspection, full ROM, capillary refill normal, no joint enlargement, no clubbing, cyanosis or edema, no calf tenderness and no pedal edema NARRATIVE EXTREMITY EXAM: bilateral DP/PT pulses normal and equal bilaterally Neuro: COMMON NORMALS: patient oriented x3, moves all extremities, no focal motor deficits and no sensory deficits noted SENSORIUM/ORIENTATION: Yes alert, Yes oriented to person, Yes oriented to place and Yes oriented to time Skin: NARRATIVE SKIN EXAM: chronic venous stasis changes to bilateral LEs; otherwise normal skin exam Course Vital Signs: Vital signs: Vital Signs Temperature 98.2 F 01/22/21 10:03 Pulse Rate 81 01/22/21 10:03 Respiratory Rate 16 01/22/21 10:03 Blood Pressure 181/95 01/22/21 11:53 Pulse Oximetry 97 01/22/21 11:53 MDM - Back Pain/Injury MDM Narrative: Medical decision making narrative: Patient's history and physical exam is not consistent with dissection, rupturing AAA, PE, acute coronary syndrome, discitis/abscess, or any other emergent process. She states she did get fairly significant relief after IM Norflex. She does not want to be on any strong pain medications. She has compression fractures at T6-T7 that are most likely chronic. She has not had any recent injury or trauma. Recommend she follow-up with her PCP Dr. Ignacio for further evaluation if pain persist. Return to ED precautions given. Imaging Data^: XR thoracic: Radiologist's impression: [address], [place] [address]TFkg ReportSigned Patient: Mireya Reid #: [id number]: 8Acct#:[id number]/Sex: 85 / FADM Date: 01/22/21Loc: ERRoom/Bed:Attending Dr: Ordering Provider/Ordering MD: Vandana Wright Date of Service: 01/22/21 Procedure(s): XR thoracic spine 3V* [id number] Accession Number(s): [id number] Report Number: [id number] WS: [id number] THORACIC SPINE TECHNIQUE: AP and lateral views are performed. HISTORY: pain COMPARISON: None available. Diffuse osteopenia. Moderate increase in thoracic kyphosis. Pedicles are all identified. Mild anterior wedging of T6 and T7. Moderate atherosclerosis within the thoracic aorta. XR/XR thoracic spine 3V* [id number] IMPRESSION: 1. Degenerative curvature thoracic spine. 2. Mild anterior compression fractures at T6 and T7. Dictated By:Nuvia Yang DOSigned By:Nuvia Yang DOSigned Date/Time:01/22/21 1051DD/ 1043 CXR: Radiologist's impression: [address] [address] XRay Report Signed Patient: Irma Reid Unit #: [id number] : 1935 Age/Sex: 85 / F ADM Date: 01/22/21 Loc: ER Room/Bed: Attending Dr: Ordering Provider/Ordering MD: Vandana Wright Date of Service: 01/22/21 Procedure(s): XR chest 1V portable [id number] Accession Number(s): [id number] Report Number: [id number] WS: [email or web address] PORTABLE CHEST HISTORY: back pain/rib pain COMPARISON: 06/11/2020 Well-aerated lungs. No pneumonia. No pneumothorax. No pleural effusion or pneumothorax. Cardiac size: Normal. Mediastinum/Aorta: Moderate atherosclerosis aorta. Use osteopenia. No destructive bone lesions are identified. XR/XR chest 1V portable [id number] IMPRESSION: Moderate atherosclerosis aorta. No acute pneumonia. Dictated By: Nuvia Yang DO Signed By: Nuvia Yang DO Signed Date/Time: 01/22/21 1052 DD/ 1051 Discharge Plan Discharge Patient Disposition: Home Clinical Impression: Bilateral thoracic back pain Qualifiers: Chronicity: chronic Qualified Code(s): M54.6 - Pain in thoracic spine Compression fracture of thoracic vertebra with routine healing Qualifiers: Thoracic vertebra fracture level: T6 Qualified Code(s): S22.050D - Wedge compression fracture of T5-T6 vertebra, subsequent encounter for fracture with routine healing Condition: Stable Prescriptions: New cyclobenzaprine 10 mg tablet 10 mg PO TID Qty: 14 RF: 0 acetaminophen-codeine 300-30 mg tablet 1 tab PO Q6H PRN (Reason: pain) Qty: 14 RF: 0 No Action levothyroxine 50 mcg capsule 50 mcg PO DAILY RF: 0 ergocalciferol (vitamin D2) [Vitamin D2] 1,250 mcg (50,000 unit) capsule 50,000 unit PO Q7D RF: 0 potassium chloride 20 mEq tablet,ER particles/crystals 20 meq PO DAILY RF: 0 magnesium oxide 400 mg magnesium tablet 400 mg PO DAILY RF: 0 atorvastatin 20 mg tablet 20 mg PO DAILY Qty: 30 RF: 5 clopidogrel 75 mg tablet 75 mg PO DAILY Qty: 90 RF: 3 Hold Instructions: Resume on 01/16/20. Aldactone 25 mg tablet 25 mg PO DAILY Qty: 90 RF: 3 hydralazine 50 mg tablet 75 mg PO TID RF: 0 ferrous sulfate 325 mg (65 mg iron) tablet 325 mg PO EVERY OTHER DAY RF: 0 pantoprazole 40 mg Tablet,Delayed Release (Dr/Ec) 40 mg PO DAILY Qty: 30 RF: 0 acetaminophen [Tylenol Extra Strength] 500 mg Tablet 1,000 mg PO PRN RF: 0 Discharge Orders: Discharge ED (Routine); Ordered 01/22/21 Ordered By: Vandana Wright Referrals: Scooby Ignacio MD [Primary Care Provider] - Activity Restrictions/Additional Instructions: As we discussed you may try the prescription medications as needed for relief of your discomfort. You may also try heating pad to see if this helps. Please follow-up with Dr. Ignacio if pain persists for further evaluation. Coding Level of Care Code ED Inspector Final Assembly Conveyor Line for Chg Fwd Exam Comprehensive Documented by User: Jeremías Sánchez MD 01/26/21 20:30 HPI - Back Pain/Injury General: Chief Complaint: Back Pain/Injury Stated Complaint: BACK PAIN Time Seen by Provider: 01/22/21 09:57 PFSH ED PFSH: Medical History Acute kidney injury Anemia Anemia due to blood loss Arterial ischemic stroke, multifocal, multiple vascular territories, chronic Atypical chest pain Benign essential HTN Bradycardia Asymptomatic. None noted prior to discharge. Carotid artery disease Carotid artery stenosis with cerebral infarction over 8 weeks ago Had CVA in August 2018-is being followed by Dr. Mae Cerebral vascular accident Chest wall hematoma Chronic heart failure Cystitis Dilated cardiomyopathy Epistaxis Frequent PVCs Gastroenteritis GI bleed History of multiple cerebrovascular accidents (CVAs) Hyperlipemia Hypertension Ischemic cardiomyopathy Kidney calculi Multiple lacunar infarcts Myocardial infarct Nonischemic cardiomyopathy Obstructive pyelonephritis Peripheral vascular disease Syncope Urolithiasis Surgical History History of colonoscopy History of esophagogastroduodenoscopy (EGD) Family History Father Cancer, Onset Age: 90 Colon cancer Mother Dementia Denies family history of Diabetes CAD (coronary artery disease) Clotting disorder Chronic kidney disease (CKD) Suicide Anesthesia complication Bleeding disorder Lung disease Hypertension Stroke Social History Smoking and tobacco status: former smoker Alcohol intake: current Alcohol intake frequency: 0-2 Drinks per Day Alcohol type: wine Adopted: No Caregiver/support person: No Lives independently: No Marital status: / Current occupational status: retired History of recent travel: No Current gender identity: Female Course Vital Signs: Vital signs: Vital Signs Temperature 98.2 F 01/22/21 10:03 Pulse Rate 81 01/22/21 10:03 Respiratory Rate 16 01/22/21 10:03 Blood Pressure 181/95 01/22/21 11:53 Pulse Oximetry 97 01/22/21 11:53 MDM - Back Pain/Injury MDM Narrative: Medical decision making narrative: I have reviewed documentation and imaging. Jeremías Sánchez MD Emergency Medicine Discharge Plan Discharge Patient Disposition: Home Clinical Impression: Bilateral thoracic back pain Qualifiers: Chronicity: chronic Qualified Code(s): M54.6 - Pain in thoracic spine Compression fracture of thoracic vertebra with routine healing Qualifiers: Thoracic vertebra fracture level: T6 Qualified Code(s): S22.050D - Wedge compression fracture of T5-T6 vertebra, subsequent encounter for fracture with routine healing Condition: Stable Prescriptions: New cyclobenzaprine 10 mg tablet 10 mg PO TID Qty: 14 RF: 0 acetaminophen-codeine 300-30 mg tablet 1 tab PO Q6H PRN (Reason: pain) Qty: 14 RF: 0 No Action levothyroxine 50 mcg capsule 50 mcg PO DAILY RF: 0 ergocalciferol (vitamin D2) [Vitamin D2] 1,250 mcg (50,000 unit) capsule 50,000 unit PO Q7D RF: 0 potassium chloride 20 mEq tablet,ER particles/crystals 20 meq PO DAILY RF: 0 magnesium oxide 400 mg magnesium tablet 400 mg PO DAILY RF: 0 atorvastatin 20 mg tablet 20 mg PO DAILY Qty: 30 RF: 5 clopidogrel 75 mg tablet 75 mg PO DAILY Qty: 90 RF: 3 Hold Instructions: Resume on 01/16/20. Aldactone 25 mg tablet 25 mg PO DAILY Qty: 90 RF: 3 hydralazine 50 mg tablet 75 mg PO TID RF: 0 ferrous sulfate 325 mg (65 mg iron) tablet 325 mg PO EVERY OTHER DAY RF: 0 pantoprazole 40 mg Tablet,Delayed Release (Dr/Ec) 40 mg PO DAILY Qty: 30 RF: 0 acetaminophen [Tylenol Extra Strength] 500 mg Tablet 1,000 mg PO PRN RF: 0 Discharge Orders: Discharge ED (Routine); Ordered 01/22/21 Ordered By: Vandana Wright Referrals: Scooby Ignacio MD [Primary Care Provider] - Activity Restrictions/Additional Instructions: As we discussed you may try the prescription medications as needed for relief of your discomfort. You may also try heating pad to see if this helps. Please follow-up with Dr. Ignacio if pain persists for further evaluation. Coding Level of Care Code ED Inspector Final Assembly Conveyor Line for Chg Fwd Exam Comprehensive
[2021-01-22] MEDS: orphenadrine 30 mg/mL Inj 2 mL 60 MG IM (10:58)
[2021-01-22 11:53] VITALS: BP 181/95; O2SAT 97
== END 2021-01-22 11:53 | disposition home or self-care (01) ==
PROVIDERS: Emergency Provider Physician Assistant; PCP Family Medicine
DX: M54.6 Pain in thoracic spine (principal); S22.050D Wedge compression fracture of T5-T6 vertebra, subsequent encounter for fracture with routine healing; S22.060D Wedge compression fracture of T7-T8 vertebra, subsequent encounter for fracture with routine healing; Z87.891 Personal history of nicotine dependence; X58.XXXD Exposure to other specified factors, subsequent encounter
CPT/HCPCS: 71045; 72072; 96372; 99283; J2360

== ENCOUNTER → 2021-05-13 11:05 | Outpatient (BNVA) | payer MEDICARE, OTHER, SELFPAY | PROVIDERS: PCP Family Medicine; Visit Provider Internal Medicine Cardiovascular Disease | DX: I77.9 Disorder of arteries and arterioles, unspecified (principal); I65.23 Occlusion and stenosis of bilateral carotid arteries; I73.9 Peripheral vascular disease, unspecified; I50.33 Acute on chronic diastolic (congestive) heart failure; I10 Essential (primary) hypertension | CPT/HCPCS: 80048; 83880; 99214 ==

== ENCOUNTER 2021-06-08 12:07 | Outpatient (CLI) | payer MEDICARE, OTHER, SELFPAY ==
--- NOTE | 2021-06-08 12:45 | USCV_ITS ---
Franklin Irma Age: 85 Gender: F : 1935 Exam Date: 06/08/2021 13:05 Ordering Phys: Sami Mccall MD ([email or web address]) Technologist: Carlos Manuel Eugene [place] [facility] [place]: LEG PAIN Risk Factors: Previous Vascular Surgery: RIGHT LEFT BP: 159.0 / 110.00 BP: 187.0/ 85.00 0 0 Waveform Velocity (cm/s) Velocity (cm/s) Waveform Triphasic 50.9 Iliac Prox 54.8 Triphasic Triphasic 62.2 Iliac Mid 53.4 Triphasic Triphasic 94.8 Iliac Distal 49.1 Triphasic Triphasic 83.7 EXPANDED FUNCTION DENTAL ASSISTANT 40.1 Biphasic Triphasic 88.9 SFA Prox 70.3 Biphasic Biphasic 70.1 SFA Mid 74.9 Biphasic Biphasic 76.0 SFA Dist 55.5 Biphasic Biphasic 79.5 POP 67.3 Biphasic Biphasic 40.2 JUNIOR NETWORK ENGINEER 22.2 Biphasic Biphasic 38.8 DPA 73.5 Monophasic 0.7 ALEXSANDER 1.0 FINDINGS Abnormal resting ALEXSANDER 0.7 on the right side. Normal resting ALEXSANDER of 1.0 on the left side. Moderate to heavy dense irregular plaques in the right superficial femoral artery. Mild to moderate diffuse plaques in the left superficial femoral artery. CONCLUSIONS Abnormal resting ALEXSANDER on the right side, suggestive of moderate peripheral artery disease. Moderate to heavy dense irregular plaques in the superficial femoral artery on the right side Mild to moderate diffuse plaques in the left superficial femoral artery with no significant obstruction.. Compared to the study from 04/17/2019, there is significant drop in the resting ALEXSANDER on the right side Dr Sami Mccall MD [facility] (Electronically Signed) Final Date: 09 June 2021 14:06 S
== END 2021-06-08 12:08 | disposition home or self-care (01) ==
LOC: US 12:08
PROVIDERS: PCP Family Medicine; Visit Provider Internal Medicine Cardiovascular Disease
DX: M79.605 Pain in left leg (principal); M79.604 Pain in right leg; I70.8 Atherosclerosis of other arteries
CPT/HCPCS: 93925

== ENCOUNTER → 2021-08-09 10:49 | Outpatient (BNVA) | payer MEDICARE, OTHER, SELFPAY | PROVIDERS: PCP Family Medicine; Visit Provider Internal Medicine Cardiovascular Disease | DX: I11.0 Hypertensive heart disease with heart failure (principal); I50.32 Chronic diastolic (congestive) heart failure; I49.3 Ventricular premature depolarization; I73.9 Peripheral vascular disease, unspecified; Z87.891 Personal history of nicotine dependence; I25.2 Old myocardial infarction; E78.5 Hyperlipidemia, unspecified | CPT/HCPCS: 36415; 80048; 83880; 99214 ==

== ENCOUNTER 2021-12-05 11:16 | Emergency (ER) | payer MEDICARE, OTHER, SELFPAY ==
[2021-12-05 11:19] VITALS: BP 160/116; PULSE 73; RESP 15; TEMP 36.7; O2SAT 96; BMI 16.5
--- NOTE | 2021-12-05 11:24 | XRR_ITS ---
PROCEDURE INFORMATION: Exam: XR Chest Exam date and time: 12/05/2021 11:53 AM Age: 86 years old Clinical indication: Other: Mid back pain; Additional info: Dyspnea TECHNIQUE: Imaging protocol: Radiologic exam of the chest. Views: 1 view. COMPARISON: CR XR chest 1V portable [id number] 01/22/2021 10:34 AM FINDINGS: Lungs: Unremarkable. No consolidation. Pleural spaces: Unremarkable. No pleural effusion. No pneumothorax. Heart/Mediastinum: Unremarkable. No cardiomegaly. Bones/joints: Unremarkable. XR/XR chest 1V portable [id number] IMPRESSION: No acute findings.
--- NOTE | 2021-12-05 11:24 | W.ED.GENADLT ---
HPI - General Adult General: Chief complaint: Weakness Stated complaint: GENERAL WEAKNESS; NAUSEA Time Seen by Provider: 12/05/21 11:19 History of Present Illness: Patient is an 86-year-old female who presents the emergency room with complaints of back pain, nausea and vomiting x 1 week. Patient reprorts she has been having ongoing back pain for the last week and a half. She denies any trauma but reports waking up with back pain. Patient also reports nausea and vomiting not feeling well and has had decreased appetite. Patient has no focal complaints of abdominal pain, chest pain or shortness of breath. Patient has been cough, no sore throat or recent sick contact. Patient denies any diarrhea melena or hematochezia. No other focal complaints at this time. Onset:1 wee kago Duration:1 week Location:home Severity:moderate Associated symptoms: Reports nausea and vomiting; Deny chest pain, dyspnea, rash or palpitations Review of Systems Const: Denies: fever(s) or chills Eyes: Denies: change in vision ENMT: Denies: mouth pain Card: Denies: chest pain or palpitations Resp: Denies: dyspnea or non-productive cough GI: Reports: nausea and vomiting; Denies: abdominal pain or diarrhea : Denies: dysuria Musc: Denies: extremity pain Skin/Breast: Denies: rash or new lesions Neuro: Denies: weakness in extremities Psych: Reports: other (Normal mood) Jarret/Lymph: Denies: easy bruising [facility] ED PFSH: Medical History (Updated 12/05/21 @ 15:09 by Ashley Nicolas MD) Acute kidney injury Anemia Anemia due to blood loss Arterial ischemic stroke, multifocal, multiple vascular territories, chronic Atypical chest pain Benign essential HTN Bradycardia Asymptomatic. None noted prior to discharge. Carotid artery disease Carotid artery stenosis with cerebral infarction over 8 weeks ago Had CVA in August 2018-is being followed by Dr. Mae Cerebral vascular accident Chest wall hematoma Chronic heart failure Compression fracture Cystitis Dilated cardiomyopathy Epistaxis Frequent PVCs Gastroenteritis GI bleed History of multiple cerebrovascular accidents (CVAs) Hyperlipemia Hypertension Ischemic cardiomyopathy Kidney calculi Multiple lacunar infarcts Myocardial infarct Nonischemic cardiomyopathy Obstructive pyelonephritis Peripheral vascular disease Syncope Urolithiasis Surgical History History of colonoscopy History of esophagogastroduodenoscopy (EGD) Family History Father Cancer, Onset Age: 90 Colon cancer Mother Dementia Denies family history of Diabetes CAD (coronary artery disease) Clotting disorder Chronic kidney disease (CKD) Suicide Anesthesia complication Bleeding disorder Lung disease Hypertension Stroke Social History Smoking and tobacco status: former smoker Alcohol intake: current Alcohol intake frequency: 0-2 Drinks per Day Alcohol type: wine Adopted: No Caregiver/support person: No Lives independently: No Marital status: / Current occupational status: retired History of recent travel: No Current gender identity: Female Physical Exam Const: COMMON NORMALS: alert HENMT: COMMON NORMALS: atraumatic HEAD & SCALP: atraumatic MOUTH: moist mucous membranes not abnormal Eye: COMMON NORMALS: EOMs intact bilaterally and conjunctivae normal CONJUNCTIVA: Yes conjunctivae normal Neck/C-Spine: COMMON NORMALS: full ROM and supple Resp: COMMON NORMALS: normal respiratory effort and clear to auscultation bilaterally AUSCULTATION: clear to auscultation bilaterally Cardio: COMMON NORMALS: regular rate RATE: regular rate GI: COMMON NORMALS: Soft to palpation and non-tender PALPATION: Yes Soft to palpation OTHER: No focal TTP. NO guarding rebound, guarding, rigidity. No CVA tenderness to percussion. Neg Barone/Neg McBurney's point tenderness, no suprabupic tenderness to palpation. Back/Pelvis: OTHER: + Lower thoracic, upper lumbar midline bony tenderness to palpation Extremity: COMMON NORMALS: full ROM Neuro: SENSORIUM/ORIENTATION: Yes alert MOTOR EXAM: No Abnormal motor strength present and Other motor observations present (no focal motor deficits) Psych: COMMON NORMALS: speech normal SPEECH: Yes normal speech MOOD & AFFECT: Yes euthymic mood Course Vital Signs: Vital signs: Vital Signs Temperature 98.0 F 12/05/21 11:19 Pulse Rate 72 12/05/21 14:02 Respiratory Rate 18 12/05/21 14:02 Blood Pressure 160/116 12/05/21 11:19 Pulse Oximetry 97 12/05/21 14:02 Oxygen Delivery Me thod 12/05/21 14:02 [facility] - General Adult Medical Decision Making Patient is an 86-year-old female who presents the emergency room with complaints of back pain, nausea and vomiting x 1 week. On exam, patient has moderate tenderness palpation patient in the lower thoracic and upper lumbar midline bony areas. Imaging study showed L4 fracture with thoracic midline mid dorsal spine compression fractures. Patient is placed in a TLSO brace. Patient received pain medicine emergency room reports pain is improved. Troponin x2 with delta less than 5. Patient is known to have T wave versions in 2 3 aVF and V4?V6 are similar to prior EKG from before. Patient currently has no complaints of chest pain shortness breath. Do not suspect ACS at this time. I suspect the patient's back pain is likely due to the fractures that are found today. UA showed UTI. In the setting nausea vomiting, this could be early pyelonephritis. Patient received ceftriaxone in the ED. I have given patient follow up with our case management social worker to be seen by our outpatient by Spine surgery for back fractures. Patient aware of a call from our case management social worker to schedule for appointment(s) and verbalizes understanding of the importance of following up. Rx: norflex, tylenol, lidocaine patch, and menthol PRN pain, ceftriaxone for UTI and early pyelonephritis, zofran PRN nausea/vomiting Disposition: Discharge. Patient counseled regarding diagnostic impression, treatment plan. Patient given ED strict return precautions to return for continuation, worsening, or development of new symptoms. Instructed to f/u w/ Orhtopedics regarding symptoms today. Patient verbalized understanding. Lab Data : 12/05/21 11:40 12/05/21 11:40 Radiology Impressions Chest X-Ray 12/05/21 11:24 IMPRESSION: No acute findings. Lumbar Spine CT 12/05/21 12:42 IMPRESSION: 1. Osteopenia and osteoarthritis. 2. Compression fracture superior endplate L4 vertebral body. 3. L3 L4 mild central canal stenosis and right side foraminal stenosis. Thoracic Spine CT 12/05/21 12:42 IMPRESSION: 1. Severe osteopenia and osteoarthritis of the dorsal spine 2. Multiple mid dorsal spine compression fractures. 3. Chronic fracture deformity of the sternum 4. Otherwise negative examination Laboratory Results WBC 3.4 10^3/uL (4.0-10.0) L 12/05/21 11:40 RBC 3.17 10^6/uL (4.1-5.3) L 12/05/21 11:40 Hgb 8.0 g/dL (11.5-15.3) L 12/05/21 11:40 Hct 24.6 % (37.0-47.0) L 12/05/21 11:40 MCV 77.6 fl (81-99) L 12/05/21 11:40 MCH 25.2 pg (28.0-34.0) L 12/05/21 11:40 MCHC 32.5 g/dL (30.0-36.0) 12/05/21 11:40 RDW 15.9 % (12.1-15.1) H 12/05/21 11:40 Plt Count 595 10^3/cmm (130-400) H 12/05/21 11:40 MPV 8.6 fL (7.4-10.4) 12/05/21 11:40 Neut % (Auto) 69.5 % 12/05/21 11:40 Lymph % (Auto) 18.0 % 12/05/21 11:40 Terry % (Auto) 11.6 % 12/05/21 11:40 Eos % (Auto) 0.0 % 12/05/21 11:40 Baso % (Auto) 0.3 % 12/05/21 11:40 Neut # (Auto) 2.39 10^3/uL (1.8-7.7) 12/05/21 11:40 Lymph # (Auto) 0.6 10^3/uL (0.8-4.8) L 12/05/21 11:40 Terry # (Auto) 0.4 10^3/uL (0.2-0.9) 12/05/21 11:40 Eos # (Auto) 0.0 10^3/uL (0.0-0.8) 12/05/21 11:40 Baso # (Auto) 0.0 10^3/uL (0.0-0.1) 12/05/21 11:40 Nucleated RBC % (auto) 0 % 12/05/21 11:40 Nucleated RBCs # 0.0 /100WBC 12/05/21 11:40 Sodium 132 mmol/L (136-145) L 12/05/21 11:40 Potassium 3.2 mmol/L (3.5-5.1) L 12/05/21 11:40 Chloride 94 mmol/L (98-107) L 12/05/21 11:40 Carbon Dioxide 23 mmol/L (22-29) 12/05/21 11:40 Anion Gap 18.2 (5-19) 12/05/21 11:40 BUN 24 mg/dL (8-23) H 12/05/21 11:40 Creatinine 0.8 mg/dL (0.5-0.9) 12/05/21 11:40 GFR Calculation Not Reportable 12/05/21 11:40 Glucose 111 mg/dL (65-115) 12/05/21 11:40 Calculated Osmolality 279 mOsm/kg (285-295) L 12/05/21 11:40 Calcium 8.9 mg/dL (8.5-10.5) 12/05/21 11:40 Total Bilirubin 0.3 mg/dL (0.15-1.2) 12/05/21 11:40 AST 24 U/L (0-32) 12/05/21 11:40 ALT 21 U/L (0-33) 12/05/21 11:40 Alkaline Phosphatase 60 U/L (35-105) 12/05/21 11:40 Troponin T Baseline 23 ng/L (0-10) H 12/05/21 11:40 Troponin T 120 Minute 21.45 ng/L (0-10) H 12/05/21 14:04 Delta Troponin T -1.55 ABS# (0-10) L 12/05/21 14:04 Total Protein 6.8 g/dL (6.6-8.7) 12/05/21 11:40 Albumin 4.1 g/dL (3.5-5.2) 12/05/21 11:40 Globulin 2.7 g/dL (1.3-4.6) 12/05/21 11:40 Lipase 68 U/L (13-60) H 12/05/21 11:40 Urine Color Yellow (Yellow) 12/05/21 12:52 Urine Appearance Clear (CLEAR) 12/05/21 12:52 Urine pH 6 (5-7) 12/05/21 12:52 Ur Specific [place] 1.010 (1.005-1.030) 12/05/21 12:52 Urine Protein Neg (Negative) 12/05/21 12:52 Urine Glucose (UA) Norm (Normal) 12/05/21 12:52 Urine Ketones Negative (Negative) 12/05/21 12:52 Urine Blood Neg (Negative) 12/05/21 12:52 Urine Nitrate Positive (Negative) H 12/05/21 12:52 Urine Bilirubin Neg (Negative) 12/05/21 12:52 Urine Urobilinogen Norm mg/dL (Negative) 12/05/21 12:52 Ur Leukocyte Esterase Negative (Negative) 12/05/21 12:52 Urine RBC None /hpf (0-2) 12/05/21 12:52 Urine WBC 10-15 /hpf (0-5) H 12/05/21 12:52 Ur Squamous Epith Cells None /hpf (0-5) 12/05/21 12:52 Amorphous Sediment Not Reportable 12/05/21 12:52 Urine Bacteria 2+ /hpf (NONE) H 12/05/21 12:52 Imaging Data Other Imaging: Radiologist's impression: [place] [address] CT Scan Report Signed Patient: Irma Reid Unit #: [id number] : 1935 Age/Sex: 86 / F ADM Date: 12/05/21 Loc: ER Room/Bed: Attending Dr: Ordering Provider/Ordering MD: Ashley Nicolas MD Date of Service: 12/05/21 Procedure(s): CT thoracic spin wo con* [id number] Accession Number(s): [id number] Report Number: [id number] PROCEDURE INFORMATION: Exam: CT Thoracic Spine Without Contrast Exam date and time: 12/05/2021 1:09 PM Age: 86 years old Clinical indication: Pain in thoracic spine; Without myelpathy or radiculopathy; Additional info: Back pain TECHNIQUE: Imaging protocol: Computed tomography of the thoracic spine without contrast. Radiation optimization: All CT scans at this facility use at least one of these dose optimization techniques: automated exposure control; mA and/or kV adjustment per patient size (includes targeted exams where dose is matched to clinical indication); or iterative reconstruction. COMPARISON: CT abdomen pelvis w con* [id number] 06/11/2020 2:53 PM RADIATION DOSE METRICS: Total DLP (mGy-cm): 321.01 FINDINGS: Bones/joints:? There is severe osteopenia and osteoarthritis.? There are chronic compression fractures in the mid dorsal spine? No acute fracture. Normal alignment. No significant disc protrusion. No severe spinal canal stenosis. There is deformity in the sternum which is also seen on the scanogram image. This finding likely reflects a chronic fracture. Soft tissues: Unremarkable. CT/CT thoracic spin wo con* [id number] IMPRESSION: 1. Severe osteopenia and osteoarthritis of the dorsal spine 2. Multiple mid dorsal spine compression fractures. 3. Chronic fracture deformity of the sternum 4. Otherwise negative examination ? Dictated By: Scottie Bergeron Signed By: Scottie Bergeron Signed Date/Time: 12/05/21 1350 DD/ [address] [address] [address] Scan Report Signed Patient: Irma Reid Unit #: [id number] : 1935 Age/Sex: 86 / F ADM Date: 12/05/21 Loc: ER Room/Bed: Attending Dr: Ordering Provider/Ordering MD: Ashley Nicolas MD Date of Service: 12/05/21 Procedure(s): CT lumbar spine wo con* [id number] Accession Number(s): [id number] Report Number: [id number] PROCEDURE INFORMATION: Exam: CT Lumbar Spine Without Contrast Exam date and time: 12/05/2021 1:13 PM Age: 86 years old Clinical indication: Low back pain TECHNIQUE: Imaging protocol: Computed tomography of the lumbar spine without contrast. Radiation optimization: All CT scans at this facility use at least one of these dose optimization techniques: automated exposure control; mA and/or kV adjustment per patient size (includes targeted exams where dose is matched to clinical indication); or iterative reconstruction. COMPARISON: CT thoracic spin wo con* [id number] 12/05/2021 1:09 PM RADIATION DOSE METRICS: Total DLP (mGy-cm): 276.3 FINDINGS: Bones/joints: There is osteopenia and osteoarthritis seen. A compression fracture is present involving the superior endplate of the L4 vertebral body. There is a subchondral cyst in the posterosuperior L5 vertebral body measuring 7 mm. There is a circumferential bulge of the annulus at the L3-L4 level with broad-based compression of the anterior thecal sac and right side foraminal stenosis. The left neural foramen is patent. No definite nerve root compressions are seen. There is thickening of the ligamentum flavum bilaterally corresponding to mild central canal stenosis. Normal alignment. No significant disc protrusion. No severe spinal canal stenosis. Soft tissues: Unremarkable. CT/CT lumbar spine wo con* [id number] IMPRESSION: 1. Osteopenia and osteoarthritis. 2. Compression fracture superior endplate L4 vertebral body. 3. L3 L4 mild central canal stenosis and right side foraminal stenosis. ? Dictated By: Scottie Bergeron Signed By: Scottie Bergeron Signed Date/Time: 12/05/21 1342 DD/ 1313 Discharge Plan Discharge Patient Disposition: Home Clinical Impression: Compression fracture, Fracture of spine, Back pain, UTI (urinary tract infection) Condition: Stable Prescriptions: New Percocet 5-325 mg tablet 1 tab PO Q8H PRN (Reason: pain) Qty: 8 0RF lidocaine 5 % adhesive patch,medicated 1 patch topical DAILY PRN (Reason: pain) 30 Days Qty: 30 0RF Rx Instructions: leave on most painful area for up to 12 hrs Biofreeze (menthol) 5 % gel 1 ea topical BID PRN (Reason: pain) 10 Days Qty: 1 0RF cefdinir 300 mg capsule 300 mg PO BID 10 Days Qty: 20 0RF ondansetron 4 mg tablet,disintegrating 4 mg PO TID PRN (Reason: nausea and vomiting) 4 Days Qty: 12 0RF No Action levothyroxine 50 mcg capsule 50 mcg PO DAILY famotidine 20 mg tablet 20 mg PO DAILY potassium chloride 20 mEq tablet,ER particles/crystals 20 meq PO DAILY magnesium oxide 400 mg magnesium tablet 400 mg PO DAILY atorvastatin 20 mg tablet 20 mg PO DAILY Qty: 30 5RF Aldactone 25 mg tablet 25 mg PO DAILY Qty: 90 3RF clopidogrel 75 mg tablet 75 mg PO DAILY Qty: 90 3RF Hold Instructions: Resume on 01/16/20. hydralazine 50 mg tablet 75 mg PO TID ferrous sulfate 325 mg (65 mg iron) tablet 325 mg PO EVERY OTHER DAY pantoprazole 40 mg Tablet,Delayed Release (Dr/Ec) 40 mg PO DAILY Qty: 30 0RF Discharge Orders: Discharge ED (Routine); Ordered 10/09/22 Ordered By: Ashley Nicolas Other Ambulatory Orders: DME: Miscellaneous (Order) Location: None Selected Ordered By: Ashley Nicolas Referrals: Scooby Ignacio MD [Primary Care Provider] - Discharge Diet: Advance as tolerated Discharge Activity: Increase activity as tolerated Patient Instructions: Vertebral Compression Fracture (ED), Pain Management Activity Restrictions/Additional Instructions: Come back if you have any new or concerning issues including worsening back pain, fever/chills, inability control bladder or bowel, or any new external complaints. Our case management social worker will have you follow-up with Orthopedic spine in the next few days for your back fracture. You would be expected to have a phone call with our case management social worker who will put you on the schedule. You can expect a call from us in the next 2-3 days. If you don't hear from us, call us back in the emergency room at [phone]. 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
--- NOTE | 2021-12-05 11:31 | ECG_ITS ---
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 Measurements Intervals [place] Rate: 70 P: -3 [place]: 107 QRS: -31 QRSD: 99 T: -68 QT: 415 QTc: 450 Interpretive Statements SINUS RHYTHM WITH SHORT [place] INTERVAL LEFT AXIS DEVIATION [QRS AXIS < -30] SEPTAL MYOCARDIAL INFARCTION , PROBABLY OLD [40+ ms Q WAVE IN V1/V2] MODERATE T-WAVE ABNORMALITY, CONSIDER ANTEROLATERAL ISCHEMIA [-0.1+ mV T-WAVE IN V3-V6] MODERATE T-WAVE ABNORMALITY, CONSIDER INFERIOR ISCHEMIA [-0.1+ mV T-WAVE IN II/aVF] Compared to ECG 06/11/2020 18:44:54 Short [place] interval now present. Electronically Signed On 12-05-2021 18:23:06 CDT by Sami Mccall M.D. [id number]
[2021-12-05 12:00] LABS: Basophils % 0.3 %; Hematocrit 24.6 % (37.0-47.0); Lymphocytes # 0.6 10^3/uL (0.8-4.8); Mean Corpuscular HGB Conc 32.5 g/dL (30.0-36.0); Mean Corpuscular Hemoglobin 25.2 pg (28.0-34.0); Mean Corpuscular Volume 77.6 fl (81-99); Mean Platelet Volume 8.6 fL (7.4-10.4); Monocytes # 0.4 10^3/uL (0.2-0.9); Monocytes % 11.6 %; Neutrophils # 2.39 10^3/uL (1.8-7.7); Neutrophils % 69.5 %; Nucleated Red Blood Cells % 0 %; Platelet Count 595 10^3/cmm (130-400); Red Blood Count 3.17 10^6/uL (4.1-5.3); Red Cell Distribution Width 15.9 % (12.1-15.1); White Blood Count 3.4 10^3/uL (4.0-10.0)
[2021-12-05 12:20] LABS: Troponin(5th) Baseline 23 ng/L (0-10)
[2021-12-05 12:22] LABS: Alanine Aminotransferase 21 U/L (0-33); Albumin Level 4.1 g/dL (3.5-5.2); Alkaline Phosphatase 60 U/L (35-105); Anion Gap 18.2 (5-19); Aspartate Amino Transferase 24 U/L (0-32); Blood Urea Nitrogen 24 mg/dL (8-23); Calcium 8.9 mg/dL (8.5-10.5); Carbon Dioxide 23 mmol/L (22-29); Chloride 94 mmol/L (98-107); Globulin 2.7 g/dL (1.3-4.6); Glucose 111 mg/dL (65-115); Lipase 68 U/L (13-60); Osmolality Calculated 279 mOsm/kg (285-295); Potassium 3.2 mmol/L (3.5-5.1); Sodium 132 mmol/L (136-145); Total Bilirubin 0.3 mg/dL (0.15-1.2); Total Protein 6.8 g/dL (6.6-8.7)
--- NOTE | 2021-12-05 12:42 | CTR_ITS ---
PROCEDURE INFORMATION: Exam: CT Lumbar Spine Without Contrast Exam date and time: 12/05/2021 1:13 PM Age: 86 years old Clinical indication: Low back pain TECHNIQUE: Imaging protocol: Computed tomography of the lumbar spine without contrast. Radiation optimization: All CT scans at this facility use at least one of these dose optimization techniques: automated exposure control; mA and/or kV adjustment per patient size (includes targeted exams where dose is matched to clinical indication); or iterative reconstruction. COMPARISON: CT thoracic spin wo con* [id number] 12/05/2021 1:09 PM RADIATION DOSE METRICS: Total DLP (mGy-cm): 276.3 FINDINGS: Bones/joints: There is osteopenia and osteoarthritis seen. A compression fracture is present involving the superior endplate of the L4 vertebral body. There is a subchondral cyst in the posterosuperior L5 vertebral body measuring 7 mm. There is a circumferential bulge of the annulus at the L3-L4 level with broad-based compression of the anterior thecal sac and right side foraminal stenosis. The left neural foramen is patent. No definite nerve root compressions are seen. There is thickening of the ligamentum flavum bilaterally corresponding to mild central canal stenosis. Normal alignment. No significant disc protrusion. No severe spinal canal stenosis. Soft tissues: Unremarkable. CT/CT lumbar spine wo con* [id number] IMPRESSION: 1. Osteopenia and osteoarthritis. 2. Compression fracture superior endplate L4 vertebral body. 3. L3 L4 mild central canal stenosis and right side foraminal stenosis.
--- NOTE | 2021-12-05 12:42 | CTR_ITS ---
PROCEDURE INFORMATION: Exam: CT Thoracic Spine Without Contrast Exam date and time: 12/05/2021 1:09 PM Age: 86 years old Clinical indication: Pain in thoracic spine; Without myelpathy or radiculopathy; Additional info: Back pain TECHNIQUE: Imaging protocol: Computed tomography of the thoracic spine without contrast. Radiation optimization: All CT scans at this facility use at least one of these dose optimization techniques: automated exposure control; mA and/or kV adjustment per patient size (includes targeted exams where dose is matched to clinical indication); or iterative reconstruction. COMPARISON: CT abdomen pelvis w con* [id number] 06/11/2020 2:53 PM RADIATION DOSE METRICS: Total DLP (mGy-cm): 321.01 FINDINGS: Bones/joints: There is severe osteopenia and osteoarthritis. There are chronic compression fractures in the mid dorsal spine No acute fracture. Normal alignment. No significant disc protrusion. No severe spinal canal stenosis. There is deformity in the sternum which is also seen on the scanogram image. This finding likely reflects a chronic fracture. Soft tissues: Unremarkable. CT/CT thoracic spin wo con* [id number] IMPRESSION: 1. Severe osteopenia and osteoarthritis of the dorsal spine 2. Multiple mid dorsal spine compression fractures. 3. Chronic fracture deformity of the sternum 4. Otherwise negative examination
--- NOTE | 2021-12-05 13:42 | ECG_ITS ---
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 Measurements Intervals [place] Rate: 74 P: 93 [place]: 161 QRS: -14 QRSD: 101 T: -53 QT: 398 QTc: 443 Interpretive Statements SINUS RHYTHM POSSIBLE ANTEROLATERAL MYOCARDIAL INFARCTION , OF INDETERMINATE AGE [30 ms Q WAVE IN I/aVL/V3-V6] Diffuse nonspecific T wave changes Compared to ECG 12/05/2021 11:31:03 Short [place] interval no longer present Left-axis deviation no longer present T-wave abnormality no longer present Possible ischemia no longer present Myocardial infarct finding still present Electronically Signed On 12-06-2021 21:29:01 CDT by Sami Mccall M.D. [id number]
[2021-12-05 13:58] VITALS: RESP 16; O2SAT 98
[2021-12-05] MEDS: morphine 4 mg/mL SDV 1 mL 2 MG IVP (13:58)
[2021-12-05 14:02] VITALS: PULSE 72; RESP 18; O2SAT 97
[2021-12-05 14:40] LABS: Add Urine Microscopic? YES; Bilirubin Urine Neg (Negative); Blood Urine Neg (Negative); Glucose Urine UA Norm (Normal); Ketones Urine Negative (Negative); Leukocyte Esterase Urine Negative (Negative); Nitrate Urine Positive (Negative); Protein Urine Neg (Negative); Urine Appearance Clear (CLEAR); Urine Color Yellow (Yellow); Urobilinogen Urine Norm (Negative); pH Urine 6 (5-7)
[2021-12-05 14:41] LABS: Add Urine Culture? Yes; Bacteria Urine 2+ /hpf
[2021-12-05 14:46] LABS: Troponin 5 2HR 21.45 ng/L (0-10)
[2021-12-05 14:54] LABS: Troponin 5 2HR Delta -1.55 ABS# (0-10)
[2021-12-05 16:07] VITALS: BP 146/78; PULSE 74; RESP 14; O2SAT 97
[2021-12-05] MEDS: ondansetron 4 MG Tablet PO (16:07)
[2021-12-05] MEDS: cefdinir 300 MG CAPSULE PO (16:07)
--- NOTE | 2021-12-06 10:43 | PC.SOCIAL ---
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 Clinic will contact patient with appointment date and time.
== END 2021-12-05 16:08 | disposition home or self-care (01) ==
PROVIDERS: Emergency Provider Emergency Medicine; PCP Family Medicine
DX: N39.0 Urinary tract infection, site not specified (principal); S32.040A Wedge compression fracture of fourth lumbar vertebra, initial encounter for closed fracture; Z79.02 Long term (current) use of antithrombotics/antiplatelets; Z87.891 Personal history of nicotine dependence; I11.0 Hypertensive heart disease with heart failure; I50.9 Heart failure, unspecified; E78.5 Hyperlipidemia, unspecified; I25.2 Old myocardial infarction; X58.XXXA Exposure to other specified factors, initial encounter
CPT/HCPCS: 71045; 72128; 72131; 80053; 81001; 83690; 84484; 85025; 87077; 87086; 87186; 93005; 96374; 99285; J2270; Q0162

== ENCOUNTER 2022-05-26 17:41 | Outpatient (CLI) | payer MEDICARE, OTHER, SELFPAY ==
[2022-05-26 17:48] LABS: Add Urine Microscopic? NO; Charge for UA Resulting for Rev
[2022-05-26 17:53] LABS: Basophils # 0.1 10^3/uL (0.0-0.1); Basophils % 1.1 %; Eosinophils # 0.1 10^3/uL (0.0-0.8); Eosinophils % 1.1 %; Hematocrit 22.1 % (37.0-47.0); Lymphocytes # 1.1 10^3/uL (0.8-4.8); Lymphocytes % 22.8 %; Mean Corpuscular Hemoglobin 21.5 pg (28.0-34.0); Mean Corpuscular Volume 74.2 fl (81-99); Mean Platelet Volume 8.7 fL (7.4-10.4); Monocytes # 1.3 10^3/uL (0.2-0.9); Monocytes % 26.6 %; Neutrophils # 2.28 10^3/uL (1.8-7.7); Nucleated Red Blood Cells % 0 %; Platelet Count 531 10^3/cmm (130-400); Red Blood Count 2.98 10^6/uL (4.1-5.3); Red Cell Distribution Width 19.7 % (12.1-15.1); White Blood Count 4.7 10^3/uL (4.0-10.0)
[2022-05-26 17:56] LABS: Bilirubin Urine Neg (Negative); Blood Urine Neg (Negative); Glucose Urine UA Norm (Normal); Ketones Urine Negative (Negative); Leukocyte Esterase Urine Negative (Negative); Nitrate Urine Negative (Negative); Protein Urine Neg (Negative); Urine Appearance Clear (CLEAR); Urine Color Yellow (Yellow); Urobilinogen Urine Neg (Negative); pH Urine 7 (5-7)
[2022-05-26 18:21] LABS: Alanine Aminotransferase 9 U/L (0-33); Albumin Level 4.6 g/dL (3.5-5.2); Alkaline Phosphatase 58 U/L (35-105); Anion Gap 18.4 (5-19); Aspartate Amino Transferase 16 U/L (0-32); Blood Urea Nitrogen 22 mg/dL (8-23); Calcium 8.9 mg/dL (8.5-10.5); Carbon Dioxide 24 mmol/L (22-29); Chloride 92 mmol/L (98-107); Globulin 2.5 g/dL (1.3-4.6); Glucose 102 mg/dL (65-115); Osmolality Calculated 276 mOsm/kg (285-295); Potassium 3.4 mmol/L (3.5-5.1); Sodium 131 mmol/L (136-145); Total Bilirubin 0.2 mg/dL (0.15-1.2); Total Protein 7.1 g/dL (6.6-8.7)
[2022-05-26 19:12] LABS: Hemoglobin 6.4 g/dL (11.5-15.3)
== END 2022-05-26 17:42 | disposition home or self-care (01) ==
PROVIDERS: PCP Family Medicine; Visit Provider Electrodiagnostic Medicine
DX: N39.0 Urinary tract infection, site not specified (principal)
CPT/HCPCS: 80053; 81003; 85025; 87086

== ENCOUNTER 2022-05-27 13:50 | Inpatient (IN) | payer MEDICARE, OTHER, SELFPAY ==
[2022-05-27] VITALS (15 sets, daily range): BP systolic 152–180; BP diastolic 67–77; PULSE 65–78; RESP 14–17; TEMP 36.5–37; O2SAT 92–98
--- NOTE | 2022-05-27 14:13 | ED_ITS ---
HPI - Recheck/Abnormal Lab/Rx General: Chief Complaint: Recheck/Abnormal Lab/Rx Stated Complaint: WEAKNESS, DIZZY Time Seen by Provider: 05/27/22 14:13 Source: patient Mode of arrival: EMS History of Present Illness: 86-year-old female presents emergency room from local custodial. Routine lab screening showed a hemoglobin of 6 4 she denies any hematochezia melena hematemesis coffee-ground emesis or melena. She states she feels fine other than have a bit of a bit dizzy lately. Her only other complaint when she arrived here was during abdominal exam states her bladder was full and she needed to go to the bathroom. No chest pain no abdominal pain. She is on Plavix. No anticoagulants. MD complaint: abnormal lab Description of abnormal result: Anemia hemoglobin 6 4 Symptoms since prior visit: no new symptoms Context: called for abnormal lab result Associated symptoms: other (Dizziness) Review of Systems Const: Denies: fever(s), chills, body aches, change in appetite, fatigue or malaise ENMT: Denies: throat pain, ear or mastoid pain, nasal discharge or nasal congestion Card: Denies: chest pain, palpitations, irregular heart rhythm, edema, swelling of feet/ankles, dyspnea on exertion or orthopnea Resp: Denies: dyspnea, productive cough or non-productive cough GI: Denies: abdominal pain, nausea, vomiting, hematemesis, coffee ground emesis, diarrhea, constipation, bloating, hematochezia or melena : Denies: flank pain, difficulty voiding, dysuria, urinary frequency or urinary urgency Skin/Breast: Denies: rash or pruritus PFSH ED PFSH: Medical History Acute kidney injury Anemia Anemia due to blood loss Arterial ischemic stroke, multifocal, multiple vascular territories, chronic Atypical chest pain Benign essential HTN Bradycardia Asymptomatic. None noted prior to discharge. Carotid artery disease Carotid artery stenosis with cerebral infarction over 8 weeks ago Had CVA in August 2018-is being followed by Dr. Mae Cerebral vascular accident Chest wall hematoma Chronic heart failure Compression fracture Cystitis Dilated cardiomyopathy Epistaxis Frequent PVCs Gastroenteritis GI bleed History of multiple cerebrovascular accidents (CVAs) Hyperlipemia Hypertension Ischemic cardiomyopathy Kidney calculi Multiple lacunar infarcts Myocardial infarct Nonischemic cardiomyopathy Obstructive pyelonephritis Peripheral vascular disease Syncope Urolithiasis Surgical History History of colonoscopy History of esophagogastroduodenoscopy (EGD) Family History Father Cancer, Onset Age: 90 Colon cancer Mother Dementia Denies family history of Diabetes CAD (coronary artery disease) Clotting disorder Chronic kidney disease (CKD) Suicide Anesthesia complication Bleeding disorder Lung disease Hypertension Stroke Social History Smoking and tobacco status: former smoker Alcohol intake: current Alcohol intake frequency: 0-2 Drinks per Day Alcohol type: wine Adopted: No Caregiver/support person: No Lives independently: No Marital status: / Current occupational status: retired Current gender identity: Female Physical Exam Const: GENERAL APPEARANCE: cooperative and comfortable ORIENTATION/CONSCIOUSNESS: Yes awake, Yes oriented to person, Yes oriented to place and Yes oriented to time HENMT: COMMON NORMALS: normocephalic, atraumatic and hearing grossly normal bilaterally HEAD & SCALP: normocephalic and atraumatic Resp: COMMON NORMALS: normal respiratory effort, No retractions, No use of accessory muscles and clear to auscultation bilaterally AUSCULTATION: clear to auscultation bilaterally Cardio: COMMON NORMALS: regular rate, regular rhythm and No murmurs present (Cardio) RATE: regular rate RHYTHM: regular rhythm GI: COMMON NORMALS: Soft to palpation and No hepatosplenomegaly present AUSCULTATION: Yes normoactive bowel sounds PALPATION: Yes Soft to palpation, No Tenderness to palpation present (GI), No Guarding due to palpation present (GI) and Yes No hepatosplenomegaly present Extremity: COMMON NORMALS: normal to inspection, capillary refill normal, no clubbing, cyanosis or edema, no calf tenderness and no pedal edema Neuro: SENSORIUM/ORIENTATION: Yes oriented to person, Yes oriented to place and Yes oriented to time Skin: COMMON NORMALS: no rashes or lesions noted GENERAL SKIN EXAM: no rashes or lesions noted Course Vital Signs: Vital signs: Vital Signs Temperature 98.0 F 05/28/22 08:00 Pulse Rate 64 05/28/22 08:00 Respiratory Rate 16 05/28/22 08:00 Blood Pressure 179/86 05/28/22 08:00 Pulse Oximetry 98 05/28/22 08:00 Oxygen Delivery Me thod 05/28/22 08:00 MDM - Recheck/Abnormal Lab/Rx Medical Decision Making Will admit. Patient has a history nonischemic cardiomyopathy will need transfusion needs to be monitored closely. She is stable at this time she denies any bright red blood per rectum has not had any other bleeding source. 2 units of blood been ordered discussed the hospitalist orders written Medical Records I reviewed the patient's medical records. Lab Data I reviewed the patient's lab results. 05/27/22 14:19 05/27/22 14:19 Laboratory Results WBC 5.2 10^3/uL (4.0-10.0) 05/27/22 14:19 RBC 3.16 10^6/uL (4.1-5.3) L 05/27/22 14:19 Hgb 6.6 g/dL (11.5-15.3) L 05/27/22 14:19 Hct 22.9 % (37.0-47.0) L 05/27/22 14:19 MCV 72.5 fl (81-99) L 05/27/22 14:19 MCH 20.9 pg (28.0-34.0) L 05/27/22 14:19 MCHC 28.8 g/dL (30.0-36.0) L 05/27/22 14:19 RDW 19.7 % (12.1-15.1) H 05/27/22 14:19 Plt Count 554 10^3/cmm (130-400) H 05/27/22 14:19 MPV 8.6 fL (7.4-10.4) 05/27/22 14:19 Neut % (Auto) 60.7 % 05/27/22 14:19 Lymph % (Auto) 17.1 % 05/27/22 14:19 [place] % (Auto) 20.2 % 05/27/22 14:19 Eos % (Auto) 1.2 % 05/27/22 14:19 Baso % (Auto) 0.6 % 05/27/22 14:19 Neut # (Auto) 3.16 10^3/uL (1.8-7.7) 05/27/22 14:19 Lymph # (Auto) 0.9 10^3/uL (0.8-4.8) 05/27/22 14:19 [place] # (Auto) 1.1 10^3/uL (0.2-0.9) H 05/27/22 14:19 Eos # (Auto) 0.1 10^3/uL (0.0-0.8) 05/27/22 14:19 Baso # (Auto) 0.0 10^3/uL (0.0-0.1) 05/27/22 14:19 Nucleated RBC % (auto) 0 % 05/27/22 14:19 Nucleated RBCs # 0.0 /100WBC 05/27/22 14:19 PT 12.20 SECONDS (12.1-14.9) 05/27/22 14:19 INR 0.88 (0.8-1.2) 05/27/22 14:19 APTT 32.2 SECONDS (23.9-36.7) 05/27/22 14:19 Sodium 132 mmol/L (136-145) L 05/27/22 14:19 Potassium 3.7 mmol/L (3.5-5.1) 05/27/22 14:19 Chloride 94 mmol/L (98-107) L 05/27/22 14:19 Carbon Dioxide 26 mmol/L (22-29) 05/27/22 14:19 Anion Gap 15.7 (5-19) 05/27/22 14:19 BUN 19 mg/dL (8-23) 05/27/22 14:19 Creatinine 0.8 mg/dL (0.5-0.9) 05/27/22 14:19 GFR Calculation Not Reportable 05/27/22 14:19 Glucose 99 mg/dL (65-115) 05/27/22 14:19 Calculated Osmolality 276 mOsm/kg (285-295) L 05/27/22 14:19 Calcium 9.4 mg/dL (8.5-10.5) 05/27/22 14:19 Total Bilirubin 0.2 mg/dL (0.15-1.2) 05/27/22 14:19 AST 15 U/L (0-32) 05/27/22 14:19 ALT 10 U/L (0-33) 05/27/22 14:19 Alkaline Phosphatase 58 U/L (35-105) 05/27/22 14:19 Total Protein 7.4 g/dL (6.6-8.7) 05/27/22 14:19 Albumin 4.5 g/dL (3.5-5.2) 05/27/22 14:19 Globulin 2.9 g/dL (1.3-4.6) 05/27/22 14:19 Urine Color Straw (Yellow) 05/27/22 14:43 Urine Appearance Clear (CLEAR) 05/27/22 14:43 Urine pH 7 (5-7) 05/27/22 14:43 Ur Specific [place] 1.005 (1.005-1.030) 05/27/22 14:43 Urine Protein Neg (Negative) 05/27/22 14:43 Urine Glucose (UA) Norm (Normal) 05/27/22 14:43 Urine Ketones Negative (Negative) 05/27/22 14:43 Urine Blood Neg (Negative) 05/27/22 14:43 Urine Nitrate Negative (Negative) 05/27/22 14:43 Urine Bilirubin Neg (Negative) 05/27/22 14:43 Urine Urobilinogen Norm mg/dL (Negative) 05/27/22 14:43 Ur Leukocyte Esterase Negative (Negative) 05/27/22 14:43 Blood Type A Negative 05/27/22 14:40 Rho(D) Type Negative 05/27/22 14:40 Antibody Screen Negative 05/27/22 14:40 Crossmatch See Detail 05/27/22 14:40 Discharge Plan Discharge Patient Disposition: Placed in Observation Admit Provider: Adonis Durán Clinical Impression: Anemia, Chronic heart failure, Carotid artery disease, Carotid artery stenosis Condition: Stable Coding Level of Care Code ED Vocational Rehabilitation Consultant for Kristyn Aviles
--- NOTE | 2022-05-27 14:16 | ECG_ITS ---
[facility] Test Date: 2022-05-27 Pat Name: Irma Reid Department: Room: Gender: Female Clinical Sociologist: : [id number] Requested By: Donaldo Mendoza Order Number: [id number] Reba MD: Eugene Conroy M.D. Measurements Intervals [place] Rate: 74 P: 107 VT: 100 QRS: -18 QRSD: 97 T: -47 QT: 387 QTc: 431 Interpretive Statements SINUS RHYTHM WITH SHORT VT INTERVAL ANTEROSEPTAL MYOCARDIAL INFARCTION , OF INDETERMINATE AGE [40+ ms Q WAVE IN V1-V4] Compared to ECG 12/05/2021 13:42:32 Short VT interval now present T-wave abnormality no longer present Myocardial infarct finding still present Electronically Signed On 05-27-2022 15:52:40 CDT by Eugene Conroy M.D. [email or web address]
[2022-05-27 14:30] LABS: Basophils % 0.6 %; Eosinophils # 0.1 10^3/uL (0.0-0.8); Eosinophils % 1.2 %; Hematocrit 22.9 % (37.0-47.0); Hemoglobin 6.6 g/dL (11.5-15.3); Lymphocytes # 0.9 10^3/uL (0.8-4.8); Lymphocytes % 17.1 %; Mean Corpuscular HGB Conc 28.8 g/dL (30.0-36.0); Mean Corpuscular Hemoglobin 20.9 pg (28.0-34.0); Mean Corpuscular Volume 72.5 fl (81-99); Mean Platelet Volume 8.6 fL (7.4-10.4); Monocytes # 1.1 10^3/uL (0.2-0.9); Monocytes % 20.2 %; Neutrophils # 3.16 10^3/uL (1.8-7.7); Neutrophils % 60.7 %; Nucleated Red Blood Cells % 0 %; Platelet Count 554 10^3/cmm (130-400); Red Blood Count 3.16 10^6/uL (4.1-5.3); Red Cell Distribution Width 19.7 % (12.1-15.1); White Blood Count 5.2 10^3/uL (4.0-10.0)
[2022-05-27 14:43] LABS: INR 0.88 (0.8-1.2)
[2022-05-27 14:44] LABS: Partial Thromboplastin Time 32.2 SECONDS (23.9-36.7)
[2022-05-27 14:47] LABS: Alanine Aminotransferase 10 U/L (0-33); Albumin Level 4.5 g/dL (3.5-5.2); Alkaline Phosphatase 58 U/L (35-105); Anion Gap 15.7 (5-19); Aspartate Amino Transferase 15 U/L (0-32); Blood Urea Nitrogen 19 mg/dL (8-23); Calcium 9.4 mg/dL (8.5-10.5); Carbon Dioxide 26 mmol/L (22-29); Chloride 94 mmol/L (98-107); Globulin 2.9 g/dL (1.3-4.6); Glucose 99 mg/dL (65-115); Osmolality Calculated 276 mOsm/kg (285-295); Potassium 3.7 mmol/L (3.5-5.1); Sodium 132 mmol/L (136-145); Total Bilirubin 0.2 mg/dL (0.15-1.2); Total Protein 7.4 g/dL (6.6-8.7)
[2022-05-27 15:09] LABS: Add Urine Microscopic? NO; Charge for UA Resulting for Rev
[2022-05-27 15:23] LABS: Bilirubin Urine Neg (Negative); Blood Urine Neg (Negative); Glucose Urine UA Norm (Normal); Ketones Urine Negative (Negative); Leukocyte Esterase Urine Negative (Negative); Nitrate Urine Negative (Negative); Protein Urine Neg (Negative); Specific Gravity, Urine 1.005 (1.005-1.030); Urine Appearance Clear (CLEAR); Urine Color Straw (Yellow); Urobilinogen Urine Norm (Negative); pH Urine 7 (5-7)
--- NOTE | 2022-05-27 16:18 | P.HP_ITS ---
Providers/Chief Complaint Admitting Physician: Adonis Durán MD Primary Care Provider: Scooby Ignacio MD Chief Complaint: WEAKNESS, DIZZY History of Present Illness ?86 year old female with past medical history of nonischemic cardiomyopathy with an ejection fraction 50 %, diastolic heart failure, history of multiple CVAs, carotid artery stenosis, diffuse peripheral vascular disease, history of GI bleed with iron deficiency anemia, hypothyroidism, B12 deficiency, dyslipidemia, COPD, hypertension was sent from the custodial after they found her hb to be 6.6.she denied any BRBPR,yonathan,hematuria,hematemesis.Currently she has also denied any chest pain,SOB,Palpitation,nausea,vomiting,abdominal pain.She does complain some dizziness. When I interacted with patient all she wanted was blood transfusion,so that she can fell better and return to custodial. Review of Systems General: Reports: 10 or more systems reviewed and unremarkable except in HPI and below Const: Denies: fever(s), chills, body aches, change in appetite or diaphoresis Card: Denies: palpitations, edema, swelling of feet/ankles, dyspnea on exertion, orthopnea or leg pain with exertion Resp: Denies: dyspnea, productive cough, wheezing or pain on inspiration GI: Denies: abdominal pain, nausea, vomiting, diarrhea or constipation : Denies: flank pain Musc: Denies: back pain, extremity pain or extremity swelling Neuro: Denies: headache(s), difficulty walking or confusion Medications/Allergies Home Medications Medication Instructions Recorded Confirmed Last Taken Type levothyroxine 50 mcg capsule 50 mcg PO DAILY 03/26/19 05/27/22 06/11/20 History atorvastatin 20 mg tablet 20 mg PO DAILY #30 tabs 01/01/20 05/27/22 06/10/20 Rx ferrous sulfate 325 mg (65 mg 325 mg PO EVERY OTHER DAY 06/11/20 05/27/22 06/10/20 History iron) tablet hydralazine 50 mg tablet 75 mg PO TID 06/11/20 05/27/22 06/11/20 History pantoprazole 40 mg tablet,delayed 40 mg PO DAILY #30 tabs 06/12/20 05/27/22 Unknown Rx release potassium chloride 20 mEq 20 meq PO DAILY 10/21/20 05/27/22 Unknown History tablet,extended release(part/cryst) clopidogrel 75 mg tablet 75 mg PO DAILY #90 tabs 03/01/21 05/27/22 Unknown Rx famotidine 20 mg tablet 20 mg PO DAILY 05/13/21 05/27/22 Unknown History oxycodone-acetaminophen 5 mg-325 1 tab PO Q8H PRN pain #8 tabs 12/05/21 05/27/22 Unknown Rx mg tablet (Percocet) acetaminophen 325 mg tablet 650 mg PO QID PRN Pain 05/27/22 05/27/22 Unknown History aluminum-mag hydroxide-simethicone 15 ml PO QID PRN Acid Reflux 05/27/22 05/27/22 Unknown History 200 mg-200 mg-20 mg/5 mL oral susp bisacodyl 10 mg rectal suppository 10 mg UT DAILY PRN Constipation 05/27/22 05/27/22 Unknown History camphor-menthol 0.2 %-3.5 % 1 applic topical DAILY PRN Pain 05/27/22 05/27/22 Unknown History topical gel chlorthalidone 25 mg tablet 25 mg PO DAILY 05/27/22 05/27/22 Unknown History cholecalciferol (vitamin D3) 1,250 1,250 mcg PO Q7D 05/27/22 05/27/22 Unknown History mcg (50,000 unit) capsule furosemide 20 mg tablet 20 mg PO DAILY PRN Edema 05/27/22 05/27/22 Unknown History lidocaine 5 % topical patch 1 patch topical DAILY 05/27/22 05/27/22 Unknown History loperamide 2 mg capsule 4 mg PO Q6H PRN Diarrhea 05/27/22 05/27/22 Unknown History magnesium hydroxide 400 mg/5 mL 15 ml PO DAILY PRN Constipation 05/27/22 05/27/22 Unknown History oral suspension (Milk of Magnesia) sennosides 8.6 mg-docusate sodium 1 tab-cap PO BID 05/27/22 05/27/22 Unknown H istory 50 mg tablet (Senna Plus) Allergies Allergy/AdvReac Type Severity Reaction Status Date / Time meperidine [From Demerol] Allergy ADR-Anxiety Verified 05/27/22 15:40 cilostazol AdvReac Intermediate ADR-Dizzine Verified 05/27/22 15:40 ss PFSH Acute PFSH: Medical History Acute kidney injury Anemia Anemia due to blood loss Arterial ischemic stroke, multifocal, multiple vascular territories, chronic Atypical chest pain Benign essential HTN Bradycardia Asymptomatic. None noted prior to discharge. Carotid artery disease Carotid artery stenosis with cerebral infarction over 8 weeks ago Had CVA in August 2018-is being followed by Dr. Mae Cerebral vascular accident Chest wall hematoma Chronic heart failure Compression fracture Cystitis Dilated cardiomyopathy Epistaxis Frequent PVCs Gastroenteritis GI bleed History of multiple cerebrovascular accidents (CVAs) Hyperlipemia Hypertension Ischemic cardiomyopathy Kidney calculi Multiple lacunar infarcts Myocardial infarct Nonischemic cardiomyopathy Obstructive pyelonephritis Peripheral vascular disease Syncope Urolithiasis Surgical History History of colonoscopy History of esophagogastroduodenoscopy (EGD) Family History Father Cancer, Onset Age: 90 Colon cancer Mother Dementia Denies family history of Diabetes CAD (coronary artery disease) Clotting disorder Chronic kidney disease (CKD) Suicide Anesthesia complication Bleeding disorder Lung disease Hypertension Stroke Social History Smoking and tobacco status: former smoker Alcohol intake: current Alcohol intake frequency: 0-2 Drinks per Day Alcohol type: wine Adopted: No Caregiver/support person: No Lives independently: No Marital status: / Current occupational status: retired Current gender identity: Female Vitals/I&O/Wt Last Vital Signs Temp 97.7 F 05/27/22 14:00 Pulse 78 05/27/22 14:24 Resp 16 05/27/22 14:24 BP 167/76 05/27/22 14:24 Pulse Ox 98 05/27/22 14:24 O2 Del Method 05/27/22 14:24 Weight last 48 hrs Weight 43.091 kg Physical Exam Const: COMMON NORMALS: patient oriented x3 HENMT: COMMON NORMALS: normocephalic and atraumatic HEAD & SCALP: normocephalic and atraumatic Resp: COMMON NORMALS: normal respiratory effort, No retractions, No use of accessory muscles and clear to auscultation bilaterally EFFORT & INSPECTION: Yes symmetric chest movement AUSCULTATION: clear to auscultation bilaterally Cardio: COMMON NORMALS: regular rate, regular rhythm, S1 normal heart sound present, S2 normal heart sound present, No gallops present (Cardio), No murmurs present (Cardio), No rub (Cardio) and Peripheral pulses 2+ throughout RATE: regular rate RHYTHM: regular rhythm HEART SOUNDS: S1 normal heart sound present and S2 normal heart sound present PERIPHERAL PULSES: Peripheral pulses 2+ throughout GI: COMMON NORMALS: Normal to inspection, nondistended, normoactive bowel sounds present, Soft to palpation, non-tender, No hepatosplenomegaly present and no masses AUSCULTATION: Yes normoactive bowel sounds PALPATION: Yes Soft to palpation and Yes No hepatosplenomegaly present RECTAL EXAM: deferred Extremity: COMMON NORMALS: no clubbing, cyanosis or edema and no pedal edema Neuro: COMMON NORMALS: patient oriented x3 Data 05/27/22 14:19 05/27/22 14:19 A&P Assessment and plan (1) Anemia: (2) Chronic heart failure: Qualifiers: Heart failure type: diastolic Qualified Code(s): I50.32 - Chronic diastolic (congestive) heart failure (3) Hypertension: Qualifiers: Hypertension type: essential hypertension Qualified Code(s): I10 - Essential (primary) hypertension Plan 86 year old female with past medical history of nonischemic cardiomyopathy with an ejection fraction 50 %, diastolic heart failure, history of multiple CVAs, carotid artery stenosis, diffuse peripheral vascular disease, history of GI bleed with iron deficiency anemia, hypothyroidism, B12 deficiency, dyslipidemia, COPD, hypertension was sent from the custodial after they found her hb to be 6.6.she denied any BRBPR,yonathan,hematuria,hematemesis. Assessment : Symptomatic Anemia : Current plan is to transfuse 2 u prbc, monitor H&H and Potentially discharge the patient in the morning,if h&h remains stable. Continue Protonix. NICM : No acute Intervention H/O HFpEF : Currently compensated H/O HTN : Continue chlothalidone,hydralazine H/O Hypothyroidism : Continue Levothyroxine. Attestations Medical Necessity Statement*: Patient needs to be in hospital for the management of anemia,anticipated LOS Greater then 2 midnights. Coding Level of Care Code 71092 Diagnoses Anemia D64.9 Chronic heart failure I50.32 Heart failure type: diastolic Hypertension I10 Hypertension type: essential hypertension
[2022-05-27] MEDS: pantoprazole 40 mg SDV IVP (17:31)
[2022-05-27] MEDS: sodium chloride 0.9% 1,000 ML 75 ML IV (17:31)
--- NOTE | 2022-05-27 18:21 | PC.NURSE ---
Patient arrived to unit via wc from ED, no c/o pain or discomfort, requesting real food. VSS, AAOx4 with confusion, patient stated during intake that she did not receive covid vaccine and a few other items in take was incorrect as paperwork from Gregorio Mendes stated other hoffmann this nurse later discovered. No needs at this time. Room clean and clutter free with call light within reach.
--- NOTE | 2022-05-27 19:23 | PC.NURSE ---
NS paused for blood transfusion.
[2022-05-27] MEDS: hyDRALAzine 50 mg Tablet 75 MG PO (20:05)
[2022-05-27] MEDS: lanolin oint 7 gm 1 APPLIC TOPICAL (20:21)
[2022-05-27] MEDS: sodium chloride 0.9% 100 mL Bag 50 ML IV (23:32)
[2022-05-28] VITALS (8 sets, daily range): BP systolic 162–179; BP diastolic 70–88; PULSE 64–75; RESP 16–18; TEMP 36.7–37.2; O2SAT 94–98
[2022-05-28 03:57] LABS: Basophils # 0.1 10^3/uL (0.0-0.1); Eosinophils # 0.1 10^3/uL (0.0-0.8); Eosinophils % 1.4 %; Hematocrit 33.1 % (37.0-47.0); Hemoglobin 10.2 g/dL (11.5-15.3); Lymphocytes % 16.7 %; Mean Corpuscular HGB Conc 30.8 g/dL (30.0-36.0); Mean Corpuscular Hemoglobin 23.6 pg (28.0-34.0); Mean Corpuscular Volume 76.4 fl (81-99); Mean Platelet Volume 8.6 fL (7.4-10.4); Monocytes # 1.4 10^3/uL (0.2-0.9); Monocytes % 24.7 %; Neutrophils # 3.21 10^3/uL (1.8-7.7); Neutrophils % 55.7 %; Nucleated Red Blood Cells % 0 %; Platelet Count 474 10^3/cmm (130-400); Red Blood Count 4.33 10^6/uL (4.1-5.3); Red Cell Distribution Width 19.3 % (12.1-15.1); White Blood Count 5.8 10^3/uL (4.0-10.0)
[2022-05-28 04:17] LABS: Alanine Aminotransferase 8 U/L (0-33); Albumin Level 3.8 g/dL (3.5-5.2); Alkaline Phosphatase 49 U/L (35-105); Anion Gap 14.5 (5-19); Aspartate Amino Transferase 16 U/L (0-32); Blood Urea Nitrogen 17 mg/dL (8-23); Calcium 8.9 mg/dL (8.5-10.5); Carbon Dioxide 25 mmol/L (22-29); Chloride 98 mmol/L (98-107); Globulin 2.7 g/dL (1.3-4.6); Glucose 85 mg/dL (65-115); Osmolality Calculated 279 mOsm/kg (285-295); Potassium 3.5 mmol/L (3.5-5.1); Sodium 134 mmol/L (136-145); Total Bilirubin 1.5 mg/dL (0.15-1.2); Total Protein 6.5 g/dL (6.6-8.7)
[2022-05-28] MEDS: pantoprazole 40 mg SDV IVP (05:01)
[2022-05-28] MEDS: hyDRALAzine 50 mg Tablet 75 MG PO (09:46)
[2022-05-28] MEDS: chlorthalidone 25 mg Tablet PO (09:46)
[2022-05-28] MEDS: levothyroxine 50 mcg Tablet PO (09:46)
--- NOTE | 2022-05-28 10:24 | PM.DCS ---
Discharge Providers Date of Admission: 05/27/22 15:25 Date of Discharge: May 28, 2022 Attending Provider at Admission: Adonis Durán MD Attending Provider at Discharge: Adonis Durán MD Primary Care Provider: Scooby Ignacio MD Diagnoses at Discharge Discharge Diagnosis (1) Anemia: Status: Acute (2) Chronic heart failure: Status: Acute Qualifiers: Heart failure type: diastolic Qualified Code(s): I50.32 - Chronic diastolic (congestive) heart failure (3) Hypertension: Status: Acute Qualifiers: Hypertension type: essential hypertension Qualified Code(s): I10 - Essential (primary) hypertension Reason for Visit Reason for Visit: WEAKNESS, DIZZY Hospital Course Hospital Course 86 year old female with past medical history of nonischemic cardiomyopathy with an ejection fraction 50 %, diastolic heart failure, history of multiple CVAs, carotid artery stenosis, diffuse peripheral vascular disease, history of GI bleed with iron deficiency anemia, hypothyroidism, B12 deficiency, dyslipidemia, COPD, hypertension [facility] after [facility] found her hb to be 6.6.she denied any BRBPR,yonathan,hematuria,hematemesis.Currently she has also denied any chest pain,SOB,Palpitation,nausea,vomiting,abdominal pain.She does complain some dizziness. When I interacted with patient all she wanted was blood transfusion,so that she can fell better and return [facility].During the hospital stay she was transfused 2 units PRBC, posttransfusion H&H was stable, FOBT is positive, currently she do not want any active intervention.She was [facility] to [facility] in [facility] condition, she will follow, PCP oncology, and possible surgery for EGD as outpatient. Physical Exam Const: COMMON NORMALS: patient oriented x3 HENMT: COMMON NORMALS: normocephalic and atraumatic HEAD & SCALP: normocephalic and atraumatic Resp: COMMON NORMALS: normal respiratory effort, No retractions, No use of accessory muscles and clear to auscultation bilaterally EFFORT & INSPECTION: Yes symmetric chest movement AUSCULTATION: clear to auscultation bilaterally Cardio: COMMON NORMALS: regular rate, regular rhythm, S1 normal heart sound present, S2 normal heart sound present, No gallops present (Cardio), No murmurs present (Cardio), No rub (Cardio) and Peripheral pulses 2+ throughout RATE: regular rate RHYTHM: regular rhythm HEART SOUNDS: S1 normal heart sound present and S2 normal heart sound present PERIPHERAL PULSES: Peripheral pulses 2+ throughout GI: COMMON NORMALS: Normal to inspection, nondistended, normoactive bowel sounds present, Soft to palpation, non-tender, No hepatosplenomegaly present and no masses AUSCULTATION: Yes normoactive bowel sounds PALPATION: Yes Soft to palpation and Yes No hepatosplenomegaly present RECTAL EXAM: deferred Extremity: COMMON NORMALS: no clubbing, cyanosis or edema and no pedal edema Neuro: COMMON NORMALS: patient oriented x3 Discharge Data Studies Completed and Pending Pending at discharge Category Date Time Status Complete Blood Count w/Auto AM LABS Lab 05/29/22 04:00 Ordered Complete Blood Count w/Auto AM LABS Lab 05/30/22 04:00 Ordered Comprehensive Metabolic Panel AM LABS Lab 05/29/22 04:00 Ordered Comprehensive Metabolic Panel AM LABS Lab 05/30/22 04:00 Ordered Laboratory Results WBC 5.8 10^3/uL (4.0-10.0) 05/28/22 03:20 RBC 4.33 10^6/uL (4.1-5.3) 05/28/22 03:20 Hgb 10.2 g/dL (11.5-15.3) L D 05/28/22 03:20 Hct 33.1 % (37.0-47.0) L D 05/28/22 03:20 MCV 76.4 fl (81-99) L D 05/28/22 03:20 MCH 23.6 pg (28.0-34.0) L D 05/28/22 03:20 MCHC 30.8 g/dL (30.0-36.0) D 05/28/22 03:20 RDW 19.3 % (12.1-15.1) H 05/28/22 03:20 Plt Count 474 10^3/cmm (130-400) H 05/28/22 03:20 MPV 8.6 fL (7.4-10.4) 05/28/22 03:20 Neut % (Auto) 55.7 % 05/28/22 03:20 Lymph % (Auto) 16.7 % 05/28/22 03:20 [place] % (Auto) 24.7 % 05/28/22 03:20 Eos % (Auto) 1.4 % 05/28/22 03:20 Baso % (Auto) 1.0 % 05/28/22 03:20 Neut # (Auto) 3.21 10^3/uL (1.8-7.7) 05/28/22 03:20 Lymph # (Auto) 1.0 10^3/uL (0.8-4.8) 05/28/22 03:20 [place] # (Auto) 1.4 10^3/uL (0.2-0.9) H 05/28/22 03:20 Eos # (Auto) 0.1 10^3/uL (0.0-0.8) 05/28/22 03:20 Baso # (Auto) 0.1 10^3/uL (0.0-0.1) 05/28/22 03:20 Nucleated RBC % (auto) 0 % 05/28/22 03:20 Nucleated RBCs # 0.0 /100WBC 05/28/22 03:20 PT 12.20 SECONDS (12.1-14.9) 05/27/22 14:19 INR 0.88 (0.8-1.2) 05/27/22 14:19 APTT 32.2 SECONDS (23.9-36.7) 05/27/22 14:19 Sodium 134 mmol/L (136-145) L 05/28/22 03:20 Potassium 3.5 mmol/L (3.5-5.1) 05/28/22 03:20 Chloride 98 mmol/L (98-107) 05/28/22 03:20 Carbon Dioxide 25 mmol/L (22-29) 05/28/22 03:20 Anion Gap 14.5 (5-19) 05/28/22 03:20 BUN 17 mg/dL (8-23) 05/28/22 03:20 Creatinine 0.7 mg/dL (0.5-0.9) 05/28/22 03:20 GFR Calculation Not Reportable 05/28/22 03:20 Glucose 85 mg/dL (65-115) 05/28/22 03:20 Calculated Osmolality 279 mOsm/kg (285-295) L 05/28/22 03:20 Calcium 8.9 mg/dL (8.5-10.5) 05/28/22 03:20 Total Bilirubin 1.5 mg/dL (0.15-1.2) H 05/28/22 03:20 AST 16 U/L (0-32) 05/28/22 03:20 ALT 8 U/L (0-33) 05/28/22 03:20 Alkaline Phosphatase 49 U/L (35-105) 05/28/22 03:20 Total Protein 6.5 g/dL (6.6-8.7) L 05/28/22 03:20 Albumin 3.8 g/dL (3.5-5.2) 05/28/22 03:20 Globulin 2.7 g/dL (1.3-4.6) 05/28/22 03:20 Urine Color Straw (Yellow) 05/27/22 14:43 Urine Appearance Clear (CLEAR) 05/27/22 14:43 Urine pH 7 (5-7) 05/27/22 14:43 Ur Specific [place] 1.005 (1.005-1.030) 05/27/22 14:43 Urine Protein Neg (Negative) 05/27/22 14:43 Urine Glucose (UA) Norm (Normal) 05/27/22 14:43 Urine Ketones Negative (Negative) 05/27/22 14:43 Urine Blood Neg (Negative) 05/27/22 14:43 Urine Nitrate Negative (Negative) 05/27/22 14:43 Urine Bilirubin Neg (Negative) 05/27/22 14:43 Urine Urobilinogen Norm mg/dL (Negative) 05/27/22 14:43 Ur Leukocyte Esterase Negative (Negative) 05/27/22 14:43 Blood Type A Negative 05/27/22 14:40 Rho(D) Type Negative 05/27/22 14:40 Antibody Screen Negative 05/27/22 14:40 Crossmatch See Detail 05/27/22 14:40 Vitals Last Vital Signs Temp 98.0 F 05/28/22 08:00 Pulse 64 05/28/22 08:00 Resp 16 05/28/22 08:00 BP 179/86 05/28/22 08:00 Pulse Ox 98 05/28/22 08:00 O2 Del Method 05/28/22 08:00 Discharge Plan Discharge Patient Disposition: Home Condition: Stable Prescriptions: Continued levothyroxine 50 mcg capsule 50 mcg PO DAILY famotidine 20 mg tablet 20 mg PO DAILY potassium chloride 20 mEq tablet,ER particles/crystals 20 meq PO DAILY atorvastatin 20 mg tablet 20 mg PO DAILY Qty: 30 5RF clopidogrel 75 mg tablet 75 mg PO DAILY Qty: 90 3RF Hold Instructions: Resume on 01/16/20. hydralazine 50 mg tablet 75 mg PO TID ferrous sulfate 325 mg (65 mg iron) tablet 325 mg PO EVERY OTHER DAY pantoprazole 40 mg Tablet,Delayed Release (Dr/Ec) 40 mg PO DAILY Qty: 30 0RF oxycodone-acetaminophen [Percocet] 5-325 mg tablet 1 tab PO Q8H PRN (Reason: pain) Qty: 8 0RF acetaminophen 325 mg Tablet 650 mg PO QID PRN (Reason: Pain) loperamide 2 mg Capsule 4 mg PO Q6H PRN (Reason: Diarrhea) chlorthalidone 25 mg Tablet 25 mg PO DAILY Milk of Magnesia 400 mg/5 mL Suspension 15 ml PO DAILY PRN (Reason: Constipation) bisacodyl 10 mg Suppository 10 mg AK DAILY PRN (Reason: Constipation) lidocaine 5 % Adhesive Patch,Medicated 1 patch TOPICAL DAILY Rx Instructions: leave on most painful area for up to 12 hrs furosemide 20 mg Tablet 20 mg PO DAILY PRN (Reason: Edema) alum-mag hydroxide-simeth 200-200-20 mg/5 mL Suspension 15 ml PO QID PRN (Reason: Acid Reflux) Rx Instructions: administer between meals and at bedtime cholecalciferol (vitamin D3) 1,250 mcg (50,000 unit) capsule 1,250 mcg PO Q7D camphor-menthol 0.2-3.5 % Gel 1 applic TOPICAL DAILY PRN (Reason: Pain) Rx Instructions: rub in gently and completely Senna Plus 8.6-50 mg Tablet 1 tab-cap PO BID Discharge Orders: Discharge Order (Routine); Ordered 05/28/22 Ordered By: Adonis Durán Referrals: Scooby Ignacio MD [Primary Care Provider] - 06/06/22 3:10 pm Lei Gong MD [Hospitalist] - 1 week (Dr. Gong's office will call with your follow up appointment.) Patient Instructions: Anemia, Hypertension, Opioid Safety Discharge Attestations Time Spent in Discharge Care*: less than 30 min Status at Discharge: Cognitive status at discharge: cognitively intact, Behavioral status at discharge: cooperative, Quality Metrics Clinical Quality Measures [ No reported AMI, CVA or VTE this stay] Coding Level of Care Code Acute Code for Chg Fwd Diagnoses Anemia D64.9 Chronic heart failure I50.32 Heart failure type: diastolic Hypertension I10 Hypertension type: essential hypertension
== END 2022-05-28 11:15 | disposition home or self-care (01) | DRG 812 ==
LOC: ER 14:36 → MEDSURG 16:02
PROVIDERS: Admitting Provider Internal Medicine; Emergency Provider Family Medicine; PCP Family Medicine; Visit Provider Internal Medicine
DX: D64.9 Anemia, unspecified (principal); I50.32 Chronic diastolic (congestive) heart failure; I42.8 Other cardiomyopathies; I11.0 Hypertensive heart disease with heart failure; E03.9 Hypothyroidism, unspecified; E78.5 Hyperlipidemia, unspecified; J44.9 Chronic obstructive pulmonary disease, unspecified; I25.10 Atherosclerotic heart disease of native coronary artery without angina pectoris; I73.9 Peripheral vascular disease, unspecified; R19.5 Other fecal abnormalities; Z87.891 Personal history of nicotine dependence; Z79.02 Long term (current) use of antithrombotics/antiplatelets; Z79.899 Other long term (current) drug therapy; Z86.73 Personal history of transient ischemic attack (TIA), and cerebral infarction without residual deficits; Z87.19 Personal history of other diseases of the digestive system
CPT/HCPCS: 36415; 36430; 80053; 81003; 85025; 85610; 85730; 86850; 86900; 86920; 87086; 93005; 96360; 99285; C9113; J7030; P9016

== ENCOUNTER 2022-09-10 14:02 | Outpatient (CLI) | payer MEDICARE, OTHER, SELFPAY ==
[2022-09-10 14:15] LABS: Basophils % 0.6 %; Eosinophils # 0.2 10^3/uL (0.0-0.8); Eosinophils % 2.3 %; Hematocrit 37.2 % (37.0-47.0); Lymphocytes # 1.3 10^3/uL (0.8-4.8); Lymphocytes % 20.4 %; Mean Corpuscular HGB Conc 32.3 g/dL (30.0-36.0); Mean Corpuscular Hemoglobin 30.2 pg (28.0-34.0); Mean Corpuscular Volume 93.5 fl (81-99); Mean Platelet Volume 8.3 fL (7.4-10.4); Monocytes # 1.1 10^3/uL (0.2-0.9); Monocytes % 16.2 %; Neutrophils # 3.95 10^3/uL (1.8-7.7); Neutrophils % 60.2 %; Nucleated Red Blood Cells % 0 %; Platelet Count 492 10^3/cmm (130-400); Red Blood Count 3.98 10^6/uL (4.1-5.3); Red Cell Distribution Width 15.3 % (12.1-15.1); White Blood Count 6.6 10^3/uL (4.0-10.0)
[2022-09-10 15:57] LABS: Alanine Aminotransferase 14 U/L (0-33); Albumin Level 4.1 g/dL (3.5-5.2); Alkaline Phosphatase 68 U/L (35-105); Anion Gap 16.2 (5-19); Aspartate Amino Transferase 21 U/L (0-32); Blood Urea Nitrogen 17 mg/dL (8-23); Calcium 10.1 mg/dL (8.5-10.5); Carbon Dioxide 25 mmol/L (22-29); Chloride 91 mmol/L (98-107); Chol HDL Ratio 2.61 mg/dL (0.0-4.40); Cholesterol 214 mg/dL (0-200); Globulin 2.9 g/dL (1.3-4.6); Glucose 108 mg/dL (65-115); HDL Cholesterol 82 mg/dL (60-100); LDL Cholesterol Calculated 102 mg/dL (50-129); LDL HDL Ratio 1.24 RATIO (0.00-3.22); Osmolality Calculated 270 mOsm/kg (285-295); Potassium 3.2 mmol/L (3.5-5.1); Sodium 129 mmol/L (136-145); Thyroid Stimulating Hormone 0.47 uIU/mL (0.27-4.20); Total Bilirubin 0.2 mg/dL (0.15-1.2); Triglycerides 149 mg/dL (0-150)
== END 2022-09-10 14:03 | disposition home or self-care (01) ==
LOC: LAB 14:03
PROVIDERS: PCP Family Medicine; Visit Provider Family Medicine
DX: Z01.89 Encounter for other specified special examinations (principal); D64.9 Anemia, unspecified; I10 Essential (primary) hypertension; N39.0 Urinary tract infection, site not specified
CPT/HCPCS: 80053; 80061; 84443; 85025

== ENCOUNTER 2022-10-12 13:59 | Outpatient (CLI) | payer MEDICARE, OTHER, SELFPAY ==
[2022-10-12 14:36] LABS: Anion Gap 13.5 (5-19); Blood Urea Nitrogen 19 mg/dL (8-23); Calcium 9.8 mg/dL (8.5-10.5); Carbon Dioxide 29 mmol/L (22-29); Chloride 94 mmol/L (98-107); Glucose 86 mg/dL (65-115); Osmolality Calculated 278 mOsm/kg (285-295); Potassium 3.5 mmol/L (3.5-5.1); Sodium 133 mmol/L (136-145)
== END 2022-10-12 14:00 | disposition home or self-care (01) ==
PROVIDERS: PCP Family Medicine; Visit Provider Family Medicine
DX: I10 Essential (primary) hypertension (principal)
CPT/HCPCS: 80048

== ENCOUNTER 2022-12-03 15:05 | Outpatient (CLI) | payer MEDICARE, OTHER, SELFPAY ==
[2022-12-03 15:23] LABS: Add Urine Culture? Yes; Add Urine Microscopic? YES; Bacteria Urine 4+ /hpf; Bilirubin Urine Neg (Negative); Blood Urine Neg (Negative); Glucose Urine UA Norm (Normal); Ketones Urine Negative (Negative); Leukocyte Esterase Urine 1+ (Negative); Nitrate Urine Positive (Negative); Protein Urine Neg (Negative); RBC Urine 0-4 /hpf (0-2); Squamous Epithelial Cell Urine 0-4 /hpf (0-5); Urine Appearance Hazy (CLEAR); Urine Color Yellow (Yellow); Urobilinogen Urine Norm (Negative); WBC Urine 15-25 /hpf (0-5); pH Urine 7 (5-7)
== END 2022-12-03 15:06 | disposition home or self-care (01) ==
LOC: LAB 15:06
PROVIDERS: PCP Family Medicine; Visit Provider Family Medicine
DX: Z01.89 Encounter for other specified special examinations (principal)
CPT/HCPCS: 81001; 87077; 87086; 87186

== ENCOUNTER 2022-12-13 14:51 | Observation (INO) | payer MEDICARE, OTHER, SELFPAY ==
[2022-12-13 14:53] VITALS: BP 182/111; PULSE 73; RESP 18; TEMP 36.8; O2SAT 94; BMI 17.4
--- NOTE | 2022-12-13 15:05 | XRR_ITS ---
PROCEDURE INFORMATION: Exam: XR Left Hip Exam date and time: 12/13/2022 3:13 PM Age: 87 years old Clinical indication: Injury or trauma; Fall; Blunt trauma (contusions or hematomas); Left; Prior surgery; Surgery date: 6+ months; Surgery type: Allan hip; Additional info: Fall trauma TECHNIQUE: Imaging protocol: Radiologic exam of the left hip. 3image(s) are provided. Views: 2 or 3 views hip with pelvis when performed. COMPARISON: 1. CT abdomen pelvis w con* [id number] 06/11/2020 2:[address] lumbar report of 12/05/2021. 2. CR XR hip LT 2-3V wo/w pel* [id number] 03/03/2020 9:22 AM 3. OT XR hip LT 2-3V wo/w pel* [id number] 01/17/2020 7:23 PM 4. CR XR hip LT 2-3V wo/w pel* [id number] 01/16/2020 8:25 PM FINDINGS: Tubes, catheters and devices: The surgical intramedullary hardware appears similar overall in orientation in the interval. There is some subtle lateral offset at the femoral neck hardware although the orientation is similar compared to the perioperative appearance.No definite interval periprosthetic lucency is currently appreciated. Bones/joints: There is some chronic appearing and similar shortened appearance about the left femoral neck. The right hip hardware appears similar overall with maintained alignment. There are some fractured right superior cerclage wires albeit similar overall. The sacral arcuate lines appear grossly maintained albeit with some obscuration. There is some chronic appearing sclerosis about the left intertrochanteric margins similar overall. This may be subtly increased. There is some chronic appearing degeneration about the lumbosacral junction disc spaces. There is some subtle subchondral cystic related change for example about the subcapital femoral neck level. There is some subtle increased sclerosis at the intertrochanteric margin on the rotated view. There is some subtle cortical irregularity and lucency for example about the left aspect of the pubic symphysis. No displaced fracture is otherwise currently appreciated. Soft tissues: No radiopaque foreign body or subcutaneous emphysema is appreciated. There is some prominence of the soft tissues about the left hip. There are some chronic soft tissue calcifications present. Vasculature: There are atherosclerotic vascular calcifications present. Other findings: No other significant interval changes are appreciated. XR/XR hip LT 2-3V wo/w pel* [id number] IMPRESSION: There is some chronic postsurgical and shortened appearance about the left femoral neck with overall similar hardware alignment. No interval dislocation is appreciated with some aspects of the cortex obscured. In addition there is some subtle lucency and slight irregularity about the left aspect of the pubic symphysis in the interval. Some nondisplaced interval injury could also present in this fashion. Consider CT of the pelvis for overall further evaluation.
[2022-12-13 15:15] VITALS: BP 189/89; RESP 18; O2SAT 100
--- NOTE | 2022-12-13 16:57 | CTR_ITS ---
PROCEDURE INFORMATION: Exam: CT Pelvis Without Contrast Exam date and time: 12/13/2022 5:12 PM Age: 87 years old Clinical indication: Abnormal findings; Abnormal imaging test; Prior surgery; Surgery date: 6+ months; Surgery type: Allan hip; Additional info: Fall, trauma--radiologist recommendation TECHNIQUE: Imaging protocol: Computed tomography of the pelvis without contrast. Radiation optimization: All CT scans at this facility use at least one of these dose optimization techniques: automated exposure control; mA and/or kV adjustment per patient size (includes targeted exams where dose is matched to clinical indication); or iterative reconstruction. REPORTING DATA: Count of CT and Cardiac NM exams in prior 12 months: This patient has received 0 known CTs and 0 known cardiac nuclear medicine studies in the 12 months prior to the current study. COMPARISON: 1. CT abdomen pelvis w con* [id number] 06/11/2020 2:[address] lumbar spine wo con* [id number] 12/05/2021 1:13 PM 3. CR (PELVIS, ) 12/13/2022 3:13 PM RADIATION DOSE METRICS: Total DLP (mGy-cm): 421 FINDINGS: Stomach and bowel: Colonic diverticulosis. Appendix: No evidence of appendicitis. Intraperitoneal space: Unremarkable. No free air. No significant fluid collection. Vasculature: Heavy atherosclerotic calcification. Lymph nodes: Unremarkable. No enlarged lymph nodes. Urinary bladder: Visualized portions unremarkable. Partially obscured by metallic streak artifact. Reproductive: Unremarkable as visualized. Bones/joints: Diffusely decreased mineralization with acute nondisplaced left pubic fracture, axial image 57 of series 4, coronal image 22 of series 16. Stable superior L4 vertebral body compression fracture. Lower lumbar spine degenerative changes. Stable partially visualized postsurgical changes from prior right hip arthroplasty and left femoral nail fixation. Soft tissues: Unremarkable. CT/CT pelvis wo con [id number] IMPRESSION: 1. Acute nondisplaced left parasymphyseal pubic fracture. 2. Stable bilateral hip postsurgical changes without evidence of acute bony abnormality.
[2022-12-13 17:21] VITALS: BP 169/98; PULSE 70; RESP 20; O2SAT 90
[2022-12-13 19:00] VITALS: BP 164/87; PULSE 72; RESP 16; O2SAT 90
--- NOTE | 2022-12-13 19:22 | W.ED.EXTPRO ---
HPI - Extremity Problem General: Chief complaint: Extremity Problem,Nontraumatic Stated complaint: Fall Time Seen by Provider: 12/13/22 14:54 History of Present Illness: 87-year-old female presents emerged part with complaints of a fall. She states that she was sitting in a chair and fell past the chair onto a hard floor and had immediate left hip pain. She states that she is unable to stand and if she does her pain is a 10 out of 10 sharp and stabbing. She states she has a longstanding history of hip fractures and is concerned that she may have broken her hip. She states she also has an abrasion to her left knee. She states she does live at assisted living. She states that moving her left leg makes the pain worse and remaining still makes the pain better. She denies loss of consciousness or change in mental status. She denies headache or neck pain. Review of Systems General: Reports: 10 or more systems reviewed and unremarkable except in HPI and below Musc: Reports: extremity pain and joint pain [facility] ED PFSH: Medical History Acute kidney injury Anemia Anemia Anemia due to blood loss Arterial ischemic stroke, multifocal, multiple vascular territories, chronic Atypical chest pain Benign essential HTN Bradycardia Asymptomatic. None noted prior to discharge. Carotid artery disease Carotid artery stenosis with cerebral infarction over 8 weeks ago Had CVA in August 2018-is being followed by Dr. Mae Cerebral vascular accident Chest wall hematoma Chronic heart failure Compression fracture Cystitis Dilated cardiomyopathy Epistaxis Frequent PVCs Gastroenteritis GI bleed History of multiple cerebrovascular accidents (CVAs) Hyperlipemia Hypertension Ischemic cardiomyopathy Kidney calculi Multiple lacunar infarcts Myocardial infarct Nonischemic cardiomyopathy Obstructive pyelonephritis Peripheral vascular disease Syncope Urolithiasis Surgical History History of colonoscopy History of esophagogastroduodenoscopy (EGD) Family History Father Cancer, Onset Age: 90 Colon cancer Mother Dementia Denies family history of Diabetes CAD (coronary artery disease) Clotting disorder Chronic kidney disease (CKD) Suicide Anesthesia complication Bleeding disorder Lung disease Hypertension Stroke Social History Smoking and tobacco/nicotine status: former use of tobacco/nicotine Alcohol intake: current Alcohol intake frequency: 0-2 Drinks per Day Alcohol type: wine Substance/Drug Use: never Adopted: No Caregiver/support person: No Lives independently: No Marital status: / Current occupational status: retired Current gender identity: Female Physical Exam Narrative: EXAM NARRATIVE: Constitutional: the patient appears well nourished and with normal developement. Vital signs reviewed as documented. HENMT: Normocephalic, atraumatic. Extermal ears with normal appearance without drainage. Nose without drainage, normal appearance. Mucus membranes moist. Neck is supple, No jugular venous distension, trachea is midline, no appreciable carotid bruits. No lymphadenopathy. No meningeal signs. Flexion, extension and lateral rotation is without pain. Eyes: Pupils are equal, round, reactive to light and accomidation. No scleral icterus. Extra-ocular movement are intact. Thorax is symmetrical and with equal rise and fall with respirations. Resp: Lungs are clear to auscultation. No wheezes, rales, crackles or ronchi at pesent. Cardio: Regular rate and rhythm. Positive S1, S2. No appreciable murmurs, rubs or gallops. GI: Abdominal exam reveals normal bowel sounds to all quadrants. No organomegaly. No obvious palpable masses noted. No hepatomegaly appreciated. Soft, nontender to palpation. Extremity: Extremities are non-edematous and both femoral and pedal pulses are 2+ and equal bilaterally. Left extremity manipulation results and significant increased pain to the left hip area consistent with closed fracture., sensation in all extremities. Neuro: Alert and oriented x4, person, place, time and situation. Cranial nerves II through XII are grossly intact, there is no focal neurological deficits that I can appreciate at present. Motor strength in the upper and lower extremities are equal and bilateral 5/5. Psych: Cooperative, calm, normal thought process, appropriate judgment. Skin: No lesions, rashes. No gross abnormalities noted. Back: Symmetrical, no obvious deformity, No CVA tenderness Extremity: LEFT LOWER EXTREMITY: Yes hip joint Left hip: Yes palpation (Pain to palpation left hip) and Yes upper leg Course Vital Signs: Vital signs: Vital Signs Temperature 98.2 F 12/15/22 11:16 Pulse Rate 69 12/15/22 11:16 Respiratory Rate 18 12/15/22 11:16 Blood Pressure 135/78 12/15/22 11:16 Pulse Oximetry 91 12/15/22 11:16 Oxygen Delivery Me thod Room Air 12/15/22 11:16 MDM - Extremity (Nontraumatic) Medical Decision Making Physical exam completed and documented, we will obtain a CBC, CMP, coagulation studies as well as a radiographic evaluation given the patient's reproducible left hip pain. Medical Records I reviewed the patient's medical records. Lab Data I reviewed the patient's lab results. 12/13/22 21:44 12/13/22 21:44 Radiology Impressions Hip/Pelvis X-Ray 12/13/22 15:05 IMPRESSION: There is some chronic postsurgical and shortened appearance about the left femoral neck with overall similar hardware alignment. No interval dislocation is appreciated with some aspects of the cortex obscured. In addition there is some subtle lucency and slight irregularity about the left aspect of the pubic symphysis in the interval. Some nondisplaced interval injury could also present in this fashion. Consider CT of the pelvis for overall further evaluation. Pelvis CT 12/13/22 16:57 IMPRESSION: 1. Acute nondisplaced left parasymphyseal pubic fracture. 2. Stable bilateral hip postsurgical changes without evidence of acute bony abnormality. Pelvis X-Ray 12/14/22 17:33 IMPRESSION: 1. Negative for acute fracture or dislocation, decreased bone mineral density somewhat limits evaluation, if concern for acute fracture remains clinically consider further evaluation with a CT scan 2. Lumbar spine degenerative disc space disease. 3. Right hip arthroplasty changes in place. 4. Left proximal femur surgical hardware in place. 5. Scattered vascular calcifications. All radiology interpretation(s) finalized by discharge Discharge Plan Discharge Patient Disposition: Placed in Observation Admit Provider: Dora Burgos Clinical Impression: Fracture of left pelvis, Fall, Acute hyponatremia Discharge Diet: Usual diet Discharge Activity: Resume usual activity Coding Level of Care Code ED French Drawer for Kristyn Aviles
--- NOTE | 2022-12-13 21:06 | P.HP_ITS ---
Providers/Chief Complaint Admitting Physician: Dora Burgos MD Primary Care Provider: Ronaldo Pizano DO Chief Complaint: Fall History of Present Illness Irma Reid is a 87 year old female with history of hypertension hyperlipidemia anemia congestive heart failure dilated cardiomyopathy cerebrovascular accident peripheral vascular disease compression fractures was brought in by EMS after she fell in the assisted facility. As per the patient she was trying to sit on the chair, and slipped from the edge of the chair and landed on her left hip. Following which she was unable to get up and was complaining of pain in the left hip and lower extremity. She denied any episode of fever cold cough chest pain shortness of breath dizziness or urinary complaints.. Review of Systems Narrative: As per HPI Medications/Allergies Home Medications Medication Instructions Recorded Confirmed Last Taken Type levothyroxine 50 mcg capsule 50 mcg PO DAILY 03/26/19 11/12/22 06/11/20 History atorvastatin 20 mg tablet 20 mg PO DAILY #30 tabs 01/01/20 11/12/22 06/10/20 Rx ferrous sulfate 325 mg (65 mg 325 mg PO EVERY OTHER DAY 06/11/20 11/12/22 06/10/20 History iron) tablet hydralazine 50 mg tablet 75 mg PO TID 06/11/20 11/12/22 06/11/20 History pantoprazole 40 mg tablet,delayed 40 mg PO DAILY #30 tabs 06/12/20 11/12/22 Unknown Rx release potassium chloride 20 mEq 20 meq PO DAILY 10/21/20 11/12/22 Unknown History tablet,extended release(part/cryst) clopidogrel 75 mg tablet 75 mg PO DAILY #90 tabs 03/01/21 11/12/22 Unknown Rx oxycodone-acetaminophen 5 mg-325 1 tab PO Q8H PRN pain #8 tabs 12/05/21 11/12/22 Unknown Rx mg tablet (Percocet) acetaminophen 325 mg tablet 650 mg PO QID PRN Pain 05/27/22 11/12/22 Unknown History aluminum-mag hydroxide-simethicone 15 ml PO QID PRN Acid Reflux 05/27/22 11/12/22 Unknown History 200 mg-200 mg-20 mg/5 mL oral susp bisacodyl 10 mg rectal suppository 10 mg MO DAILY PRN Constipation 05/27/22 11/12/22 Unknown History camphor-menthol 0.2 %-3.5 % 1 applic topical DAILY PRN Pain 05/27/22 11/12/22 Unknown History topical gel chlorthalidone 25 mg tablet 25 mg PO DAILY 05/27/22 11/12/22 Unknown History cholecalciferol (vitamin D3) 1,250 1,250 mcg PO Q7D 05/27/22 11/12/22 Unknown History mcg (50,000 unit) capsule loperamide 2 mg capsule 4 mg PO Q6H PRN Diarrhea 05/27/22 11/12/22 Unknown History magnesium hydroxide 400 mg/5 mL 15 ml PO DAILY PRN Constipation 05/27/22 11/12/22 Unknown History oral suspension (Milk of Magnesia) sennosides 8.6 mg-docusate sodium 1 tab-cap PO BID 05/27/22 11/12/22 Unknown History 50 mg tablet (Senna Plus) lidocaine 5 % topical patch 1 patch topical DAILY #60 ea 08/03/22 11/12/22 Unknown Rx nitrofurantoin 100 mg PO Q12H 7 days #14 caps 12/07/22 Unknown Rx monohydrate/macrocrystals 100 mg capsule (Macrobid) Allergies Allergy/AdvReac Type Severity Reaction Status Date / Time meperidine [From Demerol] Allergy ADR-Anxiety Verified 09/15/22 10:12 cilostazol AdvReac Intermediate ADR-Dizzine Verified 09/15/22 10:12 ss PFSH Acute PFSH: Medical History Acute kidney injury Anemia Anemia Anemia due to blood loss Arterial ischemic stroke, multifocal, multiple vascular territories, chronic Atypical chest pain Benign essential HTN Bradycardia Asymptomatic. None noted prior to discharge. Carotid artery disease Carotid artery stenosis with cerebral infarction over 8 weeks ago Had CVA in August 2018-is being followed by Dr. Mae Cerebral vascular accident Chest wall hematoma Chronic heart failure Compression fracture Cystitis Dilated cardiomyopathy Epistaxis Frequent PVCs Gastroenteritis GI bleed History of multiple cerebrovascular accidents (CVAs) Hyperlipemia Hypertension Ischemic cardiomyopathy Kidney calculi Multiple lacunar infarcts Myocardial infarct Nonischemic cardiomyopathy Obstructive pyelonephritis Peripheral vascular disease Syncope Urolithiasis Surgical History History of colonoscopy History of esophagogastroduodenoscopy (EGD) Family History Father Cancer, Onset Age: 90 Colon cancer Mother Dementia Denies family history of Diabetes CAD (coronary artery disease) Clotting disorder Chronic kidney disease (CKD) Suicide Anesthesia complication Bleeding disorder Lung disease Hypertension Stroke Social History Smoking and tobacco/nicotine status: former use of tobacco/nicotine Alcohol intake: current Alcohol intake frequency: 0-2 Drinks per Day Alcohol type: wine Substance/Drug Use: never Adopted: No Caregiver/support person: No Lives independently: No Marital status: / Current occupational status: retired Current gender identity: Female Vitals/I&O/Wt Last Vital Signs Temp 98.3 F 12/13/22 14:53 Pulse 72 12/13/22 19:00 Resp 16 12/13/22 19:00 BP 164/87 12/13/22 19:00 Pulse Ox 90 12/13/22 19:00 O2 Del Method Room Air 12/13/22 19:00 Weight last 48 hrs Weight 43.091 kg Physical Exam Narrative: She is alert awake oriented x3 pleasant and cooperative not in acute distress, reports pain on movement of left lower extremity Chest clear to auscultation bilaterally Cardiovascular normal heart sounds no murmurs Abdomen NAD Extremities no edema noted bilaterally restriction of movements in left lower extremity Data Xray Ortho: Radiologist's impression: X-ray left hip with pelvis IMPRESSION: There is some chronic postsurgical and shortened appearance about the left femoral neck with overall similar hardware alignment. No interval dislocation is appreciated with some aspects of the cortex obscured. In addition there is some subtle lucency and slight irregularity about the left aspect of the pubic symphysis in the interval. Some nondisplaced interval injury could also present in this fashion. Consider CT of the pelvis for overall further evaluation. ? Other CT: Radiologist's impression: CT pelvis without contrast IMPRESSION: 1. ? Acute nondisplaced left parasymphyseal pubic fracture. 2. ? Stable bilateral hip postsurgical changes without evidence of acute bony abnormality. ? A&P Assessment and plan (1) Fracture of left pelvis: (2) Fall: Plan 87 year old female with history of hypertension hyperlipidemia anemia congestive heart failure dilated cardiomyopathy cerebrovascular accident peripheral vascular disease compression fractures was brought in by EMS after she fell in the assisted facility. As per the patient she was trying to sit on the chair, and slipped from the edge of the chair and landed on her left hip with complaint of unable to get up and pain in the left lower extremity likely secondary to left parasymphyseal pubic fracture. No surgical intervention needed at this time as per Ortho consult from ER Admit for observation Will do IV morphine 2 mg every 4 hours as needed for pain control PT eval in a.m. Social work consult in a.m. for rehab placement Resume home medications IV Pepcid 20 mg twice a day for stress ulcer prophylaxis Subcutaneous Lovenox 30 mg daily for DVT prophylaxis She is DNR as per discussion Attestations Medical Necessity Statement*: She needs less than 2 midnights of hospitalization since she is here for nondisplaced pelvic fracture to be managed conservatively with pain control and physical therapy, social work for rehab placement Time Spent in Patient Care: 25 minutes Coding Level of Care Code Acute Code for [facility] Fwd Diagnoses Fracture of left pelvis S32.9XXA Fall W19.XXXA Time Spent (min) 25
[2022-12-13 21:17] VITALS: BP 167/89; PULSE 55; RESP 16; TEMP 36.6; O2SAT 91
[2022-12-13] MEDS: enoxaparin 30 mg/0.3 mL Syringe SUBCUT (21:34)
[2022-12-13 21:50] LABS: Basophils % 0.2 %; Eosinophils # 0.1 10^3/uL (0.0-0.8); Eosinophils % 0.7 %; Lymphocytes # 0.8 10^3/uL (0.8-4.8); Lymphocytes % 8.6 %; Mean Corpuscular HGB Conc 30.9 g/dL (30-55); Mean Corpuscular Hemoglobin 30.5 pg (27-33); Mean Corpuscular Volume 98.9 fl (85-98); Monocytes # 1.6 10^3/uL (0.2-0.9); Monocytes % 17.7 %; Neutrophils # 6.35 10^3/uL (1.8-7.7); Neutrophils % 72.3 %; Nucleated Red Blood Cells % 0 %; Platelet Count 335 10^3/cmm (157-399); Red Blood Count 3.54 10^6/uL (3.85-5.65); Red Cell Distribution Width 14.8 % (12.1-15.1); White Blood Count 8.77 10^3/uL (3.29-11.43)
[2022-12-13] MEDS: pantoprazole 40 mg SDV IVP (21:53)
[2022-12-13 22:11] LABS: Alanine Aminotransferase 14 U/L (0-33); Albumin Level 3.9 g/dL (3.5-5.2); Alkaline Phosphatase 55 U/L (35-105); Aspartate Amino Transferase 20 U/L (0-32); Blood Urea Nitrogen 17 mg/dL (8-23); Calcium 9.5 mg/dL (8.5-10.5); Carbon Dioxide 21 mmol/L (22-29); Chloride 93 mmol/L (98-107); Globulin 2.5 g/dL (1.3-4.6); Glucose 100 mg/dL (65-115); Magnesium 1.6 mg/dL (1.7-2.3); Osmolality Calculated 268 mOsm/kg (285-295); Phosphorus 2.8 mg/dL (2.5-4.5); Sodium 128 mmol/L (136-145); Total Bilirubin 0.3 mg/dL (0.15-1.2); Total Protein 6.4 g/dL (6.6-8.7)
[2022-12-13 22:15] LABS: Anion Gap 17.3 (5-19); Potassium 3.3 mmol/L (3.5-5.1)
[2022-12-13 23:57] VITALS: BP 146/78; PULSE 72; RESP 14; TEMP 36.6; O2SAT 94
[2022-12-14 04:00] VITALS: BP 147/76; PULSE 63; RESP 14; TEMP 36.6; O2SAT 95
--- NOTE | 2022-12-14 07:28 | PC.PHAR ---
WAITING ON APR FROM FACILITY TO COMPLETE MED REC CALLED AT 7:30 AM
[2022-12-14] MEDS: levothyroxine 50 mcg Tablet PO (07:40)
[2022-12-14] MEDS: sennosides-docusate Tablet 1 TAB PO ×2 (07:40→17:04)
[2022-12-14] MEDS: pantoprazole 40 mg SDV IVP ×2 (07:41→21:30)
[2022-12-14] MEDS: atorvastatin 40 mg Tablet PO (07:41)
[2022-12-14] MEDS: chlorthalidone 25 mg Tablet PO (07:41)
[2022-12-14] MEDS: clopidogrel 75 mg Tablet PO (07:41)
[2022-12-14] MEDS: hyDRALAzine 50 mg Tablet 75 MG PO ×3 (07:41→21:30)
[2022-12-14 07:56] VITALS: BP 152/64; PULSE 61; RESP 18; TEMP 36.8; O2SAT 92
--- NOTE | 2022-12-14 09:52 | PC.CHAP ---
Pastoral Care Encounter/Spiritual Assessment Type of Contact [] Declined panelboard operator visit [] Patient/Family/Request visit [] Outpatient visit [] Follow-up visit [] Physician referral [] Code/Alert [x] Routine visit [] Staff referral [] Actively dying [] Patient sleeping [] Family support [] [] Out of room [] Palliative care [] [] Receiving care in room [] Pre-surgical visit [] Trauma [] Long length of stay [] ICU visit [] Other: Relational/Emotional Strength [x] Patient feels connected with others/family/visitors/staff [] Distress [] Loneliness/isolation [] Abandonment Spirituality of Patient [x] Person of Helga [] Attends Oriental Orthodox of their Helga [x] Believes in Prayer [] Reads Bible or Hoahaoism materials [] There are Spiritual issues to be addressed Sample Book Maker Interventions [x] Prayer [x] Active listening [] Non-anxious presence [] Spiritual/emotional support [] Crisis/trauma care [x] Spiritual counseling [] Bereavement support [] Provided bereavement packet [] Provided Bible/devotional materials [] Provided toy/stuffed animal, coloring book to patient or family member [] Provided Communion [] Anointing/Bowman [] Salvation [] Completed spiritual assessment [] Other: Impact on Illness or Injury [] Angry [] Fearful [] Anxious [] Often cries [] Exhaustion [] Unable to work [] Unable to attend holiness [] Unable to walk/stand [] Unable to read [] Unable to drive [] Unable to eat/drink [] Unable to sleep [] Unable to be with family [] Patient intubated [] Other: Summary Time spent with patient 15 min
[2022-12-14 11:41] VITALS: BP 175/91; PULSE 75; RESP 16; TEMP 36.7; O2SAT 93
--- NOTE | 2022-12-14 14:56 | PM.PN ---
Subjective Subjective: No new complaints today. Awaiting therapy and orthopedic assessment. States that pain is well controlled currently. Vitals/I&O/Wt Last Vital Signs Temp 98.1 F 12/14/22 11:41 Pulse 75 12/14/22 11:41 Resp 16 12/14/22 11:41 BP 175/91 12/14/22 11:41 Pulse Ox 93 12/14/22 11:41 O2 Del Method Room Air 12/14/22 04:00 12/13/22 12/14/22 12/14/22 22:59 06:59 14:59 Intake Total 420 / 420 Output Total 0 / 0 150 / 150 Balance 0 / 0 -150 / -150 420 / 420 Weight last 48 hrs Weight 43.091 kg Physical Exam Narrative: General: No acute distress, AO x3 HEENT: PERRLA, pupils bilaterally equal and reactive, pallors not present Chest: Normal vesicular breath sounds, no added sounds, equal good air entry bilaterally CVS: S1-S2 regular, no murmurs, no tachycardia, no gallops, no rubs Abdomen: Soft, nontender, no organomegaly, bowel sounds present Neuro: No focal deficits, no facial deformity, AO x3, power 5/5 in all limbs Data 12/13/22 21:44 12/13/22 21:44 A&P Assessment and plan (1) Fracture of left pelvis: (2) Fall: Plan 87 year old female with history of hypertension hyperlipidemia anemia congestive heart failure dilated cardiomyopathy cerebrovascular accident peripheral vascular disease compression fractures was brought in by EMS after she fell in the assisted facility. Currently has a left parasymphyseal pubic fracture. Awaiting ortho evealuation and PT evaluation Pain is currently well controlled continue IV morphine 2 mg every 4 hours as needed for pain control continue home medications IV Pepcid 20 mg twice a day for stress ulcer prophylaxis Subcutaneous Lovenox 30 mg daily for DVT prophylaxis She is DNR Attestations Medical Necessity Statement*: awaiting orthopedics and therapy evalutaions Coding Level of Care Code Acute Code for [facility] Fwd Straight Forward/Low MDM includes number and complexity of problems actively addressed during encounter, amount and/or complexity of data reviewed/ordered and described risk of complication, morbidity or mortality of management as documented Diagnoses Fracture of left pelvis S32.9XXA Fall W19.XXXA
[2022-12-14] MEDS: potassium chloride ER 20 mEq Tablet PO (15:52)
[2022-12-14] MEDS: acetaminophen 325 mg Tablet 650 MG PO (15:52)
[2022-12-14 16:00] VITALS: BP 162/70; PULSE 68; RESP 17; TEMP 36.5; O2SAT 92
--- NOTE | 2022-12-14 17:17 | P.CONIM_ITS ---
Patient was seen and examined in addition with PA. Agree with PAs assessment and plan. We will have a baseline AP pelvis inlet and outlet x-ray views ordered she has a minimally displaced left parasymphysis fracture this is where she point tender to palpation and where she experiences her pain when she ambulates. She is able to tolerate logroll bilaterally and no tenderness to palpation of the bilateral hips but tenderness palpation over her left pubic symphysis. At this point in time reviewed her CT scan there is no evidence of an unstable pelvic ring injury. At this point time pelvic ring is stable would recommend weightbearing as tolerated as well as DVT prophylaxis given she will likely have decreased ambulation status from her baseline. Recommend Citracal vitamin D supplementation. We will follow-up with orthopedics in 2 weeks in the outpatient setting. No further orthopedic surgical intervention required at this time orthopedic surgery team will sign off and follow peripherally. Any questions pertaining to care feel free to Contact us. Marvin Noble DO Providers/Reason For Consult Consulting Physician/Specialty*: Dr. Real STANLEY/orthopedic surgeon Reason for Consult*: Fracture of left pelvis Requesting Physician: Dr. Espinoza emergency department Attending Physician: Jessie Martin MD Primary Care Provider: Ronaldo Pizano DO History of Present Illness History of Present Illness Irma Reid is a 87 year old female that had a fall at her assisted living facility yesterday and was complaining of left hip pain. Patient states that she was getting up from her table and her leg slipped out and she fell and hit the floor. Patient was ambulating with a walker before fall. Patient is on Plavix daily. She was seen at the emergency department and CT of hip showed a acute nondisplaced left parasymphyseal pubic fracture. Orthopedics was called in for consult. Patient denies any fevers, chills, abdominal pain, nausea/vomiting or bladder symptoms. Endorses having chronic constipation. Review of Systems Const: Denies: fever(s) or chills GI: Reports: constipation (chronic); Denies: abdominal pain, nausea or vomiting : Denies: difficulty voiding Musc: Reports: joint pain (left hip) Medications/Allergies Home Medications Medication Instructions Recorded Confirmed Last Taken Type levothyroxine 50 mcg capsule 50 mcg PO DAILY 03/26/19 12/14/22 06/11/20 History atorvastatin 20 mg tablet 20 mg PO DAILY #30 tabs 01/01/20 12/14/22 06/10/20 Rx ferrous sulfate 325 mg (65 mg 325 mg PO EVERY OTHER DAY 06/11/20 12/14/22 History iron) tablet hydralazine 50 mg tablet 75 mg PO TID 06/11/20 12/14/22 06/11/20 History pantoprazole 40 mg tablet,delayed 40 mg PO DAILY #30 tabs 06/12/20 12/14/22 Unknown Rx release potassium chloride 20 mEq 20 meq PO DAILY 10/21/20 12/14/22 Unknown History tablet,extended release(part/cryst) clopidogrel 75 mg tablet 75 mg PO DAILY #90 tabs 03/01/21 12/14/22 Unknown Rx acetaminophen 325 mg tablet 650 mg PO QID PRN Pain 05/27/22 12/14/22 Unknown History aluminum-mag hydroxide-simethicone 15 ml PO QID PRN Acid Reflux 05/27/22 12/14/22 Unknown History 200 mg-200 mg-20 mg/5 mL oral susp bisacodyl 10 mg rectal suppository 10 mg DE DAILY PRN Constipation 05/27/22 12/14/22 Unknown History camphor-menthol 0.2 %-3.5 % 1 applic topical DAILY PRN Pain 05/27/22 12/14/22 Unknown History topical gel chlorthalidone 25 mg tablet 25 mg PO DAILY 05/27/22 12/14/22 Unknown History cholecalciferol (vitamin D3) 1,250 1,250 mcg PO Q7D 05/27/22 12/14/22 Unknown History mcg (50,000 unit) capsule loperamide 2 mg capsule 4 mg PO Q6H PRN Diarrhea 05/27/22 12/14/22 Unknown History magnesium hydroxide 400 mg/5 mL 15 ml PO DAILY PRN Constipation 05/27/22 12/14/22 Unknown History oral suspension (Milk of Magnesia) sennosides 8.6 mg-docusate sodium 1 tab-cap PO BID 05/27/22 12/14/22 Unknown History 50 mg tablet (Senna Plus) lidocaine 5 % topical patch 1 patch topical DAILY #60 ea 08/03/22 12/14/22 Unknown Rx nitrofurantoin 100 mg PO Q12H 7 days #14 caps 12/07/22 12/14/22 Unknown Rx monohydrate/macrocrystals 100 mg capsule (Macrobid) sodium chloride 1,000 mg soluble 1,000 mg PO DAILY 12/14/22 12/14/22 Unknown History tablet Allergies Allergy/AdvReac Type Severity Reaction Status Date / Time meperidine [From Demerol] Allergy ADR-Anxiety Verified 12/14/22 08:18 cilostazol AdvReac Intermediate ADR-Dizzine Verified 12/14/22 08:18 ss Current Medications Generic Name Dose Route Start Last Admin Trade Name Freq PRN Reason Stop Dose Admin Acetaminophen 650 mg 12/14/22 15:08 12/14/22 15:52 Acetaminophen 325 Mg Tablet PO 650 mg Q4H PRN Administration MILD PAIN OR INCREASE TEMP Atorvastatin Calcium 40 mg 12/14/22 09:00 12/14/22 07:41 Atorvastatin 40 Mg Tablet PO 40 mg DAILY MO Administration Chlorthalidone 25 mg 12/14/22 09:00 12/14/22 07:41 Chlorthalidone 25 Mg Tablet PO 25 mg DAILY MO Administration Clopidogrel Bisulfate 75 mg 12/14/22 09:00 12/14/22 07:41 Clopidogrel 75 Mg Tablet PO 75 mg DAILY MO Administration Enoxaparin Sodium 30 mg 12/13/22 21:30 12/13/22 21:34 Enoxaparin 30 Mg/0.3 Ml Syringe SUBCUT 30 mg Q24H MO Administration Hydralazine HCl 75 mg 12/14/22 09:00 12/14/22 14:12 Hydralazine 50 Mg Tablet PO 75 mg TID MO Administration Levothyroxine Sodium 50 mcg 12/14/22 09:00 12/14/22 07:40 Levothyroxine 50 Mcg Tablet PO 50 mcg DAILY MO Administration Pantoprazole Sodium 40 mg 12/13/22 21:45 12/14/22 07:41 Pantoprazole 40 Mg Sdv IVP 40 mg Q12H MO Administration Senna/Docusate Sodium 1 tab 12/14/22 09:00 12/14/22 17:04 Sennosides-Docusate Tablet PO 1 tab BID MO Administration PFSH Acute PFSH: Medical History Acute kidney injury Anemia Anemia Anemia due to blood loss Arterial ischemic stroke, multifocal, multiple vascular territories, chronic Atypical chest pain Benign essential HTN Bradycardia Asymptomatic. None noted prior to discharge. Carotid artery disease Carotid artery stenosis with cerebral infarction over 8 weeks ago Had CVA in August 2018-is being followed by Dr. Mae Cerebral vascular accident Chest wall hematoma Chronic heart failure Compression fracture Cystitis Dilated cardiomyopathy Epistaxis Frequent PVCs Gastroenteritis GI bleed History of multiple cerebrovascular accidents (CVAs) Hyperlipemia Hypertension Ischemic cardiomyopathy Kidney calculi Multiple lacunar infarcts Myocardial infarct Nonischemic cardiomyopathy Obstructive pyelonephritis Peripheral vascular disease Syncope Urolithiasis Surgical History History of colonoscopy History of esophagogastroduodenoscopy (EGD) Family History Father Cancer, Onset Age: 90 Colon cancer Mother Dementia Denies family history of Diabetes CAD (coronary artery disease) Clotting disorder Chronic kidney disease (CKD) Suicide Anesthesia complication Bleeding disorder Lung disease Hypertension Stroke Social History Smoking and tobacco/nicotine status: former use of tobacco/nicotine Alcohol intake: current Alcohol intake frequency: 0-2 Drinks per Day Alcohol type: wine Substance/Drug Use: never Adopted: No Caregiver/support person: No Lives independently: No Marital status: / Current occupational status: retired Current gender identity: Female Vitals/I&O/Wt Last Vital Signs Temp 97.7 F 12/14/22 16:00 Pulse 68 12/14/22 16:00 Resp 17 12/14/22 16:00 BP 162/70 12/14/22 16:00 Pulse Ox 92 12/14/22 16:00 O2 Del Method Room Air 12/14/22 04:00 12/14/22 12/14/22 12/14/22 06:59 14:59 22:59 Intake Total 420 / 420 Output Total 150 / 150 Balance -150 / -150 420 / 420 Weight last 48 hrs Weight 95 lb Physical Exam Const: COMMON NORMALS: patient oriented x3 and alert HENMT: COMMON NORMALS: atraumatic HEAD & SCALP: atraumatic Resp: EFFORT & INSPECTION: Yes able to speak in complete sentences, No respiratory distress and No labored Extremity: NARRATIVE EXTREMITY EXAM: Left leg?dry dressing over guerra of leg. Leg is not shortened or externally rotated. Tenderness to palpation of left groin and greater trochanteric. Patient can dorsiflex and plantarflex foot. Patient Attempted to perform straight leg raise but was unable to due to pain. Pedal pulse 2+. Toes are warm and well-perfused with a normal cap refill under 2 seconds. Secondary assessment of extremities Right leg?no signs of any trauma. patient able to perform straight leg raise wit h no difficulty or pain. Patient can dorsiflex and plantarflex foot. Pedal pulse 2+ and toes are warm and well-perfused with normal cap refill under 2 seconds. Upper extremities bilaterally-no signs of trauma. Patient has full range of motion in shoulders, elbows and wrist with no pain. Radial pulse 2+ Neuro: COMMON NORMALS: patient oriented x3 SENSORIUM/ORIENTATION: Yes alert Skin: GENERAL SKIN EXAM: dry skin Data 12/13/22 21:44 12/13/22 21:44 A&P Assessment and plan (1) Fracture of left pelvis: (2) Fall: Plan Plan: -Imaging and Labs reviewed -We are ordering updated hip/pelvis xrays. -Hospitalist on board for medical management. -VTE prophylaxis per medicine (lovenox) -Weight-bear as tolerated -PT -Pain control Patient has a nondisplaced left parasymphyseal pubic fracture. This fracture is nonoperative.Patient can weight-bear as tolerated and physical therapy will be needed. Recommend patient being on a blood thinner per medicine for for clot prevention. Since no Surgical intervention needed, Ortho signs off care with patient and we can follow peripherally as needed. Coding Level of Care Code Acute Code for [facility] Diagnoses Fracture of left pelvis S32.9XXA Fall W19.XXXA
--- NOTE | 2022-12-14 17:33 | XRR_ITS ---
PROCEDURE INFORMATION: Exam: XR Pelvis Exam date and time: 12/14/2022 6:17 PM Age: 87 years old Clinical indication: Injury or trauma; Fall; Sprain or strain; Bilateral; Prior surgery; Surgery date: 6+ months; Surgery type: Bi hip; Additional info: Pubic rami fracture, ap pelvis, inlet, outlet TECHNIQUE: Imaging protocol: Radiologic exam of the pelvis. Views: 1 or 2 view. COMPARISON: CT pelvis con [id number] 12/13/2022 5:12 PM FINDINGS: Bones/joints: Lumbar spine degenerative disc space disease. Right hip arthroplasty changes in place. Left proximal femur surgical hardware in place. Soft tissues: Unremarkable. Vasculature: Scattered vascular calcifications. XR/XR pelvis min 3V [id number] IMPRESSION: 1. Negative for acute fracture or dislocation, decreased bone mineral density somewhat limits evaluation, if concern for acute fracture remains clinically consider further evaluation with a CT scan 2. Lumbar spine degenerative disc space disease. 3. Right hip arthroplasty changes in place. 4. Left proximal femur surgical hardware in place. 5. Scattered vascular calcifications.
[2022-12-14 20:00] VITALS: BP 123/75; PULSE 69; RESP 14; TEMP 36.4; O2SAT 93
[2022-12-14] MEDS: enoxaparin 30 mg/0.3 mL Syringe SUBCUT (21:30)
[2022-12-14 23:38] VITALS: BP 126/80; PULSE 63; RESP 14; TEMP 36.8; O2SAT 94
[2022-12-15 03:46] VITALS: BP 159/76; PULSE 75; RESP 15; TEMP 36.7; O2SAT 94
[2022-12-15] MEDS: acetaminophen 325 mg Tablet 650 MG PO (05:04)
[2022-12-15 07:53] VITALS: BP 104/63; PULSE 82; RESP 16; TEMP 36.7; O2SAT 91
[2022-12-15] MEDS: atorvastatin 40 mg Tablet PO (07:59)
[2022-12-15] MEDS: levothyroxine 50 mcg Tablet PO (07:59)
[2022-12-15] MEDS: sennosides-docusate Tablet 1 TAB PO (07:59)
[2022-12-15] MEDS: clopidogrel 75 mg Tablet PO (07:59)
[2022-12-15] MEDS: ferrous sulfate EC 325 mg Tablet PO (07:59)
[2022-12-15] MEDS: hyDRALAzine 50 mg Tablet 75 MG PO (07:59)
[2022-12-15] MEDS: pantoprazole 40 mg SDV IVP (08:00)
--- NOTE | 2022-12-15 10:36 | PM.DCS ---
Discharge Providers Date of Admission: 12/13/22 19:54 Date of Discharge: December 15, 2022 Attending Provider at Admission: Dora Burgos MD Attending Provider at Discharge: Jessie Martin MD Primary Care Provider: Ronaldo Pizano DO Diagnoses at Discharge Discharge Diagnosis (1) Fracture of left pelvis: Status: Acute (2) Fall: Status: Acute Reason for Visit Reason for Visit: Fall Hospital Course Hospital Course Irma Reid is a 87 year old female with history of hypertension hyperlipidemia anemia congestive heart failure dilated cardiomyopathy cerebrovascular accident peripheral vascular disease was brought in by EMS after she fell in the assisted facility. Currently has a? left parasymphyseal pubic fracture, minimally displaced. Followup CT was obtained - no evidence of an unstable pelvic ring injury. She was seen by orthopedics, recommended weightbearing as tolerated along with DVT ppx. No surgical intervention currently indicated. Physical therapy evaluated the patient. She is being discharged today to assisted living facility in stable condition. Pain is well controlled. She is being started on DVT prophylaxis with Eliquis 2.5 mg BID for next 2 weeks. Past history review shows Hb of 6.5 in 04/2022, patient declined endoscopic evaluation at the time. recommend to check HB in 4-7 days after starting eliquis in addition to already being on plavix to ensure hb is stable. CChlorthalidone held at discharge due to hyponatremia. Discussed with PCP Dr. Pizano Physical Exam Narrative: General: No acute distress, AO x3 HEENT: PERRLA, pupils bilaterally equal and reactive, pallors not present Chest: Normal vesicular breath sounds, no added sounds, equal good air entry bilaterally CVS: S1-S2 regular, no murmurs, no tachycardia, no gallops, no rubs Abdomen: Soft, nontender, no organomegaly, bowel sounds present Neuro: No focal deficits, no facial deformity, AO x3, power 5/5 in all limbs Discharge Data Studies Completed and Pending Completed Studies During Hospitalization Category Date Time Status CT pelvis wo con [id number] Stat Cat Scan 12/13/22 16:57 Completed XR hip LT 2-3V wo/w pel* [id number] Stat Exams 12/13/22 15:05 Completed XR pelvis min 3V [id number] Routine Exams 12/14/22 17:33 Completed Radiology Impressions Hip/Pelvis X-Ray 12/13/22 15:05 IMPRESSION: There is some chronic postsurgical and shortened appearance about the left femoral neck with overall similar hardware alignment. No interval dislocation is appreciated with some aspects of the cortex obscured. In addition there is some subtle lucency and slight irregularity about the left aspect of the pubic symphysis in the interval. Some nondisplaced interval injury could also present in this fashion. Consider CT of the pelvis for overall further evaluation. Pelvis CT 12/13/22 16:57 IMPRESSION: 1. Acute nondisplaced left parasymphyseal pubic fracture. 2. Stable bilateral hip postsurgical changes without evidence of acute bony abnormality. Pelvis X-Ray 12/14/22 17:33 IMPRESSION: 1. Negative for acute fracture or dislocation, decreased bone mineral density somewhat limits evaluation, if concern for acute fracture remains clinically consider further evaluation with a CT scan 2. Lumbar spine degenerative disc space disease. 3. Right hip arthroplasty changes in place. 4. Left proximal femur surgical hardware in place. 5. Scattered vascular calcifications. Laboratory Results WBC 8.77 10^3/uL (3.29-11.43) 12/13/22 21:44 RBC 3.54 10^6/uL (3.85-5.65) L 12/13/22 21:44 Hgb 10.80 g/dL (11.27-16.99) L 12/13/22 21:44 Hct 35.0 % (36-47) L 12/13/22 21:44 MCV 98.9 fl (85-98) H 12/13/22 21:44 MCH 30.5 pg (27-33) 12/13/22 21:44 MCHC 30.9 g/dL (30-55) 12/13/22 21:44 RDW 14.8 % (12.1-15.1) 12/13/22 21:44 Plt Count 335 10^3/cmm (157-399) 12/13/22 21:44 MPV 8.0 fL (7.4-10.4) 12/13/22 21:44 Neut % (Auto) 72.3 % 12/13/22 21:44 Lymph % (Auto) 8.6 % 12/13/22 21:44 [place] % (Auto) 17.7 % 12/13/22 21:44 Eos % (Auto) 0.7 % 12/13/22 21:44 Baso % (Auto) 0.2 % 12/13/22 21:44 Neut # (Auto) 6.35 10^3/uL (1.8-7.7) 12/13/22 21:44 Lymph # (Auto) 0.8 10^3/uL (0.8-4.8) 12/13/22 21:44 [place] # (Auto) 1.6 10^3/uL (0.2-0.9) H 12/13/22 21:44 Eos # (Auto) 0.1 10^3/uL (0.0-0.8) 12/13/22 21:44 Baso # (Auto) 0.0 10^3/uL (0.0-0.1) 12/13/22 21:44 Nucleated RBC % (auto) 0 % 12/13/22 21:44 Nucleated RBCs # 0.0 /100WBC 12/13/22 21:44 Sodium 128 mmol/L (136-145) L 12/13/22 21:44 Potassium 3.3 mmol/L (3.5-5.1) L 12/13/22 21:44 Chloride 93 mmol/L (98-107) L 12/13/22 21:44 Carbon Dioxide 21 mmol/L (22-29) L 12/13/22 21:44 Anion Gap 17.3 (5-19) 12/13/22 21:44 BUN 17 mg/dL (8-23) 12/13/22 21:44 Creatinine 0.6 mg/dL (0.5-0.9) 12/13/22 21:44 GFR Calculation Not Reportable 12/13/22 21:44 Glucose 100 mg/dL (65-115) 12/13/22 21:44 Calculated Osmolality 268 mOsm/kg (285-295) L 12/13/22 21:44 Calcium 9.5 mg/dL (8.5-10.5) 12/13/22 21:44 Phosphorus 2.8 mg/dL (2.5-4.5) 12/13/22 21:44 Magnesium 1.6 mg/dL (1.7-2.3) L 12/13/22 21:44 Total Bilirubin 0.3 mg/dL (0.15-1.2) 12/13/22 21:44 AST 20 U/L (0-32) 12/13/22 21:44 ALT 14 U/L (0-33) 12/13/22 21:44 Alkaline Phosphatase 55 U/L (35-105) 12/13/22 21:44 Total Protein 6.4 g/dL (6.6-8.7) L 12/13/22 21:44 Albumin 3.9 g/dL (3.5-5.2) 12/13/22 21:44 Globulin 2.5 g/dL (1.3-4.6) 12/13/22 21:[address]: Radiologist's impression: CT/CT pelvis wo con [id number] IMPRESSION: 1. ? Acute nondisplaced left parasymphyseal pubic fracture. 2. ? Stable bilateral hip postsurgical changes without evidence of acute bony abnormality. Vitals Last Vital Signs Temp 98.1 F 12/15/22 07:53 Pulse 82 12/15/22 07:53 Resp 16 12/15/22 07:53 BP 104/63 12/15/22 07:53 Pulse Ox 91 12/15/22 07:53 O2 Del Method Room Air 12/15/22 07:53 Discharge Plan Discharge Patient Disposition: Home Condition: Stable Prescriptions: New Eliquis 2.5 mg tablet 2.5 mg PO BID 14 Days Qty: 28 0RF Continued levothyroxine 50 mcg capsule 50 mcg PO DAILY potassium chloride 20 mEq tablet,ER particles/crystals 20 meq PO DAILY atorvastatin 20 mg tablet 20 mg PO DAILY Qty: 30 5RF clopidogrel 75 mg tablet 75 mg PO DAILY Qty: 90 3RF Hold Instructions: Resume on 01/16/20. lidocaine 5 % adhesive patch,medicated 1 patch TOPICAL DAILY Qty: 60 5RF Rx Instructions: may use one patch to affected area q12 hours as needed for pain. nitrofurantoin monohyd/m-cryst [Macrobid] 100 mg capsule 100 mg PO Q12H 7 Days Qty: 14 0RF Rx Instructions: must administer with a meal/food hydralazine 50 mg tablet 75 mg PO TID ferrous sulfate 325 mg (65 mg iron) tablet 325 mg PO EVERY OTHER DAY pantoprazole 40 mg Tablet,Delayed Release (Dr/Ec) 40 mg PO DAILY Qty: 30 0RF sodium chloride 1,000 mg tablet,soluble 1,000 mg PO DAILY acetaminophen 325 mg Tablet 650 mg PO QID PRN (Reason: Pain) loperamide 2 mg Capsule 4 mg PO Q6H PRN (Reason: Diarrhea) magnesium hydroxide [Milk of Magnesia] 400 mg/5 mL Suspension 15 ml PO DAILY PRN (Reason: Constipation) bisacodyl 10 mg Suppository 10 mg [place] DAILY PRN (Reason: Constipation) alum-mag hydroxide-simeth 200-200-20 mg/5 mL Suspension 15 ml PO QID PRN (Reason: Acid Reflux) Rx Instructions: administer between meals and at bedtime cholecalciferol (vitamin D3) 1,250 mcg (50,000 unit) capsule 1,250 mcg PO Q7D camphor-menthol 0.2-3.5 % Gel 1 applic TOPICAL DAILY PRN (Reason: Pain) Rx Instructions: rub in gently and completely sennosides-docusate sodium [Senna Plus] 8.6-50 mg Tablet 1 tab-cap PO BID Held chlorthalidone 25 mg Tablet 25 mg PO DAILY Hold Instructions: Resume on 12/29/22. after follow up with Dr. Pizano Discharge Orders: Discharge Order (Routine); Ordered 12/15/22 Ordered By: Jessie Martin Other Ambulatory Orders: Complete Blood Count w/Auto (Routine) Timeframe: 1 Week Location: Determined by Patient Ordered By: Jessie Martin Comprehensive Metabolic Panel (Routine) Timeframe: 1 Week Facility: [facility] - Location: Lab - Main Lab Ordered By: Jessie Martin Referrals: Ronaldo Pizano DO [Primary Care Provider] - 4-7 days (We have notified your physician's clinic of the need for a follow-up appointment to be scheduled. If you have not heard from them within the next 2 business days, please call them directly. You may also reach out to our b2b sales manager at [phone] and she can assist you.) Discharge Diet: Usual diet Discharge Activity: Resume usual activity Patient Instructions: Opioid Safety Discharge Attestations Time Spent in Discharge Care*: greater than 30 min Status at Discharge: Cognitive status at discharge: cognitively intact, Behavioral status at discharge: cooperative, Quality Metrics Clinical Quality Measures [ No reported AMI, CVA or VTE this stay] Coding Level of Care Code Acute Code for Chg Fwd Diagnoses Fracture of left pelvis S32.9XXA Fall W19.XXXA
[2022-12-15 11:16] VITALS: BP 135/78; PULSE 69; RESP 18; TEMP 36.8; O2SAT 91
== END 2022-12-15 13:09 | disposition home or self-care (01) ==
LOC: ER 19:26 → MEDSURG 19:54
PROVIDERS: Admitting Provider Internal Medicine; Emergency Provider Internal Medicine; PCP Family Medicine; Visit Provider Student in an Organized Health Care Education/Training Program
DX: S32.9XXA Fracture of unspecified parts of lumbosacral spine and pelvis, initial encounter for closed fracture (principal); W19.XXXA Unspecified fall, initial encounter; E78.5 Hyperlipidemia, unspecified; D64.9 Anemia, unspecified; I11.0 Hypertensive heart disease with heart failure; I50.9 Heart failure, unspecified; I42.0 Dilated cardiomyopathy; Z86.73 Personal history of transient ischemic attack (TIA), and cerebral infarction without residual deficits; Z79.02 Long term (current) use of antithrombotics/antiplatelets; Z87.891 Personal history of nicotine dependence; Z66 Do not resuscitate
CPT/HCPCS: 36415; 72190; 72192; 73502; 80053; 83735; 84100; 85025; 96372; 96374; 97161; 97530; 99285; C9113; G0378; J1650

== ENCOUNTER 2023-02-21 22:33 | Outpatient (CLI) | payer MEDICARE, OTHER, SELFPAY ==
[2023-02-21 22:58] LABS: Add Urine Microscopic? YES; Bilirubin Urine Neg (Negative); Blood Urine Neg (Negative); Glucose Urine UA Norm (Normal); Ketones Urine Negative (Negative); Leukocyte Esterase Urine 2+ (Negative); Nitrate Urine Negative (Negative); Protein Urine Neg (Negative); Sulfosalicylic Acid Urine Negative (Negative); Urine Color Yellow (Yellow); Urobilinogen Urine Norm (Negative); pH Urine 8 (5-7)
[2023-02-21 22:59] LABS: Bacteria Urine TRACE /hpf; RBC Urine 0-4 /hpf (0-2); Squamous Epithelial Cell Urine 0-4 /hpf (0-5); WBC Urine 55-80 /hpf (0-5)
[2023-02-21 23:00] LABS: Add Urine Culture? No
[2023-02-21 23:01] LABS: Urine Appearance Hazy (CLEAR)
== END 2023-02-21 22:34 | disposition home or self-care (01) ==
PROVIDERS: PCP Family Medicine; Visit Provider Family Medicine
DX: Z01.89 Encounter for other specified special examinations (principal)
CPT/HCPCS: 81001; 87077; 87086; 87186

== ENCOUNTER → 2023-02-24 10:39 | Outpatient (BNVA) | payer MEDICARE, OTHER, SELFPAY | PROVIDERS: PCP Family Medicine; Visit Provider Physician Assistant | DX: S32.591A Other specified fracture of right pubis, initial encounter for closed fracture; W19.XXXA Unspecified fall, initial encounter | CPT/HCPCS: 72190; 99213 ==

== ENCOUNTER 2023-03-02 07:57 | Outpatient (CLI) | payer MEDICARE, OTHER, SELFPAY ==
--- NOTE | 2023-03-02 08:30 | CT_ITS ---
WS: [id number] CT PELVIS NONCONTRAST HISTORY: pelvis fx TECHNIQUE: Contiguous imaging is performed of the pelvis without contrast. Coronal and sagittal refor mats are reviewed. All CT scans at [facility] use at least one of these dose optimization arvin hniques: automated exposure control; mA and/or kV adjustment per patient size (includes targeted exam s where dose is matched to clinical indication); or iterative reconstruction. DLP: 225.40 mGy.cm COMPARISON: 12/13/2022, radiograph 02/24/2023 Diffuse marked osteopenia. Status post RIGHT hip arthroplasty with a long femoral stem. There is a cerclage wire across the prox imal femur. Very similar appearance to the prior study from 12/13/2022. No acute fracture. Screw and intramedullary emma fixation prior LEFT femur fracture appears unchanged. New sclerotic changes bilaterally in the sacrum consistent with sacral fractures. The distribution an d appearance is suggestive of a sacral insufficiency fracture. Age indeterminate but new since 2022. Fracture lines are still readily apparent. This fracture does appear to be acute to subacute. M ore likely subacute with partial healing. New sclerotic changes LEFT ischial tuberosity from a subacute healing fracture. Bilateral superior and inferior pubic rami fractures. There is sclerotic changes suggesting these are not particularly acute. There is partial callus formation noted suggesting subacute fractures. Fract ures are not completely healed. There is extensive atherosclerotic plaque within the femoral and iliac arteries. Mild diverticular di sease. IMPRESSION: 1. New sacral fracture. Distribution suggests sacral insufficiency fracture. There is callus formati on suggesting this is at least subacute. Fractures are new since 12/13/2022. 2. Bilateral superior and inferior pubic rami fractures. Incompletely healed fractures with callus f ormation suggesting subacute. 3. Severe osteopenia and marked atherosclerosis. 4. Prior ORIF RIGHT hip and LEFT hip appear similar to the prior examination. No acute fracture. 5. Subacute nondisplaced fracture LEFT ischial tuberosity.
== END 2023-03-02 07:58 | disposition home or self-care (01) ==
LOC: RAD 07:57
PROVIDERS: PCP Family Medicine; Visit Provider Physician Assistant
DX: S32.10XA Unspecified fracture of sacrum, initial encounter for closed fracture (principal); S32.9XXA Fracture of unspecified parts of lumbosacral spine and pelvis, initial encounter for closed fracture; S32.502A Unspecified fracture of left pubis, initial encounter for closed fracture; S32.501A Unspecified fracture of right pubis, initial encounter for closed fracture; S32.602A Unspecified fracture of left ischium, initial encounter for closed fracture; X58.XXXA Exposure to other specified factors, initial encounter; M85.88 Other specified disorders of bone density and structure, other site
CPT/HCPCS: 72192

== ENCOUNTER 2023-03-04 23:04 | Emergency (ER) | payer MEDICARE, OTHER, SELFPAY ==
[2023-03-04 23:07] VITALS: BP 208/108; PULSE 85; RESP 18; TEMP 36.7; O2SAT 98; BMI 17.4
--- NOTE | 2023-03-04 23:17 | ED_ITS ---
HPI - Back Pain/Injury General: Chief Complaint: Back Pain/Injury Stated Complaint: back pain Time Seen by Provider: 03/04/23 23:10 Source: patient Mode of arrival: EMS Limitations: no limitations History of Present Illness: Patient is a nice 87-year-old female presents to ED today via EMS for evaluation of mid back pain. Looking at previous documentation looks like patient suffered a left parasymphyseal pubic fracture back in November. When she followed up with orthopedics and had repeat imaging performed it looked like there were additional fractures present this pelvis CT imaging was obtained. This CT scan was just performed two days ago with results as follows: IMPRESSION: 1. New sacral fracture. Distribution barlow ggests sacral insufficiency fracture. There is callus formation suggesting this is at least subacute. Fractures are new since 12/13/2022. 2. Bilateral superior and inferior pubi c rami fractures. Incompletely healed fractures with callus formation suggesting subacute. 3. Severe osteopenia and marked atheros clerosis. 4. Prior ORIF RIGHT hip and LEFT hip ap pear similar to the prior examination. No acute fracture. 5. Subacute nondisplaced fracture LEFT ischial tuberosity. Patient is on nonweightbearing instructions per orthopedics until they review CT scan and schedule follow-up visit. Patient states she is here today for mid/thoracic back pain that has been bothering her over the past 10 days or so. Denies new injury or trauma. She does have a history of thoracic and lumbar back pains. Looking at previous imaging she has multiple old compression fractures to these areas. Patient has severe osteoporosis. She is not having any chest pain currently. Denies abdominal pain. Pain to her back is made worse with movement and palpation. No radicular symptoms. MD elicited complaint: back pain Pertinent past history: prior back pain Onset (ago): day(s) Timing: constant Severity: severe Similar Symptoms Previously: Yes Location: thoracic spine Radiation: none Exacerbating factors: movement Relieving factors: none Associated symptoms: Reports difficulty walking (secondary to pain; on non- weight bearing precautions currently); Deny abdominal pain, chills, dysuria, fatigue, fever(s), hematuria or syncope Work related injury: No Review of Systems Const: Denies: fever(s), chills, body aches, fatigue or malaise Card: Denies: chest pain, palpitations, irregular heart rhythm, edema, swelling of feet/ankles, lightheadedness, syncope, pre-syncope, dyspnea on exertion or orthopnea Resp: Denies: dyspnea GI: Denies: abdominal pain : Denies: flank pain, dysuria or hematuria Musc: Reports: back pain; Denies: neck pain, extremity pain, extremity swelling, joint pain or joint swelling Skin/Breast: Denies: rash Neuro: Reports: difficulty walking (secondary to pain; on non-weight bearing precautions currently); Denies: headache(s), numbness in extremities, weakness in extremities or sensory changes PFSH ED PFSH: Medical History Anemia Compression fracture Frequent PVCs Bradycardia Asymptomatic. None noted prior to discharge. Cystitis Anemia Gastroenteritis Dilated cardiomyopathy Arterial ischemic stroke, multifocal, multiple vascular territories, chronic Urolithiasis Obstructive pyelonephritis Anemia due to blood loss Syncope Carotid artery disease Epistaxis Peripheral vascular disease History of multiple cerebrovascular accidents (CVAs) Chest wall hematoma Nonischemic cardiomyopathy Acute kidney injury GI bleed Carotid artery stenosis with cerebral infarction over 8 weeks ago Had CVA in August 2018-is being followed by Dr. Mae Benign essential HTN Atypical chest pain Chronic heart failure Kidney calculi Myocardial infarct Cerebral vascular accident Hyperlipemia Hypertension Multiple lacunar infarcts Ischemic cardiomyopathy Surgical History History of colonoscopy History of esophagogastroduodenoscopy (EGD) Family History Father Cancer, Onset Age: 90 Colon cancer Mother Dementia Denies family history of Diabetes CAD (coronary artery disease) Clotting disorder Chronic kidney disease (CKD) Suicide Anesthesia complication Bleeding disorder Lung disease Hypertension Stroke Social History Smoking and tobacco/nicotine status: former use of tobacco/nicotine Alcohol intake: current Alcohol intake frequency: 0-2 Drinks per Day Alcohol type: wine Substance/Drug Use: never Adopted: No Caregiver/support person: No Lives independently: No Marital status: / Current occupational status: retired Current gender identity: Female Physical Exam Const: COMMON NORMALS: no acute distress, patient oriented x3, no limitations and alert GENERAL APPEARANCE: cooperative NUTRITIONAL APPEARANCE: thin and underweight ORIENTATION/CONSCIOUSNESS: Yes awake, Yes oriented to person, Yes oriented to place and Yes oriented to time OTHER: significantly frail appearing weighing roughly 90 pounds HENMT: COMMON NORMALS: normocephalic and atraumatic HEAD & SCALP: normal to inspection, normocephalic and atraumatic Neck/C-Spine: COMMON NORMALS: full ROM GENERAL: Yes normal visual inspection CERVICAL SPINE: No Cervical spine tenderness and No Paracervical muscle tenderness Chest: COMMONS NORMALS: normal inspection of the chest and normal palpation of entire chest wall Resp: COMMON NORMALS: normal respiratory effort and clear to auscultation bilaterally AUSCULTATION: clear to auscultation bilaterally Cardio: COMMON NORMALS: regular rate and regular rhythm RATE: regular rate RHYTHM: regular rhythm GI: COMMON NORMALS: Normal to inspection, nondistended, normoactive bowel sounds present, Soft to palpation and non-tender PALPATION: Yes Soft to palpation : COMMON NORMALS: Yes no CVA tenderness BLADDER/KIDNEY EXAM: Yes no CVA tenderness Back/Pelvis: COMMON NORMALS: no CVA tenderness THORACIC SPINE/UPPER BACK: Yes ROM limited, Yes thoracic spinal tenderness (mid to lower T spine; lidocaine patch present) and No paraspinal muscle tenderness LUMBAR SPINE/LOWER BACK: Yes lumbar spinal tenderness (upper lumbar spine) and No paraspinal muscle tenderness PELVIS: No sciatic notch tenderness SACROILIAC JOINTS: Yes SI joints normal SACRUM: no tenderness COCCYX: no tenderness Extremity: COMMON NORMALS: normal to inspection, full ROM, capillary refill normal, no joint enlargement, no clubbing, cyanosis or edema, no calf tenderness and no pedal edema GENERAL: Yes normal exam except as noted Neuro: COMMON NORMALS: patient oriented x3, moves all extremities, no focal motor deficits and no sensory deficits noted SENSORIUM/ORIENTATION: Yes alert, Yes oriented to person, Yes oriented to place and Yes oriented to time GAIT: Yes Unable to assess gait Course Vital Signs: Vital signs: Vital Signs Temperature 98.1 F 03/04/23 23:07 Pulse Rate 81 03/04/23 23:38 Respiratory Rate 16 03/04/23 23:38 Blood Pressure 176/94 03/04/23 23:38 Pulse Oximetry 96 03/04/23 23:38 Oxygen Delivery Me thod Room Air 03/04/23 23:38 MDM - Back Pain/Injury Medical Decision Making Patient here for midthoracic back pain. On her thoracic CT scan she has severe compression deformities of her T7 and T9 vertebral bodies. She has moderate compression deformities at T5 and T6. Some of these were present back in November although some of these have worsened since previous imaging. On her lumbar CT scan she has severe degenerative disease. She has chronic appearing bilateral sacral ala fractures. Patient just underwent CT pelvis imaging through the orthopedic clinic. She has multiple subacute appearing pelvic fractures. Patient is nonweightbearing per orthopedic instructions until they can follow-up with her following the CT report. I will place a case management referral to try to get her scheduled back to see them to go over these results. She will be provided pain medication that she can use for severe pain. She declines referral to see Dr. Monaco. Medical Records I reviewed the patient's medical records. Labs Radiology Impressions Lumbar Spine CT 03/04/23 23:20 IMPRESSION: 1. Severe degenerative disc disease at L4-L5 and L5-S1 and moderate degenerative disc disease at L2-L3. 2. Chronic appearing bilateral sacral ala fractures. Thoracic Spine CT 03/04/23 23:20 IMPRESSION: Severe compression deformity of the T7 and T9 vertebral bodies and [id number] compression deformity of the T5 and T6 vertebral bodies, age indeterminate. This has progressed at T9 but appears similar at T5, T6 and T7 when compared to the prior thoracic spine CT dated 12/05/2021. All radiology interpretation(s) finalized by discharge Discharge Plan Discharge Patient Disposition: Home Clinical Impression: Closed compression fracture of thoracic vertebra Qualifiers: Encounter type: initial encounter Qualified Code(s): S22.000A - Wedge compression fracture of unspecified thoracic vertebra, initial encounter for closed fracture Multiple pelvic fractures Qualifiers: Encounter type: initial encounter Fracture type: closed Fracture alignment: without disruption of pelvic ring Qualified Code(s): S32.82XA - Multiple fractures of pelvis without disruption of pelvic ring, initial encounter for closed fracture Condition: Stable Prescriptions: New hydrocodone-acetaminophen 5-325 mg tablet 1 tab PO Q6H PRN (Reason: pain) Qty: 14 0RF No Action levothyroxine 50 mcg capsule 50 mcg PO DAILY potassium chloride 20 mEq tablet,ER particles/crystals 20 meq PO DAILY atorvastatin 20 mg tablet 20 mg PO DAILY Qty: 30 5RF clopidogrel 75 mg tablet 75 mg PO DAILY Qty: 90 3RF Hold Instructions: Resume on 01/16/20. lidocaine 5 % adhesive patch,medicated 1 patch TOPICAL DAILY Qty: 60 5RF Rx Instructions: may use one patch to affected area q12 hours as needed for pain. nitrofurantoin monohyd/m-cryst [Macrobid] 100 mg capsule 100 mg PO Q12H 7 Days Qty: 14 0RF Rx Instructions: must administer with a meal/food hydralazine 50 mg tablet 75 mg PO TID ferrous sulfate 325 mg (65 mg iron) tablet 325 mg PO EVERY OTHER DAY pantoprazole 40 mg Tablet,Delayed Release (Dr/Ec) 40 mg PO DAILY Qty: 30 0RF sodium chloride 1,000 mg tablet,soluble 1,000 mg PO DAILY acetaminophen 325 mg Tablet 650 mg PO QID PRN (Reason: Pain) loperamide 2 mg Capsule 4 mg PO Q6H PRN (Reason: Diarrhea) chlorthalidone 25 mg Tablet 25 mg PO DAILY Hold Instructions: Resume on 12/29/22. after follow up with Dr. Pizano magnesium hydroxide [Milk of Magnesia] 400 mg/5 mL Suspension 15 ml PO DAILY PRN (Reason: Constipation) bisacodyl 10 mg Suppository 10 mg [place] DAILY PRN (Reason: Constipation) alum-mag hydroxide-simeth 200-200-20 mg/5 mL Suspension 15 ml PO QID PRN (Reason: Acid Reflux) Rx Instructions: administer between meals and at bedtime cholecalciferol (vitamin D3) 1,250 mcg (50,000 unit) capsule 1,250 mcg PO Q7D camphor-menthol 0.2-3.5 % Gel 1 applic TOPICAL DAILY PRN (Reason: Pain) Rx Instructions: rub in gently and completely sennosides-docusate sodium [Senna Plus] 8.6-50 mg Tablet 1 tab-cap PO BID Discharge Orders: Discharge ED (Routine); Ordered 03/05/23 Ordered By: Vandana Wright Referrals: Ronaldo Pizano DO [Primary Care Provider] - Patient Instructions: Opioid Safety, Pain Management Activity Restrictions/Additional Instructions: As we discussed your CT scan from 2 days ago showed multiple fractures in your pelvis most of which appear subacute. I would like you to continue non-weight bearing until you go over results with your certified medical coding specialist. I did place a case management referral to get you an appointment with them to go over your CT results. On today's imaging you have multiple thoracic compression fractures. Some of these are chronic and some of these appear worse today. I am sending a prescription for pain medication to your pharmacy of choice located at [address] [place] [address]. You may use his pain medication as needed for severe pain. Please follow-up with your primary care provider Dr. Pizano. We discussed a possible referral to orthopedic/sales recruitment specialist Dr. Monaco for the back but you declined. Coding Level of Care Code ED Babysitter for Kristyn Aviles
--- NOTE | 2023-03-04 23:20 | CTR_ITS ---
PROCEDURE INFORMATION: Exam: CT Thoracic Spine Without Contrast Exam date and time: 03/04/2023 11:40 PM Age: 87 years old Clinical indication: Pain in thoracic spine; Patient HX: EMS arrival from [facility] for back pain. No injury. History of multiple compression fractures. ; Additional info: Back pain, severe osteoporosis TECHNIQUE: Imaging protocol: Computed tomography of the thoracic spine without contrast. Radiation optimization: All CT scans at this facility use at least one of these dose optimization techniques: automated exposure control; mA and/or kV adjustment per patient size (includes targeted exams where dose is matched to clinical indication); or iterative reconstruction. COMPARISON: CT thoracic spin wo con* [id number] 12/05/2021 1:09 PM RADIATION DOSE METRICS: Total DLP (mGy-cm): 332.45 FINDINGS: Bones/joints: Severe compression deformity of the T7 and T9 vertebral bodies and [id number] compression deformity of the T5 and T6 vertebral bodies, age indeterminate. Soft tissues: Unremarkable. Vasculature: Atherosclerotic disease. CT/CT thoracic spin wo con* [id number] IMPRESSION: Severe compression deformity of the T7 and T9 vertebral bodies and [id number]-wt-[id number] compression deformity of the T5 and T6 vertebral bodies, age indeterminate. This has progressed at T9 but appears similar at T5, T6 and T7 when compared to the prior thoracic spine CT dated 12/05/2021.
--- NOTE | 2023-03-04 23:20 | CTR_ITS ---
PROCEDURE INFORMATION: Exam: CT Lumbar Spine Without Contrast Exam date and time: 03/04/2023 11:43 PM Age: 87 years old Clinical indication: Low back pain; Patient HX: [facility] arrival [facility] for [facility]. No injury. RT sub acute sacral fracture noted from pelvis CT 03/02/2023. ; Additional info: Back pain, severe osteoporosis TECHNIQUE: Imaging protocol: Computed tomography of the lumbar spine without contrast. Radiation optimization: All CT scans at this facility use at least one of these dose optimization techniques: automated exposure control; mA and/or kV adjustment per patient size (includes targeted exams where dose is matched to clinical indication); or iterative reconstruction. COMPARISON: CT lumbar spine wo con* [id number] 12/05/2021 1:13 PM RADIATION DOSE METRICS: Total DLP (mGy-cm): 308.13 FINDINGS: Bones/joints: Severe degenerative disc disease at L4-L5 and L5-S1 and moderate degenerative disc disease at L2-L3. Chronic appearing bilateral sacral ala fractures. Central vertebral body height loss at L4 is redemonstrated and similar to the prior lumbar spine CT dated 12/05/2021. Vasculature: Atherosclerotic disease. Soft tissues: Unremarkable. CT/CT lumbar spine wo con* [id number] IMPRESSION: 1. Severe degenerative disc disease at L4-L5 and L5-S1 and moderate degenerative disc disease at L2-L3. 2. Chronic appearing bilateral sacral ala fractures.
[2023-03-04 23:34] VITALS: RESP 16; O2SAT 97
[2023-03-04] MEDS: morphine 4 mg/mL SDV 1 mL IVP (23:34)
[2023-03-04 23:38] VITALS: BP 176/94; PULSE 81; RESP 16; O2SAT 96
[2023-03-05] MEDS: HYDROcodone-acetaminophen 5-325 mg Tablet 1 TAB PO (01:04)
[2023-03-05 01:19] VITALS: BP 165/83; PULSE 75; RESP 16; O2SAT 96
--- NOTE | 2023-03-06 07:51 | DCPLANNER ---
Message was sent to ortho on 03/06/23 at 0751 am. Clinic to contact patient
== END 2023-03-05 01:27 | disposition home or self-care (01) ==
PROVIDERS: Emergency Provider Physician Assistant; PCP Family Medicine
DX: S32.82XA Multiple fractures of pelvis without disruption of pelvic ring, initial encounter for closed fracture (principal); S22.060A Wedge compression fracture of T7-T8 vertebra, initial encounter for closed fracture; S22.070A Wedge compression fracture of T9-T10 vertebra, initial encounter for closed fracture; Z79.02 Long term (current) use of antithrombotics/antiplatelets; Z87.891 Personal history of nicotine dependence; Z86.73 Personal history of transient ischemic attack (TIA), and cerebral infarction without residual deficits; I25.5 Ischemic cardiomyopathy; I11.0 Hypertensive heart disease with heart failure; I50.9 Heart failure, unspecified; I25.2 Old myocardial infarction; E78.5 Hyperlipidemia, unspecified; X58.XXXA Exposure to other specified factors, initial encounter
CPT/HCPCS: 72128; 72131; 96374; 99284; J2270

== ENCOUNTER → 2023-03-16 10:30 | Outpatient (BNVA) | payer MEDICARE, OTHER, SELFPAY | PROVIDERS: PCP Family Medicine; Visit Provider Physician Assistant | DX: S32.592A Other specified fracture of left pubis, initial encounter for closed fracture; S32.591A Other specified fracture of right pubis, initial encounter for closed fracture; W19.XXXA Unspecified fall, initial encounter; M85.88 Other specified disorders of bone density and structure, other site | CPT/HCPCS: 99213 ==

== ENCOUNTER → 2023-04-07 08:40 | Outpatient (BNVA) | payer MEDICARE, OTHER, SELFPAY | PROVIDERS: PCP Family Medicine; Visit Provider Orthopaedic Surgery | DX: M48.54XA Collapsed vertebra, not elsewhere classified, thoracic region, initial encounter for fracture (principal); Z79.891 Long term (current) use of opiate analgesic | CPT/HCPCS: 72100; 99204 ==

== ENCOUNTER → 2023-04-21 08:12 | Outpatient (BNVA) | payer MEDICARE, OTHER, SELFPAY | PROVIDERS: PCP Family Medicine; Visit Provider Orthopaedic Surgery | DX: M48.54XA Collapsed vertebra, not elsewhere classified, thoracic region, initial encounter for fracture | CPT/HCPCS: 99213 ==

== ENCOUNTER → 2023-06-08 08:08 | Outpatient (BNVA) | payer MEDICARE, OTHER, SELFPAY | PROVIDERS: PCP Family Medicine; Visit Provider Orthopaedic Surgery | DX: S32.9XXA Fracture of unspecified parts of lumbosacral spine and pelvis, initial encounter for closed fracture (principal); M54.9 Dorsalgia, unspecified; X58.XXXA Exposure to other specified factors, initial encounter | CPT/HCPCS: 72072; 72100; 72190; 99213 ==

== ENCOUNTER 2023-06-16 09:36 | Outpatient (CLI) | payer MEDICARE, OTHER, SELFPAY ==
[2023-06-16 09:46] LABS: Basophils % 0.7 %; Eosinophils # 0.1 10^3/uL (0.0-0.8); Eosinophils % 1.7 %; Hematocrit 35.1 % (36-47); Lymphocytes % 24.8 %; Mean Corpuscular HGB Conc 32.8 g/dL (30-55); Mean Corpuscular Hemoglobin 29.7 pg (27-33); Mean Corpuscular Volume 90.7 fl (85-98); Mean Platelet Volume 8.5 fL (7.4-10.4); Monocytes # 0.8 10^3/uL (0.2-0.9); Monocytes % 19.3 %; Neutrophils # 2.23 10^3/uL (1.8-7.7); Nucleated Red Blood Cells % 0 %; Platelet Count 346 10^3/cmm (157-399); Red Blood Count 3.87 10^6/uL (3.85-5.65)
[2023-06-16 10:03] LABS: Anion Gap 12.3 (5-19); Blood Urea Nitrogen 18 mg/dL (8-23); Calcium 9.9 mg/dL (8.5-10.5); Carbon Dioxide 30 mmol/L (22-29); Chloride 98 mmol/L (98-107); Glucose 103 mg/dL (65-115); Osmolality Calculated 286 mOsm/kg (285-295); Potassium 3.3 mmol/L (3.5-5.1); Sodium 137 mmol/L (136-145)
== END 2023-06-16 09:37 | disposition home or self-care (01) ==
PROVIDERS: PCP Family Medicine; Visit Provider Family Medicine
DX: I10 Essential (primary) hypertension (principal); K62.5 Hemorrhage of anus and rectum; Z79.899 Other long term (current) drug therapy
CPT/HCPCS: 80048; 85025

== ENCOUNTER → 2023-06-22 08:25 | Outpatient (BNVA) | payer MEDICARE, OTHER, SELFPAY | PROVIDERS: PCP Family Medicine; Visit Provider Physician Assistant | DX: S32.502A Unspecified fracture of left pubis, initial encounter for closed fracture (principal); S32.501A Unspecified fracture of right pubis, initial encounter for closed fracture; W19.XXXA Unspecified fall, initial encounter | CPT/HCPCS: 72190; 99213 ==

== ENCOUNTER → 2023-07-25 10:24 | Outpatient (BNVA) | payer MEDICARE, OTHER, SELFPAY | PROVIDERS: PCP Family Medicine; Visit Provider Orthopaedic Surgery | DX: M54.9 Dorsalgia, unspecified (principal); Z09 Encounter for follow-up examination after completed treatment for conditions other than malignant neoplasm | CPT/HCPCS: 72072; 72100; 99213 ==

== ENCOUNTER 2023-07-28 12:16 | Outpatient (CLI) | payer MEDICARE, OTHER, SELFPAY ==
[2023-07-28 12:50] LABS: Anion Gap 16.9 (5-19); Blood Urea Nitrogen 14 mg/dL (8-23); Calcium 9.8 mg/dL (8.5-10.5); Carbon Dioxide 24 mmol/L (22-29); Chloride 96 mmol/L (98-107); Glucose 96 mg/dL (65-115); Osmolality Calculated 276 mOsm/kg (285-295); Potassium 3.9 mmol/L (3.5-5.1); Sodium 133 mmol/L (136-145)
== END 2023-07-28 12:17 | disposition home or self-care (01) ==
PROVIDERS: PCP Family Medicine; Visit Provider Family Medicine
DX: E87.6 Hypokalemia (principal)
CPT/HCPCS: 80048

== ENCOUNTER 2023-08-03 16:08 | Outpatient (CLI) | payer MEDICARE, OTHER, SELFPAY ==
[2023-08-03 18:12] LABS: Add Urine Microscopic? YES; Bilirubin Urine Neg (Negative); Blood Urine Neg (Negative); Glucose Urine UA Norm (Normal); Ketones Urine Negative (Negative); Leukocyte Esterase Urine 1+ (Negative); Nitrate Urine Negative (Negative); Protein Urine Neg (Negative); Urine Appearance Clear (CLEAR); Urine Color Yellow (Yellow); Urobilinogen Urine Norm (Negative); pH Urine 7 (5-7)
[2023-08-03 18:15] LABS: Add Urine Culture? No; RBC Urine 0-4 /hpf (0-2)
== END 2023-08-03 16:09 | disposition home or self-care (01) ==
LOC: LAB 16:10
PROVIDERS: PCP Family Medicine; Visit Provider Family Medicine
DX: N39.0 Urinary tract infection, site not specified (principal)
CPT/HCPCS: 81001; 87086

== ENCOUNTER 2023-10-25 18:53 | Outpatient (CLI) | payer MEDICARE, OTHER, SELFPAY ==
[2023-10-25 18:58] LABS: Charge for UA Resulting for Rev
[2023-10-25 19:26] LABS: Bilirubin Urine Negative (Negative); Blood Urine Negative (Negative); Glucose Urine UA Negative (Normal); Ketones Urine Trace (Negative); Leukocyte Esterase Urine 2+ (Negative); Nitrate Urine Negative (Negative); Protein Urine Negative (Negative); Specific Gravity, Urine 1.016 (1.005-1.030); Urine Appearance Clear (CLEAR); Urine Color Yellow (Yellow)
[2023-10-25 19:39] LABS: Bacteria Urine None Seen /hpf; Hyaline Casts Urine 0-4 /lpf; RBC Urine 0-2 /hpf (0-2); Squamous Epithelial Cell Urine 0-5 /hpf (0-5); WBC Urine >100 /hpf (0-5)
[2023-10-25 20:02] LABS: Add Urine Culture? No
== END 2023-10-25 18:54 | disposition home or self-care (01) ==
PROVIDERS: PCP Family Medicine; Visit Provider Family Medicine
DX: N39.0 Urinary tract infection, site not specified (principal)
CPT/HCPCS: 81003; 81015; 87086

== ENCOUNTER 2024-02-05 17:09 | Outpatient (CLI) | payer MEDICARE, OTHER, SELFPAY ==
[2024-02-05 17:18] LABS: Basophils % 0.6 %; Eosinophils # 0.1 10^3/uL (0.0-0.8); Eosinophils % 2.4 %; Hematocrit 40.3 % (36-47); Lymphocytes # 1.4 10^3/uL (0.8-4.8); Lymphocytes % 25.8 %; Mean Corpuscular Hemoglobin 31.3 pg (27-33); Mean Corpuscular Volume 94.8 fl (85-98); Mean Platelet Volume 8.5 fL (7.4-10.4); Monocytes # 1.1 10^3/uL (0.2-0.9); Monocytes % 20.9 %; Neutrophils # 2.68 10^3/uL (1.8-7.7); Neutrophils % 50.1 %; Nucleated Red Blood Cells % 0 %; Platelet Count 381 10^3/cmm (157-399); Red Blood Count 4.25 10^6/uL (3.85-5.65); Red Cell Distribution Width 13.5 % (12.1-15.1); White Blood Count 5.35 10^3/uL (3.29-11.43)
== END 2024-02-05 17:10 | disposition home or self-care (01) ==
LOC: LAB 17:12
PROVIDERS: PCP Family Medicine; Referring Provider Family Medicine; Visit Provider Family Medicine
DX: D64.9 Anemia, unspecified (principal)
CPT/HCPCS: 85025

== ENCOUNTER 2024-02-10 14:23 | Outpatient (CLI) | payer MEDICARE, OTHER, SELFPAY ==
[2024-02-10 15:02] LABS: Alanine Aminotransferase 10 U/L (0-33); Albumin Level 4.2 g/dL (3.5-5.2); Alkaline Phosphatase 72 U/L (35-105); Aspartate Amino Transferase 17 U/L (0-32); Blood Urea Nitrogen 17 mg/dL (8-23); Calcium 9.8 mg/dL (8.5-10.5); Carbon Dioxide 28 mmol/L (22-29); Chloride 95 mmol/L (98-107); Globulin 2.1 g/dL (1.3-4.6); Glucose 77 mg/dL (65-115); Magnesium 1.7 mg/dL (1.7-2.3); Osmolality Calculated 272 mOsm/kg (285-295); Sodium 131 mmol/L (136-145); Total Bilirubin 0.3 mg/dL (0.15-1.2); Total Protein 6.3 g/dL (6.6-8.7)
== END 2024-02-10 14:24 | disposition home or self-care (01) ==
PROVIDERS: Absent Provider Family Medicine; PCP Family Medicine; Visit Provider Family Medicine
DX: I10 Essential (primary) hypertension (principal)
CPT/HCPCS: 80053; 83735

== ENCOUNTER 2024-02-13 16:11 | Outpatient (CLI) | payer MEDICARE, OTHER, SELFPAY ==
[2024-02-13 16:27] LABS: Bilirubin Urine Negative (Negative); Blood Urine Negative (Negative); Glucose Urine UA Negative (Normal); Ketones Urine Negative (Negative); Leukocyte Esterase Urine Negative (Negative); Nitrate Urine Negative (Negative); Protein Urine Negative (Negative); Specific Gravity, Urine 1.019 (1.005-1.030); Urine Appearance Clear (CLEAR); Urine Color Yellow (Yellow); pH Urine 6.5 (5-7)
[2024-02-13 16:32] LABS: Add Urine Microscopic? YES; Bacteria Urine None Seen /hpf; Hyaline Casts Urine 2.87 /lpf; RBC Urine 0-2 /hpf (0-2); Squamous Epithelial Cell Urine 0-5 /hpf (0-5); WBC Urine 0-5 /hpf (0-5)
== END 2024-02-13 16:12 | disposition home or self-care (01) ==
PROVIDERS: PCP Family Medicine; Visit Provider Family Medicine
DX: N39.0 Urinary tract infection, site not specified (principal); R33.9 Retention of urine, unspecified
CPT/HCPCS: 81001; 87086

== ENCOUNTER → 2024-05-09 14:29 | Outpatient (BNVA) | payer MEDICARE, OTHER, SELFPAY | PROVIDERS: PCP Family Medicine; Visit Provider Orthopaedic Surgery | DX: M54.6 Pain in thoracic spine (principal); M48.54XG Collapsed vertebra, not elsewhere classified, thoracic region, subsequent encounter for fracture with delayed healing; X58.XXXD Exposure to other specified factors, subsequent encounter | CPT/HCPCS: 72072; 99213 ==

== ENCOUNTER → 2024-05-13 14:23 | Outpatient (BNVA) | payer MEDICARE, OTHER, SELFPAY | PROVIDERS: PCP Family Medicine; Visit Provider Nurse Practitioner Family | DX: L82.0 Inflamed seborrheic keratosis (principal); L21.8 Other seborrheic dermatitis; L57.8 Other skin changes due to chronic exposure to nonionizing radiation; D22.39 Melanocytic nevi of other parts of face | CPT/HCPCS: 99204 ==

== ENCOUNTER 2024-05-15 14:15 | Outpatient (CLI) | payer MEDICARE, OTHER, SELFPAY ==
--- NOTE | 2024-05-15 14:30 | MR_ITS ---
WS: [id number] MRI THORACIC SPINE WITHOUT CONTRAST TECHNIQUE: Sagittal T1, T2 and STIR imaging. Axial T2 imaging. Noncontrast imaging obtained. CLINICAL INFORMATION: thoracic compression fx COMPARISON: CT February 2023 FINDINGS: Marked thoracic kyphosis. Acute compression involving the T4 vertebral body with loss of approximately 40% vertebral body height and diffuse edema. This is new from the prior CT February 2023 minimal retropulsion of the posterior cortex. Slight effacement of the ventral thecal sac. No high-grade central canal stenosis. Chronic appearing compression at Q3-R4-A4-T8-T9 and T10. Small amount of edema and compression supreme plate of T11. Cord signal appears normal. Moderate facet arthropathy lower thoracic spine. Slightly ectatic descending thoracic aorta measuring 3.3 cm. Mild central canal stenosis cervical spine hepatologist imaging MR/MR thoracic spin wo con* [id number] IMPRESSION: 1. Acute compression involving the T4 vertebral body with minimal retropulsion with mild central canal stenosis at this level. 2. Additional small amount of acute compression superior endplate of T11
== END 2024-05-15 14:16 | disposition home or self-care (01) ==
LOC: RAD 14:16
PROVIDERS: PCP Family Medicine; Visit Provider Orthopaedic Surgery
DX: S22.049A Unspecified fracture of fourth thoracic vertebra, initial encounter for closed fracture (principal); S22.089A Unspecified fracture of T11-T12 vertebra, initial encounter for closed fracture; X58.XXXA Exposure to other specified factors, initial encounter; M48.04 Spinal stenosis, thoracic region; M40.294 Other kyphosis, thoracic region; M47.894 Other spondylosis, thoracic region; R93.7 Abnormal findings on diagnostic imaging of other parts of musculoskeletal system; M48.02 Spinal stenosis, cervical region
CPT/HCPCS: 72146

== ENCOUNTER → 2024-06-04 15:38 | Outpatient (BNVA) | payer MEDICARE, OTHER, SELFPAY | PROVIDERS: PCP Family Medicine; Visit Provider Orthopaedic Surgery | DX: Z09 Encounter for follow-up examination after completed treatment for conditions other than malignant neoplasm (principal) | CPT/HCPCS: 99213 ==

== ENCOUNTER 2024-07-06 07:36 | Outpatient (CLI) | payer MEDICARE, OTHER, SELFPAY ==
[2024-07-06 07:46] LABS: Basophils % 0.8 %; Eosinophils # 0.2 10^3/uL (0.0-0.8); Eosinophils % 3.5 %; Hematocrit 40.3 % (36-47); Lymphocytes # 1.3 10^3/uL (0.8-4.8); Lymphocytes % 25.5 %; Mean Corpuscular Hemoglobin 31.7 pg (27-33); Mean Platelet Volume 8.5 fL (7.4-10.4); Monocytes # 1.2 10^3/uL (0.2-0.9); Monocytes % 22.2 %; Neutrophils # 2.47 10^3/uL (1.8-7.7); Neutrophils % 47.8 %; Nucleated Red Blood Cells % 0 %; Platelet Count 332 10^3/cmm (157-399); Red Cell Distribution Width 13.1 % (12.1-15.1); White Blood Count 5.17 10^3/uL (3.29-11.43)
[2024-07-06 08:16] LABS: Alanine Aminotransferase 11 U/L (0-33); Albumin Level 4.3 g/dL (3.5-5.2); Alkaline Phosphatase 69 U/L (35-105); Anion Gap 12.7 (5-19); Aspartate Amino Transferase 19 U/L (0-32); Blood Urea Nitrogen 14 mg/dL (8-23); Calcium 9.6 mg/dL (8.5-10.5); Carbon Dioxide 27 mmol/L (22-29); Chloride 93 mmol/L (98-107); Globulin 2.6 g/dL (1.3-4.6); Glucose 94 mg/dL (65-115); Osmolality Calculated 268 mOsm/kg (285-295); Potassium 3.7 mmol/L (3.5-5.1); Sodium 129 mmol/L (136-145); Thyroid Stimulating Hormone 0.62 uIU/mL (0.27-4.20); Total Bilirubin 0.4 mg/dL (0.15-1.2); Total Protein 6.9 g/dL (6.6-8.7)
[2024-07-06 08:58] LABS: Vitamin B12 204 pg/mL (232-1245)
== END 2024-07-06 07:37 | disposition home or self-care (01) ==
LOC: LAB 07:39
PROVIDERS: PCP Family Medicine; Visit Provider Family Medicine
DX: I10 Essential (primary) hypertension (principal)
CPT/HCPCS: 80053; 82607; 84443; 85025

== ENCOUNTER → 2024-07-11 15:40 | Outpatient (BNVA) | payer MEDICARE, OTHER, SELFPAY | PROVIDERS: PCP Family Medicine; Visit Provider Orthopaedic Surgery | DX: S22.040A Wedge compression fracture of fourth thoracic vertebra, initial encounter for closed fracture (principal); X58.XXXA Exposure to other specified factors, initial encounter; M54.6 Pain in thoracic spine | CPT/HCPCS: 99213 ==

== ENCOUNTER → 2024-08-22 15:25 | Outpatient (BNVA) | payer MEDICARE, OTHER, SELFPAY | PROVIDERS: PCP Family Medicine; Visit Provider Orthopaedic Surgery | DX: M48.54XG Collapsed vertebra, not elsewhere classified, thoracic region, subsequent encounter for fracture with delayed healing (principal); X58.XXXD Exposure to other specified factors, subsequent encounter | CPT/HCPCS: 99213 ==

== ENCOUNTER 2024-09-14 11:13 | Outpatient (CLI) | payer MEDICARE, OTHER, SELFPAY ==
[2024-09-14 11:41] LABS: Hematocrit 38.7 % (36-47); Hemoglobin 13.00 g/dL (11.27-16.99); Mean Corpuscular HGB Conc 33.6 g/dL (30-55); Mean Corpuscular Hemoglobin 32.0 pg (27-33); Mean Corpuscular Volume 95.3 fl (85-98); Nucleated Red Blood Cells % 0 %; Platelet Count 303 10^3/cmm (157-399); Red Blood Count 4.06 10^6/uL (3.85-5.65); White Blood Count 5.01 10^3/uL (3.29-11.43)
[2024-09-14 12:04] LABS: Alanine Aminotransferase 11 U/L (0-33); Albumin Level 4.2 g/dL (3.5-5.2); Alkaline Phosphatase 65 U/L (35-105); Anion Gap 18.7 (5-19); Aspartate Amino Transferase 18 U/L (0-32); Blood Urea Nitrogen 21 mg/dL (8-23); Calcium 9.7 mg/dL (8.5-10.5); Carbon Dioxide 23 mmol/L (22-29); Chloride 95 mmol/L (98-107); Cholesterol 214 mg/dL (0-200); Globulin 2.2 g/dL (1.3-4.6); Glucose 74 mg/dL (65-115); HDL Cholesterol 78 mg/dL (60-100); Osmolality Calculated 278 mOsm/kg (285-295); Potassium 3.7 mmol/L (3.5-5.1); Sodium 133 mmol/L (136-145); Total Protein 6.4 g/dL (6.6-8.7); Triglycerides 125 mg/dL (0-150)
== END 2024-09-14 11:14 | disposition home or self-care (01) ==
PROVIDERS: PCP Family Medicine; Visit Provider Family Medicine
DX: E11.9 Type 2 diabetes mellitus without complications (principal); I10 Essential (primary) hypertension
CPT/HCPCS: 80053; 80061; 85025

== ENCOUNTER → 2024-09-17 14:36 | Outpatient (BNVA) | payer MEDICARE, OTHER, SELFPAY | PROVIDERS: PCP Family Medicine; Visit Provider Internal Medicine | DX: R00.1 Bradycardia, unspecified (principal); I49.3 Ventricular premature depolarization; I73.9 Peripheral vascular disease, unspecified; I65.29 Occlusion and stenosis of unspecified carotid artery; I11.0 Hypertensive heart disease with heart failure; I50.32 Chronic diastolic (congestive) heart failure; Z86.73 Personal history of transient ischemic attack (TIA), and cerebral infarction without residual deficits; Z87.891 Personal history of nicotine dependence; I25.2 Old myocardial infarction; R07.9 Chest pain, unspecified | CPT/HCPCS: 93005; 99204; 99213 ==

== ENCOUNTER 2024-10-09 14:10 | Outpatient (CLI) | payer MEDICARE, OTHER, SELFPAY ==
[2024-10-09 14:50] LABS: Glucose Urine UA Negative (Normal); Nitrate Urine Negative (Negative); Specific Gravity, Urine 1.015 (1.005-1.030)
[2024-10-09 15:03] LABS: Add Urine Microscopic? YES
[2024-10-09 15:08] LABS: UA Slide Review UA Slide Review Perf
== END 2024-10-09 14:11 | disposition home or self-care (01) ==
PROVIDERS: PCP Family Medicine; Visit Provider Family Medicine
DX: N39.0 Urinary tract infection, site not specified (principal)
CPT/HCPCS: 81001; 87086

== ENCOUNTER 2024-11-16 16:29 | Outpatient (CLI) | payer MEDICARE, OTHER, SELFPAY ==
[2024-11-16 17:13] LABS: Hematocrit 36.9 % (36-47); Hemoglobin 12.20 g/dL (11.27-16.99); Mean Corpuscular HGB Conc 33.1 g/dL (30-55); Mean Corpuscular Hemoglobin 31.0 pg (27-33); Mean Corpuscular Volume 93.9 fl (85-98); Nucleated Red Blood Cells % 0 %; Platelet Count 307 10^3/cmm (157-399); Red Blood Count 3.93 10^6/uL (3.85-5.65); White Blood Count 5.71 10^3/uL (3.29-11.43)
[2024-11-16 17:40] LABS: Alanine Aminotransferase 9 U/L (0-33); Albumin Level 3.8 g/dL (3.5-5.2); Alkaline Phosphatase 57 U/L (35-105); Anion Gap 17.6 (5-19); Aspartate Amino Transferase 16 U/L (0-32); Blood Urea Nitrogen 27 mg/dL (8-23); Calcium 9.2 mg/dL (8.5-10.5); Carbon Dioxide 24 mmol/L (22-29); Chloride 94 mmol/L (98-107); Globulin 2.1 g/dL (1.3-4.6); Glucose 136 mg/dL (65-115); Osmolality Calculated 281 mOsm/kg (285-295); Potassium 3.6 mmol/L (3.5-5.1); Sodium 132 mmol/L (136-145); Total Protein 5.9 g/dL (6.6-8.7)
== END 2024-11-16 16:30 | disposition home or self-care (01) ==
PROVIDERS: PCP Family Medicine; Visit Provider Family Medicine
DX: I10 Essential (primary) hypertension (principal)
CPT/HCPCS: 80053; 85025

== ENCOUNTER 2024-12-30 15:26 | Outpatient (CLI) | payer MEDICARE, OTHER, SELFPAY ==
[2024-12-30 15:46] LABS: Glucose Urine UA Negative (Normal); Nitrate Urine Negative (Negative); Specific Gravity, Urine 1.018 (1.005-1.030)
[2024-12-30 15:52] LABS: Add Urine Microscopic? YES
== END 2024-12-30 15:27 | disposition home or self-care (01) ==
LOC: LAB 15:28
PROVIDERS: PCP Family Medicine; Visit Provider Family Medicine
DX: N39.0 Urinary tract infection, site not specified (principal)
CPT/HCPCS: 81001; 87086

== ENCOUNTER 2025-02-01 16:10 | Outpatient (CLI) | payer MEDICARE, OTHER, SELFPAY ==
[2025-02-01 16:27] LABS: Glucose Urine UA Negative (Normal); Nitrate Urine Negative (Negative); Specific Gravity, Urine 1.010 (1.005-1.030)
[2025-02-01 16:32] LABS: Add Urine Microscopic? YES
== END 2025-02-01 16:11 | disposition home or self-care (01) ==
LOC: LAB 16:13
PROVIDERS: PCP Family Medicine; Visit Provider Family Medicine
DX: N39.0 Urinary tract infection, site not specified (principal)
CPT/HCPCS: 81001; 87086